=== PATIENT | male | born 1970 | race Caucasian/White ===

== ENCOUNTER 2022-01-05 14:40 | Inpatient (IN) | payer MEDICAID, SELFPAY ==
[2022-01-05 14:41] VITALS: BP 124/99; PULSE 94; RESP 16; TEMP 36.6; O2SAT 100; BMI 18.2
--- NOTE | 2022-01-05 14:58 | EKG12_ITS ---
Test Reason : Blood Pressure : / mmHG Vent. Rate : 082 BPM Atrial Rate : 082 BPM P-R Int : 158 ms QRS Dur : 100 ms QT Int : 542 ms P-R-T Axes : 074 081 061 degrees QTc Int : 633 ms Normal sinus rhythm Right atrial enlargement Nonspecific ST abnormality Prolonged QT Abnormal ECG Confirmed by IRAIDA BAGLEY, DENIZ ([id number]), television news video editor HARI JACKSON ([id number]) on 01/06/2022 1:25:16 PM Referred By: ADAM Confirmed By:DENIZ KHOURY MD
--- NOTE | 2022-01-05 15:00 | EX.ED.DYSGE1 ---
HPI History of Present Illness Chief Complaint: Weakness Detail of Chief Complaint: Generalized weakness for 2 to 3 weeks Informant: patient Narrative Narrative: Patient presents to the emergency department feeling weak for the last 2 to 3 weeks. He presents from home. Patient states he can barely get around with a cane and has to crawl up steps. Patient lives alone. Patient has history of laryngeal cancer with tracheostomy and PEG tube. Patient states that he has been given himself to tube feeds. He denies any fever. He denies significant cough. He denies abdominal pain. He denies vomiting. Patient does have diarrhea daily about once a day. Patient also states that he does drink alcohol but less of late. He does drink daily. He denies illicit drug use. Prior similar symptoms: No PFSH PFSH Medical History (Updated 01/05/22 @ 17:[address] Michael Duncan, ) HTN (hypertension) Laryngeal cancer Tracheostomy in place Home Medications atorvastatin 40 mg PO DAILY 01/05/22 [History Last Taken Unknown] duloxetine 30 mg PO DAILY 01/05/22 [History Last Taken Unknown] methadone 10 mg PO DAILY 01/05/22 [History Last Taken Unknown] omeprazole 40 mg PO DAILY 01/05/22 [History Last Taken Unknown] oxycodone 15 mg PO Q4H PRN 01/05/22 [History Last Taken Unknown] propranolol 40 mg PO BID 01/05/22 [History Last Taken Unknown] sucralfate [Carafate] 10 ml PO BID 01/05/22 [History Last Taken Unknown] Allergy/AdvReac Type Severity Reaction Status Date / Time No Known Allergies Allergy Verified 01/05/22 14:43 Surgical History (Updated 01/05/22 @ 15:50 by Monica Desai) S/P percutaneous endoscopic gastrostomy (PEG) tube placement Social History Smoking Status: Current every day smoker tobacco type: cigarettes ROS ROS ED Constitutional Constitutional ED: Reports systems reviewed and no addt'l complaints, except as documented; Denies body ache(s), change in weight or chills Eyes Eyes: Denies acute decrease in peripheral vision, change in vision, double vision or loss of vision ENT ENT ED: Reports none; Denies ear pain, lip swelling, loss taste/smell, neck pain, otalgia or sore throat Cardiovascular Cardiovascular: Reports none; Denies abdominal pain, chest pain with activity, leg edema, lightheadedness, palpitations, rapid heart rate or syncope Respiratory/Chest Respiratory/Chest: Reports none; Denies change in mental status, dry cough, dyspnea, hemoptysis, shortness of breath at rest or shortness of breath with exertion Gastrointestinal Gastrointestinal: Reports none; Denies abdominal pain, change in stool character, diarrhea, hematemesis, hematochezia, melena, rectal bleeding or vomiting Genitourinary Genitourinary ED: Reports none; Denies abdominal discomfort, anuria, dysuria, genital pain or polyuria Musculoskeletal Musculoskeletal: Reports none; Denies arthralgias, back pain, difficulty walking, extremity pain, muscle weakness or myalgias Integumentary Reports none; Denies abscess or rash Neurologic Neurologic: Reports none and weakness; Denies abnormal gait, confusion, focal weakness, frequent falls, headache(s), loss of vision, numbness, paresthesias, radicular pain or vertigo Psychiatric Psychiatric: Reports systems reviewed and no addt'l complaints, except as documented and none; Denies behavioral changes, confusion, difficulty concentrating, hallucinations, suicidal ideation, tactile hallucinations or visual hallucinations Endocrine Endocrinology: Denies none, cold intolerance, excessive sweating, fatigue or heat intolerance Hematologic/Lymphatic Hematologic/Lymphatic: Reports none; Denies anemia, easy bleeding or easy bruising Allergic/Immunologic Allergic/Immunologic ED: Denies as per HPI, none, lip swelling, mouth swelling, throat swelling, tongue swelling or hives EXAM Physical Exam Const Vital Signs: 01/05/22 14:41 01/05/22 15:48 01/05/22 17:15 Temperature 98 F Temperature Source Temporal Pulse Rate 94 76 Respiratory Rate 16 18 Respiratory Effort Normal Non-Labored Blood Pressure 124/99 H 126/87 H Blood Pressure Mean 107 100 Pulse Ox 100 97 Oxygen Delivery Method Room Air Room Air Positive well nourished and cachectic General Appearance ED: cachectic and NAD Nutritional Appearance: cachectic HEENT Reports TM's clear and moist mucous membranes HEENT Narrative: Tracheostomy in place. normocephalic and atraumatic; Negative for trauma or tenderness Tympanic Membrane ED: Yes TM's clear Eyes PERRL and EOMs intact bilaterally General Eye ED: Negative for pale conjunctiva or scleral icterus Neck no lymphadenopathy, supple and no JVD General: Negative for tenderness Chest Wall inspection of chest normal and palpation of chest normal Chest: Negative for tenderness Resp normal respiratory effort and clear to auscultation bilaterally Effort and Inspection: Negative for respiratory distress or pain with movement Auscultation: Negative for rhonchi, wheezes or diminished lung sounds Cardio regular rate, regular rhythm, S1 normal heart sound, S2 normal heart sound and no murmurs Peripheral Pulses: pulses 2+ throughout GI normal to inspection, nondistended, normoactive bowel sounds, soft to palpation, non-tender, non-distended and no masses GI Narrative: Patient has a PEG tube in place. No drainage from the PEG tube noted. No tenderness on exam. Back/Spine no CVA tenderness and no thoracic nor lumbar tenderness Extremity Extremity Narrative: Multiple superficial abrasions to both knees. General Extremety ED: Negative for edema General Extremity: Negative for edema Neuro oriented x3, CN's II-XII intact bilaterally, no sensory deficits noted and gait normal Sensorium / Orientation: awake, alert, oriented to person, oriented to place and oriented to time Motor Exam: strength 5/5 throughout and strength abnormal Psych mental status grossly normal Skin no rashes or lesions noted and no wounds MDM MDM MDM Narrative Medical decision making narrative: IV line established on arrival. Patient was given normal saline. Lab work-up significant for a low sodium of 122 and a potassium of 2.7. Chloride was 72. Patient was started on IV potassium 40 mill equivalents IV. Patient also noted to have a UTI and was started on Rocephin 1 g IV. Urine culture was sent. Case discussed with hospitalist evaluate patient for admission. Lab Data Attestation: I reviewed the patient's lab results. Labs: Laboratory Results - last 24 hr 01/05/22 01/05/22 01/05/22 16:10 16:10 16:25 WBC 4.8 RBC 4.93 Hgb 15.9 Hct 44.3 MCV 89.9 MCH 32.3 H MCHC 35.9 RDW Std Deviation 41.6 RDW Coeff of Rosemarie 12.7 Plt Count 273 MPV 8.8 Immature Gran % (Auto) 2.300 H Neut % (Auto) 80.2 H Lymph % (Auto) 4.2 L [place] % (Auto) 12.5 H Eos % (Auto) 0.0 Baso % (Auto) 0.8 Absolute Neuts (auto) 3.8 Absolute Lymphs (auto) 0.20 L Nucleated RBC % 0 Platelet Estimate ADEQUATE RBC Morphology N CHROM Anisocytosis 1+ Macrocytosis 1+ Sodium 122 L Potassium 2.7 L* Chloride 72 L* Carbon Dioxide 39.0 H Anion Gap 11 BUN 7 Creatinine 0.62 L Estim Creat Clear Calc 108.52 Est GFR (MDRD) Af Amer 174 Est GFR (MDRD) Non-Af 144 BUN/Creatinine Ratio 11.2 Glucose 131 H Lactic Acid 2.1 H* Calcium 9.6 Total Bilirubin 1.20 H AST 31 ALT 28 Alkaline Phosphatase 158 H Troponin I High Sens 9 Total Protein 7.8 Albumin 3.3 Globulin 4.5 H Albumin/Globulin Ratio 0.7 L Urine Color Urine Clarity Urine pH Ur Specific [place] Urine Protein Urine Glucose (UA) Urine Ketones Urine Occult Blood Urine Nitrite Urine Bilirubin Urine Urobilinogen Ur Leukocyte Esterase Urine RBC Urine WBC Ur Squamous Epith Cells Urine Bacteria Urine Mucus 01/05/22 16:55 WBC RBC Hgb Hct MCV MCH MCHC RDW Std Deviation RDW Coeff of Rosemarie Plt Count MPV Immature Gran % (Auto) Neut % (Auto) Lymph % (Auto) [place] % (Auto) Eos % (Auto) Baso % (Auto) Absolute Neuts (auto) Absolute Lymphs (auto) Nucleated RBC % Platelet Estimate RBC Morphology Anisocytosis Macrocytosis Sodium Potassium Chloride Carbon Dioxide Anion Gap BUN Creatinine Estim Creat Clear Calc Est GFR (MDRD) Af Amer Est GFR (MDRD) Non-Af BUN/Creatinine Ratio Glucose Lactic Acid Calcium Total Bilirubin AST ALT Alkaline Phosphatase Troponin I High Sens Total Protein Albumin Globulin Albumin/Globulin Ratio Urine Color Yellow Urine Clarity Sl. Cloudy Urine pH 8.0 Ur Specific [place] 1.010 Urine Protein 30 H Urine Glucose (UA) Normal Urine Ketones 5 H Urine Occult Blood 25 H Urine Nitrite Positive H Urine Bilirubin Negative Urine Urobilinogen 4 H Ur Leukocyte Esterase 500 H Urine RBC 0-5 SEEN Urine WBC 50-100 SEEN Ur Squamous Epith Cells 0-5 SEEN Urine Bacteria 4+ Urine Mucus 0 SEEN Radiography Chest X-Ray - ED: 1 View Diagnostic Testing: Clinical Impression(s) from Imaging Studies Chest X-Ray 01/05/22 15:14 IMPRESSION: No acute cardiopulmonary abnormality. Electronically Signed: Emmanuel Riley MD at 15:28 EDT , 1 view chest x-ray obtained interpreted by myself no acute disease process EKG Initial EKG: Attestation: I personally reviewed and interpreted this EKG as follows: Comments: Sinus rhythm with a rate of 82 bpm with right atrial enlargement and nonspecific ST changes Discharge Plan Triage Chief Complaint: Weakness ED Provider: Michael Duncan Dx/Rx/DC Orders Clinical Impression: Acute hyponatremia, Acute hypokalemia, Hypochloremia, Weakness, Acute UTI Prescriptions: No Action loperamide 2 mg capsule RF: 0 Primary Care Provider: Wes Parry Referrals: Wes Parry DO [Primary Care Provider] - Disposition Disposition: Acute Care [facility]
--- NOTE | 2022-01-05 15:14 | RAD_ITS ---
EXAM: XR CHEST, 1 VIEW CLINICAL INDICATION: weakness TECHNIQUE: Frontal view of the chest. This report was created using trippiece report generation technology. COMPARISON: None. FINDINGS: LUNGS AND PLEURAL SPACES: Unremarkable. No consolidation or edema. No pneumothorax. No effusion. HEART: Unremarkable. Cardiac silhouette not enlarged. MEDIASTINUM: Central airways and mediastinal contour are unremarkable. BONES/JOINTS: Unremarkable. SOFT TISSUES: Unremarkable. TUBES, LINES AND DEVICES: Tracheostomy tube in satisfactory position. RAD/Chest 1 View (Portable) IMPRESSION: No acute cardiopulmonary abnormality. Electronically Signed: Emmanuel Riley MD at 15:28 EDT ,
[2022-01-05] MEDS: 0.9% Normal Saline 1,000 ML 150 ML IV ×2 (16:15→18:42)
[2022-01-05 16:16] LABS: Absolute Neutrophil Count 3.8 X10^3/uL (2.0-7.7); Basophil# 0.04 X10^3/uL; Basophil% 0.8 % (0-1); Hematocrit 44.3 % (40-54); Hemoglobin 15.9 g/dL (13.0-16.5); Lymphocyte % 4.2 % (19-41); Mean Corp Hgb Conc 35.9 g/dL (32-36); Mean Corpuscular Hgb 32.3 pg (27.0-32.0); Mean Corpuscular Volume 89.9 fL (80-94); Mean Platelet Vol. 8.8 fl (6.2-12.0); Monocyte% 12.5 % (0-10); NRBC Flagged by Analyzer 0 % (0-5); Neutrophil # 3.84 X10^3/uL (2.7-7.7); Neutrophil % 80.2 % (47-70); POSITIVE DIFFERENTIAL YES; Platelet Count 273 K/mm3 (150-450); RBC Distribution Width CV 12.7 % (11.6-14.6); RBC Distribution Width SD 41.6 fl (35.1-43.9); Red Blood Count 4.93 M/mm3 (4.6-6.2); White Blood Count 4.8 K/mm3 (4.4-11.0)
[2022-01-05 16:26] LABS: Differential Indicated SCAN CRITERIA MET
[2022-01-05 16:49] LABS: Platelet Estimate ADEQUATE (ADEQ); Red Cell Morphology N CHROM NORMAL (NORM C&C)
[2022-01-05 16:50] LABS: Anisocytosis 1+; Macrocytosis 1+
[2022-01-05 16:55] LABS: ALB/GLOB Ratio 0.7 RATIO (0.9-2.4); AST(SGOT) 31 U/L (15-37); Alanine Aminotransfer ALT/SGPT 28 U/L (16-61); Albumin, Serum 3.3 g/dL (3.2-5.0); Alkaline Phosphatase 158 U/L (45-117); Anion Gap 11 (5-15); BUN 7 mg/dL (7-18); BUN/Creat Ratio 11.2 RATIO (10-20); Calcium,Total 9.6 mg/dL (8.5-10.1); Chloride 72 mmol/L (98-107); Creatinine, Serum 0.62 mg/dL (0.70-1.30); EST Glomerular Filtration Rate 144 mL/min (>60); Est Glom Filt Rate - Afr Amer 174 mL/min (>60); Estimated Creatinine Clearance 108.52 ml/min; Globulin 4.5 g/dL (2.2-4.2); Glucose 131 mg/dL (74-106); Potassium 2.7 mmol/L (3.5-5.1); Protein, Total 7.8 g/dL (6.4-8.2); Sodium Level 122 mmol/L (136-145); Troponin-I HS 9 pg/mL (3.0-78.0)
[2022-01-05 16:56] LABS: Lactic Acid 2.1 mmol/L (0.4-1.9)
[2022-01-05 17:00] LABS: Mucous, Urine 0 SEEN /hpf (<or=2+)
[2022-01-05 17:01] LABS: Color, Urine Yellow (Yellow); Glucose, Dipstick Normal (Normal); Ketone-Dipstick 5 mg/dl (Negative); Leukocyte Esterase-Dipstick 500 /ul (Negative); Nitrite-Dipstick Positive (Negative); Occult Blood-Urine 25 /ul (Negative); Protein-Dipstick 30 mg/dl (Negative); Urine Bilirubin Dipstick Negative (Negative); Urine Clarity Sl. Cloudy (Clear); Urine Urobilinogen 4 mg/dl (Normal)
[2022-01-05 17:11] LABS: White Blood Cells 50-100 SEEN /hpf (0-5)
[2022-01-05 17:12] LABS: Bacteria 4+ /hpf (None Seen); Red Blood Cells-Urine 0-5 SEEN /hpf (0-5); Squamous Epithelial Cells - UA 0-5 SEEN /hpf (0-5)
[2022-01-05 17:15] VITALS: BP 126/87; PULSE 76; RESP 18; O2SAT 97
[2022-01-05] MEDS: Potassium Chloride 10mEq/100mL 10 MEQ/100 ML IV.SOLN. 100 MEQ IV BOLUS ×5 (17:38→23:12)
[2022-01-05] MEDS: Ceftriaxone 1 GM/50 ML BAG IV (17:42)
[2022-01-05 18:00] VITALS: BP 118/80; PULSE 74; RESP 21; TEMP 36.8; O2SAT 97
[2022-01-05 18:01] LABS: Alcohol, Blood (Medical)-Serum < 3.0 mg/dL
[2022-01-05 18:05] VITALS: BMI 17.7
--- NOTE | 2022-01-05 18:06 | HP.PCM.HOS_ITS ---
Documented by User: Vicky Okeefe NP, SENIOR ENLISTED ADVISOR-C 01/05/22 18:33 HPI - General General Date of Admission: 01/05/22 HPI Narrative MATTHIEU DU, is a 51 M who presents to the emergency room due to diarrhea, weakness and falls. Patient states this has been ongoing for 2 to 3 weeks. He reports multiple episodes of watery diarrhea daily. Denies nausea, vomiting. D enies fever, chills. Sister at bedside states she received a concerning text from patient yesterday and then did not hear back from him. She states she broke in to his house through a window to check on him and he was sitting in his chair. She states he had not been able to get up to take care of himself. She returned today to take him to the emergency room and when she knocked on the door, she states he answered and then face planted onto the concrete. Patient reports chronic alcohol use and typically drinks 12 beers per day through PEG tube. He has a history of laryngeal cancer with tracheostomy and PEG tube. He states he only takes sips of water occasionally, otherwise uses PEG tube for feeding and liquids. He denies abdominal pain. Denies history of withdrawal symptoms. Denies other drug use. His past medical history includes laryngeal cancer (considered in remission), tobacco dependence, hyperlipidemia, hypertension, depression/anxiety. [facility] Medical History HTN (hypertension) Laryngeal cancer Tracheostomy in place Home Medications atorvastatin 40 mg PO DAILY 01/05/22 [History Last Taken 01/04/22] duloxetine 30 mg PO DAILY 01/05/22 [History Last Taken 01/04/22] methadone 10 mg PO DAILY 01/05/22 [History Last Taken 01/04/22] omeprazole 40 mg PO DAILY 01/05/22 [History Last Taken 01/04/22] oxycodone 15 mg PO Q4H PRN 01/05/22 [History Last Taken 01/04/22] propranolol 40 mg PO BID 01/05/22 [History Last Taken 01/04/22] sucralfate [Carafate] 10 ml PO BID 01/05/22 [History Last Taken 01/04/22] Allergy/AdvReac Type Severity Reaction Status Date / Time No Known Allergies Allergy Verified 01/05/22 14:43 Family History (Updated 01/05/22 @ 18:20 by Vicky Okeefe NP, SENIOR ENLISTED ADVISOR-C) Mother Cancer cervical Father Heart disease Surgical History (Updated 01/05/22 @ 18:20 by Vicky Okeefe NP, SENIOR ENLISTED ADVISOR-C) H/O tracheostomy S/P percutaneous endoscopic gastrostomy (PEG) tube placement Social History (Updated 01/05/22 @ 18:21 by Vicky Okeefe NP, SENIOR ENLISTED ADVISOR-C) household members: none Smoking Status: Current every day smoker tobacco type: cigarettes alcohol intake: current alcohol intake frequency: 3 or more drinks per day Alcohol type: beer substance use type: does not use ROS Constitutional Constitutional: Reports change in weight, fatigue and weakness; Denies chills or fever(s) Cardiovascular Cardiovascular: Denies chest pain, edema, lightheadedness, palpitations or syncope Respiratory/Chest Respiratory/Chest: Denies cough, dyspnea, productive cough, shortness of breath at rest, shortness of breath with exertion or wheezing Gastrointestinal Gastrointestinal: Reports diarrhea; Denies abdominal pain, constipation, nausea or vomiting Genitourinary Genitourinary: Denies burning urination, difficulty urinating, dysuria, hematuria, urinary frequency, urinary incontinence or urinary urgency Musculoskeletal Musculoskeletal: Denies back pain, joint pain or muscle weakness Integumentary Integumentary: Denies erythema, lesions, rash or wounds Neurologic Neurologic: Denies abnormal speech, confusion, dizziness, focal weakness, numbness, paresthesias, seizure-like activity or syncope Psychiatric Psychiatric: Denies anxiety or depression Hematologic/Lymphatic Hematologic/Lymphatic: Denies anemia, easy bleeding or easy bruising Allergic/Immunologic Allergic/Immunologic: Denies hives or asthma Vital Signs Vital Signs Vital Signs: 01/05/22 14:41 01/05/22 15:48 01/05/22 17:15 Temperature 98 F Temperature Source Temporal Pulse Rate 94 76 Respiratory Rate 16 18 Respiratory Effort Normal Non-Labored Blood Pressure 124/99 H 126/87 H Blood Pressure Mean 107 100 Pulse Ox 100 97 Oxygen Delivery Method Room Air Room Air Weight Weight: 116 lb 9.6 oz Body Mass Index (BMI) 17.7 Physical Exam Const alert and oriented x3 Orientation / Consciousness: awake, oriented to person, oriented to place and oriented to time HEENT normocephalic HEENT Narrative: Tracheostomy in place Mouth: dry mucous membranes Eyes PERRL, EOMs intact bilaterally and conjunctivae normal Neck no lymphadenopathy Resp normal respiratory effort and clear to auscultation bilaterally Cardio regular rate, regular rhythm and no murmurs Peripheral Pulses: pulses 2+ throughout GI normal to inspection, nondistended, normoactive bowel sounds, non-tender and non-distended GI Narrative: PEG tube in place Extremity normal to inspection Skin no rashes or lesions noted Lesions: no lesions Rashes: no rashes Trauma: no lacerations or abrasions Neuro CN's II-XII intact bilaterally, no focal motor deficits, no sensory deficits noted and deep tendon reflexes 2+ bilaterally Psych mental status grossly normal and affect normal Results Lab / Micro Data Result Diagrams: 01/05/22 16:10 01/05/22 16:10 Labs: Laboratory Results - last 24 hr 01/05/22 16:10: WBC 4.8, RBC 4.93, Hgb 15.9, Hct 44.3, MCV 89.9, MCH 32.3 H, MCHC 35.9, RDW Std Deviation 41.6, RDW Coeff of Rosemarie 12.7, Plt Count 273, MPV 8.8, Immature Gran % (Auto) 2.300 H, Neut % (Auto) 80.2 H, Lymph % (Auto) 4.2 L, [place] % (Auto) 12.5 H, Eos % (Auto) 0.0, Baso % (Auto) 0.8, Absolute Neuts (auto) 3.8, Absolute Lymphs (auto) 0.20 L, Nucleated RBC % 0, Platelet Estimate ADEQUATE, RBC Morphology N CHROM, Anisocytosis 1+, Macrocytosis 1+ 01/05/22 16:10: Sodium 122 L, Potassium 2.7 L*, Chloride 72 L*, Carbon Dioxide 39.0 H, Anion Gap 11, BUN 7, Creatinine 0.62 L, Estim Creat Clear Calc 108.52, Est GFR (MDRD) Af Amer 174, Est GFR (MDRD) Non-Af 144, BUN/Creatinine Ratio 11.2, Glucose 131 H, Calcium 9.6, Total Bilirubin 1.20 H, AST 31, ALT 28, Alkaline Phosphatase 158 H, Troponin I High Sens 9, Total Protein 7.8, Albumin 3.3, Globulin 4.5 H, Albumin/Globulin Ratio 0.7 L 01/05/22 16:25: Ethyl Alcohol < 3.0 01/05/22 16:25: Lactic Acid 2.1 H* 01/05/22 16:55: Urine Color Yellow, Urine Clarity Sl. Cloudy, Urine pH 8.0, Ur Specific [place] 1.010, Urine Protein 30 H, Urine Glucose (UA) Normal, Urine Ketones 5 H, Urine Occult Blood 25 H, Urine Nitrite Positive H, Urine Bilirubin Negative, Urine Urobilinogen 4 H, Ur Leukocyte Esterase 500 H, Urine RBC 0-5 SEEN, Urine WBC 50-100 SEEN, Ur Squamous Epith Cells 0-5 SEEN, Urine Bacteria 4+, Urine Mucus 0 SEEN Micro: Microbiology 01/05/22 15:24 Nasal Secretion SARS-CoV-2 & FLU Antigen (Rapid) - Final Radiology Impression Chest X-Ray 01/05/22 15:14 IMPRESSION: No acute cardiopulmonary abnormality. Electronically Signed: Emmanuel Riley MD at 15:28 EDT Reading Location ID and State: [facility] / [place] Tel , Service support , Assessment & Plan Assessment/Plan (1) Acute hyponatremia: (2) Acute hypokalemia: (3) Acute UTI: (4) Weakness: PLAN: 1. Hypokalemia, secondary to GI losses and alcohol use- replace per protocol. Trend BMP. 2. Acute hyponatremia-likely related to hypovolemia and/or beer protomania. IV fluids, trend BMP. 3. Acute UTI-IV Rocephin pending culture. 4. Debility with falls-PT/OT. Case management/social work consult for discharge planning. Fall precautions. 5. Alcohol abuse-admits to 12 beers per day per PEG tube. CIWA/Ativan protocol. Declines addiction medicine consult. Denies history of withdrawal symptoms. 6. Intractable diarrhea-send stool for C. difficile, enteric pathogen panel. 7. Laryngeal cancer-considered in remission. Status post tracheostomy. PEG tube in place. Dietitian/speech therapy consult. NPO. 8. Tobacco dependence-strongly encouraged cessation. Nicotine replacement patch. 9. Hyperlipidemia-continue statin. 10. Hypertension-continue propranolol. 11. Depression/anxiety on duloxetine. 12. Chronic pain-on methadone. 13. GERD- PPI/carafate. DVT prophylaxis-Heparin subcu This patient was seen by Vicky Okeefe NP-C under the supervision of Dr. Leal. Time spent examining patient, reviewing data and subsequent management of care: 25 minutes Documented by User: Dr. Breanna Leal MD 01/05/22 19:14 HPI - General General Date of Admission: 01/05/22 [facility] Medical History HTN (hypertension) Laryngeal cancer Tracheostomy in place Home Medications atorvastatin 40 mg PO DAILY 01/05/22 [History Last Taken 01/04/22] duloxetine 30 mg PO DAILY 01/05/22 [History Last Taken 01/04/22] methadone 10 mg PO DAILY 01/05/22 [History Last Taken 01/04/22] omeprazole 40 mg PO DAILY 01/05/22 [History Last Taken 01/04/22] oxycodone 15 mg PO Q4H PRN 01/05/22 [History Last Taken 01/04/22] propranolol 40 mg PO BID 01/05/22 [History Last Taken 01/04/22] sucralfate [Carafate] 10 ml PO BID 01/05/22 [History Last Taken 01/04/22] Allergy/AdvReac Type Severity Reaction Status Date / Time No Known Allergies Allergy Verified 01/05/22 14:43 Family History (Updated 01/05/22 @ 18:20 by Vicky Okeefe NP, SENIOR ENLISTED ADVISOR-C) Mother Cancer cervical Father Heart disease Surgical History (Updated 01/05/22 @ 18:20 by Vicky Okeefe NP, SENIOR ENLISTED ADVISOR-C) H/O tracheostomy S/P percutaneous endoscopic gastrostomy (PEG) tube placement Social History (Updated 01/05/22 @ 18:21 by Vicky Okeefe NP, SENIOR ENLISTED ADVISOR-C) household members: none Smoking Status: Current every day smoker tobacco type: cigarettes alcohol intake: current alcohol intake frequency: 3 or more drinks per day Alcohol type: beer substance use type: does not use Results Lab / Micro Data Result Diagrams: 01/05/22 16:10 01/05/22 16:10 Charges/Coding Addendum Addendum: This patient was seen in conjunction with Vicky Okeefe NP. I have independently interviewed and examined the patient and reviewed pertinent historical, laboratory, and other data. I have reviewed her note and concur with her documentation 51-year-old male with past medical history of laryngeal CA in remission, status post tracheostomy and PEG tube, history of chronic alcohol use who comes in with generalized weakness. Patient lives alone. His sister checked on him and found him to be very weak. He convinced him that she was not sent to the hospital the next day. Today, as patient opened the door, he fell down face flat. He denied any dizziness or palpitation but admits to feeling very weak. Denies any fever or chills. He admits to diarrhea, profuse, ongoing for months, about 2 large watery bowel movements. He continues to smoke Physical Exam: Gen: Comfortable, not pale, not jaundiced, appears frail, tracheostomy in place CVS:HS I +II, regular, no murmurs RESP: Diminished at lung bases GI: PEG tube in situ, clean, BS present and normal, soft, nontender, no palpable organs EXT:No edema Labs: Sodium 122, potassium 2.7, chloride 72, bicarbonate 39, BUN 7, creatinine 0.6, lactic acid 2.1 ASSESSMENT: 1. Acute on chronic debility 2. Severe hypokalemia 3. Lactic acidosis 4. Laryngeal CA in remission 5. Nicotine dependence 6. Alcohol abuse 7. Chronic diarrhea 8. Chronic pain syndrome 9. Asymptomatic bacteriuria Plan: Replace electrolytes Check magnesium level IV fluid PT/OT to evaluate and treat Stool studies Continue on methadone, oxycodone Continue propranolol Continue Cymbalta Monitor with CIWA protocol Time spent taking history, physical exam, coordinating all aspects of patient's care, answering questions from patient and his sister:55 minutes Visit Charges Inpatient E&M: 10648 Init Hosp L3
[2022-01-05 18:11] VITALS: PULSE 70
[2022-01-05 20:32] LABS: Reflex Lactate? Y
[2022-01-05 21:11] LABS: Magnesium 2.1 mg/dL (1.6-2.6)
[2022-01-05 21:24] LABS: Lactic Acid 1.8 mmol/L (0.4-1.9)
[2022-01-05] MEDS: Heparin Injection (Vial) 5,000 UNIT/ML VIAL 5000 UNIT SC (23:16)
[2022-01-05 23:19] VITALS: BP 108/74; PULSE 59; RESP 20; TEMP 36.9; O2SAT 97
[2022-01-05] MEDS: Atorvastatin Calcium 40 MG Tablet PO (23:19)
[2022-01-06] VITALS (11 sets, daily range): BP systolic 107–136; BP diastolic 74–88; PULSE 57–92; RESP 14–20; TEMP 36.1–36.7; O2SAT 94–99
[2022-01-06] MEDS: Potassium Chloride 10mEq/100mL 10 MEQ/100 ML IV.SOLN. 100 MEQ IV BOLUS ×5 (00:27→09:13)
[2022-01-06] MEDS: 0.9% Normal Saline 1,000 ML 150 ML IV ×2 (01:27→09:12)
[2022-01-06 04:32] LABS: Absolute Lymphocyte Count 0.26 X10^3/uL (0.83-4.51); Basophil# 0.01 X10^3/uL; Basophil% 0.4 % (0-1); Hematocrit 32.4 % (40-54); Hemoglobin 11.7 g/dL (13.0-16.5); Lymphocyte # 0.26 X10^3/ul (0.83-4.51); Lymphocyte % 9.3 % (19-41); Mean Corp Hgb Conc 36.1 g/dL (32-36); Mean Corpuscular Hgb 33.1 pg (27.0-32.0); Mean Corpuscular Volume 91.8 fL (80-94); Mean Platelet Vol. 8.8 fl (6.2-12.0); Monocyte# 0.47 X10^3/uL; Monocyte% 16.7 % (0-10); NRBC Flagged by Analyzer 0 % (0-5); Neutrophil % 71.1 % (47-70); POSITIVE DIFFERENTIAL YES; Platelet Count 221 K/mm3 (150-450); RBC Distribution Width SD 43.3 fl (35.1-43.9); Red Blood Count 3.53 M/mm3 (4.6-6.2); White Blood Count 2.8 K/mm3 (4.4-11.0)
[2022-01-06 04:54] LABS: Differential Indicated SCAN CRITERIA MET
[2022-01-06 05:18] LABS: ALB/GLOB Ratio 0.7 RATIO (0.9-2.4); AST(SGOT) 18 U/L (15-37); Alanine Aminotransfer ALT/SGPT 19 U/L (16-61); Albumin, Serum 2.2 g/dL (3.2-5.0); Alkaline Phosphatase 105 U/L (45-117); Anion Gap 8 (5-15); BUN 6 mg/dL (7-18); BUN/Creat Ratio 19.8 RATIO (10-20); Calcium,Total 7.6 mg/dL (8.5-10.1); Chloride 84 mmol/L (98-107); EST Glomerular Filtration Rate 331 mL/min (>60); Est Glom Filt Rate - Afr Amer 401 mL/min (>60); Estimated Creatinine Clearance 228.27 ml/min; Globulin 3.2 g/dL (2.2-4.2); Glucose 89 mg/dL (74-106); Potassium 2.1 mmol/L (3.5-5.1); Protein, Total 5.4 g/dL (6.4-8.2); Sodium Level 126 mmol/L (136-145)
--- NOTE | 2022-01-06 05:18 | NURSING ---
Pts primary rn aware of k of 2.1 at this time.
[2022-01-06 05:29] LABS: Differential Comment SCANNED
[2022-01-06] MEDS: Propranolol 40 MG Tablet PO ×2 (09:30→20:30)
[2022-01-06] MEDS: Potassium Chloride Oral Tablet 20 MEQ 40 MEQ PO (09:30)
[2022-01-06] MEDS: Thiamine Hydrochloride 100 MG Tablet PO (09:30)
[2022-01-06] MEDS: Folic Acid 1 MG Tablet PO (09:30)
[2022-01-06] MEDS: Pantoprazole Sodium 40 MG Tablet PO (09:30)
[2022-01-06] MEDS: Sucralfate 1 GM Tablet PO ×2 (09:30→17:02)
[2022-01-06] MEDS: DULoxetine Hcl 30 MG Capsule PO (09:30)
[2022-01-06] MEDS: Heparin Injection (Vial) 5,000 UNIT/ML VIAL 5000 UNIT SC ×2 (09:31→20:29)
--- NOTE | 2022-01-06 10:51 | PN.HOSP_ITS ---
Documented by User: Vicky Okeefe EDITORIAL WRITER, EDITORIAL WRITER-C 01/06/22 11:03 Subjective Subjective Patient seen and examined. Denies further diarrhea. States he still feels weak. Denies other symptoms or complaints. Objective Data Objective Data Vital Signs: Vital Signs Temp Pulse Resp BP Pulse Ox 97.8 F 64 20 H 120/78 94 01/06/22 09:27 01/06/22 09:27 01/06/22 09:27 01/06/22 09:27 01/06/22 09:27 Oxygen Delivery Method Room Air Weight: 122 lb 2.177 oz Body Mass Index (BMI) 17.7 Intake & Output: Intake and Output for Last 24 Hours 01/04/22 01/05/22 01/06/22 23:59 23:59 23:59 Intake Total 817.5 / 817.5 2630 / 2630 Output Total 175 / 175 Balance 817.5 / 817.5 2455 / 2455 Medical Nutrition Assessment Dietitian: Malnutrition Criteria Met Start: 01/06/22 09:34 Freq: Status: Active Protocol: Document 01/06/22 09:34 AG (Rec: 01/06/22 09:34 [id number]) Nutrition Malnutrition Evidence of Malnutrition Exists Yes Malnutrition (severe): Chronic Evidenced By Suboptimal Energy Intake ( Severe),Weight Loss (Severe), Physical Changes (Severe) Clinical Problem Chronic Disease or Condition Related Malnutrition Etiology severe, chronic malnutrition r /t inadequate energy intake w/ increased energy needs w/ history of laryngeal cancer Signs/Symptoms as evidenced by unintentional wt loss of 38.4#/25% x 1 year; estimated energy intake via PEG/PO diet meeting <75% of estimated energy needs x 1 year; severe muscle wasting/ fat loss per physical exam; BMI 18.6 Status Active Problem Recommendation Dietitian Recommendations/Changes Via PEG- Jevity 1.5- 450mL 3x/ day w/ 75mL H2O flush before and after each bolus to provide 2025 calories, 86 g protein, and 1476mL total fluid/day. Would recommend additional 75mL H2O flushes via PEG every 4 hours to provide 1926mL total fluid/day . Will also order Royce BID via PEG mixed in 240mL H2O. NPO until CUSTOMER CARE SPECIALIST evaluation. Lab / Micro Data Result Diagrams: 01/06/22 03:58 01/06/22 17:23 Labs: Laboratory Results - last 24 hr 01/05/22 16:10: WBC 4.8, RBC 4.93, Hgb 15.9, Hct 44.3, MCV 89.9, MCH 32.3 H, MCHC 35.9, RDW Std Deviation 41.6, RDW Coeff of Rosemarie 12.7, Plt Count 273, MPV 8.8, Immature Gran % (Auto) 2.300 H, Neut % (Auto) 80.2 H, Lymph % (Auto) 4.2 L, [place] % (Auto) 12.5 H, Eos % (Auto) 0.0, Baso % (Auto) 0.8, Absolute Neuts (auto) 3.8, Absolute Lymphs (auto) 0.20 L, Nucleated RBC % 0, Platelet Estimate ADEQUATE, RBC Morphology N CHROM, Anisocytosis 1+, Macrocytosis 1+ 01/05/22 16:10: Sodium 122 L, Potassium 2.7 L*, Chloride 72 L*, Carbon Dioxide 39.0 H, Anion Gap 11, BUN 7, Creatinine 0.62 L, Estim Creat Clear Calc 108.52, Est GFR (MDRD) Af Amer 174, Est GFR (MDRD) Non-Af 144, BUN/Creatinine Ratio 11.2, Glucose 131 H, Calcium 9.6, Total Bilirubin 1.20 H, AST 31, ALT 28, Alkaline Phosphatase 158 H, Troponin I High Sens 9, Total Protein 7.8, Albumin 3.3, Globulin 4.5 H, Albumin/Globulin Ratio 0.7 L 01/05/22 16:10: Magnesium 2.1 01/05/22 16:25: Ethyl Alcohol < 3.0 01/05/22 16:25: Lactic Acid 2.1 H* 01/05/22 16:55: Urine Color Yellow, Urine Clarity Sl. Cloudy, Urine pH 8.0, Ur Specific Erie 1.010, Urine Protein 30 H, Urine Glucose (UA) Normal, Urine Ketones 5 H, Urine Occult Blood 25 H, Urine Nitrite Positive H, Urine Bilirubin Negative, Urine Urobilinogen 4 H, Ur Leukocyte Esterase 500 H, Urine RBC 0-5 SEEN, Urine WBC 50-100 SEEN, Ur Squamous Epith Cells 0-5 SEEN, Urine Bacteria 4+, Urine Mucus 0 SEEN 01/05/22 20:45: Lactic Acid 1.8 01/06/22 03:58: WBC 2.8 L, RBC 3.53 L, Hgb 11.7 L, Hct 32.4 L, MCV 91.8, MCH 33.1 H, MCHC 36.1 H, RDW Std Deviation 43.3, RDW Coeff of Rosemarie 13.0, Plt Count 221, MPV 8.8, Immature Gran % (Auto) 2.500 H, Neut % (Auto) 71.1 H, Lymph % (Auto) 9.3 L, Rac[place] % (Auto) 16.7 H, Eos % (Auto) 0.0, Baso % (Auto) 0.4, Absolute Neuts (auto) 2.0, Absolute Lymphs (auto) 0.26 L, Nucleated RBC % 0, Differential Comment SCANNED, Diff Path Review December01/06/22 03:58: Sodium 126 L, Potassium 2.1 L*, Chloride 84 L, Carbon Dioxide 34.0 H, Anion Gap 8, BUN 6 L, Creatinine 0.30 L, Estim Creat Clear Calc 228.27, Est GFR (MDRD) Af Amer 401, Est GFR (MDRD) Non-Af 331, BUN/Creatinine Ratio 19.8, Glucose 89, Calcium 7.6 L, Total Bilirubin 0.70, AST 18, ALT 19, Alkaline Phosphatase 105, Total Protein 5.4 L, Albumin 2.2 L, Globulin 3.2, Albumin/Globulin Ratio 0.7 L Micro: Microbiology 01/05/22 15:24 Nasal Secretion SARS-CoV-2 & FLU Antigen (Rapid) - Final Radiography Diagnostic Testing: Radiology Impression Chest X-Ray 01/05/22 15:14 IMPRESSION: No acute cardiopulmonary abnormality. Electronically Signed: Emmanuel Riley MD at 15:28 EDT , Physical Exam Const alert, oriented x3 and no apparent distress Orientation / Consciousness: awake, oriented to person, oriented to place and oriented to time Nutritional Appearance: cachectic HEENT normocephalic HEENT Narrative: Tracheostomy in place Mouth: dry mucous membranes Eyes PERRL, EOMs intact bilaterally and conjunctivae normal Neck no lymphadenopathy Resp normal respiratory effort and clear to auscultation bilaterally Cardio regular rate, regular rhythm and no murmurs Peripheral Pulses: pulses 2+ throughout GI normal to inspection, nondistended, normoactive bowel sounds, non-tender and non-distended GI Narrative: PEG tube in place Extremity normal to inspection Skin no rashes or lesions noted Lesions: no lesions Rashes: no rashes Trauma: no lacerations or abrasions Neuro CN's II-XII intact bilaterally, no focal motor deficits, no sensory deficits noted and deep tendon reflexes 2+ bilaterally Psych mental status grossly normal and affect normal Assessment & Plan Assessment/Plan (1) Acute UTI: (2) Weakness: (3) Acute hypokalemia: (4) Acute hyponatremia: PLAN: 1. Hypokalemia, secondary to GI losses and alcohol use- replace per protocol. Trend BMP. 2. Acute hyponatremia-likely related to hypovolemia and/or beer protomania. Improving. Continue IV fluids, trend BMP. 3. Acute UTI-IV Rocephin pending culture. 4. Debility with falls-PT/OT. Case management/social work consult for discharge planning. Fall precautions. 5. Alcohol abuse-admits to 12 beers per day per PEG tube. CIWA/Ativan protocol. Declines addiction medicine consult. Denies history of withdrawal symptoms. 6. Intractable diarrhea-send stool for C. difficile, enteric pathogen panel. No further diarrhea since admission. 7. Laryngeal cancer-considered in remission. Status post tracheostomy. PEG tube in place. Dietitian/speech therapy consult. NPO. 8. Tobacco dependence-strongly encouraged cessation. Nicotine replacement patch. 9. Hyperlipidemia-continue statin. 10. Hypertension-continue propranolol. 11. Depression/anxiety on duloxetine. 12. Chronic pain-on methadone. 13. GERD- PPI/carafate. 14. Severe protein calorie malnutrition-as evidenced by muscle and fat loss, unintentional weight loss of 25% over the past year. BMI 18.6. Dietitian consulted. Continue nutritional supplementation per dietitian recommendations. DVT prophylaxis-Heparin subcu This patient was seen by Vicky Okeefe NP-C under the supervision of Dr. Leal. Time spent examining patient, reviewing data and subsequent management of care: 14 minutes Documented by User: Dr. Breanna Leal MD 01/06/22 18:07 Objective Data Lab / Micro Data Result Diagrams: 01/06/22 03:58 01/06/22 17:23 Charges/Coding Addendum Addendum: This patient was seen in conjunction with Vicky Okeefe NP. I have independently interviewed and examined the patient and reviewed pertinent historical, laboratory, and other data. I have reviewed her note and concur with her documentation Patient was seen and examined. He stated he felt improved. He denied any more diarrhea. No other acute events overnight. Physical Exam: Gen: Comfortable, not pale, not jaundiced, appears frail, tracheostomy in place CVS:HS I +II, regular, no murmurs RESP: Diminished at lung bases GI: PEG tube in situ, clean, BS present and normal, soft, nontender, no palpable organs EXT:No edema ASSESSMENT: 1. Acute on chronic debility 2. Severe hypokalemia 3. Lactic acidosis 4. Laryngeal CA in remission 5. Nicotine dependence 6. Alcohol abuse 7. Chronic diarrhea 8. Chronic pain syndrome 9. Asymptomatic bacteriuria Plan: Replace potassium PT/OT to evaluate and treat Repeat labs in am Time spent coordinating all aspects of patient's care, answering questions from patient and his sister:30 minutes Visit Charges Inpatient E&M: 58562 Subs Hosp L2
[2022-01-06] MEDS: Jevity 1.5. 1,000 ML Bottle 450 ML GT ×2 (11:02→17:02)
--- NOTE | 2022-01-06 11:25 | CASEMGMT ---
JOHN PINEDO assessment: Face to Face with patient for initial transition planning/care coordination assessment. RN KHRIS introduced self and role at [facility], pt voices understanding and consents to assessment. Pt is sitting up in bed in no distress on room air. Pt does have a chronic trach and PEG tube s/p laryngeal cancer. Pt is A/Ox4 and answers all questions appropriately. Care providers, pharmacy, and demographics verified. Presentation: Pt c/o progressive weakness over past several weeks, 'I can't crawl up my steps anymore' Hx laryngeal cancer, has trach Admitting dx: Debility, hypokalemia PCP: [facility] Specialists: [facility]; [facility]; [facility] Preferred Pharmacy: [facility] Insurance: [employer] Prescription Benefit: [employer] Living Will/HPOA: Pt does not ahve LW/HPOA but is interested in completing paperwork. Agus BLAIR aware, voices understanding. LNOK: Amy Palacios, sister Living Arrangements: Pt lives alone in 2 story home with bedroom upstairs and states concerns caring for self at home. Pt is normally independent with ADL's but states has been too weak to care for self. Transportation: Pt states normally drives self and states no transportation concerns. DME/HHC: Pt has a cane and grab bars. Pt does tube feed bolus's four times daily and gets supplies thru [employer]. Pt states also has home suction unit and trach supplies but cannot remember company name. Pt states no hx of HHC or SNF. Pt states concerns with going home and would like to go to SNF at discharge for rehab. Pt provided with a list of SNF providers including qualify and resource use data and consistent with the pt's preferred geographic region, medical needs and insurance network. CM to f/u with pt about choice. Pt is currently unemployed. Pt smokes about a pack of cigarettes daily and also puts 12 beers into PEG daily, although pt states this has decreased as he has not felt well lately. Pt declines need for any ETOH resources, stating 'It's not a problem.' Pt voices no further concerns/needs. CM to follow for any further discharge planning/needs. Advised pt to ask for CM if any further questions/concerns/needs arise, voices understanding. Plan: SNF, pending choice and therapy evals. SStaten JOHN PINEDO
--- NOTE | 2022-01-06 12:25 | CASEMGMT ---
SW met with patient. Introduced self and role at [facility]. SW asked patient if he had a chance to review the halfway list. Patient said he has, but he would like to go over it with his family. Patient said someone should be in later today. SW will check back with patient. Saloni PEOPLES
[2022-01-06 13:03] LABS: Anion Gap 8 (5-15); BUN 6 mg/dL (7-18); Calcium,Total 8.4 mg/dL (8.5-10.1); Chloride 87 mmol/L (98-107); Creatinine, Serum 0.54 mg/dL (0.70-1.30); EST Glomerular Filtration Rate 169 mL/min (>60); Est Glom Filt Rate - Afr Amer 205 mL/min (>60); Estimated Creatinine Clearance 126.82 ml/min; Glucose 187 mg/dL (74-106); Potassium 2.9 mmol/L (3.5-5.1); Sodium Level 125 mmol/L (136-145)
[2022-01-06] MEDS: Ceftriaxone 1 GM/50 ML BAG IV (13:15)
[2022-01-06] MEDS: KCL 20MEQ in 0.9% NS 20 MEQ/1,000 ML IV.SOLN. 125 MEQ IV ×2 (13:56→20:45)
[2022-01-06 14:04] LABS: Pathologist Review Reviewed
--- NOTE | 2022-01-06 14:47 | CASEMGMT ---
Pt worked with therapy and this RN CM back to room to discuss d/c plan with pt. Pt states his dad was here but he has still not made a decision, he wants one more opinion from his sister. Pt states he will call her, if needed. CM to follow. Lilian LOPEZ CM
[2022-01-06] MEDS: Juven (unflavored) Packet 1 PACKET GT (17:02)
[2022-01-06] MEDS: Loperamide (Oral Liquid) 1 MG/7.5 ML ML 2 MG GT (17:02)
[2022-01-06] MEDS: Potassium Chloride Oral Soln 20 MEQ/15 ML UDC 40 MEQ GT ×3 (17:15→20:30)
[2022-01-06 17:45] LABS: Potassium 2.9 mmol/L (3.5-5.1)
[2022-01-06] MEDS: Atorvastatin Calcium 40 MG Tablet PO (20:28)
[2022-01-06] MEDS: traZODone 100 MG Tablet PO (20:46)
[2022-01-06] MEDS: Methadone 10 MG Tablet PO (20:46)
--- NOTE | 2022-01-06 21:48 | NURSING ---
After speaking with pt, pt states his Oncologist changed his tube feeds from Jevity 1.5 to a different kind of Jevity d/t him having diarrhea. He is not sure which kind. Will pass this information on to bc RN in hopes we can figure out which Jevity he uses at home.
[2022-01-07] VITALS (11 sets, daily range): BP systolic 85–105; BP diastolic 63–68; PULSE 52–65; RESP 12–18; TEMP 36.6–37; O2SAT 92–99
[2022-01-07] MEDS: MELATONIN 3 MG TABLET PO (01:06)
[2022-01-07] MEDS: 0.9% Normal Saline 1,000 ML 999 ML IV (03:45)
[2022-01-07] MEDS: KCL 20MEQ in 0.9% NS 20 MEQ/1,000 ML IV.SOLN. 125 MEQ IV ×2 (05:59→16:40)
[2022-01-07] MEDS: Sucralfate 1 GM Tablet PO ×2 (05:59→15:53)
[2022-01-07] MEDS: Potassium Chloride Oral Soln 20 MEQ/15 ML UDC 40 MEQ GT (05:59)
[2022-01-07 06:13] LABS: Differential Indicated MANUAL DIFF; Hematocrit 30.6 % (40-54); Hemoglobin 10.4 g/dL (13.0-16.5); Mean Corpuscular Hgb 32.6 pg (27.0-32.0); Mean Corpuscular Volume 95.9 fL (80-94); Mean Platelet Vol. 8.7 fl (6.2-12.0); POSITIVE COUNT YES; POSITIVE DIFFERENTIAL YES; POSITIVE MORPHOLOGY YES; Platelet Count 202 K/mm3 (150-450); RBC Distribution Width CV 13.6 % (11.6-14.6); RBC Distribution Width SD 47.8 fl (35.1-43.9); Red Blood Count 3.19 M/mm3 (4.6-6.2); White Blood Count 3.7 K/mm3 (4.4-11.0)
[2022-01-07 06:33] LABS: Total Cells Counted 100 (MANUAL DIFF)
[2022-01-07 06:34] LABS: Lymphocyte 7 % (19-41); Monocyte 9 % (0-10); Myelocyte 2 % (0-0); Neutrophil-Band 2 % (0-5); Neutrophil-Segmented 80 % (47-70); Platelet Estimate ADEQUATE (ADEQ)
[2022-01-07 06:36] LABS: Absolute Lymphocyte Count 0.26 X10^3/uL (0.83-4.51); Lymphocyte # 0.26 X10^3/ul (0.83-4.51); Neutrophil # 2.99 X10^3/uL (2.7-7.7)
[2022-01-07 06:37] LABS: Hypochromasia 1+; Red Cell Morphology N CYTIC NORMAL (NORM C&C)
[2022-01-07 06:40] LABS: ALB/GLOB Ratio 0.8 RATIO (0.9-2.4); AST(SGOT) 15 U/L (15-37); Alanine Aminotransfer ALT/SGPT 15 U/L (16-61); Albumin, Serum 2.1 g/dL (3.2-5.0); Alkaline Phosphatase 88 U/L (45-117); Anion Gap 6 (5-15); BUN 8 mg/dL (7-18); BUN/Creat Ratio 23.5 RATIO (10-20); Calcium,Total 7.7 mg/dL (8.5-10.1); Chloride 102 mmol/L (98-107); Creatinine, Serum 0.34 mg/dL (0.70-1.30); EST Glomerular Filtration Rate 289 mL/min (>60); Est Glom Filt Rate - Afr Amer 350 mL/min (>60); Estimated Creatinine Clearance 201.41 ml/min; Globulin 2.8 g/dL (2.2-4.2); Glucose 91 mg/dL (74-106); Magnesium 1.8 mg/dL (1.6-2.6); Potassium 4.2 mmol/L (3.5-5.1); Protein, Total 4.9 g/dL (6.4-8.2); Sodium Level 132 mmol/L (136-145)
[2022-01-07] MEDS: Jevity 1.5. 1,000 ML Bottle 450 ML GT (08:20)
--- NOTE | 2022-01-07 09:44 | CASEMGMT ---
SW met with patient. Patient was sleeping, but did wake up for SW. Patient said he would like [facility]. SW asked if he has any other choices in case [facility] cannot take him. Patient did not. SW told patient to continue to look at the list as he needs some other options just in case. SW called [facility] regarding referral and also faxed referral. Saloni Harper PRINCIPAL CYBER ENGINEER RICHELLE
[2022-01-07] MEDS: Pantoprazole Sodium 40 MG Tablet PO (09:46)
[2022-01-07] MEDS: DULoxetine Hcl 30 MG Capsule PO (09:46)
[2022-01-07] MEDS: Thiamine Hydrochloride 100 MG Tablet PO (09:47)
[2022-01-07] MEDS: Juven (unflavored) Packet 1 PACKET GT ×2 (09:47→18:25)
[2022-01-07] MEDS: Heparin Injection (Vial) 5,000 UNIT/ML VIAL 5000 UNIT SC ×2 (09:47→22:21)
[2022-01-07] MEDS: Folic Acid 1 MG Tablet PO (09:47)
[2022-01-07] MEDS: Methadone 10 MG Tablet PO ×2 (09:47→22:16)
[2022-01-07] MEDS: Ceftriaxone 1 GM/50 ML BAG IV (10:02)
--- NOTE | 2022-01-07 10:30 | PN.HOSP_ITS ---
Documented by User: Aurea Mckeon NP-Willis 01/07/22 11:00 Subjective Subjective Patient seen and examined. Patient lying in bed no distress noted. Patient awaiting SNF approval with first choice being [facility] second choice being [facility] [place] and third choice being [facility]. SW informed of patients choices. Objective Data Objective Data Vital Signs: Vital Signs Temp Pulse Resp BP Pulse Ox 97.8 F 65 17 101/68 96 01/07/22 09:42 01/07/22 09:42 01/07/22 09:42 01/07/22 09:42 01/07/22 09:42 Oxygen Flow Rate (L/min) 6 Oxygen Delivery Method Room Air Weight: 122 lb 2.177 oz Body Mass Index (BMI) 17.7 Intake & Output: Intake and Output for Last 24 Hours 01/05/22 01/06/22 01/07/22 23:59 23:59 23:59 Intake Total 817.5 / 817.5 4467.08 / 4542.08 2600 / 2600 Output Total 875 / 1675 1250 / 1250 Balance 817.5 / 817.5 3592.08 / 2867.08 1350 / 1350 Medical Nutrition Assessment Dietitian: Malnutrition Criteria Met Start: 01/06/22 09:34 Freq: Status: Active Protocol: Document 01/06/22 09:34 (Rec: 01/06/22 09:34 [id number]) Nutrition Malnutrition Evidence of Malnutrition Exists Yes Malnutrition (severe): Chronic Evidenced By Suboptimal Energy Intake ( Severe),Weight Loss (Severe), Physical Changes (Severe) Clinical Problem Chronic Disease or Condition Related Malnutrition Etiology severe, chronic malnutrition r /t inadequate energy intake w/ increased energy needs w/ history of laryngeal cancer Signs/Symptoms as evidenced by unintentional wt loss of 38.4#/25% x 1 year; estimated energy intake via PEG/PO diet meeting <75% of estimated energy needs x 1 year; severe muscle wasting/ fat loss per physical exam; BMI 18.6 Status Active Problem Recommendation Dietitian Recommendations/Changes Via PEG- Jevity 1.5- 450mL 3x/ day w/ 75mL H2O flush before and after each bolus to provide 2025 calories, 86 g protein, and 1476mL total fluid/day. Would recommend additional 75mL H2O flushes via PEG every 4 hours to provide 1926mL total fluid/day . Will also order Royce BID via PEG mixed in 240mL H2O. NPO until TAPE CONTROLLED MACHINE STITCHER evaluation. Lab / Micro Data Result Diagrams: 01/07/22 05:35 01/07/22 05:35 Labs: Laboratory Results - last 24 hr 01/06/22 03:58: Diff Path Review Reviewed 01/06/22 12:10: Sodium 125 L, Potassium 2.9 L, Chloride 87 L, Carbon Dioxide 30.0, Anion Gap 8, BUN 6 L, Creatinine 0.54 L, Estim Creat Clear Calc 126.82, Est GFR (MDRD) Af Amer 205, Est GFR (MDRD) Non-Af 169, BUN/Creatinine Ratio 11.0, Glucose 187 H, Calcium 8.4 L 01/06/22 17:23: Potassium 2.9 L 01/07/22 05:35: WBC 3.7 L, RBC 3.19 L, Hgb 10.4 L, Hct 30.6 L, MCV 95.9 H, MCH 32.6 H, MCHC 34.0 D, RDW Std Deviation 47.8 H, RDW Coeff of Rosemarie 13.6, Plt Count 202, MPV 8.7, Neut % (Auto) Not Reportable, Absolute Neuts (auto) 3.0, Absolute Lymphs (auto) 0.26 L, Total Counted 100, Neutrophils % (Manual) 80 H, Band Neutrophils % 2, Lymphocytes % (Manual) 7 L, Monocytes % (Manual) 9, Myelocytes % 2 H, Diff Path Review May foll, Platelet Estimate ADEQUATE, RBC Morphology N CYTIC, Hypochromasia 1+ 01/07/22 05:35: Sodium 132 L, Potassium 4.2, Chloride 102, Carbon Dioxide 24.0, Anion Gap 6, BUN 8, Creatinine 0.34 L, Estim Creat Clear Calc 201.41, Est GFR (M DRD) Af Amer 350, Est GFR (MDRD) Non-Af 289, BUN/Creatinine Ratio 23.5 H, Glu cose 91, Calcium 7.7 L, Magnesium 1.8, Total Bilirubin 0.50, AST 15, ALT 15 L, Alkaline Phosphatase 88, Total Protein 4.9 L, Albumin 2.1 L, Globulin 2.8, Albumin/Globulin Ratio 0.8 L Micro: Microbiology 01/05/22 16:55 Urine, Clean Catch Urine Culture - Preliminary Klebsiella oxytoca 01/06/22 11:44 Stool Enteric Bacteriology - Final 01/06/22 11:44 Stool C. difficile GDH Antigen & Toxins - Final 01/06/22 11:44 Stool C. difficile DNA Amplification - Final 01/05/22 15:24 Nasal Secretion SARS-CoV-2 & FLU Antigen (Rapid) - Final Physical Exam Const alert, oriented x3 and no apparent distress HEENT head/scalp atraumatic Head and Scalp: normocephalic Eyes conjunctivae normal and no scleral icterus Neck supple Neck Narrative: Trach intact Resp normal respiratory effort, normal air movement and clear to auscultation bilaterally Effort and Inspection: able to speak in complete sentences and symmetric chest movement Cardio regular rate, regular rhythm, S1 normal heart sound and S2 normal heart sound GI normal to inspection, nondistended, normoactive bowel sounds, soft to palpation and non-tender GI Narrative: PEG tube in place Extremity normal to inspection, full ROM and no clubbing, cyanosis or edema Peripheral Pulses: Yes pulses 2+ throughout Skin no rashes or lesions noted Neuro oriented x3, no focal motor deficits and no sensory deficits noted Sensorium / Orientation: awake and alert Psych affect normal Assessment & Plan Assessment/Plan (1) Acute hyponatremia: (2) Acute hypokalemia: (3) Hypochloremia: PLAN: 1. Hypokalemia -Resolved, potassium 4.2 today -Discontinue potassium replacement at this time -Daily BMP 2. Hyponatremia -Continues to improve currently 132 -Normal saline with 20 mEq potassium chloride 125 mL/h -Daily BMP 3. Acute UTI -Continue IV Rocephin -Urine culture demonstrates klebsiella oxytoca, D/C rocephin, start gentamicin 4. Debility with falls -Continue PT OT -Currently waiting on precertification for patient go to SNF 5. Alcohol abuse -Currently 12 beers a day drinker per PEG tube -Patient declined addiction medicine consult 6. Intractable diarrhea -Likely secondary to alcohol use via PEG tube as patient has not had any further diarrhea since admission -C. difficile and enteric pathogen panel negative 7. Laryngeal cancer -In remission -Status post trach, PEG tube in place -Speech therapy and dietitian following 8. Tobacco dependence -Nicotine replacement patch ordered -Encourage cessation 9. Hyperlipidemia -Continue statin 10. Hypertension -Continue propranolol 11. Depression and anxiety -Continue duloxetine 12. Chronic pain -Continue methadone 13. GERD -Continue PPI and Carafate 14. Severe protein calorie malnutrition -as evidenced by muscle and fat loss unintentional weight loss of 25% over the past year -BMI 18.6% -Dietitian consulted and recommendations for free fluid and tube feeding provided above and initiated. DVT prophylaxis-subcu heparin This patient was seen by Aurea Mckeon NP-C under the supervision of Dr. Leal. 14 minutes spent in clinical coordination of patient's plan of care. Documented by User: Dr. Breanna Leal MD 01/07/22 16:31 Objective Data Lab / Micro Data Result Diagrams: 01/07/22 05:35 01/07/22 05:35 Charges/Coding Addendum Addendum: This patient was seen in conjunction with Vicky Okeefe NP. I marisa e independently interviewed and examined the patient and reviewed pertinent historical, laboratory, and other data. I have reviewed her note and concur with her documentation Patient was seen and examined. He stated he felt improved. No other acute events overnight. Physical Exam: Gen: Comfortable, not pale, not jaundiced, appears frail, tracheostomy in place CVS:HS I +II, regular, no murmurs RESP: Diminished at lung bases GI: PEG tube in situ, clean, BS present and normal, soft, nontender, no palpable organs EXT:No edema ASSESSMENT: 1. Acute on chronic debility 2. Severe hypokalemia/hypomagnesemia 3. Lactic acidosis 4. Laryngeal CA in remission 5. Nicotine dependence 6. Alcohol abuse 7. Chronic diarrhea 8. Chronic pain syndrome 9. Asymptomatic bacteriuria Plan: Replace magnesium Await discharge planning to [facility] facility Repeat labs in am Time spent coordinating all aspects of patient's care, reviewing patient data, discussing with nursing/CM/SW:25 minutes Visit Charges Inpatient E&M: 76921 Subs Hosp L2
--- NOTE | 2022-01-07 11:13 | CASEMGMT ---
ROSSY received a call from Amy at [facility]. She said they are going to decline the referral. Amy feels they have too many new staff members to manage his care. Nurse Practitioner spoke with patient earlier and he said his second choice would be [facility] and [address]. ROSSY called Bessie with [facility] regarding referral and also faxed referral. Await response. Saloni PEOPLES
--- NOTE | 2022-01-07 11:34 | PCM.RX.CS ---
Consult Pharmacy has been consulted to manage selected antiobiotic: Gentamicin Type of Consult: New start Suspected Infection: Other - UTI (Klebsiella) Labs: Sodium 132 mmol/L (136-145) L 01/07/22 05:35 Potassium 4.2 mmol/L (3.5-5.1) 01/07/22 05:35 Chloride 102 mmol/L (98-107) 01/07/22 05:35 Carbon Dioxide 24.0 mmol/L (21.0-32.0) 01/07/22 05:35 Anion Gap 6 (5-15) 01/07/22 05:35 BUN 8 mg/dL (7-18) 01/07/22 05:35 Creatinine 0.34 mg/dL (0.70-1.30) L 01/07/22 05:35 Est GFR (MDRD) Af Amer 350 mL/min (>60) 01/07/22 05:35 Est GFR (MDRD) Non-Af 289 mL/min (>60) 01/07/22 05:35 BUN/Creatinine Ratio 23.5 RATIO (10-20) H 01/07/22 05:35 Glucose 91 mg/dL (74-106) 01/07/22 05:35 Microbiology: Microbiology 01/05/22 16:55 Urine, Clean Catch Urine Culture - Preliminary Klebsiella oxytoca 01/06/22 11:44 Stool Enteric Bacteriology - Final 01/06/22 11:44 Stool C. difficile GDH Antigen & Toxins - Final 01/06/22 11:44 Stool C. difficile DNA Amplification - Final 01/05/22 15:24 Nasal Secretion SARS-CoV-2 & FLU Antigen (Rapid) - Final Pharmacy Plan for Drug Dosing: NEW START IV GENTAMICIN Consulting Physician: Cam CERNA Indication: KLEBSIELLA/UTI SrCr: 0.34 mg/dL CrCl: >100 mL/min Comments: Extended interval dosing Gentamicin Dose: 280mg (5 mg/kg) Q24H to start @ 1200 01/07/22 Pending Level: Random gentamicin level @ 2200 01/07/22 (10-hours after first dose given) Pharmacy Service will continue to monitor and adjust dosing as required. Labs to be done on [date and time ordered]: Random gentamicin level @ 2200 01/07/22 (10-hours after initial dose)
--- NOTE | 2022-01-07 12:38 | CASEMGMT ---
ROSSY received a phone call from Bessie at [facility] and they can accept patient. She will start the pre-cert. Bessie asked who his pain management doctor is and ROSSY told her he is active with [facility]. She also asked if [facility] could send patient with an extra trach. ROSSY told her SW will ask. ROSSY spoke with patient and let him know [facility] cannot take him, but [facility] can. ROSSY told patient he will stay in the hospital until his insurance gives approval. He thanked . Plan: [facility] pending pre-cert. Saloni PEOPLES
--- NOTE | 2022-01-07 12:51 | CASEMGMT ---
ROSSY called Bessie with [facility] and let her know patient's CDIFF Antigen is positive and the toxin is negative. SW let her know that he is in contact precautions. Saloni Harper POLITICAL RESEARCH SCIENTIST RICHELLE
[2022-01-07 13:01] LABS: Pathologist Review Reviewed
[2022-01-07] MEDS: Pivot 1.5 Cal 1,000 ML BOTTLE 450 ML GT ×2 (13:12→18:05)
--- NOTE | 2022-01-07 14:13 | CASEMGMT ---
SW faxed peg tube recommendations to [facility]. Saloni Harper CANAL LOCK TENDER CHIEF OPERATOR HEALTH OCCUPATIONS TEACHER
[2022-01-07] MEDS: Atorvastatin Calcium 40 MG Tablet PO (22:16)
[2022-01-07] MEDS: traZODone 100 MG Tablet PO (22:42)
[2022-01-07 23:24] LABS: Gentamicin, Random 1.4 ug/mL
--- NOTE | 2022-01-07 23:50 | PCM.RX.CS ---
Consult Pharmacy has been consulted to manage selected antiobiotic: Gentamicin Type of Consult: Follow-up Suspected Infection: Other Prior Doses of Antibiotics Received/Current Regimen: Medications Gentamicin Sulfate 280 mg/ (Dextrose) 57 mls @ 100 mls/hr IVPB Q24H LIDA Last Admin: 01/07/22 13:07 Dose: Infused Labs: Sodium 132 mmol/L (136-145) L 01/07/22 05:35 Potassium 4.2 mmol/L (3.5-5.1) 01/07/22 05:35 Chloride 102 mmol/L (98-107) 01/07/22 05:35 Carbon Dioxide 24.0 mmol/L (21.0-32.0) 01/07/22 05:35 Anion Gap 6 (5-15) 01/07/22 05:35 BUN 8 mg/dL (7-18) 01/07/22 05:35 Creatinine 0.34 mg/dL (0.70-1.30) L 01/07/22 05:35 Est GFR (MDRD) Af Amer 350 mL/min (>60) 01/07/22 05:35 Est GFR (MDRD) Non-Af 289 mL/min (>60) 01/07/22 05:35 BUN/Creatinine Ratio 23.5 RATIO (10-20) H 01/07/22 05:35 Glucose 91 mg/dL (74-106) 01/07/22 05:35 Random Gentamicin 1.4 ug/mL 01/07/22 22:28 Microbiology: Microbiology 01/05/22 16:55 Urine, Clean Catch Urine Culture - Preliminary Klebsiella oxytoca 01/06/22 11:44 Stool Enteric Bacteriology - Final 01/06/22 11:44 Stool C. difficile GDH Antigen & Toxins - Final 01/06/22 11:44 Stool C. difficile DNA Amplification - Final 01/05/22 15:24 Nasal Secretion SARS-CoV-2 & FLU Antigen (Rapid) - Final Weight used for dosin.4 kg Estimated Creatinine Clearance: 97 Pharmacy Plan for Drug Dosing: A gentamicin level was drawn 10 hours after the initial 280mg dose. The level was 1.4 which, by the dosing nomogram, supports continuing the dose at a q24h frequency. Will redraw a level 01/13/22. Pharmacy Service will continue to monitor and adjust dosing as required. Follow-Up Labs: Trough Gentamicin - random Labs to be done on [date and time ordered]: 01/13/22 @9988
[2022-01-08] VITALS (7 sets, daily range): BP systolic 99–126; BP diastolic 56–77; PULSE 52–69; RESP 16–18; TEMP 36.2–36.8; O2SAT 95–100
[2022-01-08] MEDS: KCL 20MEQ in 0.9% NS 20 MEQ/1,000 ML IV.SOLN. 125 MEQ IV ×2 (00:50→09:46)
[2022-01-08 05:31] LABS: Hematocrit 30.4 % (40-54); Hemoglobin 9.9 g/dL (13.0-16.5); Mean Corp Hgb Conc 32.6 g/dL (32-36); Mean Corpuscular Hgb 32.5 pg (27.0-32.0); Mean Corpuscular Volume 99.7 fL (80-94); POSITIVE COUNT YES; POSITIVE DIFFERENTIAL YES; POSITIVE MORPHOLOGY YES; Platelet Count 208 K/mm3 (150-450); RBC Distribution Width CV 13.6 % (11.6-14.6); RBC Distribution Width SD 49.6 fl (35.1-43.9); Red Blood Count 3.05 M/mm3 (4.6-6.2); White Blood Count 2.3 K/mm3 (4.4-11.0)
[2022-01-08 05:50] LABS: Differential Indicated MANUAL DIFF
[2022-01-08] MEDS: Sucralfate 1 GM Tablet PO ×2 (06:01→16:59)
[2022-01-08 06:03] LABS: ALB/GLOB Ratio 0.7 RATIO (0.9-2.4); AST(SGOT) 11 U/L (15-37); Alanine Aminotransfer ALT/SGPT 15 U/L (16-61); Alkaline Phosphatase 81 U/L (45-117); Anion Gap 5 (5-15); BUN 15 mg/dL (7-18); BUN/Creat Ratio 46.4 RATIO (10-20); Calcium,Total 7.6 mg/dL (8.5-10.1); Chloride 105 mmol/L (98-107); Creatinine, Serum 0.32 mg/dL (0.70-1.30); EST Glomerular Filtration Rate 308 mL/min (>60); Est Glom Filt Rate - Afr Amer 372 mL/min (>60); Estimated Creatinine Clearance 224.82 ml/min; Globulin 2.8 g/dL (2.2-4.2); Glucose 88 mg/dL (74-106); Protein, Total 4.8 g/dL (6.4-8.2); Sodium Level 134 mmol/L (136-145)
[2022-01-08 06:13] LABS: Basophil 1 % (0-1); Lymphocyte 12 % (19-41); Metamyelocyte 1 % (0-1); Monocyte 13 % (0-10); Myelocyte 1 % (0-0); Neutrophil-Band 2 % (0-5); Neutrophil-Segmented 70 % (47-70); Platelet Estimate ADEQUATE (ADEQ); Total Cells Counted 100 (MANUAL DIFF)
[2022-01-08 06:14] LABS: Hypochromasia RARE; Red Cell Morphology N CYTIC NORMAL (NORM C&C)
[2022-01-08 06:15] LABS: Absolute Lymphocyte Count 0.27 X10^3/uL (0.83-4.51); Lymphocyte # 0.27 X10^3/ul (0.83-4.51)
[2022-01-08 06:16] LABS: Absolute Neutrophil Count 1.7 X10^3/uL (2.0-7.7); Neutrophil # 1.65 X10^3/uL (2.7-7.7)
[2022-01-08] MEDS: Juven (unflavored) Packet 1 PACKET GT ×2 (09:46→16:59)
[2022-01-08] MEDS: Heparin Injection (Vial) 5,000 UNIT/ML VIAL 5000 UNIT SC (09:46)
[2022-01-08] MEDS: Thiamine Hydrochloride 100 MG Tablet PO (09:48)
[2022-01-08] MEDS: Folic Acid 1 MG Tablet PO (09:48)
[2022-01-08] MEDS: Pivot 1.5 Cal 1,000 ML BOTTLE 450 ML GT ×3 (09:48→16:59)
[2022-01-08] MEDS: DULoxetine Hcl 30 MG Capsule PO (09:48)
--- NOTE | 2022-01-08 10:13 | PCM.PN.HOSP ---
Documented by User: DILIP Mcmullen 01/08/22 10:20 Subjective Subjective Patient seen and examined. Patient lying in bed no distress noted. Objective Data Objective Data Vital Signs: Vital Signs Temp Pulse Resp BP Pulse Ox 98.2 F 55 L 16 99/72 95 01/08/22 03:36 01/08/22 07:00 01/08/22 03:36 01/08/22 03:36 01/08/22 09:56 Oxygen Flow Rate (L/min) 6 Oxygen Delivery Method Room Air Weight: 128 lb 4.944 oz Body Mass Index (BMI) 17.7 Intake & Output: Intake and Output for Last 24 Hours 01/06/22 01/07/22 01/08/22 23:59 23:59 23:59 Intake Total 4467.08 / 4542.08 3886.0 / 3886.0 2230 / 2230 Output Total 875 / 1675 2400 / 2400 1325 / 1325 Balance 3592.08 / 2867.08 1486.0 / 1486.0 905 / 905 Medical Nutrition Assessment Dietitian: Malnutrition Criteria Met Start: 01/06/22 09:34 Freq: Status: Active Protocol: Document 01/07/22 11:01 (Rec: 01/07/22 11:01 [id number]) Nutrition Malnutrition Evidence of Malnutrition Exists Yes Malnutrition (severe): Chronic Evidenced By Suboptimal Energy Intake ( Severe),Weight Loss (Severe), Physical Changes (Severe) Clinical Problem Chronic Disease or Condition Related Malnutrition Etiology severe, chronic malnutrition r /t inadequate energy intake w/ increased energy needs w/ history of laryngeal cancer Signs/Symptoms as evidenced by unintentional wt loss of 38.4#/25% x 1 year; estimated energy intake via PEG/PO diet meeting <75% of estimated energy needs x 1 year; severe muscle wasting/ fat loss per physical exam; BMI 18.6 Status Active Problem Recommendation Dietitian Recommendations/Changes Via PEG- will change to Pivot 1.5- 450mL 3x/day w/ 75mL H2O flush before and after each bolus to provide 2025 calories , 126.61 g protein, and 1462. 5mL total fluid/day. Will order an additional 75mL H2O flushes via PEG every 4 hours to provide 1912.5mL total fluid/day. Will also continue Royce BID via PEG mixed in 240mL H2O. Lab / Micro Data Result Diagrams: 01/08/22 05:15 01/08/22 05:15 Labs: Laboratory Results - last 24 hr 01/06/22 12:10: Ionized Calcium 5.1 01/07/22 05:35: Diff Path Review Reviewed 01/07/22 22:28: Random Gentamicin 1.4 01/08/22 05:15: WBC 2.3 L, RBC 3.05 L, Hgb 9.9 L, Hct 30.4 L, MCV 99.7 H, MCH 32.5 H, MCHC 32.6, RDW Std Deviation 49.6 H, RDW Coeff of Rosemarie 13.6, Plt Count 208, MPV 9.0, Neut % (Auto) Not Reportable, Absolute Neuts (auto) 1.7 L, Absolute Lymphs (auto) 0.27 L, Total Counted 100, Neutrophils % (Manual) 70, Band Neutrophils % 2, Lymphocytes % (Manual) 12 L, Monocytes % (Manual) 13 H, Basophils % (Manual) 1, Metamyelocytes % 1, Myelocytes % 1 H, Diff Path Review May foll, Platelet Estimate ADEQUATE, RBC Morphology N CYTIC, Hypochromasia RARE 01/08/22 05:15: Sodium 134 L, Potassium 5.0, Chloride 105, Carbon Dioxide 24.0, Anion Gap 5, BUN 15, Creatinine 0.32 L, Estim Creat Clear Calc 224.82, Est GFR (MDRD) Af Amer 372, Est GFR (MDRD) Non-Af 308, BUN/Creatinine Ratio 46.4 H, Glucose 88, Calcium 7.6 L, Total Bilirubin 0.30, AST 11 L, ALT 15 L, Alkaline Phosphatase 81, Total Protein 4.8 L, Albumin 2.0 L, Globulin 2.8, Albumin/Globulin Ratio 0.7 L Micro: Microbiology 01/05/22 16:10 Blood Culture (Wb) - Right Forearm Blood Culture - Preliminary No growth in 48 hours. 01/05/22 16:25 Blood Culture (Wb) - Left Forearm Blood Culture - Preliminary No growth in 48 hours. 01/05/22 16:55 Urine, Clean Catch Urine Culture - Final Klebsiella oxytoca 01/06/22 11:44 Stool Enteric Bacteriology - Final 01/06/22 11:44 Stool C. difficile GDH Antigen & Toxins - Final 01/06/22 11:44 Stool C. difficile DNA Amplification - Final 01/05/22 15:24 Nasal Secretion SARS-CoV-2 & FLU Antigen (Rapid) - Final Physical Exam Const alert, oriented x3 and no apparent distress Orientation / Consciousness: awake Nutritional Appearance: cachectic HEENT normocephalic and head/scalp atraumatic Eyes conjunctivae normal and no scleral icterus Neck no lymphadenopathy and supple Neck Narrative: Trach intact Resp normal respiratory effort, normal air movement and clear to auscultation bilaterally Effort and Inspection: able to speak in complete sentences and symmetric chest movement Cardio regular rate, regular rhythm, S1 normal heart sound, S2 normal heart sound and no murmurs Peripheral Pulses: pulses 2+ throughout GI normal to inspection, nondistended, normoactive bowel sounds, soft to palpation and non-tender GI Narrative: PEG tube in place Extremity normal to inspection, full ROM and no clubbing, cyanosis or edema Skin no rashes or lesions noted Lesions: no lesions Rashes: no rashes Trauma: no lacerations or abrasions Neuro oriented x3, no focal motor deficits and no sensory deficits noted Sensorium / Orientation: awake and alert Psych mental status grossly normal and affect normal Assessment & Plan Assessment/Plan (1) Acute hyponatremia: (2) Acute hypokalemia: (3) Hypochloremia: PLAN: 1. Hyponatremia -Continues to improve currently 134 -Normal saline with 20 mEq potassium chloride 125 mL/h -Daily BMP 2. Acute UTI -Urine culture demonstrates klebsiella oxytoca -Continue gentamicin 3. Debility with falls -Continue PT/OT -Currently waiting on precertification for patient go to SNF 4. Alcohol abuse -Currently 12 beers a day drinker per PEG tube -Patient declined addiction medicine consult 5. Intractable diarrhea -Likely secondary to alcohol use via PEG tube as patient has not had any further diarrhea since admission -C. difficile and enteric pathogen panel negative 6. Laryngeal cancer -In remission -Status post trach, PEG tube in place -Speech therapy and dietitian following 7. Tobacco dependence -Nicotine replacement patch ordered -Encourage cessation 8. Hyperlipidemia -Continue statin 9. Hypertension -Continue propranolol 10. Depression and anxiety -Continue duloxetine 11. Chronic pain -Continue methadone 12. GERD -Continue PPI and Carafate 13. Severe protein calorie malnutrition as evidenced by muscle and fat loss unintentional weight loss of 25% over the past year -BMI 18.6% -Dietitian consulted and recommendations for free fluid and tube feeding provided above and initiated. Discharge planning-awaiting pre-CERT for [place] DVT prophylaxis-subcu heparin This patient was seen by Aurea Mckeon NP-C under the supervision of Dr. Leal. 12 minutes spent in clinical coordination of patient's plan of care. Documented by User: Dr. Breanna Leal MD 01/08/22 15:40 Objective Data Lab / Micro Data Result Diagrams: 01/08/22 05:15 01/08/22 05:15 Charges/Coding Addendum Addendum: This patient was seen in conjunction with Vicky Okeefe NP. I have independently interviewed and examined the patient and reviewed pertinent historical, laboratory, and other data. I have reviewed her note and concur with her documentation Patient was seen and examined. No other acute events overnight. Physical Exam: Gen: Comfortable, not pale, not jaundiced, appears frail, tracheostomy in place CVS:HS I +II, regular, no murmurs RESP: Diminished at lung bases GI: PEG tube in situ, clean, BS present and normal, soft, nontender, no palpable organs EXT:No edema ASSESSMENT: 1. Acute on chronic debility 2. Severe hypokalemia/hypomagnesemia 3. Lactic acidosis 4. Laryngeal CA in remission 5. Nicotine dependence 6. Alcohol abuse 7. Chronic diarrhea 8. Chronic pain syndrome 9. Asymptomatic bacteriuria 10. Severe protein-calorie malnutrition Plan: DC IVF, potassium DC IV gentamicin Await discharge planning to retirement facility Repeat labs in am Time spent coordinating all aspects of patient's care, discussing with nursin minutes Visit Charges Inpatient E&M: 93069 Subs Hosp L2
[2022-01-08] MEDS: Pantoprazole Sodium 40 MG Tablet PO (10:18)
[2022-01-08] MEDS: Methadone 10 MG Tablet PO (10:24)
[2022-01-08 11:28] LABS: Pathologist Review Reviewed
--- NOTE | 2022-01-08 12:45 | CASEMGMT ---
SW received a call from Bessie with [facility]. The individuals that work to obtain pre-certs from insurance contacted [facility] about patient. [facility] told them they have not even assigned it to anyone and their estimated turn around time would be the 17 of January. They were going to try and escalate the case as patient is ready for discharge. ROSSY spoke with RN and when patient is discharged they will send a trach packet with patient. Plan: d/c to [facility] pending pre-cert. Saloni PEOPLES
--- NOTE | 2022-01-08 15:53 | PCM.TXEXTCAR ---
Diet 01/06/22 10:57 NPO [Diet: Nothing Per Oral] Is pt able to select menu?: Yes Diet Comments: OK for ice chips only, frequent oral hygiene recommended Routine Orders/Code Status Enema Type: Fleetz Enema Frequency: Daily PRN Suppository Type: Dulcolax 10mg Suppository Frequency: Daily PRN Routine Lab Work: [facility] (01/09 and 01/11) Code Status: Full Code Wound(s) right buttock: Wound Type: Pressure Injury right hip: Wound Type: Pressure Injury right foot: Wound Type: Pressure Injury Suggestions for Active Care Change Position every (hours): 2 Times a day to sit in chair: 3 Therapies Physical Therapy: Eval and Treat Occupational Therapy: Eval and Treat Speech Therapy: Eval and Treat Problem/Diagnosis (1) Acute hyponatremia: Status: Acute (2) Acute hypokalemia: Status: Acute (3) Hypochloremia: Status: Acute Allergies/Procedures Done in Hospital Allergies No Known Allergies Allergy (Verified 01/05/22 14:43) Type of Care/Length of Stay Estimated LOS: Convalescent Care Less Than 30 days Type of Care Needed: Skilled Rehab Potential: Good Prognosis: Good Additional Orders/Day of Discharge Day of Discharge: 01/08/22 Dietary and Speech Recommendations Dietitian Recommendations/Changes: Via PEG- will change to Pivot 1.5- 450mL 3x/day w/ 75mL H2O flush before and after each bolus to provide 2025 calories, 126.61 g protein, and 1462.5mL total fluid/day. Will order an additional 75mL H2O flushes via PEG every 4 hours to provide 1912.5mL total fluid/day. Will also continue Royce BID via PEG mixed in 240mL H2O. Discharge Plan Admission Admit Date/Time: 01/05/22 17:09 Primary Reason for Your Visit: Weakness, Debility Attending Provider: Breanna Leal Primary Care Provider: Wes Parry Discharge Orders/Prescriptions Prescriptions: New folic acid 1 mg Tablet 1 mg PO DAILY@0800 Qty: 0 RF: 0 oxycodone 5 mg Tablet 15 mg PO Q4H PRN (Reason: Pain) 3 Days Qty: 15 RF: 0 Royce (with collagen) 7-7-1.5 gram Powder In Packet 1 packet G-tube BIDCM Qty: 0 RF: 0 Pivot 1.5 Deshaun 0.09 gram- 1.5 kcal/mL Liquid 450 ml G-tube 0900,1200,1800 Qty: 0 RF: 0 thiamine HCl (vitamin B1) [Vitamin B-1] 100 mg Tablet 100 mg PO DAILYCM Qty: 0 RF: 0 trazodone 100 mg Tablet 100 mg PO QHS PRN (Reason: Insomnia) 3 Days Qty: 3 RF: 0 Continued atorvastatin 40 mg Tablet 40 mg PO DAILY RF: 0 sucralfate [Carafate] 100 mg/mL Suspension 10 ml PO BID RF: 0 omeprazole 40 mg Capsule,Delayed Release(Dr/Ec) 40 mg PO DAILY RF: 0 propranolol 40 mg Tablet 40 mg PO BID RF: 0 duloxetine 30 mg Capsule,Delayed Release(Dr/Ec) 30 mg PO DAILY RF: 0 methadone 10 mg Tablet 10 mg PO DAILY 3 Days Qty: 3 RF: 0 Discontinued oxycodone 15 mg Tablet 15 mg PO Q4H PRN (Reason: Pain) RF: 0 Referrals / Follow Up: Wes Parry DO [Primary Care Provider] - Disposition Disposition (needs filled in before D/C Order can be placed): Nursing Home Facility
--- NOTE | 2022-01-08 16:07 | CASEMGMT ---
Patient was approved to go to [facility]. ROSSY notified RN, physician, is support analyst, and patient. ROSSY spoke with Bessie at [facility] and let her know patient will be coming today. [place] will finish discharge as SW is leaving. Plan: d/c to [facility] under skilled level of care on a 7000. [facility] will transport via wheelchair. Saloni Harper MANAGER SAFE RICHELLE
--- NOTE | 2022-01-08 16:16 | DS.PCM_ITS ---
Documented by User: DILIP Mcmullen 01/08/22 16:23 Providers Date of Admission: 01/05/22 Primary Care Physician: Dr. Wes Parry DO Reason For Visit: DEBILITY/HYPOKALEMIA Diagnosis Discharge Diagnosis (1) Acute hyponatremia: Status: Acute Code(s): E87.1 - Hypo-osmolality and hyponatremia (2) Acute hypokalemia: Status: Acute Code(s): E87.6 - Hypokalemia (3) Hypochloremia: Status: Acute Code(s): E87.8 - Other disorders of electrolyte and fluid balance, not elsewhere classified Medications at Discharge Home Medications atorvastatin 40 mg PO DAILY 01/05/22 duloxetine 30 mg PO DAILY 01/05/22 omeprazole 40 mg PO DAILY 01/05/22 propranolol 40 mg PO BID 01/05/22 sucralfate [Carafate] 10 ml PO BID 01/05/22 [id number] [Royce (with collagen)] 1 packet G-TUBE BIDCM #0 ea 01/08/22 folic acid 1 mg PO DAILY@0800 #0 tab 01/08/22 methadone 10 mg PO DAILY 3 Days #3 tab 01/08/22 nut.tx.comp. immune systm,reg [Pivot 1.5 Deshaun] 450 ml G-TUBE 0900,1200,1800 #0 ml 01/08/22 oxycodone 15 mg PO Q4H PRN 3 Days #15 tab 01/08/22 thiamine HCl (vitamin B1) [Vitamin B-1] 100 mg PO DAILYCM #0 tab 01/08/22 trazodone 100 mg PO QHS PRN 3 Days #3 tab 01/08/22 Hospital Course Operations None Procedures None Summary of Care Provided Minutes Spent on Discharge: 35 Hospital Course: Patient has 51-year-old male who initially presented with acute GI, laryngeal cancer which is in remission and he is post trach and post PEG placement. Patient was also noted to be hyponatremic and hypokalemic and hypochloremic. Patient underwent IV and p.o. potassium replacement, and IV fluid hydration throughout stay. Patient was evaluated by PT and OT who recommended further therapy. Patient also reportedly was taking approximately 12 beers back PEG tube daily. Following treatment for laryngeal cancer patient has become more weak and debilitated and has had multiple falls at home. Patient also reported diarrhea when he presented to ER however he has not had diarrhea since he has been hospitalized and this is likely secondary to his alcohol intake via his PEG tube. Physical Exam Const alert, oriented x3 and no apparent distress Orientation / Consciousness: awake Nutritional Appearance: cachectic HEENT normocephalic and head/scalp atraumatic Eyes conjunctivae normal and no scleral icterus Neck no lymphadenopathy and supple Neck Narrative: Trach intact Resp normal respiratory effort, normal air movement and clear to auscultation bilaterally Effort and Inspection: able to speak in complete sentences and symmetric chest movement Cardio regular rate, regular rhythm, S1 normal heart sound, S2 normal heart sound and no murmurs Peripheral Pulses: pulses 2+ throughout GI normal to inspection, nondistended, normoactive bowel sounds, soft to palpation and non-tender GI Narrative: PEG tube in place Extremity normal to inspection, full ROM and no clubbing, cyanosis or edema Skin no rashes or lesions noted Lesions: no lesions Rashes: no rashes Trauma: no lacerations or abrasions Neuro oriented x3, no focal motor deficits and no sensory deficits noted Sensorium / Orientation: awake and alert Psych mental status grossly normal and affect normal Medical Records Data Medical Nutrition Assessment Dietitian: Malnutrition Criteria Met Start: 01/06/22 09:34 Freq: Status: Active Protocol: Document 01/07/22 11:01 (Rec: 01/07/22 11:01 [id number]) Nutrition Malnutrition Evidence of Malnutrition Exists Yes Malnutrition (severe): Chronic Evidenced By Suboptimal Energy Intake ( Severe),Weight Loss (Severe), Physical Changes (Severe) Clinical Problem Chronic Disease or Condition Related Malnutrition Etiology severe, chronic malnutrition r /t inadequate energy intake w/ increased energy needs w/ history of laryngeal cancer Signs/Symptoms as evidenced by unintentional wt loss of 38.4#/25% x 1 year; estimated energy intake via PEG/PO diet meeting <75% of estimated energy needs x 1 year; severe muscle wasting/ fat loss per physical exam; BMI 18.6 Status Active Problem Recommendation Dietitian Recommendations/Changes Via PEG- will change to Pivot 1.5- 450mL 3x/day w/ 75mL H2O flush before and after each bolus to provide 2025 calories , 126.61 g protein, and 1462. 5mL total fluid/day. Will order an additional 75mL H2O flushes via PEG every 4 hours to provide 1912.5mL total fluid/day. Will also continue Royce BID via PEG mixed in 240mL H2O. Weight / BMI Weight Weight: 128 lb 4.944 oz Body Mass Index (BMI) 17.7 ABG / Lab / Microbiology Data Result Diagrams: 01/08/22 05:15 01/08/22 05:15 Laboratory: Laboratory Results - last 24 hr 01/06/22 12:10: Ionized Calcium 5.1 01/07/22 22:28: Random Gentamicin 1.4 01/08/22 05:15: WBC 2.3 L, RBC 3.05 L, Hgb 9.9 L, Hct 30.4 L, MCV 99.7 H, MCH 32.5 H, MCHC 32.6, RDW Std Deviation 49.6 H, RDW Coeff of Rosemarie 13.6, Plt Count 208, MPV 9.0, Neut % (Auto) Not Reportable, Absolute Neuts (auto) 1.7 L, Absolute Lymphs (auto) 0.27 L, Total Counted 100, Neutrophils % (Manual) 70, Band Neutrophils % 2, Lymphocytes % (Manual) 12 L, Monocytes % (Manual) 13 H, Basophils % (Manual) 1, Metamyelocytes % 1, Myelocytes % 1 H, Diff Path Review Reviewed, Platelet Estimate ADEQUATE, RBC Morphology N CYTIC, Hypochromasia RARE 01/08/22 05:15: Sodium 134 L, Potassium 5.0, Chloride 105, Carbon Dioxide 24.0, Anion Gap 5, BUN 15, Creatinine 0.32 L, Estim Creat Clear Calc 224.82, Est GFR (MDRD) Af Amer 372, Est GFR (MDRD) Non-Af 308, BUN/Creatinine Ratio 46.4 H, Glucose 88, Calcium 7.6 L, Total Bilirubin 0.30, AST 11 L, ALT 15 L, Alkaline Phosphatase 81, Total Protein 4.8 L, Albumin 2.0 L, Globulin 2.8, Albumi n/Globulin Ratio 0.7 L Microbiology: Microbiology 01/05/22 16:10 Blood Culture (Wb) - Right Forearm Blood Culture - Prel iminary No growth in 48 hours. 01/05/22 16:25 Blood Culture (Wb) - Left Forearm Blood Culture - Preliminary No growth in 48 hours. 01/05/22 16:55 Urine, Clean Catch Urine Culture - Final Klebsiella oxytoca 01/06/22 11:44 Stool Enteric Bacteriology - Final 01/06/22 11:44 Stool C. difficile GDH Antigen & Toxins - Final 01/06/22 11:44 Stool C. difficile DNA Amplification - Final 01/05/22 15:24 Nasal Secretion SARS-CoV-2 & FLU Antigen (Rapid) - Final D/C Instructions Discharge Diet: - (Tube feeding per PEG) Discharge Activity: Return to Normal Activity Call your doctor if you observe: Fever of 101 or Higher, Inability to urinate and Inability to have a bowel movement Meaningful Use Info Meaningful Use Diagnoses (Choose all that apply): None applicable Discharge Plan Admission Admit Date/Time: 01/05/22 17:09 Primary Reason for Your Visit: Weakness, Debility Attending Provider: Breanna Leal Primary Care Provider: Wes Parry Discharge Orders/Prescriptions Prescriptions: New folic acid 1 mg Tablet 1 mg PO DAILY@0800 Qty: 0 RF: 0 oxycodone 5 mg Tablet 15 mg PO Q4H PRN (Reason: Pain) 3 Days Qty: 15 RF: 0 Royce (with collagen) 7-7-1.5 gram Powder In Packet 1 packet G-tube BIDCM Qty: 0 RF: 0 Pivot 1.5 Deshaun 0.09 gram- 1.5 kcal/mL Liquid 450 ml G-tube 0900,1200,1800 Qty: 0 RF: 0 thiamine HCl (vitamin B1) [Vitamin B-1] 100 mg Tablet 100 mg PO DAILYCM Qty: 0 RF: 0 trazodone 100 mg Tablet 100 mg PO QHS PRN (Reason: Insomnia) 3 Days Qty: 3 RF: 0 Continued atorvastatin 40 mg Tablet 40 mg PO DAILY RF: 0 sucralfate [Carafate] 100 mg/mL Suspension 10 ml PO BID RF: 0 omeprazole 40 mg Capsule,Delayed Release(Dr/Ec) 40 mg PO DAILY RF: 0 propranolol 40 mg Tablet 40 mg PO BID RF: 0 duloxetine 30 mg Capsule,Delayed Release(Dr/Ec) 30 mg PO DAILY RF: 0 methadone 10 mg Tablet 10 mg PO DAILY 3 Days Qty: 3 RF: 0 Discontinued oxycodone 15 mg Tablet 15 mg PO Q4H PRN (Reason: Pain) RF: 0 Referrals / Follow Up: Wes Parry DO [Primary Care Provider] - Disposition Disposition (needs filled in before D/C Order can be placed): [facility] Facility Documented by User: Dr. Breanna Leal MD 01/08/22 17:11 Providers Date of Admission: 01/05/22 Reason For Visit: DEBILITY/HYPOKALEMIA Medications at Discharge Home Medications atorvastatin 40 mg PO DAILY 01/05/22 duloxetine 30 mg PO DAILY 01/05/22 omeprazole 40 mg PO DAILY 01/05/22 propranolol 40 mg PO BID 01/05/22 sucralfate [Carafate] 10 ml PO BID 01/05/22 [id number] [Royce (with collagen)] 1 packet G-TUBE BIDCM #0 ea 01/08/22 folic acid 1 mg PO DAILY@0800 #0 tab 01/08/22 methadone 10 mg PO DAILY 3 Days #3 tab 01/08/22 nut.tx.comp. immune systm,reg [Pivot 1.5 Deshaun] 450 ml G-TUBE 0900,1200,1800 #0 ml 01/08/22 oxycodone 15 mg PO Q4H PRN 3 Days #15 tab 01/08/22 thiamine HCl (vitamin B1) [Vitamin B-1] 100 mg PO DAILYCM #0 tab 01/08/22 trazodone 100 mg PO QHS PRN 3 Days #3 tab 01/08/22 ABG / Lab / Microbiology Data Result Diagrams: 01/08/22 05:15 01/08/22 05:15 Discharge Plan Admission Admit Date/Time: 01/05/22 17:09 Primary Reason for Your Visit: Weakness, Debility Attending Provider: Breanna Leal Primary Care Provider: Wes Parry Discharge Orders/Prescriptions Prescriptions: New folic acid 1 mg Tablet 1 mg PO DAILY@0800 Qty: 0 RF: 0 oxycodone 5 mg Tablet 15 mg PO Q4H PRN (Reason: Pain) 3 Days Qty: 15 RF: 0 Royce (with collagen) 7-7-1.5 gram Powder In Packet 1 packet G-tube BIDCM Qty: 0 RF: 0 Pivot 1.5 Deshaun 0.09 gram- 1.5 kcal/mL Liquid 450 ml G-tube 0900,1200,1800 Qty: 0 RF: 0 thiamine HCl (vitamin B1) [Vitamin B-1] 100 mg Tablet 100 mg PO DAILYCM Qty: 0 RF: 0 trazodone 100 mg Tablet 100 mg PO QHS PRN (Reason: Insomnia) 3 Days Qty: 3 RF: 0 Continued atorvastatin 40 mg Tablet 40 mg PO DAILY RF: 0 sucralfate [Carafate] 100 mg/mL Suspension 10 ml PO BID RF: 0 omeprazole 40 mg Capsule,Delayed Release(Dr/Ec) 40 mg PO DAILY RF: 0 propranolol 40 mg Tablet 40 mg PO BID RF: 0 duloxetine 30 mg Capsule,Delayed Release(Dr/Ec) 30 mg PO DAILY RF: 0 methadone 10 mg Tablet 10 mg PO DAILY 3 Days Qty: 3 RF: 0 Discontinued oxycodone 15 mg Tablet 15 mg PO Q4H PRN (Reason: Pain) RF: 0 Referrals / Follow Up: Wes Parry DO [Primary Care Provider] - Disposition Disposition (needs filled in before D/C Order can be placed): Retirement Facility Charges/Coding Addendum Addendum: This patient was seen in conjunction with Vicky Okeefe NP. I have independently interviewed and examined the patient and reviewed pertinent historical, laboratory, and other data. I have reviewed her note and concur with her documentation 51-year-old male with past medical history of laryngeal CA in remission, status post tracheostomy and PEG tube, history of chronic alcohol use who comes in with generalized weakness. Patient lives alone. His sister checked on him and found him to be very weak. He convinced him that she was not sent to the hospital the next day. Today, as patient opened the door, he fell down face flat. He denied any dizziness or palpitation but admits to feeling very weak. Denies any fever or chills. He admits to diarrhea, profuse, ongoing for months, about 2 large watery bowel movements. He continues to smoke. Patient was found to be hypokalemic/hypomagnesemia on admission. He also had hyponatremia, that improved with IVF. Blood cultures are negative. Patient's urinalysis was abnormal but he denied any dysuria or frequency or urgency. Urine cultures grew Klebsiella. This is not acute symptomatic UTI but rather asymptomatic bacteriuria. Patient was seen by PT and OT and skilled for discharge to [facility] facility. Physical Exam: Gen: Comfortable, not pale, not jaundiced, appears frail, tracheostomy in place CVS:HS I +II, regular, no murmurs RESP: Diminished at lung bases GI: PEG tube in situ, clean, BS present and normal, soft, nontender, no palpable organs EXT:No edema Time spent coordinating all aspects of patient's care, discussing with nursing/CM/SW:35 minutes Visit Charges Inpatient E&M: 25879 Disch Hosp
--- NOTE | 2022-01-08 17:47 | NURSING ---
Nurse to nurse report called to Yomaira hall nurse at [facility]
--- NOTE | 2022-01-08 18:27 | NURSING ---
Squad report verbally given by this nurse to Squad personnel prior to pt leaving for [facility]
== END 2022-01-08 18:15 | disposition skilled nursing facility (03) | DRG 422 ==
LOC: ED 17:19 → PCU 17:39
PROVIDERS: Hospitalist; Nurse Practitioner Family; Admitting Provider Internal Medicine; Emergency Provider Emergency Medicine; PCP Preventive Medicine Occupational Medicine; Visit Provider Internal Medicine
DX: E87.6 Hypokalemia (principal); E86.1 Hypovolemia; E43 Unspecified severe protein-calorie malnutrition; E87.2 Acidosis; Z93.0 Tracheostomy status; Z93.1 Gastrostomy status; E87.1 Hypo-osmolality and hyponatremia; E78.5 Hyperlipidemia, unspecified; F10.10 Alcohol abuse, uncomplicated; I10 Essential (primary) hypertension; F17.210 Nicotine dependence, cigarettes, uncomplicated; E87.8 Other disorders of electrolyte and fluid balance, not elsewhere classified; K52.9 Noninfective gastroenteritis and colitis, unspecified; K21.9 Gastro-esophageal reflux disease without esophagitis; E83.42 Hypomagnesemia; Y90.9 Presence of alcohol in blood, level not specified; G89.4 Chronic pain syndrome; F32.A Depression, unspecified; R53.81 Other malaise; R29.6 Repeated falls; R82.71 Bacteriuria; R53.1 Weakness; Z68.1 Body mass index [BMI] 19.9 or less, adult; Z79.899 Other long term (current) drug therapy; Z85.21 Personal history of malignant neoplasm of larynx
CPT/HCPCS: 31720; 36415; 71045; 80048; 80053; 80170; 81001; 82077; 82330; 83605; 83735; 84132; 84484; 85025; 87040; 87077; 87086; 87088; 87186; 87426; 87428; 87493; 87506; 92526; 92610; 93005; 97110; 97162; 97166; 97530; 97535; 97802; 97803; 99282; 99406; J7030; J7050; A4216

== ENCOUNTER → 2022-01-12 | Outpatient (REF) | payer SELFPAY ==
[2022-01-12 09:22] LABS: Anion Gap 8 (5-15); BUN 26 mg/dL (7-18); BUN/Creat Ratio 60.2 RATIO (10-20); Calcium,Total 8.8 mg/dL (8.5-10.1); Chloride 102 mmol/L (98-107); Creatinine, Serum 0.43 mg/dL (0.70-1.30); EST Glomerular Filtration Rate 220 mL/min (>60); Est Glom Filt Rate - Afr Amer 266 mL/min (>60); Glucose 73 mg/dL (74-106); Potassium 4.2 mmol/L (3.5-5.1); Sodium Level 133 mmol/L (136-145)
== END | disposition home or self-care (01) ==
LOC: OLS.SW300 04:00
PROVIDERS: PCP Preventive Medicine Occupational Medicine; Referring Provider Family Medicine; Visit Provider Family Medicine
DX: E87.6 Hypokalemia (principal)
CPT/HCPCS: 36415; 80048

== ENCOUNTER → 2022-06-02 | Outpatient (CLI) | payer MEDICAID, SELFPAY ==
[2022-06-02 17:42] LABS: Hematocrit 44.3 % (40-54); Hemoglobin 14.6 g/dL (13.0-16.5); Mean Corpuscular Hgb 31.4 pg (27.0-32.0); Mean Corpuscular Volume 95.3 fL (80-94); Mean Platelet Vol. 11.7 fl (6.2-12.0); Platelet Count 299 K/mm3 (150-450); RBC Distribution Width CV 13.1 % (11.6-14.6); RBC Distribution Width SD 45.9 fl (35.1-43.9); Red Blood Count 4.65 M/mm3 (4.6-6.2); White Blood Count 4.5 K/mm3 (4.4-11.0)
[2022-06-02 18:02] LABS: ALB/GLOB Ratio 0.9 RATIO (0.9-2.4); AST(SGOT) 14 U/L (15-37); Alanine Aminotransfer ALT/SGPT 28 U/L (16-61); Albumin, Serum 3.5 g/dL (3.2-5.0); Alkaline Phosphatase 94 U/L (45-117); Anion Gap 5 (5-15); BUN 27 mg/dL (7-18); BUN/Creat Ratio 44.6 RATIO (10-20); Calcium,Total 9.9 mg/dL (8.5-10.1); Chloride 108 mmol/L (98-107); Creatinine, Serum 0.61 mg/dL (0.70-1.30); EST Glomerular Filtration Rate 149 mL/min (>60); Est Glom Filt Rate - Afr Amer 180 mL/min (>60); Glucose 100 mg/dL (74-106); Potassium 4.5 mmol/L (3.5-5.1); Protein, Total 7.5 g/dL (6.4-8.2); Sodium Level 140 mmol/L (136-145)
[2022-06-02 18:03] LABS: Prothrombin Time (Protime)PT. 12.6 SECONDS (11.7-14.9)
[2022-06-02 18:04] LABS: Partial Thromboplast Time 27.3 Seconds (24.1-36.2)
[2022-06-04 13:09] LABS: AFP, Tumor Marker 1.7 ng/mL (0.0-8.4)
== END | disposition home or self-care (01) ==
PROVIDERS: PCP Preventive Medicine Occupational Medicine; Referring Provider Internal Medicine Gastroenterology; Visit Provider Internal Medicine Gastroenterology
DX: K74.60 Unspecified cirrhosis of liver (principal)
CPT/HCPCS: 36415; 80053; 82105; 82140; 85027; 85610; 85730

== ENCOUNTER 2023-09-24 11:18 | Emergency (ER) | payer MEDICAID, SELFPAY ==
[2023-09-24 11:19] VITALS: BP 180/118; PULSE 71; RESP 14; TEMP 36.1; O2SAT 91; BMI 24.7
--- NOTE | 2023-09-24 11:59 | EX.ED.DYSGE1 ---
HPI <DILIP Peres - Last Filed: 09/24/23 14:29> History of Present Illness Chief Complaint: General Illness Narrative Narrative: Patient is a 53-year-old male with history of [place] cancer who has a trach. Patient gets most of his care at the [facility], patient was cleaning his trach when a piece of the back fell out. This piece apparently stops fluid from going down stopping aspiration. Patient states this is never happened before. He is not sure what to do. He denies any shortness of breath, fever chills nausea or vomiting. [facility] <DILIP Peres - Last Filed: 09/24/23 14:29> [facility] Medical History (Updated 09/24/23 @ 14:29 by DILIP Peres) HTN (hypertension) Laryngeal cancer Tracheostomy in place Home Medications atorvastatin 40 mg tablet 40 mg PO DAILY cholesterol 01/05/22 [History Last Taken 01/04/22] duloxetine 30 mg capsule,delayed release 30 mg PO DAILY mood 01/05/22 [History Last Taken 01/04/22] omeprazole 40 mg capsule,delayed release 40 mg PO DAILY gerd 01/05/22 [History Last Taken 01/04/22] propranolol 40 mg tablet 40 mg PO BID bp 01/05/22 [History Last Taken 01/04/22] sucralfate 100 mg/mL oral suspension (Carafate) 10 ml PO BID stomach 01/05/22 [History Last Taken 01/04/22] arginine 7 gram-glutam 7 gram-CaHMB 1.5 brvn-mudhw-ba-min oral pwd pkt (Royce (with collagen)) 1 packet G-tube BIDCM #0 ea 01/08/22 [Rx Last Taken Unknown] folic acid 1 mg tablet 1 mg PO DAILY@0800 #0 tabs 01/08/22 [Rx Last Taken Unknown] methadone 10 mg tablet 10 mg PO DAILY Check with primary doctor 3 days #3 tabs 01/08/22 [Rx Last Taken 01/04/22] nut.tx.comp. immune systm,reg 0.09 gram-1.5 kcal/mL liquid for tube feed (Pivot 1.5 Deshaun) 450 ml G-tube 0900,1200,1800 #0 mL 01/08/22 [Rx Last Taken Unknown] oxycodone 5 mg tablet 15 mg (3 x 5 mg) PO Q4H PRN Pain 3 days #15 tabs 01/08/22 [Rx Last Taken Unknown] thiamine HCl (vitamin B1) 100 mg tablet (Vitamin B-1) 100 mg PO DAILYCM #0 tabs 01/08/22 [Rx Last Taken Unknown] trazodone 100 mg tablet 100 mg PO QHS PRN Insomnia 3 days #3 tabs 01/08/22 [Rx Last Taken Unknown] Allergy/AdvReac Type Severity Reaction Status Date / Time No Known Allergies Allergy Verified 09/24/23 11:19 Family History Mother Cancer cervical Father Heart disease Surgical History H/O tracheostomy S/P percutaneous endoscopic gastrostomy (PEG) tube placement Social History household members: none Smoking Status: Current every day smoker tobacco type: cigarettes alcohol intake: current alcohol intake frequency: 3 or more drinks per day Alcohol type: beer substance use type: does not use ROS <DILIP Peres - Last Filed: 09/24/23 14:29> ROS ED ROS Narrative Constitutional: No fever, no chills. HEENT: No sore throat. No neck pain. No loss of vision. No rhinorrhea. Cardiovascular: No chest pain. No palpitations. No pedal edema. Respiratory: No cough, no shortness of breath. Patient does have a trach with a missing piece secondary to trying to clean it Abdominal: No abdominal pain. No nausea. No vomiting. Genitourinary: No dysuria. No hematuria. Musculoskeletal: No myalgias. No arthralgias. Neurologic: No headaches. No dizziness. No lightheadedness. Skin: No rash. No change in color. Psychiatric: No depression. No anxiety. EXAM <DILIP Peres - Last Filed: 09/24/23 14:29> Physical Exam Narrative Exam Narrative: Patient is in no obvious distress vital signs are stable. Patient is able to write on a pad of paper for communication. Apparently this piece stops aspiration. He has never had this come out before. Afebrile. Vital signs noted. HEENT: Normocephalic. Atraumatic. PERRL, EOMI. Neck soft and supple. No point tenderness or step off. Trach noted, minimal drainage. Area looks well-maintained Cardiovascular: Regular rate and rhythm. No murmurs, rubs, or gallops appreciated. Respiratory: No tachypnea. Lungs clear to auscultation bilaterally. Gastrointestinal: Abdomen soft, nontender, with normoactive bowel sounds. No rebound or guarding. Neurological: Awake. Alert. Nonfocal, nonlateralizing. Skin: No rash. Normal color. No pallor. Musculoskeletal: No pedal edema. Full range of motion extremities. Const Vital Signs: 09/24/23 11:19 09/24/23 12:38 09/24/23 12:50 Temperature 97 F L Temperature Source Temporal Pulse Rate 71 73 Respiratory Rate 14 14 Respiratory Effort Normal Respiratory Pattern Normal Blood Pressure 180/118 H 195/110 H Blood Pressure Mean 138 138 Pulse Ox 91 96 Oxygen Delivery Method Room Air Room Air 09/24/23 14:46 09/24/23 14:46 Temperature Temperature Source Pulse Rate 74 74 Respiratory Rate 18 18 Respiratory Effort Respiratory Pattern Blood Pressure 180/141 H 180/141 H Blood Pressure Mean 154 154 Pulse Ox 100 100 Oxygen Delivery Method Room Air <Dr. Aron Story MD - Last Filed: 09/24/23 20:02> Physical Exam Const Vital Signs: 09/24/23 11:19 09/24/23 12:38 09/24/23 12:50 Temperature 97 F L Temperature Source Temporal Pulse Rate 71 73 Respiratory Rate 14 14 Respiratory Effort Normal Respiratory Pattern Normal Blood Pressure 180/118 H 195/110 H Blood Pressure Mean 138 138 Pulse Ox 91 96 Oxygen Delivery Method Room Air Room Air 09/24/23 14:46 09/24/23 14:46 Temperature Temperature Source Pulse Rate 74 74 Respiratory Rate 18 18 Respiratory Effort Respiratory Pattern Blood Pressure 180/141 H 180/141 H Blood Pressure Mean 154 154 Pulse Ox 100 100 Oxygen Delivery Method Room Air MDM <DILIP Peres - Last Filed: 09/24/23 14:29> MDM Treatment and Re-Evaluation :: Patient appears to be in no obvious distress, vital signs are stable. Presenting to the emergency permit for concern of a piece missing from his trach. He does have a piece with him however he is not sure what to do with it. This happened while he was cleaning it. I have never seen the piece before, I will speak with respiratory therapy to see if they know what this piece will do. I apparently from the patient, does stop some aspiration. Patient is in no distress I spoke with respiratory therapy, this piece apparently was surgically placed. It is called a transesophageal prosthetic. It is placed by the head and neck center at the [facility]. I was able to get to positions that the patient sees. We will currently try to reach out to them for further instruction. I spoke with one of the patient's specialist from the [facility] head and neck [place]. Secondary to not having ENT on-call here, patient will need to go to the emergency department at [facility] for ENT residents to see him there. I am currently going to talk to the [facility] transfer center. Patient will go by private vehicle to the emergency department up in [place]. However currently waiting to talk to accepting physician. I spoke with the [facility] transfer center, the patient does need to get up to the emergency department [facility] in [place]. I spoke with in the emergency department, he is excepting doctor. I spoke with ENT who will see him in the emergency department. I spoke with the patient, I did mention that it would be best if the patient has a private vehicle that way when he is finished in the ER they can go home. However patient does not so he says to get him up there and then he will figure it out. At this time, patient does need to be transferred. All questions answered, patient stable for transfer to the emergency department at [facility] <Dr. Aron Story MD - Last Filed: 09/24/23 20:02> [facility] Narrative Medical decision making narrative: I have personally performed a face to face assessment of the patient and have reviewed the GELY Note. I performed a substantive portion of the visit including all aspects of the following. My ribera findings include: History: Patient was pulling his trach to clean it. He got another component that came out. He is not having breathing issues now. He had trace blood with this but no active bleeding. Exam: Patient is awake alert no acute distress. His breathing is comfortable. Saturations are normal. He can still speak if he covers his trach hole with his finger. Medical Decision Making: Patient somehow removed his TEP. This is not an item that we can replace here. We do not have ENT available. We contacted ENT and ER up at [facility] and he will be transferred there where they will see him for replacement of his transesophageal prosthetic. Discharge Plan Dx/Rx/DC Orders Clinical Impression: Tracheal anomaly Disposition Disposition: Acute Care Hospital [facility] Discharge Date/Time: 09/24/23 15:15
--- OUTSIDE RECORDS SUMMARY | 2023-09-24 12:07 | XMS RPT_ITS | CCD ---
Author Name Unknown Address [address] [facility] [address] [place] [address] Organization [facility] Care Team Providers Care Lump Machine Operator Name Role Phone NGOZI BRAUN DO Primary Care Physician Ngozi Braun Primary Care Provider Ngozi Braun Primary Care Provider Ngozi Braun Primary Care Provider NGOZI BRAUN DO Primary Care Physician Ngozi Braun DO Primary Care Provider [phone] Franklin LOPEZ, Mariluz Unavailable Ngozi Braun DO Primary Care Provider [phone] ANT BAGLEY, DR YENIFER Cole Attending UnaNGOZI Almeida DO Primary Care Unavailable NEO VASQUES MD Attending Unavail able NGOZI BRAUN DO Primary Care Unavailable ELLIOT BAGLEY, DR YAKOV Moore Attending Unavailabl e NGOZI BRAUN DO Primary Care Unavailable NGOZI BRAUN DO Attending Unavailable NGOZI BRAUN DO Primary Care Unavailable NEMESIO COLLINS MD Attending Unavaila NGOZI Solares DO Primary Care Unavailable CHUY STEPHEN MD Attending Unavailable NGOZI BRAUN DO Primary Care Unavailable Franklin LOPEZ, Mariluz Unavailable Franklin LOPEZ, Mariluz Unavailable NGOZI BARNES Referring Unavailable QUEENIE MARES Attending Unavailable NGOZI BRAUN Primary Care Unavailable NGOZI BRAUN Primary Care Unavailable NGOZI BARNES Attending Unavailable APARNA, NGOZI F Primary Care Unavailable YORKMEGHAN F Referring Unavailable YORKMEGHAN Rimma Attending Unavailable APARNA, NGOZI F Primary Care Unavailable VISHNU, QUEENIE Attending Unavailable VISHNU, QUEENIE Admitting Unavailable APARNA, NGOZI F Primary Care Unavailable LALI BURCIAGA Referring Unavailable APARNA, NGOZI F Primary Care Unavailable APARNA, NGOZI F Primary Care Unavailable CAMERON, NGOZI R Referring Unavailable APARNA, NGOZI F Primary Care Unavailable ABIOLA MENARD Attending Unavailable CAMERON, NGOZI R Referring Unavailable APARNA, NGOZI F Primary Care Unavailable LEMABIOLA PAVON Attending Unavailable KU, QUEENIE Attending Unavailable APARNA, NGOZI F Primary Care Unavailable KU, QUEENIE Referring Unavailable APARNA, NGOZI F Primary Care Unavailable CAMERON, NGOZI R Referring Unavailable APARNA, NGOZI F Primary Care Unavailable ABIOLA MENARD Attending Unavailable VISHNU, QUEENIE Referring Unavailable APARNA, NGOZI F Primary Care Unavailable APARNA, NGOZI F Primary Care Unavailable KU, QUEENIE Referring Unavailable APARNA, NGOZI F Primary Care Unavailable KU, QUEENIE Referring Unavailable APARNA, NGOZI F Primary Care Unavailable KU, QUEENIE Attending Unavailable APARNA, NGOZI F Primary Care Unavailable KU, QUEENIE Referring Unavailable APARNA, NGOZI F Primary Care Unavailable KU, QUEENIE Referring Unavailable APARNA, NGOZI F Primary Care Unavailable APARNA, NGOZI F Primary Care Unavailable PETER COREAS Referring Unavailable CAMERON, NGOZI R Referring Unavailable APARNA, NGOZI F Primary Care Unavailable KIRTI PEREZ Referring Unavailable APARNA, NGOZI F Primary Care Unavailable Medications Current Medications Medication Drug Class(es) Dates Sig (Normalized) Sig (Original) albuterol 0.833 mg/ml / ipratropium bromide 0.167 mg/ml inhalation solution (20 sources) Anticholinergic, beta2-Adrenergic Agonist Start: 07-01-2022 take 1 dose by inhalation four times daily albuterol-ipratro pium 2.5 mg-0.5 mg/3 mL inhalation solution Dose = 3 mL, Inhalation, QID, # 360 EA, 1 Refill(s), Pharmacy: [facility], 173.5, cm, 07/01/22 9:08:00 EST, Height Start Date: 07/01/22 Status: Ordered Completed/Discontinued Medications Medication Drug Class(es) Dates Sig (Normalized) Sig (Original) acetaminophen 32 mg/ml oral solution (20 sources) Start: 07-30-2022 End: 08-13-2022 acetaminophen (TYLENOL) 650 mg/20.3 mL soln 31.23 mL by ORAL/FEEDING TUBE route every 6 hours as needed for pain for up to 14 days. Do not exceed 5 doses in 24 hours. 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] Onset: 2 10-29-2020 Chronic Cancer of head and neck (9 sources) H/O: malignant neoplasm; Translations: [Personal history of malignant neoplasm of larynx] Onset: 3 Episodic Chronic obstructive pulmonary disease and bronchiectasis (5 sources) Chronic obstructive lung disease 07-01-2022 Chronic Deficiency and other anemia (5 sources) Anemia 07-01-2022 Episodic Disorders of lipid metabolism (15 sources) Hyperlipidemia 06-08-2021 Chronic Esophageal disorders (15 sources) Gastroesophageal reflux disease 06-08-2021 Chronic Essential hypertension (20 sources) Essential hypertension; Translations: [Hypertensive disorder] Onset: 3 10-05-2019 Chronic Fluid and electrolyte disorders (20 sources) Hypokalemia; Translations: [Hypo-osmolality and or hyponatremia] Onset: 2 01-13-2022 Episodic Fracture of lower limb (1 source) Closed fracture of foot; Translations: [Unspecified fracture of unspecified foot, initial encounter for closed fracture] Onset: 3 Episodic Gangrene (10 sources) 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 07-20-2021 Episodic Gastrointestinal hemorrhage (12 sources) Gastrointestinal hemorrhage 04-15-2020 Episodic Intestinal infection (2 sources) Clostridium difficile colitis; Translations: [Enterocolitis due to Clostridium difficile, not specified as recurrent] Onset: 2 Episodic Mood disorders (20 sources) Depressive disorder; Translations: [Depression, controlled] Onset: 2 Chronic Nutritional deficiencies (20 sources) Undernutrition; Translations: [Mild protein-calorie malnutrition] Onset: 2 07-30-2022 Chronic Open wounds of extremities (1 source) Open wound of foot; Translations: [Unspecified open wound, right foot, initial encounter] Episodic Open wounds of head; neck; and trunk (1 source) Injury of anus; Translations: [Unspecified open wound of anus, initial encounter] Episodic Other connective tissue disease (1 source) Musculoskeletal symptom; Translations: [Other symptoms and signs involving the musculoskeletal system] Episodic Other connective tissue disease (1 source) Swelling of left lower limb 03-17-2023 Episodic Other diseases of veins and lymphatics (10 sources) Lymphedema; Translations: [Lymphedema, not elsewhere classified] Onset: 3 Chronic Other gastrointestinal disorders (1 source) Gastrostomy present; Translations: [Gastrostomy status] Onset: 2 Chronic Other gastrointestinal disorders (20 sources) History of placement of gastrostomy tube; Translations: [Gastrostomy status] Onset: 2 Chronic Other gastrointestinal disorders (7 sources) Dysphagia; Translations: [Dysphagia, unspecified] Onset: 2 Episodic Other hereditary and degenerative nervous system conditions (20 sources) Essential tremor; Translations: [Essential tremor] Onset: 3 10-05-2019 Chronic Other liver diseases (6 sources) Cirrhosis of liver; Translations: [Unspecified cirrhosis of liver] Onset: 3 06-23-2023 Chronic Other liver diseases (1 source) Increased aspartate transaminase level; Translations: [Elevation of levels of liver transaminase levels] Episodic Other lower respiratory disease (2 sources) Partially obstructed airway; Translations: [Other specified respiratory disorders] 06-17-2023 Episodic Other male genital disorders (17 sources) Impotence 10-09-2019 Chronic Other nervous system disorders (1 source) Pain due to neoplastic disease; Translations: [Neoplasm related pain (acute) (chronic)] Onset: 2 Chronic Other nervous system disorders (1 source) Peripheral nerve disease 03-17-2023 Chronic Other nervous system disorders (6 sources) H/O: brain disorder; Translations: [Personal history of other diseases of the nervous system and sense organs] Onset: 3 06-23-2023 Episodic Other nutritional; endocrine; and metabolic disorders (1 source) Other disorders of phosphorus metabolism; Translations: [Other disorders of phosphorus metabolism] Chronic Other skin disorders (1 source) Finding of neck region; Translations: [Localized swelling, mass and lump, neck] Episodic Other skin disorders (1 source) Mass of neck; Translations: [Localized swelling, mass and lump, neck] Episodic Other upper respiratory disease (20 sources) Tracheostomy present; Translations: [Tracheostomy status] Onset: 2 Chronic Other upper respiratory infections (3 sources) Acute upper respiratory infection; Translations: [Acute upper respiratory infection, unspecified] Onset: 3 Episodic Phlebitis; thrombophlebitis and thromboembolism (6 sources) Deep venous thrombosis of left lower extremity; Translations: [Acute embolism and thrombosis of unspecified deep veins of left lower extremity] Onset: 3 06-23-2023 Episodic Residual codes; unclassified (11 sources) History of laryngectomy; Translations: [Acquired absence of larynx] Onset: 3 Episodic Residual codes; unclassified (6 sources) Alcohol intake - finding; Translations: [Other specified health status] Onset: 3 06-23-2023 Episodic Secondary malignancies (15 sources) 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 Spondylosis; intervertebral disc disorders; other back problems (13 sources) Thoracic back pain; Translations: [Pain in thoracic spine] 09-07-2021 Episodic Sprains and strains (1 source) Sprain of ankle; Translations: [Sprain of unspecified ligament of unspecified ankle, initial encounter] Onset: 3 Episodic Substance-related disorders (20 sources) Nicotine dependence; Translations: [Cigarette smoker ] Onset: 2 10-09-2019 Chronic Superficial injury; contusion (1 source) Abrasion, lower leg; Translations: [Abrasion, unspecified lower leg, initial encounter] Episodic Thyroid disorders (20 sources) Acquired hypothyroidism; Translations: [Hypothyroidism, unspecified] Onset: 2 Chronic Unclassified (17 sources) Patient encounter status 10-09-2019 Past or Other Problems Problem Classification Problem Date Documented Date Episodic/Chronic E Codes: Adverse effects of medical care (1 source) Radiological procedure and radiotherapy as the cause of abnormal reaction of the patient, or of later complication, without mention of misadventure at the time of the procedure; 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] Onset: 2 Episodic Other lower respiratory disease (12 sources) Oral airway finding; Translations: [Respiratory disorder, unspecified] Onset: 3 Episodic Other lower respiratory disease (1 source) Respiratory disorder, unspecified; Translations: [Disorder of airway] Onset: 3 Episodic Other non-traumatic joint disorders (2 sources) Pain in left ankle and joints of left foot; Translations: [Pain in left ankle and joints of left foot] Onset: 3 Episodic Other upper respiratory disease (20 sources) Chondroradionecrosis of larynx; Translations: [Other diseases of larynx] Onset: 2 Episodic Other upper respiratory disease (20 sources) Dysphonia; Translations: [Dysphonia] Onset: 2 Episodic Other upper respiratory disease (20 sources) Loss of voice; Translations: [Aphonia] Onset: 3 Episodic Other upper respiratory disease (1 source) Aphonia; Translations: [Aphonia] Onset: 3 Episodic Other upper respiratory disease (1 source) Other diseases of larynx; 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] Onset: 2 Episodic Residual codes; unclassified (1 source) Acquired absence of larynx; Translations: [S/P laryngectomy] Onset: 3 Episodic Results Test Name Value Interpretation Reference Range Facil ity Vital Signs Date Time Vital Sign Value Performing Clinician Laura medellin 06-23-2023 13:01-0500 Diastolic blood pressure 85 mm[Hg] [facility] Work Phone: [facility] 06-23-2023 13:01-0500 Systolic blood pressure 124 mm[Hg] [facility] Work Phone: [facility] 06-23-2023 12:28-0500 Body height 172.7 cm [facility] Work Phone: [facility] 06-23-2023 12:28-0500 Body temperature 97.5 [degF] [facility] Work Phone: [facility] 06-23-2023 12:28-0500 Body weight 72.8 kg [facility] Work Phone: [facility] 06-23-2023 12:28-0500 Heart rate 86 /min [facility] Work Phone: [facility] 06-23-2023 12:28-0500 Respiratory rate 20 /min [facility] Work Phone: [facility] 06-23-2023 12:28-0500 SaO2% (BldA) [Mass fraction] 97 % [facility] Work Phone: [facility] 10-18-2022 16:53-0500 Body temperature 98.96 [degF] DR YENIFER CAIN MD [facility] 10-18-2022 16:53-0500 Diastolic Blood Pressure Non-Invasive [address] YENIFER CAIN MD [facility] 10-18-2022 16:53-0500 Heart rate 86 /min DR YENIFER CAIN MD [facility] 10-18-2022 16:53-0500 Respiratory rate 20 /min DR YENIFER CAIN MD [facility] 10-18-2022 16:53-0500 Systolic Blood Pressure Non-Invasive [address] YENIFER CAIN MD [facility] 09-11-2022 14:20-0500 Diastolic Blood Pressure Non-Invasive [address] YAKOV ZARATE MD [facility] 09-11-2022 14:20-0500 Heart rate 86 /min DR YAKOV ZARATE MD [facility] 09-11-2022 14:20-0500 Respiratory rate 18 /min DR YAKOV ZARATE MD [facility] 09-11-2022 14:20-0500 Systolic Blood Pressure Non-Invasive [address] YAKOV ZARATE MD [facility] 09-11-2022 13:24-0500 Heart rate 104 /min DR YAKOV ZARATE MD [facility] 09-11-2022 13:24-0500 Respiratory rate 24 /min DR YAKOV ZARATE MD [facility] 09-11-2022 12:47-0500 Body temperature 98.24 [degF] DR YAKOV ZARATE MD [facility] 09-11-2022 12:47-0500 Diastolic Blood Pressure Non-Invasive [address] YAKOV ZARATE MD [facility] 09-11-2022 12:47-0500 Heart rate 106 /min DR YAOKV ZARATE MD [facility] 09-11-2022 12:47-0500 Respiratory rate 28 /min DR YAKOV ZARATE MD [facility] 09-11-2022 12:47-0500 Systolic Blood Pressure Non-Invasive [address] YAKOV ZARATE MD [facility] 07-20-2022 12:40-0500 Diastolic blood pressure 85 mm[Hg] [facility] Work Phone: [facility] 07-20-2022 12:40-0500 Systolic blood pressure 153 mm[Hg] [facility] Work Phone: [facility] 07-20-2022 12:38-0500 Body height 172.7 cm [facility] Work Phone: [facility] 07-20-2022 12:38-0500 Body temperature 98.2 [degF] [facility] Work Phone: [facility] 07-20-2022 12:38-0500 Body weight 74.84 kg [facility] Work Phone: [facility] 07-20-2022 12:38-0500 Heart rate 74 /min [facility] Work Phone: [facility] 07-20-2022 12:38-0500 SaO2% (BldA) [Mass fraction] 97 % [facility] Work Phone: [facility] 07-05-2022 11:01-0500 Blood Pressure Cuff Size CHUY STEPHEN MD [facility] 07-05-2022 11:01-0500 Blood Pressure Location CHUY STEPHEN MD [facility] 07-05-2022 11:01-0500 Blood Pressure Method CHUY STEPHEN MD [facility] 07-05-2022 11:01-0500 Body height 172.7 cm CHUY STEPHEN MD [facility] 07-05-2022 11:01-0500 Body temperature 98.96 [degF] CHUY STEPHEN MD [facility] 07-05-2022 11:01-0500 Body weight 70.5 kg CHUY STEPHEN MD [facility] 07-05-2022 11:01-0500 Body weight 23.64 kg/m2 CHUY STEPHEN MD [facility] 07-05-2022 11:01-0500 Diastolic Blood Pressure Non-Invasive 96 1 CHUY STEPHEN MD [facility] 07-05-2022 11:01-0500 Heart rate 72 /min CHUY STEPHEN MD [facility] 07-05-2022 11:01-0500 Respiratory rate 18 /min CHUY STEPHEN MD [facility] 07-05-2022 11:01-0500 Systolic Blood Pressure Non-Invasive 169 1 CHUY STEPHEN MD [facility] 07-01-2022 10:16-0500 Body height 172.7 cm NEO MCNULTY-FEDERICOS M D [facility] 07-01-2022 10:16-0500 Body temperature 98.42 [degF] NEO MCNULTY-FEDERICOS M D [facility] 07-01-2022 10:16-0500 Body weight 73 kg NEO Garcia [facility] 07-01-2022 10:16-0500 Diastolic Blood Pressure Non-Invasive 72 1 NEO VASQUES MD [facility] 07-01-2022 10:16-0500 Heart rate 80 /min NEO VASQUES M D [facility] 07-01-2022 10:16-0500 Respiratory rate 20 /min NEO MCCLELLANS M D [facility] 07-01-2022 10:16-0500 Systolic Blood Pressure Non-Invasive 138 1 NEO VASQUES MD [facility] 04-06-2022 18:37-0400 Body temperature 97.88 [degF] FRANK GALO MD [facility] 04-06-2022 18:37-0400 Diastolic blood pressure 71 mm[Hg] FRANK GALO MD [facility] 04-06-2022 18:37-0400 Heart rate 70 /min FRANK GALO MD [facility] 04-06-2022 18:37-0400 Respiratory rate 16 /min FRANK GALO MD [facility] 04-06-2022 18:37-0400 Systolic blood pressure 115 mm[Hg] FRANK GALO MD [facility] 04-06-2022 14:47-0400 Body temperature 98.24 [degF] FRANK GALO MD [facility] 04-06-2022 14:47-0400 Diastolic blood pressure 70 mm[Hg] FRANK GALO MD [facility] 04-06-2022 14:47-0400 Heart rate 56 /min FRANK GALO MD [facility] 04-06-2022 14:47-0400 Respiratory rate 16 /min FRANK GALO MD [facility] 04-06-2022 14:47-0400 Systolic blood pressure 120 mm[Hg] FRANK GALO MD [facility] 04-06-2022 10:50-0400 Body temperature 98.42 [degF] FRANK GALO MD [facility] 04-06-2022 10:50-0400 Diastolic blood pressure 80 mm[Hg] FRANK GALO MD [facility] 04-06-2022 10:50-0400 Heart rate 64 /min FRANK AGLO MD [facility] 04-06-2022 10:50-0400 Respiratory rate 16 /min FRANK GALO MD [facility] 04-06-2022 10:50-0400 Systolic blood pressure 116 mm[Hg] FRANK GALO MD [facility] 04-06-2022 09:45-0400 Reason For Taking VItal Signs FRANK GALO MD [facility] 04-05-2022 22:12-0400 Mean blood pressure 111 mm[Hg] FRANK GALO MD [facility] 04-05-2022 19:32-0400 Reason For Taking VItal Signs FRANK GALO MD [facility] 04-05-2022 07:37-0400 Reason For Taking VItal Signs FRANK GALO MD [facility] 04-03-2022 08:39-0400 Heart rate 67 /min FRANK GALO MD [facility] 04-02-2022 20:04-0400 Heart rate 97 /min FRANK GALO MD [facility] 04-02-2022 14:28-0400 Heart rate 72 /min FRANK GALO MD [facility] 04-02-2022 14:28-0400 Mean blood pressure 95 mm[Hg] FRANK GALO MD [facility] 04-02-2022 10:46-0400 Mean blood pressure 91 mm[Hg] FRANK GALO MD [facility] 03-31-2022 02:30-0400 Diastolic Blood Pressure NBP 75 1 FRANK GALO MD [facility] 03-31-2022 02:30-0400 Mean blood pressure 83 mm[Hg] FRANK GALO MD [facility] 03-31-2022 02:30-0400 Systolic Blood Pressure NBP 111 1 FRANK GALO MD [facility] 03-31-2022 01:00-0400 Diastolic Blood Pressure NBP 72 1 FRANK GALO MD [facility] 03-31-2022 01:00-0400 Mean blood pressure 80 mm[Hg] FRANK GALO MD [facility] 03-31-2022 01:00-0400 Systolic Blood Pressure NBP 112 1 FRANK GALO MD [facility] 03-31-2022 00:00-0400 Diastolic Blood Pressure NBP 76 1 FRANK GALO MD [facility] 03-31-2022 00:00-0400 Mean blood pressure 84 mm[Hg] FRANK GALO MD [facility] 03-31-2022 00:00-0400 Systolic Blood Pressure NBP 114 1 FRANK GALO MD [facility] 03-30-2022 00:38-0400 Body height 172 cm FRANK GALO MD [facility] 03-30-2022 00:38-0400 Body weight 55 kg FRANK GALO MD [facility] 03-30-2022 00:38-0400 Body weight 18.59 kg/m2 FRANK GALO MD [facility] 03-29-2022 22:00-0400 Diastolic blood pressure 75 mm[Hg] GUERA HOFFMAN MD [facility] 03-29-2022 22:00-0400 Heart rate 72 /min GUERA HOFFMAN MD [facility] 03-29-2022 22:00-0400 Respiratory rate 17 /min GUERA HOFFMAN MD [facility] 03-29-2022 22:00-0400 Systolic blood pressure 102 mm[Hg] GUERA HOFFMAN MD [facility] 03-29-2022 20:35-0400 Diastolic blood pressure 76 mm[Hg] GUERA HOFFMAN MD [facility] 03-29-2022 20:35-0400 Heart rate 73 /min GUERA HOFFMAN MD [facility] 03-29-2022 20:35-0400 Respiratory rate 16 /min GUERA HOFFMAN MD [facility] 03-29-2022 20:35-0400 Systolic blood pressure 104 mm[Hg] GUERA HOFFMAN MD [facility] 03-29-2022 18:49-0400 Diastolic blood pressure 78 mm[Hg] GUERA HOFFMAN MD [facility] 03-29-2022 18:49-0400 Heart rate 70 /min GUERA HOFFMAN MD [facility] 03-29-2022 18:49-0400 Respiratory rate 15 /min GUERA HOFFMAN MD [facility] 03-29-2022 18:49-0400 Systolic blood pressure 106 mm[Hg] GUERA HOFFMAN MD [facility] 03-29-2022 12:36-0400 Body temperature 96.98 [degF] GUERA HOFFMAN MD [facility] 03-29-2022 12:36-0400 Heart rate 76 /min GUERA HOFFMAN MD [facility] Encounters Encounter Date Encounter Type Care Provider Facility Start: 07-26-2023 End: 07-26-2023 ambulatory QUEENIE KU Facility:[facility] Start: 07-26-2023 End: 07-26-2023 Patient encounter procedure Kirti Perez CCC-STRATEGIC PLANNING DIRECTOR Work Phone: Otolaryngology Procedures Date Procedure Procedure Detail Performing Clinician Start: 06-24-2023 Dup-scan xtr veins unilateral/limited study Queenie Mares MD Work Phone: Start: 09-06-2022 Radiologic exam esop hagus single contrast study Queenie Mares MD Work Phone: Start: 07-14-2022 Antibody screen Ngozi Barnes MD Work Phone: Start: 07-14-2022 Antibody screen rbc each serum technique Ngozi Barnes MD Work Phone: Start: 01-27-2022 Antibody screen Ngozi Barnes MD Work Phone: Start: 08-15-1986 Arthroscopic knee operation NEMESIO COLLINS MD Plan of Treatment Date Care Activity Detail Author Start: 06-22-2026 Diabetes Screening Diabetes Screenin [facility] Start: 12-01-2025 DIABETES SCREEN DIABETES SCREEN [facility] Start: 12-01-2025 [facility]: 07-28-2025 DIABETES SCREEN DIABETES SCREEN [facility] Start: 07-14-2025 DIABETES SCREEN DIABETES SCREEN [facility] Start: 01-27-2025 DIABETES SCREEN DIABETES SCREEN [facility] Start: 06-17-2024 DIABETES SCREEN DIABETES SCREEN [facility] Start: 04-15-2023 Covid-19 Vaccine ( season) Covid-19 Vaccine () [facility] Start: 04-15-2023 Influenza vaccination C [facility] Start: 12-01-2022 End: 01-31-2023 Thyrotropin [Units/volume] in Serum or Plasma [facility] Work Phone: Immunizations Immunization Date Immunization Notes Care Provider Arnold conte 11-06-2021 COVID-19, mRNA, LNP- S, PF, 100 mcg or 50 mcg dose; Translations: [Moderna COVID-19 Vaccine] NGOZI BRAUN DO [facility] 07-27-2021 COVID-19, mRNA, LNP- S, PF, 100 mcg or 50 mcg dose; Translations: [Moderna COVID-19 Vaccine] DR VINCENT FRAGOSO MD [facility] 12-09-2020 SARS-CoV-2 (COVID-19 ) mRNA-1273 vaccine NEMESIO COLLINS MD [facility] 11-11-2020 SARS-CoV-2 (COVID-19 ) mRNA-1273 vaccine NEMESIO COLLINS MD [facility] 2020 influenza virus vaccine, unspecified formulation NEMESIO COLLINS MD [facility] Payers Date Payer Category Payer Private Health Insurance [id number] 2022 Private Health Insurance [id number] 2020 Medicaid [facility] MEDICAID [facility] [employer] MEDICAID [id number] 2020-Present [phone] [address] [place] [address] Medicaid [id number] 2020 Medicaid [id number] 1970 Unknown [id number] 1970 Unknown [id number] 1970 Unknown [id number] 1970 Unknown [id number] 1970 Unknown [id number] 1970 Unknown [id number] Social History Date Type Detail Facility Start: 10-05-2019 Heavy tobacco smoker (finding) [facility] Start: 1970 Sex Assigned At Male A [facility] Start: 06-17-2021 End: 07-14-2022 Tobacco smoking status NHIS Ex-smoker [facility] End: 08-15-2020 History of tobacco use Current smoker [facility] End: 08-15-2020 History of tobacco use Cigarette Smoker [facility] Start: 06-17-2021 End: 12-15-2022 Cigarettes smoked current (pack per day) - Reported 1 [facility] Start: 06-17-2021 End: 07-20-2022 Tobacco use and exposure Smokeless tobacco non-user [facility] Start: 01-27-2022 End: 06-23-2023 Alcohol intake Current drinker of alcohol (finding) [facility] Start: 06-17-2021 History SDOH Alcohol Comment socal [facility] Start: 01-17-2022 End: 07-14-2022 Exposure to SARS-CoV-2 (event) Not sure [facility] Start: 07-20-2022 End: 06-23-2023 Tobacco smoking status NHIS Smokes tobacco daily [facility] Start: 07-20-2022 End: 06-17-2023 Alcohol intake Ex-drinker (finding) [facility] Start: 12-01-2022 End: 12-15-2022 Tobacco use panel [facility] National Score (1-10 0), lower number is lower risk 47 [facility] Start: 06-15-2021 Gender identity Identifies as male gender (finding) [facility] Start: 06-15-2021 Sexual orientation Heterosexual (fin ding) [facility] Start: 06-17-2023 [facility] Start: 06-23-2023 Tobacco Comment Currently smokes 1/4 ppd [facility] Start: 06-23-2023 Alcohol Comment history of ETO H abuse. currently drinks 12 beers weekly [facility] Medical Equipment Procedure Code Equipment Code Equipment Origin al Text Equipment Identifier Dates Environmental Field Technician [place] 3.5m m Anastomosis Sterile Microvascular Disposable - [id number] Start: 07-23-2022 Functional Status Date Assessment Result Facility 10-18-2022 Functional Status Independent [facility] 10-18-2022 Functional Status ID band on, Call device within reach, Bed in low position, Wheels locked, Upper/Half-Length side-rails up [facility] 09-11-2022 Functional Status Independent [facility] 09-11-2022 Functional Status Standard Safet y ID band on, Call device within reach, Bed in low position, Wheels locked, Upper/Half-Length side-rails up, Phone within reach, personal items within reach [facility] 07-05-2022 Functional Status ID band on [facility] 07-01-2022 Functional Status Resting [facility] 04-06-2022 Functional Status bilateral knee high [facility] 04-06-2022 Functional Status Non-Slip footw ear, Room check performed [facility] 04-06-2022 Functional Status [facility] 04-06-2022 Functional Status [facility] 04-06-2022 Functional Status NPO Status Maintained [facility] 04-06-2022 Functional Status [facility] 04-06-2022 Functional Status [facility] 04-06-2022 Functional Status [facility] 04-05-2022 Functional Status [facility] 04-05-2022 Functional Status 12 [facility] 04-05-2022 Functional Status Ambulation in Room [facility] 04-05-2022 Functional Status Done [facility] 04-04-2022 Functional Status [facility] 04-04-2022 Functional Status [facility] 04-04-2022 Functional Status Other: bed 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 bath 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 [facility] 04-03-2022 Functional Status [facility] 04-01-2022 Functional Status [facility] 03-31-2022 Functional Status Shampoo/Body wash (no r inse) [facility] 03-31-2022 Functional Status Living Situati on Home independently [facility] 03-31-2022 Functional Status preventative foam dress ing [facility] 03-31-2022 Functional Status [facility] 03-30-2022 Functional Status [facility] 03-30-2022 Functional Status [facility] 03-30-2022 Functional Status Min A 17, 18 [facility] 03-30-2022 Functional Status Done [facility] 03-30-2022 Functional Status [facility] 03-29-2022 Functional Status Activity Statu s ADL Urinal provided [facility] 03-29-2022 Functional Status [facility] 03-29-2022 Functional Status Identified as high risk, Room located near nursing station, Door open [facility] 11-26-2021 Functional Status Objective: Observation: Mild forward head posture and excess thoracic kyphosis Sensation: Grossly intact bilat UE and LE's with some limited sensation to light touch bilateral feet grossly Cardiovascular screen: BP :110/70 HR: 70 BPM O2 sat: 94% initially 88% Reflexes: Quads R: 1+ L: 1+ Achilles R: 1+ L: 1+ bilat biceps and triceps also grossly 1+ Thoracic AROM in seated : Flex: min loss Ext: major loss Rotation: R: Mod loss, L Mod loss Palpation: Denies notable tenderness to palpation central spine grossly from thoracic to lumbar region. Hip Screen: RUDOLPH: - FADIR: - [facility] Mental Status Date Assessment Result Facility 10-18-2022 Mental Status Orientation Oriented x 4 [facility] 10-18-2022 Mental Status [facility] 09-11-2022 Mental Status Orientation Oriented x 4 [facility] 09-11-2022 Mental Status [facility] 07-05-2022 Mental Status Orientation Oriented x 4 [facility] 04-06-2022 Mental Status Orientation Orie nted x 4, Follows simple commands [facility] 04-06-2022 Mental Status [facility] 04-05-2022 Mental Status [facility] 04-05-2022 Mental Status Orientation Asse ssment Oriented x 4 [facility] 04-05-2022 Mental Status [facility] 04-01-2022 Mental Status [facility] 03-29-2022 Mental Status Orientation Oriented x 4 [facility] Clinical Notes 09-16-2021 to 07-26-2023 Queenie Mares MD - 07/26/2023 1:35 PM Shayla Cantrell Ma - 07/26/2023 8:03 AM Kirti Castillo CCC-STRATEGIC PLANNING DIRECTOR - 07/26/2023 9:33 AM EST Note Date & Type Note Facility 07-26-2023 Note HNO ID: [id number] Author: Queenie Mares MD Service: ? Author Type: Physician Type: Progress Notes Filed: 07/26/2023 1:38 PM Note Text: Head and Neck Surgery Follow-up Note Patient: Matthieu Carlin Age: [age] year old Provider: Queenie Mares MD Date of visit: 07/26/23 Chief Complaint: Patient presents with: Post Op History of Present Illness: Matthieu Carlin is a 53 year old year old male with a history of chondroradionecrosis of larynx with dysfunctional larynx s/p TL and R ALT recon with Dr. Barnes and myself on 07/23/2022. He underwent stomaplasty and dilation on 06/27/2023. Recently had TEP exchanged without an issue. Doing well otherwise. Lost his larytube. We have reviewed the patient's past medical history, past surgical history, medications, allergies, social history, and review of systems with the patient. Any significant changes are noted above in the HPI . Current Medication: Current Outpatient Medications Medication Sig Dispense Refill apixaban (ELIQUIS) 5 mg tab(s) Take 5 mg by mouth two times a day. sodium chloride 0.9 % nebulizer solution 3 mL three times a day as needed (Dispense 3ml in to tracheostomy). 300 mL 2 guaiFENesin (ROBITUSSIN) 100 mg/5 mL syrup 200 mg every 4 hours as needed for cough. loperamide HCl (IMODIUM) 2 mg tab 4 mg by PEG route as needed. budesonide (PULMICORT) 0.25 mg/2 mL nebulizer solution Use 0.25 mg via nebulizer twice daily. ipratropium-albuterol (DUONEB) 0.5 mg-3 mg(2.5 mg base)/3 mL nebu Inhale 3 mL as instructed every 2 hours as needed for wheezing/shortness of breath. melatonin 3 mg tablet 3 mg by PEG route daily at bedtime. propranolol (INDERAL) 20 mg tablet Take 20 mg by mouth twice daily. 2 times daily as needed for essential tremor levothyroxine (SYNTHROID) 150 mcg tablet Take 1 tablet by mouth daily before breakfast. 6 tablet 3 gabapentin (NEURONTIN) 600 mg tablet Take 600 mg by mouth three times daily. omeprazole (PRILOSEC) 40 mg capsule Take 40 mg by mouth. oxyCODONE IR (ROXICODONE) 5 mg immediate release tablet Take 1 tablet by mouth every 6 hours as needed for pain. (Patient not taking: Reported on 07/26/2023) 10 tablet 0 MEDICAL SUPPLY Please dispense saline bullets to use in tracheostomy as needed 30 Each 2 MEDICAL SUPPLY Laryngectomy supplies portable suction machine #12 slovenian soft suction catheters Lillianuer suction catheters 1 Each 2 senna (SENOKOT) 8.6 mg tab 8.6 mg by PEG route twice daily as needed for constipation. No current facility-administered medications for this visit. Review of Systems - A focused ROS was performed, which is noted in the HPI above. Physical Exam: Vitals - There were no vitals taken for this visit. Constitutional - General Appearance: Normocephalic and atraumatic. Well developed, well nourished. Communication: Aphonic Head AND Face - Overall: No obvious scars, lesions or masses. Parotid and submandibular glands: No masses bilaterally and without any asymmetry. Facial strength: Normal and equal bilaterally. Eyes - Pupils are round and reactive. Extraocular muscles grossly intact. Sclerae and conjunctivae noninjected and anicteric. Ear, Nose, Mouth AND Throat - Ears: No external deformities. Left and right external auditory canals are patent, bilateral tympanic membranes intact without effusion. Nasal exam: No external deformities. Mucosa is pink. Septum is midline. Visible turbinates are normal on anterior rhinoscopy. Oral Cavity: No mucosal lesions. Tongue is soft, midline, and mobile bilaterally. Floor of mouth is soft. Palate is intact and elevates symmetrically. Neck: Bilateral neck scar. Stoma mildly narrowed but with TEP in place. Skin - No edema, no discoloration, no ulceration, no masses or lesions. Respiratory - Normal work of breathing on room air. No stridor or abnormal breath sounds. Neurologic - General: Alert and oriented x 3. No obvious focal deficits. Cranial Nerves: II: Pupillary reflexes normal III, IV, : EOM normal V: 1,2,3: normal sensation VII: Normal strength in all divisions IX, X: Aphonic, normal palatal elevation and sensation XI: Shoulder strength normal XII: Tongue mobility normal Extremities - Right thigh incision well healed. Procedure: None Review of Pathology and Radiologic Records and Images: Previous operative, pathology, and radiological reports and/or images were reviewed and filed in the permanent chart. None Assessment: ACTIVE PROBLEM LIST Chondroradionecrosis of Larynx Acquired Hypothyroidism Dysphonia Tracheostomy in Place (Hcc) S/P Percutaneous Endoscopic Gastrostomy (Peg) Tube Placement (Hcc) Depression, Controlled Malnutrition of Mild Degree (Hcc) Nicotine use disorder, F17.2 Aphonia Disorder of Airway Lymphedema Cirrhosis of Liver (Hcc) History of Seizures As A Child Deep Vein Thrombosis (Dvt) of Left Lower Extremity (Hcc) Htn (Hypertension) (more content not included)... [facility] 07-26-2023 History of Present illness Narrative Head and Neck Surgery Follow-up Note Patient: Matthieu Carlin Age: [age] year old Provider: Queenie Mares MD Date of visit: 07/26/23 Chief Complaint: Patient presents with: Post Op History of Present Illness: Matthieu Carlin is a 53 year old year old male with a history of chondroradionecrosis of larynx with dysfunctional larynx s/p TL and R ALT recon with Dr. Barnes and myself on 07/23/2022. He underwent stomaplasty and dilation on 06/27/2023. Recently had TEP exchanged without an issue. Doing well otherwise. Lost his larytube. We have reviewed the patient's past medical history, past surgical history, medications, allergies, social history, and review of systems with the patient. Any significant changes are noted above in the HPI . Current Medication: Current Outpatient Medications Medication Sig Dispense Refill apixaban (ELIQUIS) 5 mg tab(s) Take 5 mg by mouth two times a day. sodium chloride 0.9 % nebulizer solution 3 mL three times a day as needed (Dispense 3ml in to tracheostomy). 300 mL 2 guaiFENesin (ROBITUSSIN) 100 mg/5 mL syrup 200 mg every 4 hours as needed for cough. loperamide HCl (IMODIUM) 2 mg tab 4 mg by PEG route as needed. budesonide (PULMICORT) 0.25 mg/2 mL nebulizer solution Use 0.25 mg via nebulizer twice daily. ipratropium-albuterol (DUONEB) 0.5 mg-3 mg(2.5 mg base)/3 mL nebu Inhale 3 mL as instructed every 2 hours as needed for wheezing/shortness of breath. melatonin 3 mg tablet 3 mg by PEG route daily at bedtime. propranolol (INDERAL) 20 mg tablet Take 20 mg by mouth twice daily. 2 times daily as needed for essential tremor levothyroxine (SYNTHROID) 150 mcg tablet Take 1 tablet by mouth daily before breakfast. 6 tablet 3 gabapentin (NEURONTIN) 600 mg tablet Take 600 mg by mouth three times daily. omeprazole (PRILOSEC) 40 mg capsule Take 40 mg by mouth. oxyCODONE IR (ROXICODONE) 5 mg immediate release tablet Take 1 tablet by mouth every 6 hours as needed for pain. (Patient not taking: Reported on 07/26/2023) 10 tablet 0 MEDICAL SUPPLY Please dispense saline bullets to use in tracheostomy as needed 30 Each 2 MEDICAL SUPPLY Laryngectomy supplies portable suction machine #12 slovenian soft suction catheters Yankauer suction catheters 1 Each 2 senna (SENOKOT) 8.6 mg tab 8.6 mg by PEG route twice daily as needed for constipation. No current facility-administered medications for this visit. Review of Systems - A focused ROS was performed, which is noted in the HPI above. Physical Exam: Vitals - There were no vitals taken for this visit. Constitutional - General Appearance: Normocephalic and atraumatic. Well developed, well nourished. Communication: Aphonic Head & Face - Overall: No obvious scars, lesions or masses. Parotid and submandibular glands: No masses bilaterally and without any asymmetry. Facial strength: Normal and equal bilaterally. Eyes - Pupils are round and reactive. Extraocular muscles grossly intact. Sclerae and conjunctivae noninjected and anicteric. Ear, Nose, Mouth & Throat - Ears: No external deformities. Left and right external auditory canals are patent, bilateral tympanic membranes intact without effusion. Nasal exam: No external deformities. Mucosa is pink. Septum is midline. Visible turbinates are normal on anterior rhinoscopy. Oral Cavity: No mucosal lesions. Tongue is soft, midline, and mobile bilaterally. Floor of mouth is soft. Palate is intact and elevates symmetrically. Neck: Bilateral neck scar. Stoma mildly narrowed but with TEP in place. Skin - No edema, no discoloration, no ulceration, no masses or lesions. Respiratory - Normal work of breathing on room air. No stridor or abnormal breath sounds. Neurologic - General: Alert and oriented x 3. No obvious focal deficits. Cranial Nerves: II: Pupillary reflexes normal III, IV, : EOM normal V: 1,2,3: normal sensation VII: Normal strength in all divisions IX, X: Aphonic, normal palatal elevation and sensation XI: Shoulder strength normal XII: Tongue mobility normal Extremities - Right thigh incision well healed. Procedure: None Review of Pathology and Radiologic Records and Images: Previous operative, pathology, and radiological reports and/or images were reviewed and filed in the permanent chart. None Assessment: ACTIVE PROBLEM LIST Chondroradionecrosis of Larynx Acquired Hypothyroidism Dysphonia Tracheostomy in Place (Hcc) S/P Percutaneous Endoscopic Gastrostomy (Peg) Tube Placement (Hcc) Depression, Controlled Malnutrition of Mild Degree (Hcc) Nicotine use disorder, F17.2 Aphonia Disorder of Airway Lymphedema Cirrhosis of Liver (Hcc) History of Seizures As A Child Deep Vein Thrombosis (Dvt) of Left Lower Extremity (Hcc) Htn (Hypertension) S/P Laryngectomy History of Laryngeal Cancer Alcohol Consumption Four to Six Days Per Week Essential Tremor Mr. Matthieu Carlin is a 53 year old year old male with a history of chondroradionecrosis of larynx with dysfunctional larynx s/p TL and R ALT recon with Dr. Barnes and myself on 07/23/2022. He underwent stomaplasty and dilation on 06/27/2023. Encouraged aquaphor around the stoma as it continues to heal. Maintain larytube for 1-2 more months to prevent re-stenosis. Cont TEP care. Plan: Fu in Sep All questions were answered, and the patient is in agreement with this plan. SIGNATURE: Queenie Mares MD DATE of SERVICE: July 26, 2023 TIME of SERVICE: 1:37 PM Tobacco Use: 1 packs/day, for 30 years. Types: Cigarettes Was smoking cessation packet given? Yes - Patient received smoking cessation packet at previous [facility] office visit. Was a referral initiated?Patient declined. documented in this encounter [facility] 07-26-2023 Note HNO ID: [id number] Author: Kirti Perez, [facility])-STRATEGIC PLANNING DIRECTOR Service: ? Author Type: Speech Language Pathologist Type: Progress Notes Filed: 07/26/2023 9:43 AM Note Text: [facility] SPEECHPATHOLOGY TEP FITTING (Re-fit) Portions of this note have been copied and edited from previous notes and updated. Date of TL/TEP: 07/23/2022 Referral: Cameron Mares RT and/or Chemo Status: 2020 Non-functional larynx; trach and PEG Pain Level (1-10): 0 Status: Went for stoma revision with Dr. Mares on 06/27 due to severe stoma stenosis. Asked by Dr. Mares to provide a new larytube as patient lost the from his stoma revision surgery. Provided a Provox LT (not Life) and reviewed the process of gradual dilation for to to (which he should wear overnight). Will need to revise script for Provox Life LT in and Impressions: Stoma appearing stable for a LT, but patient should wear the overnight. Only had a legacy LT in , so prescription revised for Provox Life in and fenestrated. Plan: F/U for re-fit as scheduled. Patient Entered Questionnaire MDADI 06/17/2023 Global Score 2 (1=extremely low functioning. 5=high functioning.) Composite Score 54.74 (20=extremely low functioning. 100= high functioning.) Emotional Score 50 (20=extremely low functioning. 100= high functioning.) Functional Score 60 (20=extremely low functioning. 100= high functioning.) Physical Score 55 (20=extremely low functioning. 100= high functioning.) Functional Oral Intake Scale (FOIS): 6 Tube Dependent: (levels 1-3) 1- no oral intake 2- tube dependent w/minimal or inconsistent PO 3- tube supplements w/consistent PO Total Oral Intake: (levels 4-7) 4- total oral of single consistency 5- total oral of multiple consistencies w/special preparation 6- total oral; no special prep; but avoid specific foods or liquid items 7- total oral intake w/no restrictions PSS-HN: Normalcy of Diet: 90 - Full diet (liquid assist) Public Eatin - No restriction of place, but restricts diet when in public (eats anywhere, but may limit intake to less messy foods (e.g., liquids) Understandability of Speech: 100 - Always understandable Kitri Perez MA/OSCAR-SP Clinical Speech Pathologist Head AND Neck Specialist Pager [phone] [facility] 07-26-2023 Note HNO ID: [id number] Author: Shayla Andres Ma Service: ? Author Type: ? Type: Progress Notes Filed: 07/26/2023 1:38 PM Note Text: Tobacco Use: 1 packs/day, for 30 years. Types: Cigarettes Was smoking cessation packet given? Yes - Patient received smoking cessation packet at previous [facility] office visit. Was a referral initiated?Patient declined. [facility] 07-26-2023 History of Present illness Narrative [facility] SPEECHPATHOLOGY TEP FITTING (Re-fit) Portions of this note have been copied and edited from previous notes and updated. Date of TL/TEP: 07/23/2022 Referral: Cameron / Vishnu RT and/or Chemo Status: 2020 Non-functional larynx; trach and PEG Pain Level (1-10): 0 Status: Went for stoma revision with Dr. Mares on 06/27 due to severe stoma stenosis. Asked by Dr. Mares to provide a new larytube as patient lost the from his stoma revision surgery. Provided a Provox LT (not Life) and reviewed the process of gradual dilation for to to (which he should wear overnight). Will need to revise script for Provox Life LT in and Impressions: Stoma appearing stable for a LT, but patient should wear the overnight. Only had a legacy LT in , so prescription revised for Provox Life in and fenestrated. Plan: F/U for re-fit as scheduled. Patient Entered Questionnaire MDADI 06/17/2023 Global Score 2 (1=extremely low functioning. 5=high functioning.) Composite Score 54.74 (20=extremely low functioning. 100= high functioning.) Emotional Score 50 (20=extremely low functioning. 100= high functioning.) Functional Score 60 (20=extremely low functioning. 100= high functioning.) Physical Score 55 (20=extremely low functioning. 100= high functioning.) Functional Oral Intake Scale (FOIS): 6 Tube Dependent: (levels 1-3) 1- no oral intake 2- tube dependent w/minimal or inconsistent PO 3- tube supplements w/consistent PO Total Oral Intake: (levels 4-7) 4- total oral of single consistency 5- total oral of multiple consistencies w/special preparation 6- total oral; no special prep; but avoid specific foods or liquid items 7- total oral intake w/no restrictions PSS-HN: Normalcy of Diet: 90 - Full diet (liquid assist) Public Eatin - No restriction of place, but restricts diet when in public (eats anywhere, but may limit intake to less messy foods (e.g., liquids) Understandability of Speech: 100 - Always understandable Kirti Perez MA/SANDRASP Clinical Speech Pathologist Head & Neck Specialist Pager [phone] documented in this encounter [facility] 07-04-2023 Note HNO ID: [id number] Author: Meghan Eduardo, CCC-STRATEGIC PLANNING DIRECTOR Service: ? Author Type: Speech Language Pathologist Type: Progress Notes Filed: 07/04/2023 11:16 AM Note Text: [facility] SPEECHPATHOLOGY TEP FITTING (Re-fit) Portions of this note have been copied and edited from previous notes and updated. Date of TL/TEP: 07/23/2022 Referral: Cameron Mares RT and/or Chemo Status: 2020 Non-functional larynx; trach and PEG Pain Level (1-10): 0 Status: Went for stoma revision with Dr. Mares on 06/27 due to severe stoma stenosis. Presented this date with a LT. Instructed by Dr. Mares to keep in until seen for post-op visit with her. Moderate amount of mucous production - per patient, this is his baseline. Has not been wearing HMEs, as the LT that is in his part of the old Provox Line (i.e., not a Provox Life). Reported that he is leaking intermittently when he drinks. Leak check this date negative for leak. Messages sent to Dr. Mares and her nurse regarding the same. Impressions: Easy TEP refit with good fluency and rough vocal quality. Of note, after refit, small overlap of tissue on right side at the 11 o'clock position, but with no pressure injury noted. Patient advised to keep an eye on it and contact service with significant changes. Gave him some Micron HME's, as those are the only ones we have in the old [employer] line. Have him a few Villagran Lite stoma protectors and educated him on their use. Suggested he contact [facility] to see if they can send him a box of the old line, as he isn't scheduled to see Dr. Mares for post-op follow up until 07/26. Voice Prosthesis (presently) fitted: Type: 20 Fr. Provox Bowman Length: 10 mm Modifications: Lidocaine gel used, as patient very sensitive during changes HME Use and Mounting: No HME in or baseplate in place this date. Plan: F/u in 3 months Patient Entered Questionnaire MDADI 06/17/2023 Global Score 2 (1=extremely low functioning. 5=high functioning.) Composite Score 54.74 (20=extremely low functioning. 100= high functioning.) Emotional Score 50 (20=extremely low functioning. 100= high functioning.) Functional Score 60 (20=extremely low functioning. 100= high functioning.) Physical Score 55 (20=extremely low functioning. 100= high functioning.) Functional Oral Intake Scale (FOIS): 6 Tube Dependent: (levels 1-3) 1- no oral intake 2- tube dependent w/minimal or inconsistent PO 3- tube supplements w/consistent PO Total Oral Intake: (levels 4-7) 4- total oral of single consistency 5- total oral of multiple consistencies w/special preparation 6- total oral; no special prep; but avoid specific foods or liquid items 7- total oral intake w/no restrictions PSS-HN: Normalcy of Diet: 90 - Full diet (liquid assist) Public Eatin - No restriction of place, but restricts diet when in public (eats anywhere, but may limit intake to less messy foods (e.g., liquids) Understandability of Speech: 100 - Always understandable Meghan Eduardo M.A., [facility]STRATEGIC PLANNING DIRECTOR Speech-Language Pathologist Pager: [phone] [facility] 06-27-2023 Note HNO ID: [id number] Author: Armond Franco RN Service: Gynecology Author Type: Registered Nurse Type: Nursing Progress Note Filed: 06/27/2023 3:18 PM Note Text: Lewis tube used in procedure . product . Ok to use per Dr. Mares. No other one available. [facility] 06-27-2023 Note HNO ID: [id number] Author: Dorene Rivera APRN.PARTS DELIVERY DRIVER Service: ? Author Type: Nurse Speech Language Specialist Type: Anesthesia Procedure Notes Filed: 06/27/2023 2:44 PM Note Text: ANESTHESIOLOGY PROCEDURE NOTE Airway General Information Procedure Start Time/Medication Administration: 06/27/2023 2:32 PM Staffing Anesthesiologist: Dale Rolle MD Performed by: anesthesiologist Indications and Patient Condition Indications for airway management: anesthesia Preoxygenated: yes anesthesia circuit Patient position: sniffing Method: asleep Cricoid Pressure: No Manual In-Line Stabilization: No Difficult Mask: No Final Airway Details Final airway type: endotracheal airway Final Endotracheal Airway: reinforced tube Cuffed: yes Endotracheal tube insertion site: tracheostomy ETT size (mm): 6.0 Placement verified by: capnometry Number of attempts at approach: 1 Failed airway: no Unrecognized esophageal intubation: no Airway not difficult SIGNATURE: Dorene Rivera APRN.CRNA PATIENT NAME: Matthieu Carlin DATE: June 27, 2023 TIME: 2:41 PM CSN: [id number] [facility] documented as of this encounter (statuses as of 06/24/2023) [facility]11-09-2023 History of Past illness Narrative* Problem Noted Date Diagnosed Date Resolved Date History of ETOH abuse 06/23/20232022 documented as of this encounter (statuses as of 06/25/2023) [facility]11-09-2023 History of Past illness Narrative* Problem Noted Date Diagnosed Date Resolved Date History of ETOH abuse 06/23/20232022 documented as of this encounter (statuses as of 07/26/2023) [facility]-09-20[facility] History of Past illness Narrative* Problem Noted Date Diagnosed Date Resolved Date History of ETOH abuse 06/23/20232022 documented as of this encounter (statuses as of 07/27/2023) [facility]-09-2023 History of Past illness Narrative* Problem Noted Date Diagnosed Date Resolved Date History of ETOH abuse 06/23/20232022 documented as of this encounter (statuses as of 08/08/2023) [facility]-09-2023 Instructions* Patient Instructions* Lali Burciaga PA-C - 06/23/2023 1:09 PM EST PATIENT PREOPERATIVE INSTRUCTIONS Dr. Mares has scheduled you for your procedure at this surgery center: [facility] [place] [facility] Scheduling Office: [phone] [address] [place] [address]. Please read below carefully for your personalized instructions. Arrival Time for Surgery: - To obtain your arrival time for surgery, call your physician's office the day before your surgery. - If your surgery is scheduled for Tuesday, call the Tuesday before. Your surgeon s php engineer will tell you what time to call the office. - If you have not reached the departmental php engineer by 5 P.M., call [phone] after 5 P.M. the day before your surgery. Please be aware that emergency situations arise, which may delay or change your surgical time. If this happens, we will notify you as soon as possible and regret any inconvenience. Dietary Restrictions: - No solid food after midnight. - You may have 12 ounces of clear liquids (water, clear juices such as apple juice or gatorade, carbonated beverages, clear tea, black coffee, jello) until 2 hours before scheduled arrival at facility. Medications: Pre-Surgery Med Instructions Medication Instructions apixaban (ELIQUIS) 5 mg tab(s) Check with your PCP for preop instructions guaiFENesin (ROBITUSSIN) 100 mg/5 mL syrup continue loperamide HCl (IMODIUM) 2 mg tab continue budesonide (PULMICORT) 0.25 mg/2 mL nebulizer solution Continue. Use the morning of surgery ipratropium-albuterol (DUONEB) 0.5 mg-3 mg(2.5 mg base)/3 mL nebu Continue. Use the morning of surgery melatonin 3 mg tablet Stop 7 days before surgery propranolol (INDERAL) 20 mg tablet Take the day of surgery with a small sip of water senna (SENOKOT) 8.6 mg tab continue levothyroxine (SYNTHROID) 150 mcg tablet Take the day of surgery with a small sip of water gabapentin (NEURONTIN) 600 mg tablet Take the day of surgery with a small sip of water omeprazole (PRILOSEC) 40 mg capsule Take the day of surgery with a small sip of water If you start any new medications after today's visit, please contact the surgeon's office. Blood Thinning Medications: - Stop NSAIDS (Ibuprofen, Advil, Aleve, Motrin, Celebrex, Mobic, etc.) 7 days before surgery, as directed by your surgeon. - Do NOT stop aspirin or other anticoagulants without consulting with your grinder set up operator gear tool or prescribing physician. - Stop Vitamin E, ALL multi-vitamins, herbals and dietary supplements 7 days before surgery. - You may take Tylenol (Acetaminophen) or any of your pain medications that do not contain aspirin or NSAIDS as needed. Important Reminders: - If you are prescribed inhalers for breathing, continue using them. - Candy, mints, and tobacco products are NOT permitted the morning of surgery. - Hearing aids, dentures and glasses may be worn the morning of surgery. - NO jewelry, body piercings, makeup, hairpins or contacts are to be worn the day of surgery. If you develop symptoms such as a fever, cold, or flu, or have other changes to your health within TWO DAYS of scheduled surgery or the morning of surgery, please contact the surgery center above. Personal Belongings: -Please have photo ID and insurance cards. -If you do not have a copy of advance directives on file with us, please bring a copy with you on the day of surgery. - Leave ALL valuables and money at home or with family members. For Outpatient Procedures: - YOU MUST HAVE A RESPONSIBLE MULTIFOCAL BUTTON GRINDER TAKE YOU HOME. A MICRO COMPUTER DATA PROCESSOR OR STORE STANDARDS ASSOCIATE CANNOT BE MADE A RESPONSIBLE MULTIFOCAL BUTTON GRINDER. - We recommend that a responsible person stays with you overnight to take care of you. - You cannot stay in a hotel alone after outpatient surgery. You will not be permitted to have yoursurgery, if you do not have someone to take care of you. Please be aware that emergency situations arise, which may delay or change your surgical time. If this happens, we will notify you as soon as possible and regret any inconvenience. If you already have an Advance Directive, please fax a copy to [phone] or email to for it to be added to your chart. If you do not have an Advance Directive, you can find the appropriate form and more information at [email or web address]. We recommend that youcomplete the Advance Directive form found on the website and bring it with you the day of your surgery. It can be witnessed and scanned into your chart that day. Lali Burciaga PA-C [facility] History and physical note * Lali Burciaga PA-C - 06/23/2023 1:00 PM EST HISTORY AND PHYSICAL EXAMINATION SERVICE DATE: 06/23/2023 SERVICE TIME: 12:15 PM PRIMARY CARE PHYSICIAN: Ngozi Braun DO REASON FOR VISIT: Matthieu Carlin is a 53 year old male who is scheduled for PACC at the request of Dr. Mares for consultation. My final recommendation will be communicated back to the requesting physician by way of sharedmedical record or letter. The patient has the following: ACTIVE PROBLEM LIST Chondroradionecrosis of Larynx Acquired Hypothyroidism Dysphonia Tracheostomy in Place (Hcc) S/P Percutaneous Endoscopic Gastrostomy (Peg) Tube Placement (Hcc) Depression, Controlled Malnutrition of Mild Degree (Hcc) Nicotine use disorder, F17.2 Aphonia Disorder of Airway Lymphedema Cirrhosis of Liver (Hcc) History of Seizures As A Child Deep Vein Thrombosis (Dvt) of Left Lower Extremity (Hcc) Htn (Hypertension) S/P Laryngectomy History of Laryngeal Cancer Alcohol Consumption Four to Six Days Per Week Subjective CHIEF COMPLAINT: bronchoscopy, tracheostomy revision HPI: Matthieu is a 53 y/o male with a history of laryngeal cancer. He completed chemo and radiation therapy in 2020. Developed chondroradionecrosis of the larynx, for which he underwent total laryngectomy and right fasciocutaneous anterolateral thigh free flap for partial pharyngectomy reconstruction, pharyngoplasty, stomatoplasty on 07/23/22. PAST MEDICAL HISTORY Diagnosis Date ETOH abuse HTN (hypertension) Laryngeal cancer (HCC) PEG (percutaneous endoscopic gastrostomy) status (HCC) Seizure (HCC) childhood. nonce since 1986 Thyroid disease Tracheostomy care ([facility]) 05/2021 PAST SURGICAL HISTORY Procedure Laterality Date COLONOSCOPY SCREENING PAST SURGICAL HISTORY OF 05/2021 trachostomy PAST SURGICAL HISTORY OF 2020 Peg tube PAST SURGICAL HISTORY OF 07/23/2022 total laryngectomy with right fasciocutaneous thigh free flap for partial pharyngectom reconstruction, pharygoplasty, stomatoplasty FAMILY HISTORY Problem Relation Age of Onset Cervical Cancer Mother Heart Attack Father x 1 Ischemic Heart Disease Father s/p angioplasty, stents x 3 other (pulmonary embolism) Father 2 Anesthesia Problems No Family History SOCIAL HISTORY: Social History Tobacco Use Smoking status: Every Day Packs/day: 1.00 Years: 30.00 Additional pack years: 0.00 Total pack years: 30.00 Types: Cigarettes Smokeless tobacco: Never Tobacco comments: Currently smokes 1/4 ppd Vaping Use Vaping Use: Never used Substance Use Topics Alcohol use: Yes Comment: history of ETOH abuse. currently drinks 12 beers weekly Drug use: Never MEDICATIONS: Prior to Admission medications as of 06/23/23 1250 Medication Sig Last Dose Taking apixaban (ELIQUIS) 5 mg tab(s) Take 5 mg by mouth two times a day. Taking Yes sodium chloride 0.9 % nebulizer solution 3 mL three times a day as needed (Dispense 3ml in to tracheostomy). Taking Yes MEDICAL SUPPLY Please dispense saline bullets to use in tracheostomy as needed Taking Yes MEDICAL SUPPLY Laryngectomy supplies portable suction machine #12 slovenian soft suction catheters Yankauer suction catheters Taking Yes guaiFENesin (ROBITUSSIN) 100 mg/5 mL syrup 200 mg every 4 hours as needed for cough. Taking Yes loperamide HCl (IMODIUM) 2 mg tab 4 mg by PEG route as needed. Taking Yes budesonide (PULMICORT) 0.25 mg/2 mL nebulizer solution Use 0.25 mg via nebulizer twice daily. Taking Yes ipratropium-albuterol (DUONEB) 0.5 mg-3 mg(2.5 mg base)/3 mL nebu Inhale 3 mL as instructed every 2hours as needed for wheezing/shortness of breath. Taking Yes melatonin 3 mg tablet 3 mg by PEG route daily at bedtime. Taking Yes propranolol (INDERAL) 20 mg tablet Take 20 mg by mouth twice daily. 2 times daily as needed for essential tremor Taking Yes senna (SENOKOT) 8.6 mg tab 8.6 mg by PEG route twice daily as needed for constipation. Taking Yes levothyroxine (SYNTHROID) 150 mcg tablet Take 1 tablet by mouth daily before breakfast. Taking Yes gabapentin (NEURONTIN) 600 mg tablet Take 600 mg by mouth three times daily. Taking Yes omeprazole (PRILOSEC) 40 mg capsule Take 40 mg by mouth. Taking Yes sodium chloride 0.9 % nebulizer solution Use 3 mL via nebulizer as needed. Patient not taking: Reported on 06/23/2023 Not Taking aspirin 81 mg chewable tablet Chew & swallow 1 tablet by mouth once daily for 15 doses. Patient not taking: Reported on 06/23/2023 Not Taking buPROPion (WELLBUTRIN) 75 mg tablet Take 2 tablets by CORPAK route twice daily for 23 doses. Patient not taking: Reported on 06/23/2023 Not Taking white petrolatum (AQUAPHOR) 41 % topical ointment Apply to affected area twice daily. Patient not taking: Reported on 09/07/2022 Not Taking MEDICAL SUPPLY tube feeds: Isosource 1.5 ( or equivalent)250 cc 6 times per day with 90 cc water flush pre and post feed Patient not taking: Reported on 06/23/2023 Not Taking BACILLUS COAGULANS-INULIN ORAL 1 capsule by PEG route once daily. Patient not taking: Reported on 06/23/2023 Not Taking folic acid 1 mg tablet Take 1 mg by mouth once daily. Patient not taking: Reported on 06/23/2023 Not Taking thiamine (VITAMIN B1) 100 mg tablet 1 tablet by PEG route once daily. Patient not taking: Reported on 06/23/2023 Not Taking venlafaxine (EFFEXOR) 100 mg tablet 100 mg by PEG route twice daily. Patient not taking: Reported on 06/23/2023 Not Taking LORazepam (ATIVAN) 0.5 mg Take 0.5 mg by mouth daily at bedtime. Patient not taking: Reported on 06/23/2023 Not Taking CARAFATE 100 mg/mL suspension TAKE 10ml BY MOUTH BEFORE MEALS AND AT BEDTIME Patient not taking: Reported on 06/23/2023 Not Taking No medication comments found. CURRENT ALLERGIES: ALLERGIES No Known Allergies COVID-19 Immunization Status Overdue - Covid-19 Vaccine () Overdue since 04/15/2023 11/06/2021 Imm Admin: COVID-19 original vaccine, full dose, monovalent (MODERNA) 07/27/2021 Imm Admin: COVID-19 original vaccine, full dose, monovalent (MODERNA) 12/09/2020 Imm Admin: COVID-19 original vaccine, full dose, monovalent (MODERNA) Only the first 3 history entries have been loaded, but more history exists. REVIEW OF SYSTEMS: PAIN ASSESSMENT: General: fatigue. No fevers or unintentional weight loss Neuro: Negative for headaches or stroke +h/o childhood seizures-last seizure was in 1986 +neuropathy-feet +essential tremor Respiratory: Negative for shortness of breath. +cough. +smoker Cardiovascular: Negative for chest pain, orthopnea, PND, dizziness, lightheadedness or syncope. Negative for heart murmur. Negative for palpitations or arrhythmia. +mild LE edema +LLE DVT diagnosed 03/2023, +HTN GI: Negative for abdominal pain, blood in the stool, black stools or change in bowel habits +h/o ETOH abuse +cirrhosis of the liver : No history of UTI in past 6 weeks. No history of renal failure. Not currently on or requiring dialysis. Negative for dysuria, hematuria, urgency, frequency or incontinence Endocrine: Negative for polyuria, polydipsia, heat or cold intolerance. +hypothyroid Hematology: on eliquis Oncology: laryngeal cancer s/p chemo and XRT 2020 Psych: Depression Musculoskeletal: Negative for joint pain or swelling, back pain or muscle pain. Skin: eczema Objective PHYSICAL EXAM: VITALS: BP 124/85 Pulse 86 Temp (Src) 97.5 (Temporal) Resp 20 Ht 5' 8 (1.73m) Wt 160 lb 8 oz (72.8kg) SpO2 97% BMI 24.41 kg/(m^2). General: Alert and oriented Skin: clean, dry, intact HEENT: EOM, pupils equal, round and reactive. +tracheostomy tube present Cardiovascular: Normal S1 & S2, no rubs, murmurs or gallops. No JVD. Pulse regular. Lungs: CTA, no wheezing, rales or rhochi Abdomen: Soft, non-tender, no rigidity. Extremities: No deformity, no calf tenderness, +left LE edema Neurological: Normal cognition and motor skills. Pulses: Carotid and radial pulses normal +2. Diagnostic tests reviewed for today's visit: Lab Value Units Date High Low HB 14.4 g/dL 06/22/2023 17.0 13.0 HCT 40.4 % 06/22/2023 51.0 39.0 WBC 3.35 k/uL 06/22/2023 11.00 3.70 PLT 124 k/uL 06/22/2023 400 150 NA 121 mmol/L 06/22/2023 144 136 K 3.8 mmol/L 06/22/2023 5.1 3.7 GLUC 88 mg/dL 06/22/2023 99 74 BUN 6 mg/dL 06/22/2023 24 9 CREAT 0.58 mg/dL 06/22/2023 1.22 0.73 PTSEC No results within date range. INR No results within date range. APTT No results within date range. ALT 287 U/L 06/22/2023 54 10 AST 381 U/L 06/22/2023 40 14 TBILI 1.0 mg/dL 06/22/2023 1.3 0.2 TSH No results within date range. Lab Value Units Date High Low HCGQT No results within date range. UHCG No results within date range. HCG, BODY* No results within date range. Lab Value Units Date High Low ABORHD No results within date range. ABSCREEN No results within date range. No results found for: HBA1C Most recent labs Most recent EKG Assessment/Plan Acquired hypothyroidism Assessment: on levothyroxine. Managed by PCP Aphonia Assessment: s/p radiation therapy and surgery for laryngeal cancer. Follows with speech therapy Depression, controlled Assessment: on wellbutrin and effexor. Denies SI/HI. Treated and managed by PCP Nicotine use disorder, F17.2 Assessment: currently smokes 1/4 ppd History of seizures as a child Assessment: no seizures since 1986 Deep vein thrombosis (DVT) of left lower extremity (HCC) Assessment: diagnosed 03/2023. PCP started him on Eliquis and he is to take it for 6 months HTN (hypertension) Assessment: on propanolol. Treated and managed by PCP Cirrhosis of liver (HCC) Assessment: secondary to ETOH abuse S/P laryngectomy Assessment: developed chondroradionecrosis of the larynx following radiation therapy. Underwent total laryngectomy and right fasciocutaneous anterolateral thigh free flap for partial pharyngectomy reconstruction, pharyngoplasty stomatoplasty on 07/23/22 History of laryngeal cancer Assessment: s/p chemo and XRT 2020. S/p total laryngectomy 07/23/22 Alcohol consumption four to six days per week Assessment: history of ETOH abuse-drank over 12 beers daily. Has cut back and currently drinks 12 beers weekly METS: Climb a flight of stairs or walk up a hill (5.50 METs) Patient denies any chest pain or undue shortness of breath with the above physical activity. ANESTHESIA FINDINGS: Intubation History: No history of difficult intubation Significant Anesthesia Considerations: Tracheostomy tube present Airway Exam: General: Normal appearance MP: III Neck: limited extension. +tracheostomy tube present Mouth: Mouth opening greater than 2 finger breaths Dentition: Intact Airway History: history of radiation therapy for laryngeal cancer. S/p total laryngoscopy. Tracheostomy tube present STOP BANG Score: Criteria: Hypertension Age over 50 (53 year old) Male gender Score = 3 PLAN This patient is optimally prepared for surgery pending LABS, EKG, and US. CONSULTS: Eliquis instructions requested from Dr. Braun The Following Tests/Procedures Have Been Initiated: Na+, EKG LLE US for DVT, scheduled for tomorrow Planned Anesthetic: General Instructions Given to Patient: Instructions located in the after visit summary. Patient given verbal and written preop instructions and voices comprehension and compliance. SIGNATURE: Lali Burciaga PA-C PATIENT NAME: Matthieu Carlin DATE: June 23, 2023 TIME: 1:19 PM [facility] Nurse Note* Almita James LPN - 06/23/2023 12:50 PM EST Patient has rash/eczema on bilateral legs, arms and on his abdomen. Swelling with dark redness lower left extremity above ankle. Almita James LPN documented in this encounterReg[facility]23 NoteHNO ID: [id number] Author: Queenie Mares MD Service: ? Author Type: Physician Type: Progress Notes Filed: 08/08/2023 7:18 PM Note Text: Head and Neck Surgery Follow-up Note Patient: Matthieu Carlin Age: [age] year old Provider: Queenie Mares MD Date of visit: 06/17/2023 Date of last visit: 10/04/22 Chief Complaint: Patient presents with: Follow Up: Stoma is closing per Kirti STRATEGIC PLANNING DIRECTOR History of Present Illness: Matthieu Carlin is a 53 year old year old male with a history of chondroradionecrosis of larynx with dysfunctional larynx s/p TL and R ALT recon with Dr. Barnes and myself on 07/23/2022. He is due for TEP exchange due to leak but STRATEGIC PLANNING DIRECTOR unable to do routine change due to stoma narrowing/stenosis. Tolerating a regular diet. No breathing difficulties. Recently diagnosed with LE DVT - currently on Eliquis. We have reviewed the patient's past medical history, past surgical history, medications, allergies, social history, and review of systems with the patient. Any significant changes are noted above in the HPI . Current Medication: Current Outpatient Medications Medication Sig Dispense Refill sodium chloride 0.9 % nebulizer solution Use 3 mL via nebulizer as needed. 300 mL 2 MEDICAL SUPPLY tube feeds: Isosource 1.5 ( or equivalent)250 cc 6 times per day with 90 cc water flush pre and post feed 180 Each 2 MEDICAL SUPPLY Laryngectomy supplies portable suction machine #12 slovenian soft suction catheters Yankauer suction catheters 1 Each 2 guaiFENesin (ROBITUSSIN) 100 mg/5 mL syrup 200 mg every 4 hours as needed for cough. loperamide HCl (IMODIUM) 2 mg tab 4 mg by PEG route as needed. BACILLUS COAGULANS-INULIN ORAL 1 capsule by PEG route once daily. budesonide (PULMICORT) 0.25 mg/2 mL nebulizer solution Use 0.25 mg via nebulizer twice daily. folic acid 1 mg tablet Take 1 mg by mouth once daily. ipratropium-albuterol (DUONEB) 0.5 mg-3 mg(2.5 mg base)/3 mL nebu Inhale 3 mL as instructed every 2 hours as needed for wheezing/shortness of breath. melatonin 3 mg tablet 3 mg by PEG route daily at bedtime. propranolol (INDERAL) 20 mg tablet Take 20 mg by mouth twice daily. 2 times daily as needed for essential tremor senna (SENOKOT) 8.6 mg tab 8.6 mg by PEG route twice daily as needed for constipation. thiamine (VITAMIN B1) 100 mg tablet 1 tablet by PEG route once daily. venlafaxine (EFFEXOR) 100 mg tablet 100 mg by PEG route twice daily. levothyroxine (SYNTHROID) 150 mcg tablet Take 1 tablet by mouth daily before breakfast. 6 tablet 3 gabapentin (NEURONTIN) 600 mg tablet Take 600 mg by mouth three times daily. omeprazole (PRILOSEC) 40 mg capsule Take 40 mg by mouth. LORazepam (ATIVAN) 0.5 mg Take 0.5 mg by mouth daily at bedtime. CARAFATE 100 mg/mL suspension TAKE 10ml BY MOUTH BEFORE MEALS AND AT BEDTIME aspirin 81 mg chewable tablet Chew AND swallow 1 tablet by mouth once daily for 15 doses. 15 tablet 0 buPROPion (WELLBUTRIN) 75 mg tablet Take 2 tablets by CORPAK route twice daily for 23 doses. 46 tablet 0 white petrolatum (AQUAPHOR) 41 % topical ointment Apply to affected area twice daily. (Patient not taking: Reported on 09/07/2022) No current facility-administered medications for this visit. Review of Systems - A focused ROS was performed, which is noted in the HPI above. Physical Exam: Vitals - There were no vitals taken for this visit. Constitutional - General Appearance: Normocephalic and atraumatic. Well developed, well nourished. Communication: Aphonic Head AND Face - Overall: No obvious scars, lesions or masses. Parotid and submandibular glands: No masses bilaterally and without any asymmetry. Facial strength: Normal and equal bilaterally. Eyes - Pupils are round and reactive. Extraocular muscles grossly intact. Sclerae and conjunctivae noninjected and anicteric. Ear, Nose, Mouth AND Throat - Ears: No external deformities. Left and right external auditory canals are patent, bilateral tympanic membranes intact without effusion. Nasal exam: No external deformities. Mucosa is pink. Septum is midline. Visible turbinates are normal on anterior rhinoscopy. Oral Cavity: No mucosal lesions. Tongue is soft, midline, and mobile bilaterally. Floor of mouth is soft. Palate is intact and elevates symmetrically. Neck: Bilateral neck scar. Stoma with moderate to severe stenosis, adequate airway but unable to access TEP for easy exchange and maintenance. Skin - No edema, no discoloration, no ulceration, no masses or lesions. Respiratory - Normal work of breathing on room air. No stridor or abnormal breath sounds. Neurologic - General: Alert and oriented x 3. No obvious focal deficits. Cranial Nerves: II: Pupillary reflexes normal III, IV, : EOM normal V: 1,2,3: normal sensation VII: Normal strength in all divisions IX, X: Aphonic, normal palatal elevation and sensation XI: Shoulder strength normal XII: Tongue mobilit (more content not included)...[facility] 06-17-2023 NoteEducation (OTMNCA) FLORIANMATTHIEU ([id number]) 1970 M Date Time Provider Department 06/17/23 DAYDAY MONTANO OTROBI Reason for Visit: Patient Education [91] Cmt: Pre-op Visit Notes: >> Dayday Montano RN TueJun 17, 2023 1:09 PM Status: Signed AMBULATORY PATIENT EDUCATION NOTE PRE-OP TEACHING TOPIC: SURVIVAL SKILLS: pre-op PROCEDURE: Stomaplasty with stoma dilation, flexible bronchoscopy READINESS TO LEARN COGNITIVE ABILITY: Alert and oriented MOTIVATION TO LEARN: Interested FAMILY SUPPORT: High - Very involved in pt care INSTRUCTION PROVIDED TO: Patient and family member PATIENT LEARNS BEST BY: Individual Instruction Written Instruction - Hand-outs Verbal Instruction FACTORS AFFECTING LEARNING: None PHYSICAL LIMITATIONS AFFECTING LEARNING: Sensory Deficit Speech: Tracheotomy- laryngectomy LEARNING RESPONSE DIAGNOSIS: Stomaplasty with stoma dilation, flexible bronchoscopy METHOD OF INSTRUCTION: Teach Back NPO, pre-op testing PATIENT / FAMILY RESPONSE: Verbalizes understanding of: PRE-OPERATIVE INSTRUCTIONS-Correct action to take to follow pre-operative instructions FOLLOW-UP PLAN: Will contact PCP to discuss robert recommendations perioperatively SUPPLEMENTAL MATERIAL: Your Surgical Guide REFERRAL (RECOMMENDATION): None Electronically Signed By: Dayday Montano RN In Department: OTOLARYNOGOLOGY During your visit today, we recorded the following information about you: Allergies As of Date: 06/17/2023 (No Known Allergies) Date Reviewed: 06/17/2023 Reviewed by: Sydnee Garcia MA - Fully Assessed Prescriptions as of 06/17/2023 - sodium chloride 0.9 % nebulizer solution Use 3 mL via nebulizer as needed. - aspirin 81 mg chewable tablet Chew AND swallow 1 tablet by mouth once daily for 15 doses. - buPROPion (WELLBUTRIN) 75 mg tablet Take 2 tablets by CORPAK route twice daily for 23 doses. - white petrolatum (AQUAPHOR) 41 % topical ointment Apply to affected area twice daily. - MEDICAL SUPPLY tube feeds: Isosource 1.5 ( or equivalent)250 cc 6 times per day with 90 cc water flush pre and post feed - MEDICAL SUPPLY Laryngectomy supplies portable suction machine #12 slovenian soft suction catheters Yankauer suction catheters - guaiFENesin (ROBITUSSIN) 100 mg/5 mL syrup 200 mg every 4 hours as needed for cough. - loperamide HCl (IMODIUM) 2 mg tab 4 mg by PEG route as needed. - BACILLUS COAGULANS-INULIN ORAL 1 capsule by PEG route once daily. - budesonide (PULMICORT) 0.25 mg/2 mL nebulizer solution Use 0.25 mg via nebulizer twice daily. - folic acid 1 mg tablet Take 1 mg by mouth once daily. - ipratropium-albuterol (DUONEB) 0.5 mg-3 mg(2.5 mg base)/3 mL nebu Inhale 3 mL as instructed every 2 hours as needed for wheezing/shortness of breath. - melatonin 3 mg tablet 3 mg by PEG route daily at bedtime. - propranolol (INDERAL) 20 mg tablet Take 20 mg by mouth twice daily. 2 times daily as needed for essential tremor - senna (SENOKOT) 8.6 mg tab 8.6 mg by PEG route twice daily as needed for constipation. - thiamine (VITAMIN B1) 100 mg tablet 1 tablet by PEG route once daily. - venlafaxine (EFFEXOR) 100 mg tablet 100 mg by PEG route twice daily. - levothyroxine (SYNTHROID) 150 mcg tablet Take 1 tablet by mouth daily before breakfast. - gabapentin (NEURONTIN) 600 mg tablet Take 600 mg by mouth three times daily. - omeprazole (PRILOSEC) 40 mg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 function/quality of life. 50th percentile is the average of the general population and indicates half of respondents had a worse score. OBJECTIVE MEASURES WITH LEVEL OF FUNCTION: Head and Neck Measurements Superior Neck (cm): 40.5 cm Middle Neck (cm): 37.5 cm Vertical Circumference (cm): (tragus to tragus under chin (proximal) 29.5cm, middle 29.5cm, distal 31.5cm) L Tragus to mental protuberance (cm): 15.7 cm L Tragus to mouth angle (cm): 12.4 cm L Mandibular angle to nasal wing (cm): 12.4 cm L Mandibular angle to internal eye (cm): 7.6 cm (intermal eye to mouth angle) Left Total facial composite (cm): 48.1 cm Total Right and Left facial composite combined (cm): 48.1 cm TREATMENT: Therapeutic Exercise: 1: Reviewed HEP and pt performing correctly. Pt to continue current exercises. Skilled Intervention: Patient was educated in proper exercise technique and purpose for exercises. Reviewed and educated patient on additions/changes for home exercise program. Skilled judgment was provided in selection of appropriate interventions. Correct performance of therapeutic exercises was facilitated with verbal and visual cuing. Patient education as noted. Manual Therapy: 1: Abdominal breathing x 10 2: MLD L cervical sequence utilizing axillary anastamosis. Pt sitting upright in chair. Skilled Intervention: Manual skills to improve joint mobility, ROM, and decrease pain. Utilized anatomy knowledge of the therapist, and assessment of patient's response to intervention. Manual techniques to facilitate lymphatic dynamics and improve condition of tissue. Billing Therapeutic Exercise Treatment Minutes: 5 Manual TherapyTreatment Minutes: 37 Total Treatment Time Mi (more content not included)...[facility] 12-15-2022 NoteHNO ID: [id number] Author: Abiola Menard, PT Service: ? Author Type: Physical Therapist Type: Progress Notes Filed: 12/15/2022 1:25 PM Note Text: Episode Visit Count: 1 Therapist That Will Accept/Oversee The Plan Of Care: Abiola Menard Start of Care Date: 12/15/22 Onset Date: (Pt reports onset after the trach surgery.) Plan of Care Certification Date: 12/15/22 Next Certification Due Date: 02/14/23 Patient Identified by Name and Date of : Yes REHABILITATION AND SPORTS THERAPY PHYSICAL THERAPY EVALUATION PLAN OF CARE: Assessment: Matthieu Carlin presents with chief complaint of head/neck swelling, tightness and restrictions s/p treatment for laryngeal carcinoma that interferes with (The tightness inhibits his ability to speak using the TEP device. I keep gagging. ) . He presents with impairments in edema management, overall function, range of motion, and soft tissue restrictions. Patient did not complete the PROMIS? (Patient Reported Outcome Measures Information System). Prognosis for therapy is Good due to: current objective clinical presentation, good support system/ coping skills, Prognosis may be limited due to chronic nature of impairments . He will benefit from skilled therapy services to meet the goals established for this plan of care as noted below. Goals for Episode of Care: created on 12/15/22 through 02/14/23 Patient will verbalize all pertinent aspects of CDT. Patient to report symptom free with speech and swallowing, and cervical AROM. Patient will increase pain free cervical AROM by/to 5-10deg or symmetrical to allow for neutral postural alignment, improved performance with ADL/IADL, and improved ability for/to speech/swallowing. Patient will decrease Facial Composite Score by 2% or greater for decreased risk of infection, improved rom, and allow for appropriate fit in compressive garment. Patient will decrease circumferential measurements by 0.2-0.5 cm in the following areas head and neck for decreased risk of infection, improved rom and allow for appropriate fit in compressive garment. Patient will demonstrate independence with home exercise program including self MLD, compression wrap/garment, desensitization, skin care guidelines, scar massage, ROM and strengthening exercises. Patient will decrease restrictions of head and neck soft tissue to decrease pain and improve general cervical rom. Patient Goals: Reduce tightness and be able to talk better. Planned Interventions, Frequency, and Duration: Current Frequency: 2x/week Duration: 8 weeks Total Number of Visits Planned: 16 Planned Treatment Interventions: Therapeutic exercise (04206), Manual therapy (69745), Self-prison management (52142), Patient/Family/Caregiver Education PLAN FOR NEXT VISIT: Review HEP. Assess initial response to MLD. Continue MLD if favorable. Continue discussion of Kinesiotape, compression options. Patient demonstrates good understanding of plan of care and treatment. The above goals and plan of care were discussed and agreed upon by patient/family. SUBJECTIVE: Matthieu Carlin is a 52 year old male seen today for Pt reports swelling started May 2021. Onset after trach surgery. Now is worse than initial onset. Feels very tight, but denies pain. Patient Goals: Reduce tightness and be able to talk better. Functional Limitations: (The tightness inhibits his ability to speak using the TEP device. I keep gagging. 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 5 points is clinically meaningfully difference Percentiles provide an indication of how the patient's score ranks in relation to the general population. Higher percentile rankings indicate better function/quality of life. 50th percentile is the average of the general population and indicates half of respondents had a worse score. OBJECTIVE MEASURES WITH LEVEL OF FUNCTION: Cervical Spine ROM Cervical ROM : Measurement AROM Cervical Flexion AROM (degrees) : 25 Degrees Cervical Extension AROM (degrees) : 45 Degrees ( very tight ) Cervical Side-Bend Right AROM (degrees): 35 Degrees (tight) Cervical Side-Bend Left AROM (degrees) : 30 Degrees (tight) Cervical Rotation Right AROM (degrees) : 47 Degrees Cervical Rotation Left AROM (degrees) : 45 Degrees Lymphedema Presents with: Swelling, Functional Limitations, Decreased knowledge of lymphedema management Comment: PT thad (more content not included)...[facility] 12-15-2022 History of Present illness Narrative* Abiola Menard, PT - 12/15/2022 12:41 PM EDT Episode Visit Count: 1 Therapist That Will Accept/Oversee The Plan Of Care: Abiola Menard Start of Care Date: 12/15/22 Onset Date: (Pt reports onset after the trach surgery.) Plan of Care Certification Date: 12/15/22 Next Certification Due Date: 02/14/23 Patient Identified by Name and Date of : Yes REHABILITATION AND SPORTS THERAPY PHYSICAL THERAPY EVALUATION PLAN OF CARE: Assessment: Matthieu Carlin presents with chief complaint of head/neck swelling, tightness and restrictions s/p treatment for laryngeal carcinoma that interferes with (The tightness inhibits his ability to speak using the TEP device. I keep gagging. ) . He presents with impairments in edema management, overall function, range of motion, and soft tissue restrictions. Patient did not complete the PROMIS (Patient Reported Outcome Measures Information System). Prognosis for therapy is Good due to: current objective clinical presentation, good support system/ coping skills, Prognosis may be limiteddue to chronic nature of impairments . He will benefit from skilled therapy services to meet the goals established for this plan of care as noted below. Goals for Episode of Care: created on 12/15/22 through 02/14/23 Patient will verbalize all pertinent aspects of CDT. Patient to report symptom free with speech and swallowing, and cervical AROM. Patient will increase pain free cervical AROM by/to 5-10deg or symmetrical to allow for neutral postural alignment, improved performance with ADL/IADL, and improved ability for/to speech/swallowing. Patient will decrease Facial Composite Score by 2% or greater for decreased risk of infection, improved rom, and allow for appropriate fit in compressive garment. Patient will decrease circumferential measurements by 0.2-0.5 cm in the following areas head and neck for decreased risk of infection, improved rom and allow for appropriate fit in compressive garment. Patient will demonstrate independence with home exercise program including self MLD, compression wrap/garment, desensitization, skin care guidelines, scar massage, ROM and strengthening exercises. Patient will decrease restrictions of head and neck soft tissue to decrease pain and improve general cervical rom. Patient Goals: Reduce tightness and be able to talk better. Planned Interventions, Frequency, and Duration: Current Frequency: 2x/week Duration: 8 weeks Total Number of Visits Planned: 16 Planned Treatment Interventions: Therapeutic exercise (76071), Manual therapy (47119), Self-prison management (54699), Patient/Family/Caregiver Education PLAN FOR NEXT VISIT: Review HEP. Assess initial response to MLD. Continue MLD if favorable. Continue discussion of Kinesiotape, compression options. Patient demonstrates good understanding of plan of care and treatment. The above goals and plan of care were discussed and agreed upon by patient/family. SUBJECTIVE: Matthieu Carlin is a 52 year old male seen today for Pt reports swelling started May 2021. Onset after trach surgery. Now is worse than initial onset. Feels very tight, but denies pain. Patient Goals: Reduce tightness and be able to talk better. Functional Limitations: (The tightness inhibits his ability to speak using the TEP device. I keep gagging. 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 5 points is clinically meaningfully difference Percentiles provide an indication of how the patient's score ranks in relation to the general population. Higher percentile rankings indicate better function/quality of life. 50th percentile is the average of the general population and indicates half of respondents had a worse score. OBJECTIVE MEASURES WITH LEVEL OF FUNCTION: Cervical Spine ROM Cervical ROM : Measurement AROM Cervical Flexion AROM (degrees) : 25 Degrees Cervical Extension AROM (degrees) : 45 Degrees ( very tight ) Cervical Side-Bend Right AROM (degrees): 35 Degrees (tight) Cervical Side-Bend Left AROM (degrees) : 30 Degrees (tight) Cervical Rotation Right AROM (degrees) : 47 Degrees Cervical Rotation Left AROM (degrees) : 45 Degrees Lymphedema Presents with: Swelling, Functional Limitations, Decreased knowledge of lymphedema management Comment: PT verbalizes through TEP. Lymphedema Contributing Factors: Chemotherapy, Radiation, Lymph Node Removal Lymphedema Contributing Factors Comments: multiple surgical procedures Skin: Fibrosis, Color Fibrosis Comments:: Fibrotic at anterior and anterolateral cervical skin and soft tissue. submentaltissue is mildly firm and cheeks, upper trap area, posterior neck remain soft. No pitting appreciated. Head and Neck Measurements Superior Neck (cm): 41 cm Middle Neck (cm): 38.5 cm (top of TEP device) Vertical Circumference (cm): (tragus to tragus under chin: (proximal) 30cm, middle 30.9cm, distal (tip) 32.1cm) R Tragus to mental protuberance (cm): 15.5 cm R Tragus to mouth angle (cm): 12.8 cm R Mandibular angle to nasal wing (cm): 12.8 cm R Mandibular angle to internal eye (cm): 7.6 cm (internal eye to mouth angle) Right Total facial composite (cm): 48.7 cm L Tragus to mental protuberance (cm): 16.3 cm L Tragus to mouth angle (cm): 12.6 cm L Mandibular angle to nasal wing (cm): 12.5 cm L Mandibular angle to internal eye (cm): 7.6 cm (internal eye to mouth angle) Left Total facial composite (cm): 49 cm Total Right and Left facial composite combined (cm): 97.7 cm Education: Education Learning Preferences: Demonstration, Explanation Barriers: None Learning/educational needs: Home exercise program, Plan of Care, Lymphedema Program Education Provided: Yes, see treatment interventions for education provided Education Provided To: Patient Education Mode/Type: Demonstration, Explanation/Discussion, Literature/Printed Materials, Performance Response to Education/Teach Back: States/Identifies, Return Demonstration TREATMENT: PT Treatment Interventions: Manual Therapy, Therapeutic Exercise, Self-Senior Living Management Evaluation Therapeutic Exercise: 1: *deep swallow (tip of tongue to roof of mouth) x 5 2: *deep breaths (abdominal) x 5 3: *posterior shld circles x 10 4: *cervical rotations x 10ea. direction 5: *lateral cervical flexion x 10ea direction Skilled Intervention: Patient was educated in proper exercise technique and purpose for exercises. Skilled judgment was provided in selection of appropriate interventions. Provided written instruction for home exercise program to facilitate proper performance and compliance. Correct performance of therapeutic exercises was facilitated with verbal and visual cuing. Patient education as noted. Manual Therapy: 1: 5 deep breaths 2: short session MLD with pt sitting upright in chair. Skilled Intervention: Manual skills to improve joint mobility, ROM, and decrease pain. Utilized anatomy knowledge of the therapist, and assessment of patient's response to intervention. Manual techniques to facilitate lymphatic dynamics and improve condition of tissue. Self-Senior Living Management: 1: Educated pt in lymphedema, CDT treatment including exercise, MLD, Kinesiotaping and compression options. Skilled Intervention: Skilled judgment in the selection of proper modification for activity of daily living/home management based on clinical presentation, deficits, and needs. Educated the patient regarding recommendations and provided written instruction to facilitate compliance. Reviewed patient specific diagnosis in relation to activities of daily living/home management. Billing * Evaluation Low Complexity: 1 Unit Therapeutic Exercise Treatment Minutes: 15 Manual TherapyTreatment Minutes: 15 Self-Care/Home Management Treatment Minutes: 10 Total Treatment Time Minutes (timed/untimed): 57 Abiola Menard [facility] NoteHNO ID: [id number] Author: RT Christal(R) Service: ? Author Type: Physician Practice Market Manager Type: Progress Notes Filed: 12/03/2022 3:16 PM Note Text: Radiology Service Progress Note DATE OF SERVICE: December 03, 2022 TIME: 3:16 PM PATIENT IDENTITY VERIFICATION COMPLETED USING TWO (2) STANDARD IDENTIFIERS: Name and Date of confirmed by patient verbally. FALL SCREENING: Has the patient had 2 falls in the last year or 1 fall with injury or currently using an Ambulatory Assistive Device (Walker, Cane, Wheelchair, Crutches, etc.)? No PATIENT GENDER DATA: Male PATIENT RELEVANT IMPLANT DATA REVIEWED: Yes ALLERGIES: Reviewed and unchanged CONTRAST ALLERGY: NO. EXAM: CT -CONTRAST INDUCED NEPHROPATHY RISK FACTORS: Not applicable CREATININE: Creatinine Date Value Ref Range Status 12/01/2022 0.76 0.73 - 1.22 mg/dL Final 07/28/2022 0.52 (L) 0.73 - 1.22 mg/dL Final 07/27/2022 0.52 (L) 0.73 - 1.22 mg/dL Final Estimated Glomerular Filtration Rate Date Value Ref Range Status 12/01/2022 108 >=60 mL/min/1.73m? Final Comment: Estimated Glomerular Filtration Rate (eGFR) is calculated using the 2020 CKD-EPI creatinine equation. This equation utilizes serum creatinine, sex, and age as parameters. The creatinine assay has traceable calibration to isotope dilution-mass spectrometry. Refer to KDIGO guidelines for clinical interpretation. In patients with unstable renal function, e.g. those with acute kidney injury, the eGFR may not accurately reflect actual GFR. eGFR- Date Value Ref Range Status 06/17/2021 >60 Final P.O.C.T. RESULTS: POC done: Yes, See Lab Tab December 03, 2022 TREATMENT: N/A PERIPHERAL IV DATA: Ambulatory: A peripheral IV was started in the Left antecubital site with a Angio cath: 22 gauge. RADIOLOGY DEPARTMENT: CT; Exam(s) Completed: Neck SIGNATURE: RT Greg(R) PATIENT NAME: Matthieu Carlin DATE: December 03, 2022 TIME: 3:16 [facility]04-19-2023 NoteHNO ID: [id number] Author: Kirti Perez, [facility]STRATEGIC PLANNING DIRECTOR Service: ? Author Type: Speech Language Pathologist Type: Progress Notes Filed: 12/01/2022 3:40 PM Note Text: [facility] SPEECHPATHOLOGY TEP FITTING (Re-fit) Portions of this note have been copied and edited from previous notes and updated. Date of TL/TEP: 07/23/2022 Referral: Cameron / Vishnu RT and/or Chemo Status: 2020 Non-functional larynx; trach and PEG Pain Level (1-10): 0 Status: Stoma stenosis appreciated. Patient c/o pain and bleeding when he tries to insert his larytube. Impressions: Getting good baseplate seals. Guided to use lubricated LT and, if needed, start with LT to reduce trauma. Dr. Barnes approved use of viscose lidocaine with KY-jelly during lubrication to reduce pain/irritation and bleeding. Easy TEP refit with good fluency and rough voice quality. Voice Prosthesis Fitted: Type: 20 Fr. Provox Bowman Length: 10 mm Modifications: none HME Use and Mounting: Plus standard baseplate / Go HME during the day. - fenestrated LT/HME at night. Reviewed strategies to mitigate ENVIRONMENTAL SAMPLER clogging (more voice use, brush clean, etc) May benefit from flush once stoma size stabilizes. Plan: TEP f/u in 3 months or prn. Kirti Perez MA/[facility]ANNING DIRECTOR Clinical Speech Pathologist Head AND Neck Specialist Pager [phone] Children's Medical Center04-19-2023 NoteHNO ID: [id number] Author: Ngozi Barnes MD Service: ? Author Type: Physician Type: Progress Notes Filed: 12/01/2022 1:44 PM Note Text: Overview Notes of Problems Addressed This Visit ENT Problems Chondroradionecrosis of larynx - Primary Relevant Medications sodium chloride 0.9 % nebulizer solution iv contrast (will be provided with radiology test) Other Relevant Orders TSH BLD CT NECK SOFT TISSUE W IVCON CREATININE BLD CONSULT TO PHYSICAL THERAPY Other Visit Diagnoses Disorder of airway Relevant Medications sodium chloride 0.9 % nebulizer solution iv contrast (will be provided with radiology test) Other Relevant Orders TSH BLD CT NECK SOFT TISSUE W IVCON CREATININE BLD CONSULT TO PHYSICAL THERAPY HPI: Matthieu Carlin is seen in f/u for his chondroradionecrosis. Unfortunately, earlier today he lost his voice. He is due to see speech pathology today that we will install a new TEP. Up until today, his voice was good. He does state that the Lewis tube has been more tight to fit, and that he is swollen in the face as of recently. He does say that he is compliant with his Synthroid medication, but has not had a TSH drawn recently. On exam, he is indeed swollen in the face and neck, with slight erythema. It does not look like elizabeth cellulitis, but there is a thickness to his skin. Good tongue mobility and oropharynx normal. The stoma is patent, 10 mm laterally by 12 vertically. The TEP is visible and without obvious defects. Lower trachea is widely patent. Palpation of the neck demonstrates no masses. IMPRESSION: Edema of unknown origin. PLAN: We will check his TSH level, and ordered a CT scan to be done in [facility]. This could be an early cellulitis, so depending on the CT scan we will likely initiate antibiotic therapy. Lastly, he requires physical therapy for lymphedema treatment Ngozi Barnes [facility]04-19-2023 History of Present illness Narrative* Kirti Perez, [facility]ATEGIC PLANNING DIRECTOR - 12/01/2022 3:33 PM EDT [facility] SPEECHPATHOLOGY TEP FITTING (Re-fit) Portions of this note have been copied and edited from previous notes and updated. Date of TL/TEP: 07/23/2022 Referral: Cameron / Vishnu RT and/or Chemo Status: 2020 Non-functional larynx; trach and PEG Pain Level (1-10): 0 Status: Stoma stenosis appreciated. Patient c/o pain and bleeding when he tries to insert his larytube. Impressions: Getting good baseplate seals. Guided to use lubricated LT and, if needed, start with LT to reduce trauma. Dr. Barnes approved use of viscose lidocaine with KY-jelly during lubrication to reduce pain/irritation and bleeding. Easy TEP refit with good fluency and rough voice quality. Voice Prosthesis Fitted: Type: 20 Fr. Provox Bowman Length: 10 mm Modifications: none HME Use and Mounting: Plus standard baseplate / Go HME during the day. - fenestrated LT/HME at night. Reviewed strategies to mitigate ENVIRONMENTAL SAMPLER clogging (more voice use, brush clean, etc) May benefit from flush once stoma size stabilizes. Plan: TEP f/u in 3 months or prn. Kirti Perez MA/[employer]ATE[employer]IC PLANNING DIRECTOR Clinical Speech Pathologist Head & Neck Specialist Pager [phone] [facility] History of Present illness Narrative* Ngozi Barnes MD - 12/01/2022 1:40 PM EDT Overview Notes of Problems Addressed This Visit ENT Problems Chondroradionecrosis of larynx - Primary Relevant Medications sodium chloride 0.9 % nebulizer solution iv contrast (will be provided with radiology test) Other Relevant Orders TSH BLD CT NECK SOFT TISSUE W IVCON CREATININE BLD CONSULT TO PHYSICAL THERAPY Other Visit Diagnoses Disorder of airway Relevant Medications sodium chloride 0.9 % nebulizer solution iv contrast (will be provided with radiology test) Other Relevant Orders TSH BLD CT NECK SOFT TISSUE W IVCON CREATININE BLD CONSULT TO PHYSICAL THERAPY HPI: Matthieu Carlin is seen in f/u for his chondroradionecrosis. Unfortunately, earlier today he lost his voice. He is due to see speech pathology today that we will install a new TEP. Up until today,his voice was good. He does state that the Lewis tube has been more tight to fit, and that he is swollen in the face as of recently. He does say that he is compliant with his Synthroid medication, but has not had a TSH drawn recently. On exam, he is indeed swollen in the face and neck, with slight erythema. It does not look like elizabeth cellulitis, but there is a thickness to his skin. Good tongue mobility and oropharynx normal. Thestoma is patent, 10 mm laterally by 12 vertically. The TEP is visible and without obvious defects. Lower trachea is widely patent. Palpation of the neck demonstrates no masses. IMPRESSION: Edema of unknown origin. PLAN: We will check his TSH level, and ordered a CT scan to be done in [facility]. This could be an early cellulitis, so depending on the CT scan we will likely initiate antibiotic therapy. Lastly, he requires physical therapy for lymphedema treatment Ngozi Barnes MD documented [facility] Nurse Note* BELTRAN Humphries - 12/01/2022 1:18 PM EDT Tobacco Use: .3 packs/day, for 30 years. Types: Cigarettes Was smoking cessation packet given? N/A - Patient is a non-smoker or quit >1 year ago. Was a referral initiated?N/A Patient is a non-smoker documented [facility] Hospital Discharge instructions Patient Education 10/18/2022 17:40:26 Fracture, Foot Foot Fracture You have a broken bone (fracture) in your foot. This will cause pain, swelling, and often bruising.It will usually take about 4 to 8 weeks to heal. A foot fracture may be treated with a special shoe, splint, cast, or boot. Home care Follow these guidelines when caring for yourself at home: You may be given a splint, cast, shoe, or boot to keep the injured area from moving. Unless you were told otherwise, use crutches or a walker. Don t put weight on the injured foot until your health care provider says you can do so. (You can rent crutches and a walker at many pharmacies and surgicalor orthopedic supply stores.) Don t put weight on a splint, or it will break. Keep your leg elevated to reduce pain and swelling. When sleeping, put a pillow under the injured leg. When sitting, support the injured leg so it is above your waist. This is very important during the first 2 days (48 hours). Put an ice pack on the injured area. Do this for 20 minutes every 1 to 2 hours the first day for pain relief. You can make an ice pack by wrapping a plastic bag of ice cubes in a thin towel. As the ice melts, be careful that the splint, cast, boot, or shoe doesn t get wet. You can place the ice pack directly over the splint or cast. Unless told otherwise, you can open the boot or shoe to apply the ice pack. Continue using the ice pack 3 to 4 times a day for the next 2 days. Then use the ice pack as needed to ease pain and swelling. Keep the splint, cast, boot, or shoe dry. When bathing, protect it with a large plastic bag, rubber-banded at the top end. If a fiberglass splint or cast or boot gets wet, you can dry it with a humanities division chair. Unless told otherwise, you can take off the boot or shoe to bathe. You may use acetaminophen or ibuprofen to control pain, unless another pain medicine was prescribed. If you have chronic liver or kidney disease, talk with your healthcare provider before using thesemedicines. Also talk with your provider if you ve had a stomach ulcer or gastrointestinal bleeding. Don t put creams or objects under the cast if you have itching. Follow-up care Follow up with your healthcare provider, or as advised. This is to make sure the bone is healing the way it should. If you were given a splint, it may be changed to a cast or boot at your follow-up visit. X-rays may be taken. You will be told of any new findings that may affect your care. When to seek medical advice Call your healthcare provider right away if any of these occur: The cast or splint cracks The plaster cast or splint becomes wet or soft The fiberglass cast or splint stays wet for more than 24 hours Bad odor from the cast or wound fluid stains the cast Tightness or pain under the cast or splint gets worse Toes become swollen, cold, blue, numb, or tingly You can t move your toes Skin around cast or splint becomes red Fever of 100.4 F (38 C) or higher, or as directed by your healthcare provider [id number] [employer]. [address] [place] [address]. All rights reserved. This information is not intended as a substitute for professional medical care. Always follow [facility] professional's instructions. 10/18/2022 17:40:22 Ankle Sprain (Adult) Ankle Sprain (Adult) An ankle sprain is a stretching or tearing of the ligaments that hold the ankle joint together. There are no broken bones. An ankle sprain is a common injury for both children and adults. It happens when the ankle turns, twists, or rolls in an awkward way. This can be caused by a sports injury. Or it can happen from doing something as simple as stepping on an uneven surface. Ligaments are made of tough connective tissue. Normally, ligaments stretch a certain amount and then go back to their normal place. A sprain happens when a ligament is forced to stretch more than thenormal amount. A severe sprain can actually tear the ligaments. If you have a severe sprain, you may have felt or heard something like a pop when you were injured. Ankle sprains are given a grade depending on whether they are mild, moderate, or severe: Grade 1 sprain. A mild sprain with minor stretching and damage to the ligament. Grade 2 sprain. A moderate sprain where the ligament is partly torn. Grade 3 sprain. The most severe kind of sprain. The ligament is completely torn. Most sprains take about 4 to 6 weeks to heal. A severe sprain can take several months to recover. Your healthcare provider may order X-rays to be sure you don t have a fracture, or broken bone. The injured area will feel sore. Swelling and pain may make it hard to walk. You may need crutches if walking is painful. Or your provider may have you use a cast boot or air splint. This will dependon the grade of ankle sprain that you have. Home care For a Grade 1 sprain, use RICE (rest, ice, compression, and elevation): Rest your ankle. Don t walk on it. Ice should be used right away to help control swelling. Place an ice pack over the injured area for20 minutes. Do this every 3 to 6 hours for the first 24 to 48 hours. Keep using ice packs to ease pain and swelling as needed. To make an ice pack, put ice cubes in a plastic bag that seals at the top. Wrap the bag in a clean, thin towel or cloth. Never put ice or an ice pack directly on the skin. The ice pack can be put right on the cast, bandage, or splint. As the ice melts, be careful that thecast, bandage, or splint doesn t get wet. If you have a boot, open it to apply an ice pack, unless told otherwise by your provider. Compression devices help to control swelling. They also keep the ankle from moving and support yourinjured ankle. These devices include dressings, bandages, and wraps. Elevate or raise your ankle above the level of your heart when sitting or lying down. This is very important for the first 48 hours. Follow the RICE guidelines for a Grade 2 sprain. This type of sprain will take longer to heal. Yourprovider may have you wear a splint, cast, or brace to keep your ankle from moving. If you have a Grade 3 sprain, you are at risk for long-term ankle instability. In rare cases, surgery may be needed. Your provider may have you wear a short leg cast or a walking boot for 2 to 3 weeks. After 48 hours, it may be helpful to apply heat for 20 minutes several times a day. You can do thiswith a heating pad or warm compress. Or you may want to go back and forth between using ice and heat. Never apply heat directly to the skin. Always wrap the heating pad or warm compress in a clean, thin towel or cloth. You may use dhih-bko-ursgjxi pain medicine (NSAIDS or nonsteroidal anti- inflammatory drugs) to control pain, unless another pain medicine was prescribed. Talk with your provider before using these medicines if you have chronic liver or kidney disease, or have ever had a stomach ulcer or gastrointestinal bleeding. Follow any rehabilitation exercises your provider gives you. These can help you be more flexible and improve your balance and coordination. This is helpful in preventing long-term ankle problems. Prevention To help prevent ankle sprains, it s important to have good strength, balance, and flexibility. Be sure to: Always warm up before you exercise or do something very active Be careful when walking or running on uneven or cracked surfaces Wear shoes that are in good condition and fit well Listen to your body s signals to slow down when you are in pain or tired Follow-up care Any X-rays you had today don t show any broken bones, breaks, or fractures. Sometimes fractures dont show up on the first X-ray. Bruises and sprains can sometimes hurt as much as a fracture. These injuries can take time to heal completely. If your symptoms don t get better or they get worse, talk with your healthcare provider. You may need a repeat X-ray. Follow up with your healthcare provider, or as advised. Check for any warning signs listed below. When to seek medical advice Call your healthcare provider right away if any of these occur: Fever of 100.4 F (38 C) or higher, or as directed by your healthcare provider Chills The injury doesn t seem to be healing The swelling comes back The cast or splint has a bad smell The plaster cast or splint gets wet or soft The fiberglass cast or splint gets wet and does not dry for 24 hours The pain or swelling increases, or redness appears Your toes become cold, blue, numb, or tingly The skin is discolored (looks blue, purple, or regan), has blisters, or is irritated You re-injure your ankle [id number] [employer]. [address] [place] [address]. All rights reserved. This information is not intended as a substitute for professional medical care. Always follow yourhealthcare professional's instructions. Follow Up Care 10/18/2022 16:44:38 With:NGOZI BRAUN Address: [address] [place] [address] [phone] Business (1) When:2-4 days Comments:Return to ED if symptoms worsen With:ABENA SERNA Address: [address] [place] [address] [employer] [address] [place] [phone] Business (1) When:2-4 days [facility] 03-06-2023 Emergency department Discharge summary Discharge Instructions Thank you for allowing [facility] to assist you with your healthcare needs. The following is importantdischarge information regarding your hospital visit. Diagnosis from Today's Visit Fracture of foot Ankle sprain Ankle pain-swelling What to Do Next Instructions from Your Care Team Discharge Home Equipment - Ordered -- Walking Boot, month(s), 10/18/22 17:40:00 EST Post Acute Orders No qualifying data available. You Need to Schedule the Following Appointments Follow Up with NGOZI BRAUN When Within 2-4 days Why: Return to ED if symptoms worsen Where: [address] [place] [address] [phone] Business (1) Follow Up with ABENA SERNA When Within 2-4 days Where: [facility] [employer] [address] [place] [phone] Business (1) Allergies NKA Medications Please ask your primary doctor or pharmacist before taking any other medication not listed, including over the counter drugs, herbal medications, vitamins and or supplements as they may interact withyour home medications. What How Much When Why Instructions Last Dose Unchanged albuterol-ipratropium (albuterol-ipratropium 2.5 mg-0.5 mg/ 3 mL inhalation solution) 3 Milliliter by inhalation Four (4) times a day Unchanged bacillus coagulans-inulin (Probiotic Formula (Bacillus Coagulans) oral capsule) 1 cap PEG tube Once a day Unchanged budesonide (budesonide 0.25 mg/ 2 mL inhalation suspension) 2 Milliliter by inhalation Two (2) times a day Unchanged DULoxetine (DULoxetine 60 mg oral delayed release capsule) 1 cap PEG tube Once a day Unchanged folic acid (folic acid 1 mg oral tablet) 1 tab(s) PEG tube Once a day Unchanged gabapentin (gabapentin 600 mg oral tablet) 1 tab(s) PEG tube Three (3) times a day Cancer related pain Duration: 30 Days Unchanged guaiFENesin (guaiFENesin 100 mg/ 5 mL oral liquid) 10 Milliliter PEG tube Every 4 hours as needed for as needed for cough Unchanged levothyroxine (levothyroxine 150 mcg (0.15 mg) oral tablet) 1 tab(s) PEG tube Once a day Unchanged loperamide (Imodium A-D 2 mg oral tablet) 1 tab(s) PEG tube Every 4 hours as needed for for loose stool Unchanged nicotine (nicotine 21mg / 24hrs transdermal patch) 1 patch(es) Transdermal Once a day Unchanged omeprazole (omeprazole 40 mg oral delayed release capsule) 1 cap PEG tube Once a day GERD Active Unchanged potassium chloride (Potassium Chloride (Eqv-K-Tab) 10 mEq oral tablet, extended release) 1 tab(s) by mouth Once a day Acute hypokalemia URI - Upper respiratory infection Unchanged propranolol (propranolol 20 mg oral tablet) 1 tab(s) PEG tube Two (2) times a day Essential tremor Unchanged sucralfate (sucralfate 1 g oral tablet) 1 tab(s) by mouth Four (4) times daily-before meals and at bedtime DISSOLVE 1 TABLET IN AT LEAST 10 ML OF WATER FOR 15 TO 20 MINUTES, TAKE FOUR TIMES A DAY Please take this list to your next doctor s visit. Bring all medications you take, including over the counter medications, herbals and other supplements with you to your doctor s visit. Patients and families are reminded to discard old lists and to update any records with all medication providers or retail pharmacies. Education Materials Foot Fracture You have a broken bone (fracture) in your foot. This will cause pain, swelling, and often bruising.It will usually take about 4 to 8 weeks to heal. A foot fracture may be treated with a special shoe, splint, cast, or boot. Home care Follow these guidelines when caring for yourself at home: You may be given a splint, cast, shoe, or boot to keep the injured area from moving. Unless you were told otherwise, use crutches or a walker. Don t put weight on the injured foot until your health care provider says you can do so. (You can rent crutches and a walker at many pharmacies and surgicalor orthopedic supply stores.) Don t put weight on a splint, or it will break. Keep your leg elevated to reduce pain and swelling. When sleeping, put a pillow under the injured leg. When sitting, support the injured leg so it is above your waist. This is very important during the first 2 days (48 hours). Put an ice pack on the injured area. Do this for 20 minutes every 1 to 2 hours the first day for pain relief. You can make an ice pack by wrapping a plastic bag of ice cubes in a thin towel. As the ice melts, be careful that the splint, cast, boot, or shoe doesn t get wet. You can place the ice pack directly over the splint or cast. Unless told otherwise, you can open the boot or shoe to apply the ice pack. Continue using the ice pack 3 to 4 times a day for the next 2 days. Then use the ice pack as needed to ease pain and swelling. Keep the splint, cast, boot, or shoe dry. When bathing, protect it with a large plastic bag, rubber-banded at the top end. If a fiberglass splint or cast or boot gets wet, you can dry it with a humanities division chair. Unless told otherwise, you can take off the boot or shoe to bathe. You may use acetaminophen or ibuprofen to control pain, unless another pain medicine was prescribed. If you have chronic liver or kidney disease, talk with your healthcare provider before using thesemedicines. Also talk with your provider if you ve had a stomach ulcer or gastrointestinal bleeding. Don t put creams or objects under the cast if you have itching. Follow-up care Follow up with your healthcare provider, or as advised. This is to make sure the bone is healing the way it should. If you were given a splint, it may be changed to a cast or boot at your follow-up visit. X-rays may be taken. You will be told of any new findings that may affect your care. When to seek medical advice Call your healthcare provider right away if any of these occur: The cast or splint cracks The plaster cast or splint becomes wet or soft The fiberglass cast or splint stays wet for more than 24 hours Bad odor from the cast or wound fluid stains the cast Tightness or pain under the cast or splint gets worse Toes become swollen, cold, blue, numb, or tingly You can t move your toes Skin around cast or splint becomes red Fever of 100.4 F (38 C) or higher, or as directed by your healthcare provider [phone] [employer]. [address] [place] [address]. All rights reserved. This information is not intended as a substitute for professional medical care. Always follow yourhealthcare professional's instructions. Ankle Sprain (Adult) An ankle sprain is a stretching or tearing of the ligaments that hold the ankle joint together. There are no broken bones. An ankle sprain is a common injury for both children and adults. It happens when the ankle turns, twists, or rolls in an awkward way. This can be caused by a sports injury. Or it can happen from doing something as simple as stepping on an uneven surface. Ligaments are made of tough connective tissue. Normally, ligaments stretch a certain amount and then go back to their normal place. A sprain happens when a ligament is forced to stretch more than thenormal amount. A severe sprain can actually tear the ligaments. If you have a severe sprain, you may have felt or heard something like a pop when you were injured. Ankle sprains are given a grade depending on whether they are mild, moderate, or severe: Grade 1 sprain. A mild sprain with minor stretching and damage to the ligament. Grade 2 sprain. A moderate sprain where the ligament is partly torn. Grade 3 sprain. The most severe kind of sprain. The ligament is completely torn. Most sprains take about 4 to 6 weeks to heal. A severe sprain can take several months to recover. Your healthcare provider may order X-rays to be sure you don t have a fracture, or broken bone. The injured area will feel sore. Swelling and pain may make it hard to walk. You may need crutches if walking is painful. Or your provider may have you use a cast boot or air splint. This will dependon the grade of ankle sprain that you have. Home care For a Grade 1 sprain, use RICE (rest, ice, compression, and elevation): Rest your ankle. Don t walk on it. Ice should be used right away to help control swelling. Place an ice pack over the injured area for20 minutes. Do this every 3 to 6 hours for the first 24 to 48 hours. Keep using ice packs to ease pain and swelling as needed. To make an ice pack, put ice cubes in a plastic bag that seals at the top. Wrap the bag in a clean, thin towel or cloth. Never put ice or an ice pack directly on the skin. The ice pack can be put right on the cast, bandage, or splint. As the ice melts, be careful that thecast, bandage, or splint doesn t get wet. If you have a boot, open it to apply an ice pack, unless told otherwise by your provider. Compression devices help to control swelling. They also keep the ankle from moving and support yourinjured ankle. These devices include dressings, bandages, and wraps. Elevate or raise your ankle above the level of your heart when sitting or lying down. This is very important for the first 48 hours. Follow the RICE guidelines for a Grade 2 sprain. This type of sprain will take longer to heal. Yourprovider may have you wear a splint, cast, or brace to keep your ankle from moving. If you have a Grade 3 sprain, you are at risk for long-term ankle instability. In rare cases, surgery may be needed. Your provider may have you wear a short leg cast or a walking boot for 2 to 3 weeks. After 48 hours, it may be helpful to apply heat for 20 minutes several times a day. You can do thiswith a heating pad or warm compress. Or you may want to go back and forth between using ice and heat. Never apply heat directly to the skin. Always wrap the heating pad or warm compress in a clean, thin towel or cloth. You may use ywid-doq-czlzumv pain medicine (NSAIDS or nonsteroidal anti- inflammatory drugs) to control pain, unless another pain medicine was prescribed. Talk with your provider before using these medicines if you have chronic liver or kidney disease, or have ever had a stomach ulcer or gastrointestinal bleeding. Follow any rehabilitation exercises your provider gives you. These can help you be more flexible and improve your balance and coordination. This is helpful in preventing long-term ankle problems. Prevention To help prevent ankle sprains, it s important to have good strength, balance, and flexibility. Be sure to: Always warm up before you exercise or do something very active Be careful when walking or running on uneven or cracked surfaces Wear shoes that are in good condition and fit well Listen to your body s signals to slow down when you are in pain or tired Follow-up care Any X-rays you had today don t show any broken bones, breaks, or fractures. Sometimes fractures dont show up on the first X-ray. Bruises and sprains can sometimes hurt as much as a fracture. These injuries can take time to heal completely. If your symptoms don t get better or they get worse, talk with your healthcare provider. You may need a repeat X-ray. Follow up with your healthcare provider, or as advised. Check for any warning signs listed below. When to seek medical advice Call your healthcare provider right away if any of these occur: Fever of 100.4 F (38 C) or higher, or as directed by your healthcare provider Chills The injury doesn t seem to be healing The swelling comes back The cast or splint has a bad smell The plaster cast or splint gets wet or soft The fiberglass cast or splint gets wet and does not dry for 24 hours The pain or swelling increases, or redness appears Your toes become cold, blue, numb, or tingly The skin is discolored (looks blue, purple, or regan), has blisters, or is irritated You re-injure your ankle [id number] [employer]. [address] [place] [address], [place] [address]. All rights reserved. This information is not intended as a substitute for professional medical care. Always follow yourhealthcare professional's instructions. Additional Information [employer]! IT [employer]AVES LIVES! Members of the community who have not yet received the COVID-19 vaccine and would like to receive it can visit one of [facility] vaccine clinics. There are many vaccine clinic locations within the [facility]. For locations and available times, please visit [email or web address] It is important to note that some COVID mobile vaccine clinics are held outdoors and may be canceled in rainy or stormy conditions. To learn more about pediatric vaccinations (ages 5-11), we invite you to visit the [facility] [facility] webpage. [email or web address] learn more about the COVID-19 vaccine, we invite you to visit the CDC website for a list of frequently asked questions. https://www.cdc.gov/coronavirus/2019-ncov/vaccines/faq.html [facility] Patient Portal Access Instructions: Stay connected with your healthcare team and access your personal medical information anytime with the [facility] Patient Portal. If you would like a full copy of your medical records please contact the [facility] Medical Records Department Tuesday through Tuesday between 8a.m. and 4:30p.m. Please follow the directions below to access the portal: 1.Access the email account you provided upon registration to the hospital.2.Look for an invitation email from [facility].3.Open the email and access the invitation link: Accept Invitation to [facility]4.Fill in the required burr to create your account. Sign into [email or web address] with your username and password that you created in the above steps to stay up to date. You can then view a summary of results, a summary of your visits, and the ability to download your summaries to your computer or send the information securely to a physician. Remember that your healthcare information is confidential, so carefully consider who you will allow to register on the [facility] Patient Portal for access to your information. You can also access the [facility] Patient Portal on the [employer]. Simply click on Health Records under [employer] and then click on the [employer] logo. HOW TO SAFELY DISPOSE OF PRESCRIPTION MEDICATIONS Please use one of the following methods to safely dispose of your unused medications. 1.Use a drug disposal kit: the drug disposal pouch allows you to safely discard your old and unuseddrugs. Ask your nurse to give you one when you are discharged.2.Visit a local take-back location: Many local pharmacies and police departments have programs that collect old and unwanted prescriptiondrugs. Call your local pharmacy or go to [email or web address].Coinapult/[email or web address] to find one close to you.3.Make use of household items: Use cat litter or old coffee grounds to dispose medications if other options arenot available. Mix your drugs with these household products, seal them in an airtight container andthrow it into the garbage. Call [facility]: [phone] to be sure your drugs can be disposed of in this way. Some medicines may require a different approach.4.Never flush your medications down the toilet. IF YOU HAVE BEEN PRESCRIBED AN OPIOIDS FOR PAIN If you have been prescribed an opioid (such as hydrocodone, oxycodone or morphine), it is critical to understand the possible side effects and risks of opioid pain medications. Even when taken as directed, opioids can have several side effects including: Tolerance, meaning you might need to take more of a medication for the same pain relief. Nausea, vomiting and/or constipation. Sleepiness, dizziness, dry mouth, confusion, depression or itching. Physical dependence, meaning you have withdrawal symptoms when a medication is stopped ? this can develop within a few days. KNOW YOUR RESPONSIBILITIES It is important to know exactly how much and how often to take the opioid pain medications you are prescribed. Never take opioids in higher amounts or more often than prescribed. Do not combine opioids with alcohol or other drugs that cause drowsiness, such as benzodiazepines, also known as benzos,including diazepam and alprazolam, muscle relaxants or sleep aids. Never sell or share prescriptionopioids. This is illegal. Store opioids in a secure place and out of reach of others (including children, family, friends and visitors). The last page(s) of this document has been signed and retained as a CHART COPY Signatures Patient Education Materials Fracture, Foot Ankle Sprain (Adult) Medication Leaflets My discharge plan and instructions have been reviewed and explained to me and I,MATTHIEU CARLIN understand my current condition and have read and understand these discharge instructions. I have received a written copy of the plan/instructions. If I have questions, I am aware that I should contact my doctor. Patient/Cordwood Cutter Signature: Date/Time: Relationship to Patient: Witness Name/Signature: Date/Time: [facility]03-06-2023 Note ORIGINAL EXAMINATION: 3 XRAY VIEWS OF THE left ankle and foot each 10/18/2022 5:26 pm COMPARISON: None. HISTORY: ORDERING SYSTEM PROVIDED HISTORY: Reason for Exam: pain FINDINGS: No acute fracture or dislocation of the ankle. Linear lucency through the base of the 5th metatarsal. No radiopaque foreign body. Calcaneal enthesopathy. Mild degenerative changes of the tibiotalar joint. IMPRESSION: Nondisplaced avulsion fracture of the base of the 5th metatarsal. Interpreted by: Kevin Vigil Preliminary Report By: Kevin Vigil Electronically signed By Kevin Vigil Dictated Date: 10/18/2022 5:29:53 PM Prelim Date: 10/18/2022 5:32:04 PM Sign Date: 10/18/2022 5:32:04 PM Ordering Provider: YENIFER CAIN [facility]03-06-2023 Note ORIGINAL EXAMINATION: 3 XRAY VIEWS OF THE left ankle and foot each 10/18/2022 5:26 pm COMPARISON: None. HISTORY: ORDERING SYSTEM PROVIDED HISTORY: Reason for Exam: pain FINDINGS: No acute fracture or dislocation of the ankle. Linear lucency through the base of the 5th metatarsal. No radiopaque foreign body. Calcaneal enthesopathy. Mild degenerative changes of the tibiotalar joint. IMPRESSION: Nondisplaced avulsion fracture of the base of the 5th metatarsal. Interpreted by: Kevin Vigil Preliminary Report By: Kevin Vigil Electronically signed By Kevin Vigil Dictated Date: 10/18/2022 5:29:53 PM Prelim Date: 10/18/2022 5:32:04 PM Sign Date: 10/18/2022 5:32:04 PM Ordering Provider: [facility]02-22-2023 NoteHNO ID: [id number] Author: Kirti Perez CCC-STRATEGIC PLANNING DIRECTOR Service: ? Author Type: Speech Language Pathologist Type: Progress Notes Filed: 10/06/2022 12:39 PM Note Text: [facility] Speech Therapy Progress Note Subjective: Patient arrives reporting significant TEP leak last evening. He described internal leak. Was vague about his pacing strategies while eating / drinking. Did not try cleaning the device free of any debris that could have contributed to malfunction of valve tip. Objective: Assess Assessment: Leak test negative even for repeated sips. ENVIRONMENTAL SAMPLER was well fitted and well positioned. Slight glistening noted an considered WNL for unmonitored fast drinking. Reviewed brush / flush cleaning. Reviewed strategies to mitigate leak and trained use of a Provox plug. Plan: Continue skilled ST for TEP as scheduled. Kirti Perez MA/OSCAR-STRATEGIC PLANNING DIRECTOR Clinical Speech Pathologist Head AND Neck Specialist Pager [phone] [facility]02-[facility]23 History of Present illness Narrative* MAGALY Curran - 10/06/2022 12:34 PM EST [facility] Speech Therapy Progress Note Subjective: Patient arrives reporting significant TEP leak last evening. He described internal leak. Was vague about his pacing strategies while eating / drinking. Did not try cleaning the device free of any debris that could have contributed to malfunction of valve tip. Objective: Assess Assessment: Leak test negative even for repeated sips. ENVIRONMENTAL SAMPLER was well fitted and well positioned. Slight glistening noted an considered WNL for unmonitored fast drinking. Reviewed brush / flush cleaning. Reviewed strategies to mitigate leak and trained use of a Provox plug. Plan: Continue skilled ST for TEP as scheduled. Kirti Perez MA/OSCAR-STRATEGIC PLANNING DIRECTOR Clinical Speech Pathologist Head & Neck Specialist Pager [phone] [facility]23 NoteHNO ID: [id number] Author: Kirti Perez CCC-STRATEGIC PLANNING DIRECTOR Service: ? Author Type: Speech Language Pathologist Type: Progress Notes Filed: 10/04/2022 3:00 PM Note Text: [facility] TEP FITTING (Re-fit) Portions of this note have been copied and edited from previous notes and updated. 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 Still has PEG, but taking full PO. Has not seen Dr. Barnes post-op yet. Impressions: Working with baseplates; gets gaggy with efforts to speak due to excessive pressure on stoma. Mild stoma stenosis; use LT/HME overnight. By the end of the session, fluent voice achieved without cough/gag as patient was guided to pace his speech and back off excessive pressure. Also reinforced pacing with PO of foods and liquids; do not lean over table with eating / drinking. 2 swallows per bite /sip to clear through luis f-pharynx. Voice Prosthesis Fitted: Type: 20 Fr. Provox Bowman Length: 10 mm Modifications: none HME Use and Mounting: Plus standard baseplate / Go HME - fenestrated LT/HME at night. Plan: TEP f/u in 2 months and post-op with Dr. Barnes. Kirti Perez MA/OSCAR-STRATEGIC PLANNING DIRECTOR Clinical Speech Pathologist Head AND Neck Specialist Pager [phone] Children's Medical Center02-20-2023 NoteHNO ID: [id number] Author: Queenie Mares MD Service: ? Author Type: Physician Type: Progress Notes Filed: 10/04/2022 1:53 PM Note Text: Head and Neck Surgery Follow-up Note Patient: Matthieu Carlin Age: [age] year old Provider: Queenie Mares MD Date of visit: 10/04/22 Date of last visit: 09/07/2022 Chief Complaint: No chief complaint on file. History of Present Illness: Matthieu Carlin is a 52 year old year old male with a history of chondroradionecrosis of larynx with dysfunctional larynx s/p TL and R ALT recon with Dr. Barnes and myself on 07/23/2022. He is doing well with po. Liquids and food go down ok except liquids sometimes causes him nasal regurgitation. Having hard time w TEP voice, also having occasional blood clots still from the stoma. We have reviewed the patient's past medical history, past surgical history, medications, allergies, social history, and review of systems with the patient. Any significant changes are noted above in the HPI . Current Medication: Current Outpatient Medications Medication Sig Dispense Refill aspirin 81 mg chewable tablet Chew AND swallow 1 tablet by mouth once daily for 15 doses. 15 tablet 0 buPROPion (WELLBUTRIN) 75 mg tablet Take 2 tablets by CORPAK route twice daily for 23 doses. 46 tablet 0 white petrolatum (AQUAPHOR) 41 % topical ointment Apply to affected area twice daily. (Patient not taking: Reported on 09/07/2022) MEDICAL SUPPLY tube feeds: Isosource 1.5 ( or equivalent)250 cc 6 times per day with 90 cc water flush pre and post feed 180 Each 2 MEDICAL SUPPLY Laryngectomy supplies portable suction machine #12 slovenian soft suction catheters Lillianuer suction catheters 1 Each 2 guaiFENesin (ROBITUSSIN) 100 mg/5 mL syrup 200 mg every 4 hours as needed for cough. loperamide HCl (IMODIUM) 2 mg tab 4 mg by PEG route as needed. BACILLUS COAGULANS-INULIN ORAL 1 capsule by PEG route once daily. budesonide (PULMICORT) 0.25 mg/2 mL nebulizer solution Use 0.25 mg via nebulizer twice daily. folic acid 1 mg tablet Take 1 mg by mouth once daily. ipratropium-albuterol (DUONEB) 0.5 mg-3 mg(2.5 mg base)/3 mL nebu Inhale 3 mL as instructed every 2 hours as needed for wheezing/shortness of breath. melatonin 3 mg tablet 3 mg by PEG route daily at bedtime. propranolol (INDERAL) 20 mg tablet Take 20 mg by mouth twice daily. 2 times daily as needed for essential tremor senna (SENOKOT) 8.6 mg tab 8.6 mg by PEG route twice daily as needed for constipation. thiamine (VITAMIN B1) 100 mg tablet 1 tablet by PEG route once daily. (Patient not taking: Reported on 09/07/2022) venlafaxine (EFFEXOR) 100 mg tablet 100 mg by PEG route twice daily. levothyroxine (SYNTHROID) 150 mcg tablet Take 1 tablet by mouth daily before breakfast. 6 tablet 3 gabapentin (NEURONTIN) 600 mg tablet Take 600 mg by mouth three times daily. omeprazole (PRILOSEC) 40 mg capsule Take 40 mg by mouth. LORazepam (ATIVAN) 0.5 mg Take 0.5 mg by mouth daily at bedtime. CARAFATE 100 mg/mL suspension TAKE 10ml BY MOUTH BEFORE MEALS AND AT BEDTIME No current facility-administered medications for this visit. Review of Systems - A focused ROS was performed, which is noted in the HPI above. Physical Exam: Vitals - There were no vitals taken for this visit. Constitutional - General Appearance: Normocephalic and atraumatic. Well developed, well nourished. Communication: Aphonic Head AND Face - Overall: No obvious scars, lesions or masses. Parotid and submandibular glands: No masses bilaterally and without any asymmetry. Facial strength: Normal and equal bilaterally. Eyes - Pupils are round and reactive. Extraocular muscles grossly intact. Sclerae and conjunctivae noninjected and anicteric. Ear, Nose, Mouth AND Throat - Ears: No external deformities. Left and right external auditory canals are patent, bilateral tympanic membranes intact without effusion. Nasal exam: No external deformities. Mucosa is pink. Septum is midline. Visible turbinates are normal on anterior rhinoscopy. Oral Cavity: No mucosal lesions. Tongue is soft, midline, and mobile bilaterally. Floor of mouth is soft. Palate is intact and elevates symmetrically. Neck: Bilateral neck incision well healed. Stoma mildly narrowed but with TEP in place with crusting around TEP prosthesis. The denuded L tracheal wall filled in. Skin - No edema, no discoloration, no ulceration, no masses or lesions. Respiratory - Normal work of breathing on room air. No stridor or abnormal breath sounds. Neurologic - General: Alert and oriented x 3. No obvious focal deficits. Cranial Nerves: II: Pupillary reflexes normal III, IV, : EOM normal V: 1,2,3: normal sensation VII: Normal strength in all divisions IX, X: Aphonic, normal palatal elevation and sensation XI: Shoulder strength normal XII: Tongue mobility normal Extremities - Right thigh incision well healed. Procedure: None R (more content not included)...[facility]02-20-2023 History of Present illness Narrative* Kirti Perez CCC-STRATEGIC PLANNING DIRECTOR - 10/04/2022 2:47 PM EST [facility] TEP FITTING (Re-fit) Portions of this note have been copied and edited from previous notes and updated. 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 Still has PEG, but taking full PO. Has not seen Dr. Barnes post-op yet. Impressions: Working with baseplates; gets gaggy with efforts to speak due to excessive pressure onstoma. Mild stoma stenosis; use LT/HME overnight. By the end of the session, fluent voice achieved without cough/gag as patient was guided to pace his speech and back off excessive pressure. Also reinforced pacing with PO of foods and liquids; do not lean over table with eating / drinking. 2 swallows per bite /sip to clear through luis f-pharynx. Voice Prosthesis Fitted: Type: 20 Fr. Provox Bowman Length: 10 mm Modifications: none HME Use and Mounting: Plus standard baseplate / Go HME - fenestrated LT/HME at night. Plan: TEP f/u in 2 months and post-op with Dr. Barnes. Kirti Perez MA/OSCAR-STRATEGIC PLANNING DIRECTOR Clinical Speech Pathologist Head & Neck Specialist Pager [phone] [facility] Miscellaneous Notes* Addendum Note - Isamar Roca MD - 10/04/2022 2:11 PM ESTAddended by: ISAMAR ROCA on: 10/04/2022 02:11 PM Modules accepted: Orders * Addendum Note - Sai Hallman RN - 10/04/2022 1:59 PM ESTAddended by: SAI HALLMAN on: 10/04/2022 01:59 PM Modules accepted: Orders documented in [facility] encounterReg[facility] Nurse Note* Sonya Aguilar MA - 10/04/2022 1:29 PM EST Tobacco Use: .3 packs/day, for 30 years. Types: Cigarettes Was smoking cessation packet given? N/A - Patient is a non-smoker or quit >1 year ago. Was a referral initiated?N/A Patient is a non-smoker documented [facility]Reg[facility] History of Present illness Narrative* Queenie Mares MD - 10/04/2022 1:23 PM EST Head and Neck Surgery Follow-up Note Patient: Matthieu Carlin Age: [age] year old Provider: Queenie Mares MD Date of visit: 10/04/22 Date of last visit: 09/07/2022 Chief Complaint: No chief complaint on file. History of Present Illness: Matthieu Carlin is a 52 year old year old male with a history of chondroradionecrosis of larynx with dysfunctional larynx s/p TL and R ALT recon with Dr. Barnes and myself on 07/23/2022. He is doing well with po. Liquids and food go down ok except liquids sometimes causes him nasal regurgitation. Having hard time w TEP voice, also having occasional blood clots still from the stoma. We have reviewed the patient's past medical history, past surgical history, medications, allergies,social history, and review of systems with the patient. Any significant changes are noted above in the HPI . Current Medication: Current Outpatient Medications Medication Sig Dispense Refill aspirin 81 mg chewable tablet Chew & swallow 1 tablet by mouth once daily for 15 doses. 15 tablet 0 buPROPion (WELLBUTRIN) 75 mg tablet Take 2 tablets by CORPAK route twice daily for 23 doses. 46 tablet 0 white petrolatum (AQUAPHOR) 41 % topical ointment Apply to affected area twice daily. (Patient not taking: Reported on 09/07/2022) MEDICAL SUPPLY tube feeds: Isosource 1.5 ( or equivalent)250 cc 6 times per day with 90 cc water flush pre and post feed 180 Each 2 MEDICAL SUPPLY Laryngectomy supplies portable suction machine #12 slovenian soft [facility] 1 Each 2 guaiFENesin (ROBITUSSIN) 100 mg/5 mL syrup 200 mg every 4 hours as needed for cough. loperamide HCl (IMODIUM) 2 mg tab 4 mg by PEG route as needed. BACILLUS COAGULANS-INULIN ORAL 1 capsule by PEG route once daily. budesonide (PULMICORT) 0.25 mg/2 mL nebulizer solution Use 0.25 mg via nebulizer twice daily. folic acid 1 mg tablet Take 1 mg by mouth once daily. ipratropium-albuterol (DUONEB) 0.5 mg-3 mg(2.5 mg base)/3 mL nebu Inhale 3 mL as instructed every 2hours as needed for wheezing/shortness of breath. melatonin 3 mg tablet 3 mg by PEG route daily at bedtime. propranolol (INDERAL) 20 mg tablet Take 20 mg by mouth twice daily. 2 times daily as needed for essential tremor senna (SENOKOT) 8.6 mg tab 8.6 mg by PEG route twice daily as needed for constipation. thiamine (VITAMIN B1) 100 mg tablet 1 tablet by PEG route once daily. (Patient not taking: Reportedon 09/07/2022) venlafaxine (EFFEXOR) 100 mg tablet 100 mg by PEG route twice daily. levothyroxine (SYNTHROID) 150 mcg tablet Take 1 tablet by mouth daily before breakfast. 6 tablet 3 gabapentin (NEURONTIN) 600 mg tablet Take 600 mg by mouth three times daily. omeprazole (PRILOSEC) 40 mg capsule Take 40 mg by mouth. LORazepam (ATIVAN) 0.5 mg Take 0.5 mg by mouth daily at bedtime. CARAFATE 100 mg/mL suspension TAKE 10ml BY MOUTH BEFORE MEALS AND AT BEDTIME No current facility-administered medications for this visit. Review of Systems - A focused ROS was performed, which is noted in the HPI above. Physical Exam: Vitals - There were no vitals taken for this visit. Constitutional - General Appearance: Normocephalic and atraumatic. Well developed, well nourished. Communication: Aphonic Head & Face - Overall: No obvious scars, lesions or masses. Parotid and submandibular glands: No masses bilaterally and without any asymmetry. Facial strength: Normal and equal bilaterally. Eyes - Pupils are round and reactive. Extraocular muscles grossly intact. Sclerae and conjunctivae noninjected and anicteric. Ear, Nose, Mouth & Throat - Ears: No external deformities. Left and right external auditory canals are patent, bilateral tympanic membranes intact without effusion. Nasal exam: No external deformities. Mucosa is pink. Septum is midline. Visible turbinates are normal on anterior rhinoscopy. Oral Cavity: No mucosal lesions. Tongue is soft, midline, and mobile bilaterally. Floor of mouth issoft. Palate is intact and elevates symmetrically. Neck: Bilateral neck incision well healed. Stoma mildly narrowed but with TEP in place with crusting around TEP prosthesis. The denuded L tracheal wall filled in. Skin - No edema, no discoloration, no ulceration, no masses or lesions. Respiratory - Normal work of breathing on room air. No stridor or abnormal breath sounds. Neurologic - General: Alert and oriented x 3. No obvious focal deficits. Cranial Nerves: II: Pupillary reflexes normal III, IV, : EOM normal V: 1,2,3: normal sensation VII: Normal strength in all divisions IX, X: Aphonic, normal palatal elevation and sensation XI: Shoulder strength normal XII: Tongue mobility normal Extremities - Right thigh incision well healed. Procedure: None Review of Pathology and Radiologic Records and Images: Previous operative, pathology, and radiological reports and/or images were reviewed and filed in the permanent chart. Esophagram 09/07/2022 IMPRESSION: Grossly similar appearance to the findings from 08/20/2022; direct visualization may help differentiate between a well-contained leak and an outpouching of the cervical esophagus into a surgical defect. Esophagram 08/20/2022 IMPRESSION: SMALL POSTOPERATIVE CONTAINED LEAK DESCRIBED. COMMUNICATION: Communicated with QUEENIE MARES on 08/20/2022 9:01 AM via verbal communication. Surg path 07/23/2022 FINAL DIAGNOSIS Total laryngectomy with partial pharyngectomy: - Chondronecrosis with fibrosis, chronic inflammation, and atrophic changes. - Focal submucosal abscess. Assessment: ACTIVE PROBLEM LIST Chondroradionecrosis of Larynx Acquired Hypothyroidism Dysphonia Tracheostomy in Place (Hcc) S/P Percutaneous Endoscopic Gastrostomy (Peg) Tube Placement ([facility]) Depression, Controlled Malnutrition of Mild Degree ([facility]) Nicotine use disorder, F17.2 Aphonia Mr. Matthieu Carlin is a 52 year old year old male with a history of chondroradionecrosis of larynx with dysfunctional larynx s/p TL and R ALT recon with Dr. Barnes and myself on 07/23/2022. Doing well, no evidence of fistula. No dysphagia but has nasal regurgitation. Would recommend working with Kirti. Plan: Stoma care Fu w me as needed All questions were answered, and the patient is in agreement with this plan. SIGNATURE: Queenie Mares MD DATE of SERVICE: October 04, 2022 TIME of SERVICE: 1:49 PM documented in this encounterRegency [facility] Hospital Discharge instructions Patient Education 09/11/2022 15:14:37 URI, Viral, No Abx (Adult) Viral Upper Respiratory Illness (Adult) You have a viral upper respiratory illness (URI), which is another term for the common cold. This illness is contagious during the first few days. It is spread through the air by coughing and sneezing. It may also be spread by direct contact (touching the sick person and then touching your own eyes, nose, or mouth). Frequent handwashing will decrease risk of spread. Most viral illnesses go away within 7 to 10 days with rest and simple home remedies. Sometimes the illness may last for several weeks. Antibiotics will not kill a virus, and they are generally not prescribed for this condition. Home care If symptoms are severe, rest at home for the first 2 to 3 days. When you resume activity, don't letyourself get too tired. Don't smoke. If you need help stopping, talk with your healthcare provider. Avoid being exposed to cigarette smoke (yours or others ). You may use acetaminophen or ibuprofen to control pain and fever, unless another medicine was prescribed. If you have chronic liver or kidney disease, have ever had a stomach ulcer or gastrointestinal bleeding, or are taking blood-thinning medicines, talk with your healthcare provider before using these medicines. Aspirin should never be given to anyone under 18 years of age who is ill with a viral infection or fever. It may cause severe liver or brain damage. Your appetite may be poor, so a light diet is fine. Stay well hydrated by drinking 6 to 8 glasses of fluids per day (water, soft drinks, juices, tea, or soup). Extra fluids will help loosen secretions in the nose and lungs. Qgka-lsa-gccfmru cold medicines will not shorten the length of time you re sick, but they may be helpful for the following symptoms: cough, sore throat, and nasal and sinus congestion. If you take prescription medicines, ask your healthcare provider or pharmacist which rdoo-rwg-levmxkj medicines are safe to use. (Note: Don't use decongestants if you have high blood pressure.) Follow-up care Follow up with your healthcare provider, or as advised. When to seek medical advice Call your healthcare provider right away if any of these occur: Cough with lots of colored sputum (mucus) Severe headache; face, neck, or ear pain Difficulty swallowing due to throat pain Fever of 100.4 F (38 C) or higher, or as directed by your healthcare provider Call 911 Call 911 if any of these occur: Chest pain, shortness of breath, wheezing, or difficulty breathing Coughing up blood Very severe pain with swallowing, especially if it goes along with a muffled voice [phone] [employer]. [address] [place] [address], [place] [address]. All rights reserved. This information is not intended as a substitute for professional medical care. Always follow yourhealthcare professional's instructions. 09/11/2022 15:14:31 Hypokalemia Hypokalemia Hypokalemia means a low level of potassium in the blood. This most often occurs in people who take water pills (diuretics). It can also occur because of severe vomiting or diarrhea. You may also haveit if you take laxatives for long periods of time. It sometimes happens if you have low magnesium (hypomagnesemia). If you have this, your healthcare provider will treat the low magnesium first. A mild case of hypokalemia usually causes no symptoms. It is only found with blood testing. More severe potassium loss causes overall weakness, muscle or abdominal cramps, rapid or irregular heartbeats (heart palpitations), low blood pressure, and muscle weakness. Home care Take any potassium supplements as prescribed. Eat foods rich in potassium. The highest amount is found in avocado, baked potatoes, spinach, cantaloupe, cod, halibut, salmon, and scallops. White, red, or velarde beans are also very good sources. A modest amount of potassium is found in orange juice, bananas, carrots, and tomato juice. If you take certain types of diuretics, you will also need to take potassium supplements. If you take a diuretic, discuss potassium supplements with your doctor. Follow-up care Follow up with your healthcare provider for a repeat blood test within the next week, or as advisedby our staff. When to seek medical advice Call your healthcare provider right away if any of the following occur: Increased weakness, fatigue, or muscle cramps Dizziness Call 911 Call 911 if any of the following occur: Irregular heartbeat, extra beats, or very fast heart rate Loss of consciousness [phone] [employer]. [address] [place] [address]. All rights reserved. This information is not intended as a substitute for professional medical care. Always follow yourhealthcare professional's instructions. Follow Up Care 09/11/2022 12:39:05 With:NGOZI BRAUN DO Address: [address] [place] [phone] When:2-4 days [facility] 01-28-2023 Emergency department Discharge summary Discharge Instructions Thank you for allowing [facility] to assist you with your healthcare needs. The following is importantdischarge information regarding your hospital visit. Diagnosis from Today's Visit Acute hypokalemia URI - Upper respiratory infection Tracheostomy evaluation What to Do Next Instructions from Your Care Team No qualifying data available. Post Acute Orders No qualifying data available. You Need to Schedule the Following Appointments Follow Up with NGOZI BRAUN DO When Within 2-4 days Where: [address] [place] [phone] Allergies NKA Medications Please ask your primary doctor or pharmacist before taking any other medication not listed, including over the counter drugs, herbal medications, vitamins and or supplements as they may interact withyour home medications. What How Much When Why Instructions Last Dose New potassium chloride (Potassium Chloride (Eqv-K-Tab) 10 mEq oral tablet, extended release) 1 tab(s) by mouth Once a day Acute hypokalemia URI - Upper respiratory infection Printed Prescription Unchanged albuterol-ipratropium (albuterol-ipratropium 2.5 mg-0.5 mg/ 3 mL inhalation solution) 3 Milliliter by inhalation Four (4) times a day Unchanged bacillus coagulans-inulin (Probiotic Formula (Bacillus Coagulans) oral capsule) 1 cap PEG tube Once a day Unchanged budesonide (budesonide 0.25 mg/ 2 mL inhalation suspension) 2 Milliliter by inhalation Two (2) times a day Unchanged DULoxetine (DULoxetine 60 mg oral delayed release capsule) 1 cap PEG tube Once a day Unchanged folic acid (folic acid 1 mg oral tablet) 1 tab(s) PEG tube Once a day Unchanged gabapentin (gabapentin 600 mg oral tablet) 1 tab(s) PEG tube Three (3) times a day Cancer related pain Duration: 30 Days Unchanged guaiFENesin (guaiFENesin 100 mg/ 5 mL oral liquid) 10 Milliliter PEG tube Every 4 hours as needed for as needed for cough Unchanged levothyroxine (levothyroxine 150 mcg (0.15 mg) oral tablet) 1 tab(s) PEG tube Once a day Unchanged loperamide (Imodium A-D 2 mg oral tablet) 1 tab(s) PEG tube Every 4 hours as needed for for loose stool Unchanged nicotine (nicotine 21mg / 24hrs transdermal patch) 1 patch(es) Transdermal Once a day Unchanged omeprazole (omeprazole 40 mg oral delayed release capsule) 1 cap PEG tube Once a day GERD Active Unchanged propranolol (propranolol 20 mg oral tablet) 1 tab(s) PEG tube Two (2) times a day Essential tremor Unchanged sucralfate (sucralfate 1 g oral tablet) 1 tab(s) by mouth Four (4) times daily-before meals and at bedtime DISSOLVE 1 TABLET IN AT LEAST 10 ML OF WATER FOR 15 TO 20 MINUTES, TAKE FOUR TIMES A DAY Please take this list to your next doctor s visit. Bring all medications you take, including over the counter medications, herbals and other supplements with you to your doctor s visit. Patients and families are reminded to discard old lists and to update any records with all medication providers or retail pharmacies. Medication Leaflets potassium chloride (oral/injection) (josé TASS ee um) Feliciano Potassium 99, Klor-Con, K-Tab, Potassium Chloride Proamp What is the most important information I should know about potassium chloride? You should not use this medicine if you have high levels of potassium in your blood (hyperkalemia),or if you also take a 'potassium-sparing' diuretic. What is potassium chloride? Potassium is a mineral that is needed for several functions of your body, especially the beating ofyour heart. Potassium chloride is used to prevent or to treat low blood levels of potassium (hypokalemia). Potassium levels can be low as a result of a disease or from taking certain medicines, or after a prolonged illness with diarrhea or vomiting. Potassium chloride may also be used for purposes not listed in this medication guide. What should I discuss with my healthcare provider before taking potassium chloride? You should not use potassium chloride if you are allergic to it, or if: you have high levels of potassium in your blood (hyperkalemia); or you take a 'potassium-sparing' diuretic (water pill) such as amiloride, spironolactone, or triamterene. Tell your doctor if you have ever had: heart problems; high blood pressure; liver or kidney disease; a large tissue injury such as a severe burn; an electrolyte imbalance (such as low levels of calcium or magnesium in your blood); trouble swallowing; slow digestion; stomach bleeding, an ulcer, or a blockage in your stomach or intestines; an adrenal gland disorder; diabetes; or severe dehydration. Tell your doctor if you are or . How should I take potassium chloride? Follow all directions on your prescription label and read all medication guides or instruction sheets. Your doctor may occasionally change your dose. Use the medicine exactly as directed. Potassium chloride oral is taken by mouth. Potassium chloride injection is given as a slow infusioninto a vein. A healthcare provider will give you this medicine by injection if you have severely low potassium levels. Tell your caregivers if you feel any burning, pain, or swelling around the IV needle when potassium chloride is injected. Take oral potassium chloride with food if the medicine upsets your stomach. Always follow directions on the medicine label about giving this medicine to a child. Take the tablet or capsule with a full glass of water. Do not crush, chew, or suck on a potassium tablet or capsule. Sucking on the pill could irritate your mouth or throat. Measure liquid medicine carefully. Use the dosing syringe provided, or use a medicine dose-measuring device (not a kitchen spoon). Mix the oral solution with least 4 ounces of water before taking it. You may need to follow a special diet while using potassium chloride. Follow all instructions of your doctor or dietitian. Learn about the foods to eat or avoid to help control your condition. Call your doctor if you have trouble swallowing a potassium chloride capsule or tablet. You may be able to dissolve the tablet in water, or mix the medicine from a capsule with soft food. Carefully follow your doctor's instructions. You may need frequent medical tests. Your heart function may need to be checked using an electrocardiograph or ECG (sometimes called an EKG). Even if you have no symptoms, tests can help your doctor determine if this medicine is effective. Some tablets are made with a shell that is not absorbed or melted in the body. Part of this shell may appear in your stool. This is normal and will not make the medicine less effective. Store at room temperature away from moisture, heat, and light. Keep the medication in a closed container. What happens if I miss a dose? Take the medicine as soon as you can, but skip the missed dose if it is almost time for your next dose. Do not take two doses at one time. What happens if I overdose? Seek emergency medical attention or call the Poison Help line at . Overdose symptoms may include stomach pain, vomiting, irregular heartbeats, chest pain, muscle weakness, loss of movement, numbness or tingling, or feeling light-headed. What should I avoid while taking potassium chloride? Do not use potassium supplements or other products that contain potassium, unless your doctor has told you to. Salt substitutes or low-salt foods often contain potassium. Read the label of any food or medicine to see if it contains potassium. What are the possible side effects of potassium chloride? Get emergency medical help if you have signs of an allergic reaction: hives; difficult breathing; swelling of your face, lips, tongue, or throat. Stop using potassium chloride and call your doctor at once if you have: severe throat irritation; chest pain, trouble breathing; pain, burning, bruising, swelling, irritation, or skin changes where the medicine was injected; stomach bloating, severe vomiting, severe stomach pain; high potassium level--nausea, weakness, tingly feeling, chest pain, irregular heartbeats, loss of movement; or signs of stomach bleeding--bloody or tarry stools, coughing up blood or vomit that looks like coffee grounds. Common side effects may include: nausea, vomiting, diarrhea; gas, stomach pain; or the appearance of a potassium chloride tablet in your stool. This is not a complete list of side effects and others may occur. Call your doctor for medical advice about side effects. You may report side effects to FDA at 1-400-AOV-5177. What other drugs will affect potassium chloride? Tell your doctor about all your other medicines, especially: medicine to prevent organ transplant rejection; a diuretic or 'water pill'; or heart or blood pressure medication. This list is not complete. Other drugs may affect potassium chloride, including prescription and vgae-mgb-nivkpay medicines, vitamins, and herbal products. Not all possible drug interactions are listed here. Where can I get more information? Your pharmacist can provide more information about potassium chloride. Remember, keep this and all other medicines out of the reach of children, never share your medicines with others, and use this medication only for the indication prescribed. Every effort has been made to ensure that the information provided by [employer] ('[employer] is accurate, up-to-date, and complete, but no guarantee is made to that effect. Drug information contained herein may be time sensitive. [employer] information has been compiled for use by healthcare practitioners and consumers in the [place] and therefore [employer] does not warrant that uses outside of the [place] are appropriate, unless specifically indicated otherwise. [employer] drug information does not endorse drugs, diagnose patients or recommend therapy. [employer] drug information isan informational resource designed to assist licensed healthcare practitioners in caring for their p atients and/or to serve consumers viewing this service as a supplement to, and not a substitute for, the expertise, skill, knowledge and judgment of healthcare practitioners. The absence of a warningfor a given drug or drug combination in no way should be construed to indicate that the drug or drug combination is safe, effective or appropriate for any given patient. [facility] does not assume any responsibility for any aspect of healthcare administered with the aid of information Masoncounts include 234 beds at the [facility] provides. The information contained herein is not intended to cover all possible uses, directions, precautions, warnings, drug interactions, allergic reactions, or adverse effects. If you have questions about the drugs you are taking, check with your doctor, nurse or pharmacist. Copyright 2670-0524 [facility] [employer]. Version: 14.. Revision Date: 01/10/2020. Education Materials Viral Upper Respiratory Illness (Adult) You have a viral upper respiratory illness (URI), which is another term for the common cold. This illness is contagious during the first few days. It is spread through the air by coughing and sneezing. It may also be spread by direct contact (touching the sick person and then touching your own eyes, nose, or mouth). Frequent handwashing will decrease risk of spread. Most viral illnesses go away within 7 to 10 days with rest and simple home remedies. Sometimes the illness may last for several weeks. Antibiotics will not kill a virus, and they are generally not prescribed for this condition. Home care If symptoms are severe, rest at home for the first 2 to 3 days. When you resume activity, don't letyourself get too tired. Don't smoke. If you need help stopping, talk with your healthcare provider. Avoid being exposed to cigarette smoke (yours or others ). You may use acetaminophen or ibuprofen to control pain and fever, unless another medicine was prescribed. If you have chronic liver or kidney disease, have ever had a stomach ulcer or gastrointestinal bleeding, or are taking blood-thinning medicines, talk with your healthcare provider before using these medicines. Aspirin should never be given to anyone under 18 years of age who is ill with a viral infection or fever. It may cause severe liver or brain damage. Your appetite may be poor, so a light diet is fine. Stay well hydrated by drinking 6 to 8 glasses of fluids per day (water, soft drinks, juices, tea, or soup). Extra fluids will help loosen secretions in the nose and lungs. Eccw-gbh-ukfegth cold medicines will not shorten the length of time you re sick, but they may be helpful for the following symptoms: cough, sore throat, and nasal and sinus congestion. If you take prescription medicines, ask your healthcare provider or pharmacist which hazy-qqr-logflbq medicines are safe to use. (Note: Don't use decongestants if you have high blood pressure.) Follow-up care Follow up with your healthcare provider, or as advised. When to seek medical advice Call your healthcare provider right away if any of these occur: Cough with lots of colored sputum (mucus) Severe headache; face, neck, or ear pain Difficulty swallowing due to throat pain Fever of 100.4 F (38 C) or higher, or as directed by your healthcare provider Call 911 Call 911 if any of these occur: Chest pain, shortness of breath, wheezing, or difficulty breathing Coughing up blood Very severe pain with swallowing, especially if it goes along with a muffled voice [phone] [employer]. [address] [place] [address]. All rights reserved. This information is not intended as a substitute for professional medical care. Always follow yourhealthcare professional's instructions. Hypokalemia Hypokalemia means a low level of potassium in the blood. This most often occurs in people who take water pills (diuretics). It can also occur because of severe vomiting or diarrhea. You may also haveit if you take laxatives for long periods of time. It sometimes happens if you have low magnesium (hypomagnesemia). If you have this, your healthcare provider will treat the low magnesium first. A mild case of hypokalemia usually causes no symptoms. It is only found with blood testing. More severe potassium loss causes overall weakness, muscle or abdominal cramps, rapid or irregular heartbeats (heart palpitations), low blood pressure, and muscle weakness. Home care Take any potassium supplements as prescribed. Eat foods rich in potassium. The highest amount is found in avocado, baked potatoes, spinach, cantaloupe, cod, halibut, salmon, and scallops. White, red, or velarde beans are also very good sources. A modest amount of potassium is found in orange juice, bananas, carrots, and tomato juice. If you take certain types of diuretics, you will also need to take potassium supplements. If you take a diuretic, discuss potassium supplements with your doctor. Follow-up care Follow up with your healthcare provider for a repeat blood test within the next week, or as advisedby our staff. When to seek medical advice Call your healthcare provider right away if any of the following occur: Increased weakness, fatigue, or muscle cramps Dizziness Call 911 Call 911 if any of the following occur: Irregular heartbeat, extra beats, or very fast heart rate Loss of consciousness [phone] [employer]. [address] [place] [address]. All rights reserved. This information is not intended as a substitute for professional medical care. Always follow yourhealthcare professional's instructions. Additional Information VACCINATE! IT SAVES LIVES! Members of the community who have not yet received the COVID-19 vaccine and would like to receive it can visit one of [facility] vaccine clinics. There are many vaccine clinic locations within the [facility]. For locations and available times, please visit [email or web address]. It is important to note that some COVID mobile vaccine clinics are held outdoors and may be canceled in rainy orstormy conditions. To learn more about pediatric vaccinations (ages 5-11), we invite you to visit the [facility] webpage. [email or web address] learn more about the COVID-19 vaccine, we invite you to visit the [facility] website for a list of frequently asked questions. [email or web address] [facility] Access Instructions: Stay connected with your healthcare team and access your personal medical information anytime with the [facility] Patient Portal. If you would like a full copy of your medical records please contact the [facility] Medical Records Department Tuesday through Tuesday between 8a.m. and 4:30p.m. Please follow the directions below to access the portal: 1.Access the email account you provided upon registration to the [facility].2.Look for an invitation email from [facility].3.Open the email and access the invitation link: Accept Invitation to [employer]4.Fill in the required burr to create your account. Sign into [email or web address] with your username and password that you created in the above steps to stay up to date. You can then view a summary of results, a summary of your visits, and the ability to download your summaries to your computer or send the information securely to a physician. Remember that your healthcare information is confidential, so carefully consider who you will allow to register on the [employer] Patient Portal for access to your information. You can also access the [facility] Patient Portal on the [employer]. Simply click on Health Records under [employer] and then click on the [employer] logo. HOW TO SAFELY DISPOSE OF PRESCRIPTION MEDICATIONS Please use one of the following methods to safely dispose of your unused medications. 1.Use a drug disposal kit: the drug disposal pouch allows you to safely discard your old and unuseddrugs. Ask your nurse to give you one when you are discharged.2.Visit a local take-back location: Many local pharmacies and police departments have programs that collect old and unwanted prescriptiondrugs. Call your local pharmacy or go to http://[email or web address].[email or web address]/[email or web address] to find one close to you.3.Make use of household items: Use cat litter or old coffee grounds to dispose medications if other options arenot available. Mix your drugs with these household products, seal them in an airtight container andthrow it into the garbage. Call [facility]: [phone] to be sure your drugs can be disposed of in this way. Some medicines may require a different approach.4.Never flush your medications down the toilet. IF YOU HAVE BEEN PRESCRIBED AN OPIOIDS FOR PAIN If you have been prescribed an opioid (such as hydrocodone, oxycodone or morphine), it is critical to understand the possible side effects and risks of opioid pain medications. Even when taken as directed, opioids can have several side effects including: Tolerance, meaning you might need to take more of a medication for the same pain relief. Nausea, vomiting and/or constipation. Sleepiness, dizziness, dry mouth, confusion, depression or itching. Physical dependence, meaning you have withdrawal symptoms when a medication is stopped ? this can develop within a few days. KNOW YOUR RESPONSIBILITIES It is important to know exactly how much and how often to take the opioid pain medications you are prescribed. Never take opioids in higher amounts or more often than prescribed. Do not combine opioids with alcohol or other drugs that cause drowsiness, such as benzodiazepines, also known as benzos,including diazepam and alprazolam, muscle relaxants or sleep aids. Never sell or share prescriptionopioids. This is illegal. Store opioids in a secure place and out of reach of others (including children, family, friends and visitors). The last page(s) of this document has been signed and retained as a CHART COPY Signatures Patient Education Materials URI, Viral, No Abx (Adult) Hypokalemia Medication Leaflets potassium chloride (oral/injection) My discharge plan and instructions have been reviewed and explained to me and I,MATTHIEU CARLIN understand my current condition and have read and understand these discharge instructions. I have received a written copy of the plan/instructions. If I have questions, I am aware that I should contact my doctor. Patient/[place] Cutter Signature: Date/Time: Relationship to Patient: Witness Name/Signature: Date/Time: [facility]01-28-2023 Note ORIGINAL EXAMINATION: ONE XRAY VIEW OF THE CHEST 09/11/2022 2:05 pm COMPARISON: 03/30/2022. HISTORY: ORDERING SYSTEM PROVIDED HISTORY: Reason for Exam: SOB/cough/fever FINDINGS: Normal heart size for projection. Mild atherosclerosis of the aortic knob. Lungs are clear without evidence of pneumothorax, pleural effusion, vascular congestion, or focal airspace consolidation. Mild coarsening of the interstitium. Minimal right basilar subsegmental atelectasis suspected. Minimal left and right basilar platelike atelectasis and/or scarring. Very mild degenerative changes of the spine and right acromioclavicular joint. IMPRESSION: 1. No evidence of acute cardiopulmonary process. Interpreted by: Huy Rodriguez DO Preliminary Report By: Huy Rodriguez DO Electronically signed By Huy Rodriguez DO Dictated Date: 09/11/2022 2:14:34 PM Prelim Date: 09/11/2022 2:15:43 PM Sign Date: 09/11/2022 2:15:43 PM Ordering Provider: [facility]01-28-2023 Note ORIGINAL EXAMINATION: ONE XRAY VIEW OF THE CHEST 09/11/2022 2:05 pm COMPARISON: 03/30/2022. HISTORY: ORDERING SYSTEM PROVIDED HISTORY: Reason for Exam: SOB/cough/fever FINDINGS: Normal heart size for projection. Mild atherosclerosis of the aortic knob. Lungs are clear without evidence of pneumothorax, pleural effusion, vascular congestion, or focal airspace consolidation. Mild coarsening of the interstitium. Minimal right basilar subsegmental atelectasis suspected. Minimal left and right basilar platelike atelectasis and/or scarring. Very mild degenerative changes of the spine and right acromioclavicular joint. IMPRESSION: 1. No evidence of acute cardiopulmonary process. 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 Sterile suctioned x2. Clear/ white sputum with slight foul smell. Placed on aerosol humidity, on room air. 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 Digitally Signed by Kavya Vergara RT on 09/11/2022 01:12 PM [facility]01-28-2023 SARS-CoV-2 (COVID-19) RNA JOE+probe Ql (Nph)Negative *NA* (09/11/22 1:07 PM)AO Auto Urine [id number] History of Present illness Narrative * SANDRA CurranSTRATEGIC PLANNING DIRECTOR - 09/07/2022 9:36 AM EST Tracheo-esophageal Puncture (TEP) Post Primary Fitting [facility] Speech Pathology Name: Matthieu Carlin CC #: [id number] Age: [age] year old Date: 08/20/2022 Date of TEP: 07/23/2022 Referring Physician: Cameron RT and / or Chemo Status: 2020 - hx: trach and PEG Impressions: Voice start-up went well, although patient has been advised to limit speech to short phrases for now. He has been cleared for PO liquids and can slowly advance to puree and then soft foods over the next several days. Swallow strategies reviewed. Per Dr. Mares, there is still an exposed area of the tracheal ring beneath the stomal edge on the patient's left that will likely take time to heal. Baseplates / HMEs afford access to TEP speech without added contact / pressure to the exposed area. Worked on improving baseplate seal and voicing, as well as, night / day HMEs for optimal humidification. Plan: F/U: 4 week(s) In conjunction with ENT Kirti Perez MA/OSCAR-STRATEGIC PLANNING DIRECTOR Speech Language Pathologist Voice Prosthesis Primarily Fitted: Type: 20 Fr., Provox Bowman Indwelling Length: 10 mm Modifications: none Intelligibility: Maximum Sustained Voicin-10 seconds Fluent Countin-10 seconds Sentence Production (# of syllables): 5-10 Voice Quality: Rough Patient may raise secretions to mouth during initial voicing trials which can then cause gagging. Stoma Occlusion: Digital: Hand preference: right Finger(s): Pointer Heat Moisture Exchanger (HME): Standard Oval Baseplate / Go HME; tends to press to hard on the HME - supplemented seal with Skin-tac - spent more time addressing day/night HMEs and increased humidity HMEs given persistent crusting at stoma Questions were addressed and reference hand-outs and samples were provided to the patient. Kirti Perez MA/OSCAR-STRATEGIC PLANNING DIRECTOR Clinical Speech Pathologist Head & Neck Specialist Pager [phone] documented [facility] History of Present illness Narrative* Queenie Mares MD - 09/07/2022 8:48 AM EST Head and Neck Surgery Follow-up Note Patient: Matthieu Carlin Age: [age] year old Provider: Queenie Mares MD Date of visit: 09/07/2022 Date of last visit: 08/20/2022 Chief Complaint: No chief complaint on file. History of Present Illness: Matthieu Carlin is a 52 year old year old male with a history of chondroradionecrosis of larynx with dysfunctional larynx s/p TL and R ALT recon with Dr. Barnes and myself on 07/23/2022. Has been doing well with TFs. No neck drainage or issues. He does have occasional blood clots. We have reviewed the patient's past medical history, past surgical history, medications, allergies,social history, and review of systems with the patient. Any significant changes are noted above in the HPI . Current Medication: Current Outpatient Medications Medication Sig Dispense Refill aspirin 81 mg chewable tablet Chew & swallow 1 tablet by mouth once daily for 15 doses. 15 tablet 0 buPROPion (WELLBUTRIN) 75 mg tablet Take 2 tablets by CORPAK route twice daily for 23 doses. 46 tablet 0 MEDICAL SUPPLY tube feeds: Isosource 1.5 ( or equivalent)250 cc 6 times per day with 90 cc water flush pre and post feed 180 Each 2 MEDICAL SUPPLY Laryngectomy supplies portable suction machine #12 slovenian soft suction catheters Yankauer suction catheters 1 Each 2 guaiFENesin (ROBITUSSIN) 100 mg/5 mL syrup 200 mg every 4 hours as needed for cough. loperamide HCl (IMODIUM) 2 mg tab 4 mg by PEG route as needed. BACILLUS COAGULANS-INULIN ORAL 1 capsule by PEG route once daily. budesonide (PULMICORT) 0.25 mg/2 mL nebulizer solution Use 0.25 mg via nebulizer twice daily. folic acid 1 mg tablet Take 1 mg by mouth once daily. ipratropium-albuterol (DUONEB) 0.5 mg-3 mg(2.5 mg base)/3 mL nebu Inhale 3 mL as instructed every 2hours as needed for wheezing/shortness of breath. melatonin 3 mg tablet 3 mg by PEG route daily at bedtime. propranolol (INDERAL) 20 mg tablet Take 20 mg by mouth twice daily. 2 times daily as needed for essential tremor senna (SENOKOT) 8.6 mg tab 8.6 mg by PEG route twice daily as needed for constipation. venlafaxine (EFFEXOR) 100 mg tablet 100 mg by PEG route twice daily. levothyroxine (SYNTHROID) 150 mcg tablet Take 1 tablet by mouth daily before breakfast. 6 tablet 3 gabapentin (NEURONTIN) 600 mg tablet Take 600 mg by mouth three times daily. omeprazole (PRILOSEC) 40 mg capsule Take 40 mg by mouth. LORazepam (ATIVAN) 0.5 mg Take 0.5 mg by mouth daily at bedtime. CARAFATE 100 mg/mL suspension TAKE 10ml BY MOUTH BEFORE MEALS AND AT BEDTIME white petrolatum (AQUAPHOR) 41 % topical ointment Apply to affected area twice daily. (Patient not taking: Reported on 09/07/2022) thiamine (VITAMIN B1) 100 mg tablet 1 tablet by PEG route once daily. (Patient not taking: Reportedon 09/07/2022) No current facility-administered medications for this visit. Review of Systems - A focused ROS was performed, which is noted in the HPI above. Physical Exam: Vitals - There were no vitals taken for this visit. Constitutional - General Appearance: Normocephalic and atraumatic. Well developed, well nourished. Communication: Aphonic Head & Face - Overall: No obvious scars, lesions or masses. Parotid and submandibular glands: No masses bilaterally and without any asymmetry. Facial strength: Normal and equal bilaterally. Eyes - Pupils are round and reactive. Extraocular muscles grossly intact. Sclerae and conjunctivae noninjected and anicteric. Ear, Nose, Mouth & Throat - Ears: No external deformities. Left and right external auditory canals are patent, bilateral tympanic membranes intact without effusion. Nasal exam: No external deformities. Mucosa is pink. Septum is midline. Visible turbinates are normal on anterior rhinoscopy. Oral Cavity: No mucosal lesions. Tongue is soft, midline, and mobile bilaterally. Floor of mouth issoft. Palate is intact and elevates symmetrically. Neck: Bilateral neck incision well healed. Stoma widely patent with TEP in place. Some mucosal denuding of left tracheal wall/mucosa with some exposed cartilage. No full thickness defect. Crusting removed. Skin - No edema, no discoloration, no ulceration, no masses or lesions. Respiratory - Normal work of breathing on room air. No stridor or abnormal breath sounds. Neurologic - General: Alert and oriented x 3. No obvious focal deficits. Cranial Nerves: II: Pupillary reflexes normal III, IV, : EOM normal V: 1,2,3: normal sensation VII: Normal strength in all divisions IX, X: Aphonic, normal palatal elevation and sensation XI: Shoulder strength normal XII: Tongue mobility normal Extremities - Right thigh incision well healed. Procedure: Peristomal crusting removed Review of Pathology and Radiologic Records and Images: Previous operative, pathology, and radiological reports and/or images were reviewed and filed in the permanent chart. Esophagram 09/07/2022 IMPRESSION: Grossly similar appearance to the findings from 08/20/2022; direct visualization may help differentiate between a well-contained leak and an outpouching of the cervical esophagus into a surgical defect. Esophagram 08/20/2022 IMPRESSION: SMALL POSTOPERATIVE CONTAINED LEAK DESCRIBED. COMMUNICATION: Communicated with QUEENIE MARES on 08/20/2022 9:01 AM via verbal communication. Surg path 07/23/2022 FINAL DIAGNOSIS Total laryngectomy with partial pharyngectomy: - Chondronecrosis with fibrosis, chronic inflammation, and atrophic changes. - Focal submucosal abscess. Assessment: ACTIVE PROBLEM LIST Chondroradionecrosis of Larynx Acquired Hypothyroidism Dysphonia Tracheostomy in Place (Hcc) S/P Percutaneous Endoscopic Gastrostomy (Peg) Tube Placement (Hcc) Depression, Controlled Malnutrition of Mild Degree (Hcc) Nicotine use disorder, F17.2 Aphonia Mr. Matthieu Carlin is a 52 year old year old male with a history of chondroradionecrosis of larynx with dysfunctional larynx s/p TL and R ALT recon with Dr. Barnes and myself on 07/23/2022. Continues to have no evidence of pharyngocutaneous fistula. The repeat esophagram shows same outpouching without opening to the external neck. He also has denuded tracheal mucosa on left with some exposed cartilage. Plan: Stoma care - emphasized the importance of HME filter and de-crusting as the area heals Cipro for 2 weeks ADAT Fu 1 mo All questions were answered, and the patient is in agreement with this plan. SIGNATURE: Queenie Mares MD DATE of SERVICE: September 07, 2022 TIME of SERVICE: 8:58 AM documented in this encounterReg[facility]-24-[facility]23 Nurse Note* Baylee Gonzalez RN - 09/07/2022 8:15 AM EST Tobacco Use: .3 packs/day, for 30 years. Types: Cigarettes Was smoking cessation packet given? Yes - Patient received smoking cessation packet at previous HNIoffice visit. Was a referral initiated?Yes, notified. documented in this encounterRegency [facility]01-23-2023 History of Present illness Narrative* RT Dami(R) - 09/06/2022 2:20 PM EST Radiology Service Progress Note PATIENT NAME: Matthieu Carlin DATE OF SERVICE: September 06, 2022 TIME: 2:34 PM PATIENT IDENTITY VERIFICATION COMPLETED USING TWO (2) IDENTIFIERS: Name and Date of confirmedby patient verbally. FALL SCREENING: Has the patient had 2 falls in the last year or 1 fall with injury or currently using an Ambulatory Assistive Device (Walker, Cane, Wheelchair, Crutches, etc.)? No PATIENT GENDER DATA: Male PATIENT RELEVANT IMPLANT DATA REVIEWED: Yes RADIOLOGY DEPARTMENT: General X-ray: Exam(s) Completed: GI/ Procedure(s): Esophogram with water soluable and barium contrasts PERIPHERAL IV DATA: Not applicable SIGNED BY: RT Dami(R) September 06, 2022 2:34 PM documented in this encounterRegency Hospital [facility]01-11-2023 Miscellaneous Notes* Telephone Encounter - Lizz Ventura RN - 08/25/2022 3:49 PM EST Please see OV 08/20/2022 * Telephone Encounter - Wanda Bryant RN - 08/12/2022 3:41 PM EST Father called back and will bring Matthieu in tomorrow for evaluation * Telephone Encounter - Wanda Bryant RN - 08/12/2022 1:20 PM EST Father called back and will go to patient's house at 2:15pm today to convince patient to come to EDhere at or Dr Bell agrees to see him and evaluate. Father will call me back after visiting Patient. Yuriy (father) states that patient does not want to go anywhere today. Offered appointment latanya seen here in clinic and will then go to the ED for further work up. Waiting to here back from father. * Telephone Encounter - Wanda Bryant RN - 08/12/2022 10:49 AM EST Attempted to called patient and unable to leave message due to mailbox being full. Left VM on his home number to call me back. Spoke to father and he states he told Matthieu to go to the ED but to his knowledge he did not go. Father is willing to drive him up here for an appointment today. * Telephone Encounter - Lizz Ventura RN - 08/11/2022 3:42 PM EST Spoke with patient's father Stated pt c/o for about 1 week of leaking. Described stoma as red and air movement around stoma Father did not have an answer if patient has been drinking or eating before clearance Advised pt should go to nearest ED for evaluation and to ensure airway is secured. Father will have patient go to nearest ED and understands to have hospital transfer if necessary. Father verbalized understanding documented in this encounterRegency [facility]01-06-2023 History of Present illness Narrative* Kirti Perez CCC-STRATEGIC PLANNING DIRECTOR - 08/20/2022 2:32 PM EST Tracheo-esophageal Puncture (TEP) Post Primary Fitting [facility] Speech Pathology Name: Matthieu Carlin CC #: [id number] Age: [age] year old Date: 08/20/2022 Date of TEP: 07/23/2022 Referring Physician: Cameron RT and / or Chemo Status: 2020 - hx: trach and PEG Impressions: Patient is looking well and feeling well; no c/o pain. Leak study today: SMALL POSTOPERATIVE CONTAINED LEAK. Per Dr. Mares, will wait 2 more weeks to repeat leak study. Defer PO and TE voicing until then. Addressed HME / baseplate system and provided Coming Home Kit of samples. Reviewed supply chain procedures. Plan: F/U: 2 week(s) In conjunction with ENT Kirti Perze MA/OSCAR-STRATEGIC PLANNING DIRECTOR Speech Language Pathologist Past Medical History: PAST MEDICAL HISTORY Diagnosis Date PEG (percutaneous endoscopic gastrostomy) status ([facility]) Thyroid disease Tracheostomy care ([facility]) 05/2021 Past Surgical History: PAST SURGICAL HISTORY Procedure Laterality Date COLONOSCOPY SCREENING PAST SURGICAL HISTORY OF 05/2021 trachostomy PAST SURGICAL HISTORY OF 2020 Peg tube Diagnosis: Chondroradionecrosis of larynx; nonfunctional larynx Surgery: 1. Total laryngectomy (functional) 2. Cricopharyngeal myotomy. 3. Tracheoesophageal puncture. 4. Direct Laryngoscopy Reconstruction: RIGHT FASCIOCUTANEOUS ANTEROLATERAL THIGH FREE FLAP FOR PARTIAL PHARYNGECTOMY RECONSTRUCTION PHARYNGOPLASTY STOMAPLASTY Pain Level (1-10): 3; tender at stoma; feels better with LT out Status of puncture: WNL Status of Stoma: WNL Stomal lip: Incomplete Voice Prosthesis Fitted: Type: 20 Fr., Provox Bowman Indwelling Length: 10 mm Modifications: none Heat Moisture Exchanger (HME): Baseplate: sensitive oval and Home HME replaced. Patient will transition to baseplates during the day and LT/HME at night. Guided selection of start-up HME products. The patient was instructed on care and maintenance of his HME system including: stoma management; baseplate prep/placement/removal, and day/night HME use. Questions were addressed and reference hand-outs were provided to the patient. Kirti Perez MA/OSCAR-STRATEGIC PLANNING DIRECTOR Clinical Speech Pathologist Head & Neck Specialist Pager [phone] documented in this encounterRegency Hospital [facility]01-06-2023 Nurse Note* Sonya Aguilar MA - 08/20/2022 8:50 AM EST Tobacco Use: .3 packs/day, for 30 years. Types: Cigarettes Was smoking cessation packet given? N/A - Patient is a non-smoker or quit >1 year ago. Was a referral initiated?N/A Patient is a non-smoker documented in this encounterRegency Hospital [facility]01-06-2023 History of Present illness Narrative* Queenie Mares MD - 08/20/2022 8:44 AM EST Head and Neck Surgery Follow-up Note Patient: Matthieu Carlin Age: [age] year old Provider: Queenie Mares MD Date of visit: 08/20/2022 Chief Complaint: No chief complaint on file. History of Present Illness: Matthieu Carlin is a 52 year old year old male with a history of chondroradionecrosis of larynx with dysfunctional larynx s/p TL and R ALT recon with Dr. Barnes and myself on 07/23/2022. He is here for postop visit. Has been doing well with TFs. We have reviewed the patient's past medical history, past surgical history, medications, allergies,social history, and review of systems with the patient. Any significant changes are noted above in the HPI . Current Medication: Current Outpatient Medications Medication Sig Dispense Refill aspirin 81 mg chewable tablet Chew & swallow 1 tablet by mouth once daily for 15 doses. 15 tablet 0 buPROPion (WELLBUTRIN) 75 mg tablet Take 2 tablets by CORPAK route twice daily for 23 doses. 46 tablet 0 white petrolatum (AQUAPHOR) 41 % topical ointment Apply to affected area twice daily. MEDICAL SUPPLY tube feeds: Isosource 1.5 ( or equivalent)250 cc 6 times per day with 90 cc water flush pre and post feed 180 Each 2 MEDICAL SUPPLY Laryngectomy supplies portable suction machine #12 slovenian soft suction catheters Lillianuer suction catheters 1 Each 2 guaiFENesin (ROBITUSSIN) 100 mg/5 mL syrup 200 mg every 4 hours as needed for cough. loperamide HCl (IMODIUM) 2 mg tab 4 mg by PEG route as needed. BACILLUS COAGULANS-INULIN ORAL 1 capsule by PEG route once daily. budesonide (PULMICORT) 0.25 mg/2 mL nebulizer solution Use 0.25 mg via nebulizer twice daily. folic acid 1 mg tablet Take 1 mg by mouth once daily. ipratropium-albuterol (DUONEB) 0.5 mg-3 mg(2.5 mg base)/3 mL nebu Inhale 3 mL as instructed every 2hours as needed for wheezing/shortness of breath. melatonin 3 mg tablet 3 mg by PEG route daily at bedtime. propranolol (INDERAL) 20 mg tablet Take 20 mg by mouth twice daily. 2 times daily as needed for essential tremor senna (SENOKOT) 8.6 mg tab 8.6 mg by PEG route twice daily as needed for constipation. thiamine (VITAMIN B1) 100 mg tablet 1 tablet by PEG route once daily. venlafaxine (EFFEXOR) 100 mg tablet 100 mg by PEG route twice daily. levothyroxine (SYNTHROID) 150 mcg tablet Take 1 tablet by mouth daily before breakfast. 6 tablet 3 gabapentin (NEURONTIN) 600 mg tablet Take 600 mg by mouth three times daily. omeprazole (PRILOSEC) 40 mg capsule Take 40 mg by mouth. LORazepam (ATIVAN) 0.5 mg Take 0.5 mg by mouth daily at bedtime. CARAFATE 100 mg/mL suspension TAKE 10ml BY MOUTH BEFORE MEALS AND AT BEDTIME No current facility-administered medications for this visit. Review of Systems - A focused ROS was performed, which is noted in the HPI above. Physical Exam: Vitals - There were no vitals taken for this visit. Constitutional - General Appearance: Normocephalic and atraumatic. Well developed, well nourished. Communication: Aphonic Head & Face - Overall: No obvious scars, lesions or masses. Parotid and submandibular glands: No masses bilaterally and without any asymmetry. Facial strength: Normal and equal bilaterally. Eyes - Pupils are round and reactive. Extraocular muscles grossly intact. Sclerae and conjunctivae noninjected and anicteric. Ear, Nose, Mouth & Throat - Ears: No external deformities. Left and right external auditory canals are patent, bilateral tympanic membranes intact without effusion. Nasal exam: No external deformities. Mucosa is pink. Septum is midline. Visible turbinates are normal on anterior rhinoscopy. Oral Cavity: No mucosal lesions. Tongue is soft, midline, and mobile bilaterally. Floor of mouth issoft. Palate is intact and elevates symmetrically. Neck: Bilateral neck incision well healed. Stoma widely patent with TEP in place. Skin - No edema, no discoloration, no ulceration, no masses or lesions. Respiratory - Normal work of breathing on room air. No stridor or abnormal breath sounds. Neurologic - General: Alert and oriented x 3. No obvious focal deficits. Cranial Nerves: II: Pupillary reflexes normal III, IV, : EOM normal V: 1,2,3: normal sensation VII: Normal strength in all divisions IX, X: Aphonic, normal palatal elevation and sensation XI: Shoulder strength normal XII: Tongue mobility normal Extremities - Right thigh incision well healed. Procedure: Review of Pathology and Radiologic Records and Images: Previous operative, pathology, and radiological reports and/or images were reviewed and filed in the permanent chart. Esophagram 08/20/2022 IMPRESSION: SMALL POSTOPERATIVE CONTAINED LEAK DESCRIBED. COMMUNICATION: Communicated with QUEENIE MARES on 08/20/2022 9:01 AM via verbal communication. Surg path 07/23/2022 FINAL DIAGNOSIS Total laryngectomy with partial pharyngectomy: - Chondronecrosis with fibrosis, chronic inflammation, and atrophic changes. - Focal submucosal abscess. Assessment: ACTIVE PROBLEM LIST Chondroradionecrosis of Larynx Acquired Hypothyroidism Dysphonia Tracheostomy in Place (Hcc) S/P Percutaneous Endoscopic Gastrostomy (Peg) Tube Placement ([facility]) Depression, Controlled Malnutrition of Mild Degree ([facility]) Nicotine use disorder, F17.2 Mr. Matthieu Carlin is a 52 year old year old male with a history of chondroradionecrosis of larynx with dysfunctional larynx s/p TL and R ALT recon with Dr. Barnes and myself on 07/23/2022. Superficial left peristomal dehiscence. Otherwise, external neck healing well. No evidence of pharyngocutaneous fistula. He does have possible contained anterior leak at the esophageal junction. Although no external fistula, discussed continuing NPO for 2 more weeks w repeat esophagram. Plan: Stoma care NPO w TFs and repeat esophagram in 2 weeks Fu 2 weeks All questions were answered, and the patient is in agreement with this plan. SIGNATURE: Queenie Mares MD DATE of SERVICE: August 20, 2022 TIME of SERVICE: 8:47 AM documented in this encounterRegency Hospital [facility]12-30-2022 History of Present illness Narrative* MAGALY Lozano - 08/13/2022 3:14 PM EST [facility] SPEECH PATHOLOGY NOTE Date: August 13, 2022 Patient: Matthieu Carlin Referring Physician: Olaf Lemus MD Diagnosis/history: Matthieu Carlin is a 52 year old year old male with history significant for laryngeal cancer treated with CXRT at [facility] in October of 2020. S/p 07-23-2022: 1. Total laryngectomy. 2. Cricopharyngeal myotomy. 3. Tracheoesophageal puncture. 4. Direct Laryngoscopy Impressions: Patient added on today in conjunction with ENT visit due to patient concern for TEP leakage. No leakage on leak test with small sips of water. TEP is tight, fit will likely improve as swelling continues to go down. HME noted to be soaked in mucous which may contribute to SOB, new HME provided along with tube brushes to make sure mucous is fully cleaned out. He reports he has been using blue brush to clean the voice prosthesis, cleaning provided today. Recommendations: Maintain NPO status until esophagram on 08/20 Continue to clean LaryTube and Voice Prosthesis as discussed, changing HME out every 24 hours OR ifit is coated with mucous Plan: Follow up with STRATEGIC PLANNING DIRECTOR as scheduled for 08/20. Onset of Illness: 07/23/2022 Initial Date of Treatment: 02/02/2022 Treatment Plan Date: August 13, 2022 Jarad Cotton M.S., CCC-STRATEGIC PLANNING DIRECTOR Speech-Language Pathologist Pager: [phone] documented in this encounterReg[facility] Nurse Note* Wanda Bryant RN - 08/13/2022 2:41 PM EST Tobacco Use: .3 packs/day, for 30 years. Types: Cigarettes Was smoking cessation packet given? decline Was a referral initiated? Declined documented in this encounterRegency [facility]12-30-2022 History of Present illness Narrative* Olaf Lemus MD - 08/13/2022 2:37 PM EST Post-op Visit Patient is here today for post op visit. S/p TL (Dr. Barnes) with R ALT (Dr. Mares) 07/23/2022. Reportsshortness of breath and copious secretions as well as soreness. Denies fevers or chills. States he is not eating or drinking by mouth, but is smoking cigarettes through his mouth. Drain in leg apparently fell out on its own in the middle of the night. Has follow-up with Dr. Mares 08/20 with esophagram. General: no acute distress, resting comfortably Neuro: following commands, appropriate Neck: apron neck incision cdi, soft and flat, laryngectomy stoma patent, small area of breakdown atleft superior stoma, does not track and no saliva leakage with swallow, tracheoesophageal puncture in place, well seated, minimal amount of saliva noted around TEP, lewis tube in place Flap: suprastomal monitoring paddle well-perfused without ecchymosis, soft and warm. Small area of break down along right superior aspect. Does not track, no saliva extravasation with swallowing Thigh: right thigh incision clean, dry and intact, thigh is soft Tracheoscopy: Stoma is patent to peterson. No crusting Flexible nasopharyngoscopy: Flap visualized and incision line intact. Appears healthy with good coloration. No concern for infection or breakdown. A/P: 52M s/p TL, R ALT 07/23/2022. Doing well - Encouraged smoking cessation. Informed patient is not longer experiencing the same effect of cigarettes now that he is s/p TL. - Follow-up with Dr. Mares and STRATEGIC PLANNING DIRECTOR as scheduled 08/20 documented in this encounterRegency [facility]12-28-2022 Miscellaneous Notes* Telephone Encounter - Baylee Gonzalez RN - 08/11/2022 3:49 PM EST Messaged with patient 08/10 about appointment with Jarad at 3pm 08/11, due to leaking stoma. Patient did not show for appointment. Spoke with the team (Peter Hopkins, Chantale, Wanda) Who spokewith patient father advised to come to ED. (See note from Chantale) documented in this encounterRegency Hospital [facility]12-07-2022 Miscellaneous Notes* Telephone Encounter - [facility] [place] - 07/21/2022 2:29 PM EST Office reached out to the patient and relayed that per Dr. Barnes the procedure was still a go and to continue to take the synthroid medication as prescribed....pt understood and had no additional questions. Pt was also informed that the office would be calling tomorrow with arrival time after 2pm. * Telephone Encounter - [facility]via [facility] [place] - 07/21/2022 2:25 PM EST Office reached out to Dr. Barnes in regards to patient question and was advised to inform patient that Dr. Barnes is confident that with the continuation of taking the prescribed synthroid medicationthat all will be well for the procedure and that it is still a go. * Telephone Encounter - [facility]via [facility] [place] - 07/21/2022 2:23 PM EST Person Calling: Pt (Matthieu) Reason for Call: Pt is currently scheduled for a surgical procedure and contacted the office in regards to his thyroid levels and if the procedure would need to be postponed? Pt Phone #: [phone] Pt last seen: 07/20/2022 [facility] [place] documented in this encounterRegency [facility]12-06-2022 History of Present illness Narrative* Queenie Mares MD - 07/20/2022 3:45 PM EST HEAD AND NECK RECONSTRUCTION CONSULT Patient: Matthieu Carlin Age: [age] year old Provider: Queenie Mares MD Date of visit: 07/20/2022 Referring Physician: Dr. Barnes Reason for Consult: Chondronecrosis of larynx Consultation requested by for an opinion regarding chondronecrosis of larynx. My final recommendations will be communicated back to the requesting physician by way of shared medical record or letter via US mail. Chief Complaint: Patient presents with: Established Patient: Pre op History of Present Illness: Matthieu Carlin is a 52 year old male with a history of chondroradionecrosis of larynx with dysfunctional larynx scheduled for total laryngectomy with Dr. Barnes on 07/23/2022. He presents to discuss reconstructive options. He is G-tube dependent. Doing well with trach. No significant pain. He has lost weight initially but regained. He denies any history of coronary artery disease, peripheral vascular disease, stroke, bleeding disorder, or clotting disorders. He denies history of surgery or trauma to the arms or legs. Risk Factors: He recently went through detox. He quit smoking. As stated on new patient questionnaire and update in the past medical history, past surgical history, medications, allergies, family history, social history, and review of systems below. For further details please see patient questionnaire scanned into [employer]. History: PAST MEDICAL HISTORY Diagnosis Date PEG (percutaneous endoscopic gastrostomy) status ([facility]) Thyroid disease Tracheostomy care ([facility]) 05/2021 PAST SURGICAL HISTORY Procedure Laterality Date COLONOSCOPY SCREENING PAST SURGICAL HISTORY OF 05/2021 trachostomy PAST SURGICAL HISTORY OF 2020 Peg tube FAMILY HISTORY Problem Relation Age of Onset Anesthesia Problems No Family History Social History Tobacco Use Smoking status: Every Day Packs/day: 0.30 Years: 30.00 Pack years: 9.00 Types: Cigarettes Smokeless tobacco: Never Substance Use Topics Alcohol use: Not Currently Comment: socal Drug use: Never Current Medication: Current Outpatient Medications Medication Sig Dispense Refill guaiFENesin (ROBITUSSIN) 100 mg/5 mL syrup 200 mg every 4 hours as needed for cough. loperamide HCl (IMODIUM) 2 mg tab 4 mg by PEG route as needed. BACILLUS COAGULANS-INULIN ORAL 1 capsule by PEG route once daily. budesonide (PULMICORT) 0.25 mg/2 mL nebulizer solution Use 0.25 mg via nebulizer twice daily. folic acid 1 mg tablet Take 1 mg by mouth once daily. ipratropium-albuterol (DUONEB) 0.5 mg-3 mg(2.5 mg base)/3 mL nebu Inhale 3 mL as instructed every 2hours as needed for wheezing/shortness of breath. melatonin 3 mg tablet 3 mg by PEG route daily at bedtime. propranolol (INDERAL) 20 mg tablet Take 20 mg by mouth twice daily. 2 times daily as needed for essential tremor senna (SENOKOT) 8.6 mg tab 8.6 mg by PEG route twice daily as needed for constipation. sodium chloride 1 g tab 1 g by PEG route once daily. Daily as needed for low sodium thiamine (VITAMIN B1) 100 mg tablet 1 tablet by PEG route once daily. venlafaxine (EFFEXOR) 100 mg tablet 100 mg by PEG route twice daily. levothyroxine (SYNTHROID) 150 mcg tablet Take 1 tablet by mouth daily before breakfast. 6 tablet 3 gabapentin (NEURONTIN) 600 mg tablet Take 600 mg by mouth three times daily. omeprazole (PRILOSEC) 40 mg capsule Take 40 mg by mouth. LORazepam (ATIVAN) 0.5 mg Take 0.5 mg by mouth daily at bedtime. methadone (DOLOPHINE) 5 mg tablet Take 5 mg by mouth twice daily. oxyCODONE IR (ROXICODONE) 5 mg immediate release tablet 5 mg. CARAFATE 100 mg/mL suspension TAKE 10ml BY MOUTH BEFORE MEALS AND AT BEDTIME No current facility-administered medications for this visit. Allergies: ALLERGIES No Known Allergies Review of Systems - A 12-point review of systems was performed and negative except for previously noted. Please refer to the patient questionnaire scanned into [employer]. Physical Exam: VITALS - There were no vitals taken for this visit. GENERAL: Patient is thin, appearing stated age, resting comfortably, breathing regularly. No acute distress. HEENT: Normocephalic, atraumatic. Pupils are round and reactive. Extraocular muscles grossly intact. Sclerae and conjunctivae noninjected and anicteric. The patient has no significant trismus. NECK: Supple. Full range of motion. Trachea is midline. The facial artery pulse could be palpated bilaterally. CARDIAC: Regular rate and rhythm. LUNGS: The patient has symmetric chest rise bilaterally. EXTREMITIES: No clubbing, cyanosis or edema. The patient has 2+ radial pulses bilaterally. Regarding the lower extremities, the patient has adequate soft tissue overlying the anterolateral thigh region to serve as a donor site. There are no signs of peripheral vascular disease. NEUROLOGIC: Alert and oriented x 3. The patient has no obvious focal deficits. Procedure: None Review of Pathology and Radiologic Records and Images: Previous operative, pathology, and radiological reports and/or images were reviewed and filed in the permanent chart. CT neck w cont 07/02/2021 IMPRESSION: 1. Unchanged low-density mass lesion of the supraglottic larynx, centered along the aryepiglottic folds, greater on the left. The low-density is suggestive of either edema or central necrosis. 2. Interval swelling and reticulation of the subcutaneous fat and mild bilateral platysma thickening of the anterior neck, which may represent developing cellulitis. No abscess is identified. 3. Interval placement of tracheostomy with satisfactory positioning of the tube within the upper trachea. Labs: Surg path 07/03/2021 FINAL DIAGNOSIS Left arytenoid, biopsy: - Benign ulcerated squamous mucosa with marked acute and chronic inflammation. - Fragments of cartilage with necrosis (chondronecrosis). - Fibrinous debris. Assessment: Matthieu Carlin is a 52 year old male with a history of chondroradionecrosis of larynx with dysfunctional larynx scheduled for total laryngectomy with Dr. Barnes on 07/23/2022. The patient is anticipated to undergo an extensive resection and has been referred for discussion regarding reconstruction. The patient has had previous radiation, and is noting difficulty with eating and swallowing. The patient has lost significant weight since the onset of symptoms. We entered into an extensive discussionregarding the available options for this patient. We explained to the patient that the reconstruction will be largely dependent on the extent of the resection. The patient is anticipated to undergo a laryngectomy, neck dissection and a partial pharyngectomy. It is possible that the defect can be closed primarily without compromise or placing the patient at risk of developing a fistula or stricture. However, because the patient has had prior radiation, if the defect cannot be closed without high risks, then the patient may benefit from a patch in order to reconstruct the pharyngeal defect. The operation to repair the pharyngoesophageal defectwould require a free tissue transfer. The optimal donor sites would be the thigh. The operation will require a microvascular anastomosis. There is certainly a possible risk for thrombosis of the anastomosis that may require an emergent return to the operating room in order to restore perfusion to the flap. Under certain circumstances, the flap cannot be salvaged, which would result in total loss of the free flap. In general, the greatest risks of thrombosis occur during the first 2-3 days following the operation. Beyond that time frame it is unlikely although not impossible to have a problem with the blood vessels. Again if a problem develops, the patient would need to have another emergent operation in order to salvage the flap. In the setting that a flap is lost, we may need to perform another free flapin order to reconstruct the defect. The patient understands that the overall risks are quite low and our overall success rates are high. The total length of the operation is anticipated to be approximately 8-10 hours long and will require a hospital stay approximately 1 week in duration. At the time of discharge, the likelihood of having a microvascular complication is exceedingly low, although not impossible. Harvesting the flap from either the thigh or the arm should not cause any significant permanent debilitation for the patient. The patient notice some temporary pain, numbness, and stiffness; however, these are often self limiting and do not cause any permanent difficulties for the overwhelming majority of patients. The donor site from the thigh can be closed primarily, which will result in a linear scar on the thigh. The patient will not be able to eat initially following the operation and will require a feeding tube for 4 weeks. The patient will need to pass a swallow study prior to resumption of an oral diet. Premature resumption of an oral diet can place the patient at risk for developing a leak or a fistula that is very dangerous and can have catastrophic consequences. The patient also understands that there will be drains placed in the donor site as well as the neck. The timing for removal of the drains is based on the volume of output. Typically the output is high initially following surgery but decreases with time. Once the volume of output has decreased sufficiently, we will remove the drains. Sometimes the drains can be removed prior to discharge, but there is also a chance the patient will need to be discharged with drains that we will then remove in clinic once the volume has decreased sufficiently. Premature removal of the drains can place the patient at risk for a seroma or fluid collection that can lead to an infection which can then lead to further complications. The patient understands and is willing to proceed. Risks and benefits of operation including bleeding, infection, flap loss, need for revisional surgery, difficulty with swallowing and speech, stricture, leak or fistula, pain, numbness or weakness of the donor site, and risks associated with general anesthesia were explained to the patient. The patient agrees to proceed. Informed consent was obtained. All questions were answered. Plan: Consented for OR All questions were answered, and the patient is in agreement with this plan. Medical Decision Making: Problems: High: Chronic illness with severe change Data: Unique source(s) for external note(s) reviewed: 1 Unique test result(s) reviewed: 2 Risk: High: Decision on elective major surgery w/ risk factors Medical Decision Making Level: 5 - High SIGNATURE: Queenie Mares MD DATE of SERVICE: July 20, 2022 TIME of SERVICE: 3:45 PM documented in this encounterRegency Hospital [facility]12-06-2022 Nurse Note* Grace Pitt MA - 07/20/2022 3:09 PM EST Tobacco Use: .3 packs/day, for 30 years. Types: Cigarettes Was smoking cessation packet given? Yes - Health risks of smoking associated with disease process were discussed and the potential benefits of smoking cessation were emphasized. Patient strongly encouraged to quit smoking. Was a referral initiated?Yes, notified. documented in this encounterRegency Hospital [facility]12-06-2022 Instructions* Patient Instructions* Seble Pena APRN.CNP - 07/20/2022 1:03 PM EST PATIENT PREOPERATIVE INSTRUCTIONS No ref. provider found has scheduled you for your procedure at this surgery center: [facility] [place] [facility] Scheduling Office: [phone] --[address] [place] [address]. Please read below carefully for your personalized instructions. Dietary Restrictions: - No solid food after midnight. - You may have 12 ounces of clear liquids (water, clear juices such as apple juice or gatorade, carbonated beverages, clear tea, black coffee, jello) until 2 hours before scheduled arrival at facility. Medications: Unless instructed differently below, stay on all of your medications until your surgery. Approved medications to take the morning of surgery with a sip of water: gabapentin, omeprazole, synthroid, propanolol, venlafaxine If you start any new medications after today's visit, please contact the surgeon's office. Blood Thinning Medications: - Stop NSAIDS (Ibuprofen, Advil, Aleve, Motrin, Celebrex, Mobic, etc.) 7 days before surgery, as directed by your surgeon. - Stop Aspirin 7 days before surgery, as directed by your surgeon. - Stop Vitamin E, ALL multi-vitamins, herbals and dietary supplements 7 days before surgery. - You may take Tylenol (Acetaminophen) or any of your pain medications that do not contain aspirin or NSAIDS as needed. Important Reminders: - Candy, mints, and tobacco products are NOT permitted the morning of surgery. - Hearing aids, dentures and glasses may be worn the morning of surgery. - NO jewelry, body piercings, makeup, hairpins or contacts are to be worn the day of surgery. If you develop symptoms such as a fever, cold, or flu, or have other changes to your health within TWO DAYS of scheduled surgery or the morning of surgery, please contact the surgery center above. Personal Belongings: -Please have photo ID and insurance cards. -If you do not have a copy of advance directives on file with us, please bring a copy with you on the day of surgery. - Leave ALL valuables and money at home or with family members. For Outpatient Procedures: - YOU MUST HAVE A RESPONSIBLE MULTIFOCAL BUTTON GRINDER TAKE YOU HOME. A MICRO COMPUTER DATA PROCESSOR OR STORE STANDARDS ASSOCIATE CANNOT BE MADE A RESPONSIBLE MULTIFOCAL BUTTON GRINDER. - We recommend that a responsible person stays with you overnight to take care of you. - You cannot stay in a hotel alone after outpatient surgery. You will not be permitted to have yoursurgery, if you do not have someone to take care of you. Arrival Time for Surgery: - To obtain your arrival time for surgery, call your physician's office the day before your surgery. - If your surgery is scheduled for Tuesday, call the Tuesday before. Your surgeon s php engineer will tell you what time to call the office. - If you have not reached the departmental php engineer by 5 P.M., call [phone] after 5 P.M. the day before your surgery. Please be aware that emergency situations arise, which may delay or change your surgical time. If this happens, we will notify you as soon as possible and regret any inconvenience. If you already have an Advance Directive, please fax a copy to [phone] or email to for it to be added to your chart. If you do not have an Advance Directive, you can find the appropriate form and more information at [email or web address]. We recommend that youcomplete the Advance Directive form found on the website and bring it with you the day of your surgery. It can be witnessed and scanned into your chart that day. Seble Pena APRN.CNP documented in this encounterRegency Hospital [facility]12-06-2022 History and physical note * Seble Pena APRN.CNP - 07/20/2022 12:40 PM EST HISTORY AND PHYSICAL EXAMINATION SERVICE DATE: 07/20/2022 SERVICE TIME: 12:41 PM PRIMARY CARE PHYSICIAN: Ngozi Braun DO REASON FOR VISIT: Matthieu Carlin is a 52 year old male who is scheduled for LARYNGECTOMY TOTAL W/O RADICAL NECK DISSECTION, CREATION TRACHEOESOPHAGEAL FISTULA W/ INSERTION SPEECH PROSTHESIS on 07/23/2022 at [facility]. Patient is being seen at the request of Dr. Queenie Mares for consultation. My final recommendation willbe communicated back to the requesting physician by way of shared medical record or letter. The patient has the following: ACTIVE PROBLEM LIST Chondroradionecrosis of Larynx Acquired Hypothyroidism Dysphonia Tracheostomy in Place (Hcc) S/P Percutaneous Endoscopic Gastrostomy (Peg) Tube Placement (Hcc) Depression, Controlled Subjective CHIEF COMPLAINT: pre op exam, Chondroradionecrosis of larynx HPI: Matthieu is a very pleasant 52 year old male who present to [facility] for pre op evaluation accompanied by his father. 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 Patient takes most nutrients in through the PEG tube as taking anything by mouth causes him to cough it up. He is still smoking, but has stopped drinking alcohol. On 07/23/2022 Matthieu with undergo a total laryngectomy with TEP placement. PAST MEDICAL HISTORY Diagnosis Date PEG (percutaneous endoscopic gastrostomy) status ([facility]) Thyroid disease Tracheostomy care ([facility]) 05/2021 PAST SURGICAL HISTORY Procedure Laterality Date COLONOSCOPY SCREENING PAST SURGICAL HISTORY OF 05/2021 trachostomy PAST SURGICAL HISTORY OF 2020 Peg tube FAMILY HISTORY Problem Relation Age of Onset Anesthesia Problems No Family History SOCIAL HISTORY: Social History Tobacco Use Smoking status: Every Day Packs/day: 0.30 Years: 30.00 Pack years: 9.00 Types: Cigarettes Smokeless tobacco: Never Substance Use Topics Alcohol use: Not Currently Comment: socal Drug use: Never MEDICATIONS: Prior to Admission medications as of 07/20/22 1330 Medication Sig Last Dose Taking guaiFENesin (ROBITUSSIN) 100 mg/5 mL syrup 200 mg every 4 hours as needed for cough. Taking Yes loperamide HCl (IMODIUM) 2 mg tab 4 mg by PEG route as needed. Taking Yes BACILLUS COAGULANS-INULIN ORAL 1 capsule by PEG route once daily. Taking Yes budesonide (PULMICORT) 0.25 mg/2 mL nebulizer solution Use 0.25 mg via nebulizer twice daily. Taking Yes folic acid 1 mg tablet Take 1 mg by mouth once daily. Taking Yes ipratropium-albuterol (DUONEB) 0.5 mg-3 mg(2.5 mg base)/3 mL nebu Inhale 3 mL as instructed every 2hours as needed for wheezing/shortness of breath. Taking Yes melatonin 3 mg tablet 3 mg by PEG route daily at bedtime. Taking Yes propranolol (INDERAL) 20 mg tablet Take 20 mg by mouth twice daily. 2 times daily as needed for essential tremor Taking Yes Senna 8.6 mg tab 8.6 mg by PEG route twice daily as needed for constipation. Taking Yes sodium chloride 1 g tab 1 g by PEG route once daily. Daily as needed for low sodium Taking Yes thiamine (VITAMIN B1) 100 mg tablet 1 tablet by PEG route once daily. Taking Yes venlafaxine (EFFEXOR) 100 mg tablet 100 mg by PEG route twice daily. Taking Yes levothyroxine (SYNTHROID) 150 mcg tablet Take 1 tablet by mouth daily before breakfast. Taking Yes gabapentin (NEURONTIN) 600 mg tablet Take 600 mg by mouth three times daily. Taking Yes omeprazole (PRILOSEC) 40 mg capsule Take 40 mg by mouth. Taking Yes CARAFATE 100 mg/mL suspension TAKE 10ml BY MOUTH BEFORE MEALS AND AT BEDTIME Taking Yes LORazepam (ATIVAN) 0.5 mg Take 0.5 mg by mouth daily at bedtime. Patient not taking: Reported on 07/20/2022 Not Taking methadone (DOLOPHINE) 5 mg tablet Take 5 mg by mouth twice daily. oxyCODONE IR (ROXICODONE) 5 mg immediate release tablet 5 mg. Patient not taking: Reported on 07/20/2022 Not Taking No medication comments found. CURRENT ALLERGIES: ALLERGIES No Known Allergies COVID VACCINATION STATUS: Fully vaccinated REVIEW OF SYSTEMS: General: No weight loss, malaise or fevers. Neuro: Negative for TIA's Headaches Stroke-residual deficit Stroke-No residual deficit History of benign tremor, seizure activity in childhood. Last seizure in 1986. Respiratory: Tracheostomy. Current smoker Negative for Asthma, Bronchitis, COPD, Home O2, Pneumoniawithin 6 weeks (date), URI < 2 weeks Cardiovascular: HTN No history of HTN requiring medication, no history of angina, CHF, OR, cardiac surgery or stents. Denies rest pain, gangrene or revascularization/amputation for PVD. No history ofcardiovascular symptoms or problems. GI: PEG tube in place Negative for Heartburn, Nausea, Vomiting, Liver disease, Pancreatitis : No history of dysuria, frequency or incontinence,, stones or chronic kidney disease Endocrine: Hypothyroidism Hematology: No history of bleeding or clotting disorder. Pt is not taking anti- coagulation or platelet medications. No history of hematological symptoms or problems. Oncology: skin cancer See HPI Psych: Depression Musculoskeletal: Negative for joint pain or swelling, back pain or muscle pain. Skin: Negative for lesions, rash and itching. Objective PHYSICAL EXAM: VITALS: BP 153/85 Pulse 74 Temp (Src) 98.2 (Temporal) Ht 5' 8 (1.73m) Wt 165 lb (74.8kg) SpO2 97% BMI 25.09 kg/(m^2). General: Alert and oriented, No acute distress, Healthy appearance Skin: Normal color, no rash, no lesions. HEENT: Neck trach Cardiovascular: Normal S1 & S2, no rubs, murmurs or gallops. No JVD. Pulse regular. Lungs: Normal breath sounds, no wheezes or crackles. Abdomen: Positive bowel sounds Extremities: No deformity, no edema or tenderness, no joint swelling or clubbing. Neurological: Normal cognition and motor skills. Pulses: Carotid and radial pulses normal +2. Diagnostic tests reviewed for today's visit: Lab Value Units Date High Low HB 16.6 g/dL 07/14/2022 17.0 13.0 HCT 48.1 % 07/14/2022 51.0 39.0 WBC 4.20 k/uL 07/14/2022 11.00 3.70 PLT 266 k/uL 07/14/2022 400 150 NA 135 mmol/L 07/14/2022 144 136 K 4.2 mmol/L 07/14/2022 5.1 3.7 GLUC 97 mg/dL 07/14/2022 99 74 BUN 20 mg/dL 07/14/2022 24 9 CREAT 0.66 mg/dL 07/14/2022 1.22 0.73 PTSEC No results within date range. INR No results within date range. APTT No results within date range. ALT 12 U/L 07/14/2022 54 10 AST 22 U/L 07/14/2022 40 14 TBILI 0.5 mg/dL 07/14/2022 1.3 0.2 TSH 70.200 mIU/L 07/14/2022 4.200 0.270 Lab Value Units Date High Low HCGQT No results within date range. UHCG No results within date range. HCG, BODY* No results within date range. Lab Value Units Date High Low ABORHD No results within date range. ABSCREEN No results within date range. No results found for: HBA1C Most recent labs are up to date. EKG 07/20/2022 Diagnosis: NORMAL SINUS RHYTHM NORMAL ECG Assessment/Plan Acquired hypothyroidism Stable on rx Tracheostomy in place ([facility]) No issues S/P percutaneous endoscopic gastrostomy (PEG) tube placement (HCC) No current issues. Takes most medications, intake through PEG. Depression, controlled Stable on effexor METS: Walk indoors, such as around the house (1.75 METs) Do light work around the house, such as dusting or washing dishes (2.70 METs) Take care of self; that is eating, dressing, bathing, using the toilet (2.75 METs) Climb a flight of stairs or walk up a hill (5.50 METs) Patient denies any chest pain or undue shortness of breath with the above physical activity. ASA Class: 3 ANESTHESIA FINDINGS: Intubation History: No history of difficult intubation Significant Anesthesia Considerations: Difficult IV/Vein Access: use of US in the past Airway Exam: General: Normal appearance Mallampati Score is CLASS III ULBT: Class I - Lower incisors can bite the upper lip above the aleja line Neck: Normal appearance and function, Distance from hyoid to mentum during neck extension is at least 3 finger breaths Mouth: Normal tongue size and Mouth opening greater than 2 finger breaths Dentition: Intact Airway History: No history of difficult intubation STOP BANG Score: Criteria: Age over 50 (52 year old) Male gender Score = 2 PLAN This patient is optimally prepared for surgery. CONSULTS: Patient does not require consults for optimization at this time. The Following Tests/Procedures Have Been Initiated: Labs and EKG per surgery. Planned Anesthetic: Per anesthesia choice Instructions Given to Patient: Instructions located in the after visit summary. Patient given verbal and written preop instructions and voices comprehension and compliance. SIGNATURE: Seble Pena APRN.CNP PATIENT NAME: Matthieu Carlin DATE: July 20, 2022 TIME: 1:39 PM [facility] History of Present illness Narrative* Kirti Perez [facility]STRATEGIC PLANNING DIRECTOR - 07/14/2022 3:[address] [facility] Speech Therapy Progress Note Subjective: Patient now scheduled for TL/TEP on 07/23/2022. Given the delay, patient requested review of STRATEGIC PLANNING DIRECTOR pre-op information and replacement of pre-op materials (left behind in clinic at last visit) Objective/Assessment: Review surgery and changes in speech and anticipated start-up of PO s/p functional TL/TEP. Reviewed HME use and registration with [facility]. Patient and father confirmed that they will complete and submit the Patient Services Form. A new pre-op packet was provided. Discussed post-op course including likely esophagram to r/o leak, advancing PO gradually starting with liquids, TEP / HME training, etc. Patient asked questions re: free-hands speech which were addressed. Explained critical need for speech practice and establishing a good seal for voicing as the pre- requisites for free-hands speech (which is also NOT 07/03). Patient and father asked insightful questions and appeared to understand the information presented. Patient mentioned that his insurance will likely be changing from medicaid to private insurance with his employer relative to resuming work after recovery from surgery, etc. Plan: Continue skilled ST for in-patient post-TL; out-patient TEP/swallow tx. 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 Luckily, he is completely stopped drinking alcohol since being in the nursing facility. He is also gained 30 pounds. He denies any painin the laryngeal area, and he usually does not take much nutrition by mouth, because it does end upbeing coughed out of his tracheotomy. Instead, he uses his PEG tube primarily. He is smoking three quarters of a pack per day. He does feel as if he is getting the rank odor or taste back, suggestive of recurrent infection. On exam, he has some voice but it is rough and barely audible when he caps his tracheotomy tube. Oral exam is negative. Neck exam shows a well-healed tracheotomy but no purulence or granulation tissue. No adenopathy bilaterally. Flexible endoscopy was not possible secondary to his gag reflex. IMPRESSION: Chondroradionecrosis, recurrence. PLAN: Flexible fiberoptic laryngoscopy today. I suggested that he cut down on his smoking, and we will get blood test today. Next week Dr. Mares and anesthesia will see him. Lastly, we had consent of the total laryngectomy and TEP placement. Procedure: Flexible laryngoscopy, fiberoptic, diagnostic Indications: - Gag reflex preventing mirror examination Procedure: After topical decongestion and anesthetic spray was used, the flexible fiberoptic nasopharyngoscopewas inserted. The nasal cavity was evaluated including the septum, the mucosa, the turbinates and the nasopharynx. The oropharynx, hypopharynx and larynx were also examined, including the vocal folds and the mobility. The patient tolerated the procedure well and I performed the procedure myself. Findings: The oropharynx and hypopharynx are normal. At the laryngeal level, the patient has profound edema of the arytenoids, minimal motion of the right side of the vocal fold, with no motion on the left. I see no evidence of recurrent disease, and there is no lesions of the epiglottis. Ngozi Barnes MD documented in this encounterReg[facility]11-30-2022 Nurse Note* BELTRAN Humphries - 07/14/2022 2:31 PM EST Pt didn't bring a list of medications with him but was informed to bring it next time. * BELTRAN Humphries - 07/14/2022 2:30 PM EST Tobacco Use: 1 packs/day, for 30 years. Quit 08/15/2020. Types: Cigarettes Was smoking cessation packet given? Patient Declined Was a referral initiated?Patient declined. documented in this [facility]11-22-2022 Miscellaneous Notes* Telephone Encounter - Kala Mondragon APRN.COIL WINDER - 07/06/2022 11:33 AM EST (Z01.818) Preoperative examination (primary encounter diagnosis) Comment: Plan: PRE-PROCEDURE & PRE-OPERATIVE COVID Kala Mondragon APRN.CNP documented in this encounterReg[facility]11-21-2022 NoteORIGINAL PROCEDURE: Fluoroscopic gastrostomy tube exchange performed on 07/05/2022. INDICATION: Ruptured balloon from existing gastrostomy tube. COMPARISON: 04/06/2022. TECHNIQUE/FINDINGS: The procedure was performed in the VIR Suite. The existing gastrostomy tube and the upper abdomen were prepped and draped in the usual sterile fashion. The existing tube was removed. A new gastrostomy tube was advanced through the existing tract. The retention balloon was inflated and secured under fluoroscopic visualization. Injection of contrast through the tube confirmed that the position of the distal tip of the tube was in the stomach. The tube was irrigated with saline, secured, and dressed in the usual fashion. There were no immediate complications. Total Fluoroscopy Time: 0.3 minutes. Reference Air Kerma (BRITTNEY): 7 mGy. IMPRESSION: Successful gastrostomy tube exchange with insertion of a new 20-F gastrostomy tube. Interpreted by: Chuy Stephen MD Preliminary Report By: Chuy Stephen MD Electronically signed By Chuy Stephen MD Dictated Date: 07/05/2022 8:42:09 PM Prelim Date: 07/05/2022 8:44:54 PM Sign Date: 07/05/2022 8:44:54 PM Ordering Provider: [facility] Note ORIGINAL PROCEDURE: Fluoroscopic gastrostomy tube exchange performed on 07/05/2022. INDICATION: Ruptured balloon from existing gastrostomy tube. COMPARISON: 04/06/2022. TECHNIQUE/FINDINGS: The procedure was performed in the VIR Suite. The existing gastrostomy tube and the upper abdomen were prepped and draped in the usual sterile fashion. The existing tube was removed. A new gastrostomy tube was advanced through the existing tract. The retention balloon was inflated and secured under fluoroscopic visualization. Injection of contrast through the tube confirmed that the position of the distal tip of the tube was in the stomach. The tube was irrigated with saline, secured, and dressed in the usual fashion. There were no immediate complications. Total Fluoroscopy Time: 0.3 minutes. Reference Air Kerma (BRITTNEY): 7 mGy. IMPRESSION: Successful gastrostomy tube exchange with insertion of a new 20-F gastrostomy tube. Interpreted by: Chuy Stephen MD Preliminary Report By: Chuy Stephen MD Electronically signed By Chuy Stephen MD Dictated Date: 07/05/2022 8:42:09 PM Prelim Date: 07/05/2022 8:44:54 PM Sign Date: 07/05/2022 8:44:54 PM Ordering Provider: CHUY STEPHEN [id number] Hospital Discharge instructions Patient Education 07/05/2022 12:36:08 Radiology- Procedure/Biopsy 11/28/2019 (CUSTOM) [place] Radiology Procedure/Biopsy Discharge Instructions Interventional Radiology [facility] [address] [place] [address] Today, you had a . This procedure/biopsy was done to help your doctor diagnose and treat the signs and symptoms you have been experiencing. These instructions should be followed after your procedure to reduce the chance of experiencing complications. Please follow the instructions below to reduce the chance of experiencing complications. Diet: Resume your normal diet as tolerated. Drink extra fluids. Activity: Rest for the remainder of the day. You may resume your normal activity tomorrow. You may bathe/shower after 24 hours. Do not soak or submerge site (including swimming or hot tubs) until a scab forms. No heavy lifting, pushing, or straining. Dressing: Check the site for bleeding. Apply pressure to the site if bleeding excessively and call your physician. Change the band aid as needed; it can be removed after 24 hours. Keep the site dry at all times until a scab forms over the site. Pain Control: The puncture site may be sore for 1 to 2 days following the procedure. [id number] pain medication should be used for pain or discomfort. Please check with the physician who ordered this procedure for you for their specific recommendations. If your pain is not relieved or becomes more severe, notify the physician who sent you for this procedure. If you were sedated for this procedure: Avoid alcoholic beverages for 24 hours after your procedure. Do not drive or operate heavy machinery for 24 hours after your procedure. Do not make any legal decisions for 24 hours after your procedure. Medication: Please resume on . When to seek medical help: Lightheadedness, dizziness, or fainting. Severe pain or swelling. Severe nausea or vomiting. Infection: fever greater than 101 degrees, chills, redness, warmth, swelling, bleeding, or pus frompuncture site. If you experience any of these issues during the first 24 hours, please follow the instruction below: 8:00 am- 5:00 pm call [phone] After 5:00 pm call [phone] After 24 hours, contact the physician who ordered this procedure for you. Obtaining test results: Please make an appointment with your doctor to obtain your test results. They are usually availablewithin 4 to 7 business days. Do not assume everything is normal if you have not heard from your doctor or medical facility. It is important for you to follow up on all of your test results. Special Instructions: Follow Up Care 07/05/2022 10:12:23 With:Follow up with primary care provider Address:Unknown When: Unknown With:CHUY STEPHEN MD, [facility] Address: [facility] [place] [address] [facility] [place] [address] [phone] When: Unknown Comments:Follow-up as scheduled. If unable to access pt portal call medical records at [phone] [facility] 11-21-2022 Note IR Procedure Record Summary Primary Physician: CHUY STEPHEN MD Finalized Date/Time: 07/05/22 14:30:25 Pt. Name: MATTHIEU CARLIN/Sex: 1970 Male Med Rec #: [id number] Physician: Financial #: [id number] Pt. Type: O Room/Bed: / Admit/Disch: 07/05/22 10:56:00 - Institution: Allergies identified in patient's electronic medical record at time of printing on 07/05/22 Entry 1 Substance NKA Reaction Type Allergy Last Modified By: Christen Christianson ED, RN 03/08/20 12:28:35 Case Attendance- IR Entry 1 Entry 2 Entry 3 Case Attendee CHUY STEPHEN MD, Rad Tech Kathy A Fierstos, Megan R Rad Tech Role Performed Primary Surgeon Scrub Technologist Circulating Technologist Details Time In 07/05/22 12:30:00 07/05/22 12:15:00 07/05/22 12:15:00 Time Out 07/05/22 12:35:00 07/05/22 12:45:00 07/05/22 12:45:00 Procedure/Preference IR Gastro Tube Change IR Gastro Tube Change IR Gastro Tube Change Card W/Guide SN W/Guide SN W/Guide SN Last Modified By: Deepthi Del Cid Megan R Rad Fierstos, Megan R Rad Tech 07/05/22 12:48:37 Tech 07/05/22 12:48:37 Tech 07/05/22 12:48:37 Radiology Procedures- IR Entry 1 Procedure/Preference IR Gastro Tube Change Actual Procedure IR GASTRO TUBE CHANGE Card W/Guide SN W/GUIDE SN Primary Procedure Yes Primary Surgeon CHUY STEPHEN MD Anesthesia/Sedation Local Type Additional Procedure Times Start 07/05/22 12:30:00 Stop 07/05/22 12:35:00 Specialty Service SN Radiology Procedure EBL 0 mL Last Modified By: Deepthi Del Cid Panaya 07/05/22 12:54:17 Radiology Procedure Details - IR Entry 1 Radiology Sedation Case Times Sedation Total Time 0 Radiology - Fluid/Drainage Radiology Contrast Contrast Used? Yes Dose 10 mL Medication OMNIPAQUE 300 50ML 10/CT Y-530 Radiology Flouroscopy Fluoroscopy Used? Yes Fluoro Dose (mGy) 7 Fluoro Time 0.3 Radiology Local Local Used? No Radiology Procedure Site Site/Location Left abdomen Site Condition No complications Technologist Notes no dressing, 20Fr BENEDICTO G-tube exchanged. LOT # [id number] Last Modified By: Deepthi Del Cid Panaya 07/05/22 12:56:18 General Case Data - IR Entry 1 Case Information Room AH IR 17 Case Level IR Level 1 Wound Class None Specialty SN Radiology Procedure ASA Class None Diagnosis Preop Diagnosis Gastrostomy disfunction Postop Same As Preop Yes Postop Diagnosis Gastrostomy disfunction Last Modified By: Deepthi Del Cid R Credit Resolution Representative 07/05/22 12:51:52 Procedure Case Times- IR Entry 1 Patient In Procedure Patient In OR 07/05/22 12:15:00 Patient Out of OR 07/05/22 12:45:00 Procedure Start/Stop Procedure Start Time 07/05/22 12:30:00 Procedure Stop Time 07/05/22 12:35:00 Last Modified By: Deepthi Del Cid R [employer] 07/05/22 12:48:24 Immediate Post Procedure Note - IR Entry 1 Immediate Post Yes Findings Successful G-tube Procedure Note exchange displayed for Physician to review Closure Technique Closure Technique Other than Primary Last Modified By: Deepthi Del Cid R Credit Resolution Representative 07/05/22 12:50:43 Immediate Post Procedure Note - IR Signed By: CHUY STEPHEN MD 07/05/22 14:30 Allergy Information- IR Entry 1 Allergies Reviewed? Yes Allergies Reviewed Patient With Last Modified By: Deepthi Del Cid Credit Resolution Representative 07/05/22 12:33:25 Radiology Protocols/Time Out- IR Entry 1 Preprocedure Clinician Verifies Correct patient ID When Clinically Confirmation of correct using name & date Indicated side(s) and site(s), or MRN, Accurate Correct diagnostic and procedure, complete radiology tests Informed Consent, H & P available, Required update immediately blood products, prior to procedure, if implants, devices applicable and/or special equipment available OR/Procedure Room/Bedside Time 07/05/22 12:30:00 Clinician Verifies Correct patient identity including EMR & records using name and date or medical record number, Accurate procedure consent form, Correct patient position, Necessary equipment is available, Anticipated non-routine events with surgical team (case duration, estimated blood loss, patient specific concerns)., Trevino patient factors for recovery and management identified with surgical team. When Applicable Confirmation correct Team Members CHUY STEPHEN MD, side and site marked, Present for Time Out Samy Credit Resolution RepresentativeVipin Rabago Relevant images and A, Deepthi Del Cid results are properly Credit Resolution Representative labeled and appropriately displayed, Alcohol based prep dry Instrument Sterility Team Members Samy Credit Resolution RepresentativeVipin Rabago A Verifying Sterility Procedure IR Gastro Tube Change W/Guide SN Last Modified By: Deepthi Del Cid Credit Resolution Representative 07/05/22 12:35:23 Skin Prep- IR Entry 1 Procedure IR Gastro Tube Change W/Guide SN Skin Prep Prep Area Abdomen Side Left By Ankur Pablo A Prep Agents Chloraprep Hair Removal Method N/A Last Modified By: Deepthi Del Cid Credit Resolution Representative 07/05/22 12:49:04 Patient Positioning- IR Entry 1 Procedure IR Gastro Tube Change Body Position OP Supine W/Guide SN Feet Uncrossed? Yes Pressure Points n/a Checked Last Modified By: Deepthi Del Cid Credit Resolution Representative 07/05/22 12:49:18 Radiology Procedure Plan - IR Entry 1 Radiology - Nursing Care Plan Radiology - Action Plan Action Plan - Patient demonstrates Outcome Statement knowledge of the expected reseponses to the invasive procedure, Patient's value system, lifestyle, ethnicity, and culture are considered, respected, and incorporated in the perioperative plan of care., Patient is free from signs and symptoms of infection., Patient is free from signs and symptoms of injury related to positioning., Patient is free from signs and symptoms of chemical injury., Patient receives appropriate medication(s), safely administered during the perioperative period. 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[email or web address] Procedure Plan Last Modified By: Deepthi Del Cid 07/05/22 12:51:06 Case Comments Finalized By: Deepthi Del Cid Document Signatures Signed By: Deepthi Del Cid 07/05/22 14:30 [id number] Evaluation + Plan noteExtracted from: Title:IR pre-procedure H&P - gastric tube exchange Author:ROBB CHERY PA-C Date:07/05/22 IR PREPROCEDURE H&P UPDATE IF A HISTORY AND PHYSICAL EXAMINATION HAS BEEN COMPLETED PRIOR TO ADMISSION TO THE HOSPITAL, AN UPDATED EXAMINATION MUST BE COMPLETED AND DOCUMENTED WITHIN 24 HOURS AFTER ADMISSION OR REGISTRATION BUT BEFORE A SURGICAL PROCEDURE. I have examined the patient, reviewed the H&P, and there are no changes unless noted below: Patient states the balloon to his g-tube will not stay inflated. G-tube became dislodged several days ago. Additionally, feedings appear sluggish according to patient The most recent H&P/Office Note was performed on 07/05/2022 and can be found in the [facility] ([place]). Robb Chery PA-C Interventional Radiology Pager: [phone] IR dept: x [phone] [facility] Future [facility]uled Tests Laboratory* Clostridium difficile (PCR) 09/16/21 * Basic Metabolic Panel 07/01/22 * Lactate Dehydrogenase 01/21/22 * Lactate Dehydrogenase 09/16/21 * Lactate Dehydrogenase 10/14/21 * Complete Blood Count 01/21/22 * Complete Blood Count 09/16/21 * Complete Blood Count 07/01/22 * Complete Blood Count 10/14/21 * Complete Metabolic Panel 01/21/22 * Complete Metabolic Panel 09/16/21 * Complete Metabolic Panel 10/14/21 Radiology* CT Soft Tissue Neck w/ Contrast 01/04/22 * CT Thorax w/ Contrast 12/18/21 * CT Abdomen and Pelvis w/ contrast 12/18/21 [facility] 11-21-2022 Note ORIGINAL PROCEDURE: Fluoroscopic gastrostomy tube exchange performed on 07/05/2022. INDICATION: Ruptured balloon from existing gastrostomy tube. COMPARISON: 04/06/2022. TECHNIQUE/FINDINGS: The procedure was performed in the VIR Suite. The existing gastrostomy tube and the upper abdomen were prepped and draped in the usual sterile fashion. The existing tube was removed. A new gastrostomy tube was advanced through the existing tract. The retention balloon was inflated and secured under fluoroscopic visualization. Injection of contrast through the tube confirmed that the position of the distal tip of the tube was in the stomach. The tube was irrigated with saline, secured, and dressed in the usual fashion. There were no immediate complications. Total Fluoroscopy Time: 0.3 minutes. Reference Air Kerma (BRITTNEY): 7 mGy. IMPRESSION: Successful gastrostomy tube exchange with insertion of a new 20-F gastrostomy tube. Interpreted by: Chuy Stephen MD Preliminary Report By: Chuy Stephen MD Electronically signed By Chuy Stephen MD Dictated Date: 07/05/2022 8:42:09 PM Prelim Date: 07/05/2022 8:44:54 PM Sign Date: 07/05/2022 8:44:54 PM Ordering Provider: CHUY ZAFARTwin [facility] [id number] Summary of episode note Discharge Instructions Thank you for allowing [facility] to assist you with your healthcare needs. The following is importantdischarge information regarding your hospital visit. Your Care Team NGOZI BRAUN DO What to do next Follow Up Appointments Follow Up with Follow up with primary care provider When Follow Up with CHUY STEPHEN MD, [facility] When Why: Follow-up as scheduled. If unable to access pt portal call medical records at [phone] Where: [address] [facility] [place] [address]- [phone] The Following Activity and Diet Have Been Ordered for You No qualifying data available. No qualifying data available. The Following Equipment Has Been Ordered for You No qualifying data available. The Following Treatments Have Been Ordered for You Discharge Labs No qualifying data available. Discharge Radiology No qualifying data available. Other Therapies No qualifying data available. Post Acute Orders No qualifying data available. Someone Will Contact You Regarding These Home Health Referrals No home referrals have been ordered for you. No one will call you. Allergies NKA Medications Please ask your primary doctor or pharmacist before taking any other medication not listed, including over the counter drugs, herbal medications, vitamins and or supplements as they may interact withyour home medications. What How Much When Why Instructions Last Dose Unchanged albuterol-ipratropium (albuterol-ipratropium 2.5 mg-0.5 mg/ 3 mL inhalation solution) 3 Milliliter by inhalation Four (4) times a day Unchanged bacillus coagulans-inulin (Probiotic Formula (Bacillus Coagulans) oral capsule) 1 cap by mouth Once a day Unchanged budesonide (budesonide 0.25 mg/ 2 mL inhalation suspension) 2 Milliliter by inhalation Two (2) times a day Unchanged DULoxetine (DULoxetine 60 mg oral delayed release capsule) 1 cap by mouth Once a day Unchanged folic acid (folic acid 1 mg oral tablet) 1 tab(s) PEG tube Once a day Unchanged gabapentin (gabapentin 600 mg oral tablet) 1 tab(s) by mouth Three (3) times a day Cancer related pain Duration: 30 Days Unchanged guaiFENesin (guaiFENesin 100 mg/ 5 mL oral liquid) 10 Milliliter by mouth Every 4 hours as needed for as needed for cough Unchanged levothyroxine (levothyroxine 150 mcg (0.15 mg) oral tablet) 1 tab(s) by mouth Once a day Unchanged loperamide (Imodium A-D 2 mg oral tablet) 1 tab(s) by mouth Every 4 hours as needed for for loose stool Unchanged nicotine (nicotine 21mg / 24hrs transdermal patch) 1 patch(es) Transdermal Once a day Unchanged omeprazole (omeprazole 40 mg oral delayed release capsule) 1 cap by mouth Once a day GERD Active Unchanged propranolol (propranolol 20 mg oral tablet) 1 tab(s) PEG tube Two (2) times a day Essential tremor Unchanged sucralfate (sucralfate 1 g oral tablet) 1 tab(s) by mouth Four (4) times daily-before meals and at bedtime DISSOLVE 1 TABLET IN AT LEAST 10 ML OF WATER FOR 15 TO 20 MINUTES, TAKE FOUR TIMES A DAY Please take this list to your next doctor s visit. Bring all medications you take, including over the counter medications, herbals and other supplements with you to your doctor s visit. Patients and families are reminded to discard old lists and to update any records with all medication providers or retail pharmacies. Education Materials [place] Radiology Procedure/Biopsy Discharge Instructions Interventional Radiology [facility] [address] [facility] [address] Today, you had a . This procedure/biopsy was done to help your doctor diagnose and treat the signs and symptoms you have been experiencing. These instructions should be followed after your procedure to reduce the chance of experiencing complications. Please follow the instructions below to reduce the chance of experiencing complications. Diet: Resume your normal diet as tolerated. Drink extra fluids. Activity: Rest for the remainder of the day. You may resume your normal activity tomorrow. You may bathe/shower after 24 hours. Do not soak or submerge site (including swimming or hot tubs) until a scab forms. No heavy lifting, pushing, or straining. Dressing: Check the site for bleeding. Apply pressure to the site if bleeding excessively and call your physician. Change the band aid as needed; it can be removed after 24 hours. Keep the site dry at all times until a scab forms over the site. Pain Control: The puncture site may be sore for 1 to 2 days following the procedure. Kxfa-rfg-zlqfyoi pain medication should be used for pain or discomfort. Please check with the physician who ordered this procedure for you for their specific recommendations. If your pain is not relieved or becomes more severe, notify the physician who sent you for this procedure. If you were sedated for this procedure: Avoid alcoholic beverages for 24 hours after your procedure. Do not drive or operate heavy machinery for 24 hours after your procedure. Do not make any legal decisions for 24 hours after your procedure. Medication: Please resume on . When to seek medical help: Lightheadedness, dizziness, or fainting. Severe pain or swelling. Severe nausea or vomiting. Infection: fever greater than 101 degrees, chills, redness, warmth, swelling, bleeding, or pus frompuncture site. If you experience any of these issues during the first 24 hours, please follow the instruction below: 8:00 am- 5:00 pm call [phone] After 5:00 pm call [phone] After 24 hours, contact the physician who ordered this procedure for you. Obtaining test results: Please make an appointment with your doctor to obtain your test results. They are usually availablewithin 4 to 7 business days. Do not assume everything is normal if you have not heard from your doctor or medical facility. It is important for you to follow up on all of your test results. Special Instructions: Additional Information VACCINATE! IT SAVES LIVES! Members of the community who have not yet received the COVID-19 vaccine and would like to receive it can visit one of [facility] vaccine clinics. There are many vaccine clinic locations within the [facility]. For locations and available times, please visit [email or web address] It is important to note that some COVID mobile vaccine clinics are held outdoors and may be canceled in rainy or stormy conditions. To learn more about pediatric vaccinations (ages 5-11), we invite you to visit the [facility] webpage. [email or web address]/[email or web address]-[email or web address]-Xua stions.htmlTo learn more about the COVID-19 vaccine, we invite you to visit the [facility] website for a list of frequently asked questions. [email or web address] [facility] Patient [facility] Access Instructions: Stay connected with your healthcare team and access your personal medical information anytime with the [facility] Patient Portal.If you would like a full copy of your medical records, please contact the [facility] Medical Records Department, Tuesday through Tuesday between 8a.m. and 4:30p.m. Please follow the directions below to access the portal: 1.Access the email account you provided upon registration to the [facility].2.Look for an invitation email from [facility].3.Open the email and access the invitation link: Accept Invitation to [facility]4.Fill in the required burr to create your account. Sign into [email or web address] with your username and password that you created in the above steps to stay up to date. You can then view a summary of results, a summary of your visits, and the ability to download your summaries to your computer or send the information securely to a physician. Remember that your healthcare information is confidential, so carefully consider who you will allow to register on the [facility] Patient Portal for access to your information. You can also access the [facility] Patient Portal on the Drinks4-you ngoc. Simply click on Health Records under Neoc[employer] and then click on the [facility] logo. HOW TO SAFELY DISPOSE OF PRESCRIPTION MEDICATIONS Please use one of the following methods to safely dispose of your unused medications. 1.Use a drug disposal kit: the drug disposal pouch allows you to safely discard your old and unuseddrugs. Ask your nurse to give you one when you are discharged.2.Visit a local take-back location: Many local pharmacies and police departments have programs that collect old and unwanted prescriptiondrugs. Call your local pharmacy or go to http://bit.Coinapult/6Y2Zs0j to find one close to you.3.Make use of household items: Use cat litter or old coffee grounds to dispose medications if other options arenot available. Mix your drugs with these household products, seal them in an airtight container andthrow it into the garbage. Call [facility]: [phone] to be sure your drugs can be disposed of in this way. Some medicines may require a different approach.4.Never flush your medications down the toilet. IF YOU HAVE BEEN PRESCRIBED AN OPIOID FOR PAIN If you have been prescribed an opioid (such as hydrocodone, oxycodone or morphine), it is critical to understand the possible side effects and risks of opioid pain medications. Even when taken as directed, opioids can have several side effects including: Tolerance, meaning you might need to take more of a medication for the same pain relief. Nausea, vomiting and/or constipation. Sleepiness, dizziness, dry mouth, confusion, depression or itching. Physical dependence, meaning you have withdrawal symptoms when a medication is stopped, can develop within a few days. KNOW YOUR RESPONSIBILITIES It is important to know exactly how much and how often to take the opioid pain medications you are prescribed. Never take opioids in higher amounts or more often than prescribed. Do not combine opioids with alcohol or other drugs that cause drowsiness, such as benzodiazepines, also known as benzos, including diazepam and alprazolam, muscle relaxants or sleep aids. Never sell or share prescription opioids. This is illegal. Store opioids in a secure place and out of reach of others (including children, family, friends and visitors). The last page of this document has been signed and retained as a CHART COPY. Signatures Patient Education Materials Radiology- Procedure/Biopsy 11/28/2019 (CUSTOM) Medication Leaflets My discharge plan and instructions have been reviewed and explained to me and IFLORIAN KEITH A understand my current condition and have read and understand these discharge instructions. I have received a written copy of the plan/instructions. If I have questions, I am aware that I should contact my doctor. Patient/[place] Cutter Signature: Date/Time: Relationship to Patient: Witness Name/Signature: Date/Time: [id number] History and physical note IR PREPROCEDURE H&P UPDATE IF A HISTORY AND PHYSICAL EXAMINATION HAS BEEN COMPLETED PRIOR TO ADMISSION TO THE HOSPITAL, AN UPDATED EXAMINATION MUST BE COMPLETED AND DOCUMENTED WITHIN 24 HOURS AFTER ADMISSION OR REGISTRATION BUT BEFORE A SURGICAL PROCEDURE. I have examined the patient, reviewed the H&P, and there are no changes unless noted below: Patient states the balloon to his g-tube will not stay inflated. G-tube became dislodged several days ago. Additionally, feedings appear sluggish according to patient The most recent H&P/Office Note was performed on 07/05/2022 and can be found in the [facility] Records ([place]). Robb Chery PA-C Interventional Radiology Pager: [phone] IR dept: [phone] Available on [employer] Digitally Signed by ROBB CHERY PA-C on 07/05/2022 11:31 AM Digitally Signed by CHUY STEPHEN MD on 07/05/2022 12:54 PM [id number] Evaluation + Plan note Future Scheduled Tests Laboratory* Basic Metabolic Panel 07/01/22 * Lactate Dehydrogenase 01/21/22 * Complete Blood Count 01/21/22 * Complete Blood Count 07/01/22 * Complete Metabolic Panel 01/21/22 Radiology* CT Soft Tissue Neck w/ Contrast 01/04/22 * CT Thorax w/ Contrast 12/18/21 * CT Abdomen and Pelvis w/ contrast 12/18/21 [facility] 11-17-2022 Hospital Discharge instructions Patient Education 07/01/2022 10:16:55 PHILIPPE VALENZUELA(CUSTOM) If you have any issues with your feeding tube please go to the hospital. Ideally you will need to be at a hospital with a surgeon or interventional radiologist available to replace the tube. Document Released: 08/01/2006 Document Revised: 07/18/2013 Document Reviewed: 08/02/2014 ExitCare Patient Information 2015 [employer]. This information is not intended to replace advicegiven to you by your health care provider. Make sure you discuss any questions you have with your health care provider. Follow Up Care 07/01/2022 10:03:13 With:NGOZI BRAUN DO Address: [address] [place] [id number] [phone] When:2-4 days [facility] 11-17-2022 Note Discharge Instructions Thank you for allowing [facility] to assist you with your healthcare needs. The following is importantdischarge information regarding your hospital visit. Diagnosis from Today's Visit Gastrostomy tube in situ What to Do Next Instructions from Your Care Team No qualifying data available. Post Acute Orders No qualifying data available. You Need to Schedule the Following Appointments Follow Up with NGOZI BRAUN DO When Within 2-4 days Where: [address] [place] [id number] [phone] Allergies NKA Medications Please ask your primary doctor or pharmacist before taking any other medication not listed, including over the counter drugs, herbal medications, vitamins and or supplements as they may interact withyour home medications. What How Much When Why Instructions Last Dose Changed albuterol-ipratropium (albuterol-ipratropium 2.5 mg-0.5 mg/ 3 mL inhalation solution) 3 Milliliter by inhalation Four (4) times a day Unchanged bacillus coagulans-inulin (Probiotic Formula (Bacillus Coagulans) oral capsule) 1 cap by mouth Once a day Unchanged budesonide (budesonide 0.25 mg/ 2 mL inhalation suspension) 2 Milliliter by inhalation Two (2) times a day Unchanged DULoxetine (DULoxetine 60 mg oral delayed release capsule) 1 cap by mouth Once a day Unchanged folic acid (folic acid 1 mg oral tablet) 1 tab(s) PEG tube Once a day Unchanged gabapentin (gabapentin 600 mg oral tablet) 1 tab(s) by mouth Three (3) times a day Cancer related pain Duration: 30 Days Unchanged guaiFENesin (guaiFENesin 100 mg/ 5 mL oral liquid) 10 Milliliter by mouth Every 4 hours as needed for as needed for cough Unchanged levothyroxine (levothyroxine 150 mcg (0.15 mg) oral tablet) 1 tab(s) by mouth Once a day Unchanged loperamide (Imodium A-D 2 mg oral tablet) 1 tab(s) by mouth Every 4 hours as needed for for loose stool Unchanged nicotine (nicotine 21mg / 24hrs transdermal patch) 1 patch(es) Transdermal Once a day Unchanged omeprazole (omeprazole 40 mg oral delayed release capsule) 1 cap by mouth Once a day GERD Active Unchanged propranolol (propranolol 20 mg oral tablet) 1 tab(s) PEG tube Two (2) times a day Essential tremor Unchanged sucralfate (sucralfate 1 g oral tablet) 1 tab(s) by mouth Four (4) times daily-before meals and at bedtime DISSOLVE 1 TABLET IN AT LEAST 10 ML OF WATER FOR 15 TO 20 MINUTES, TAKE FOUR TIMES A DAY Please take this list to your next doctor s visit. Bring all medications you take, including over the counter medications, herbals and other supplements with you to your doctor s visit. Patients and families are reminded to discard old lists and to update any records with all medication providers or retail pharmacies. Education Materials If you have any issues with your feeding tube please go to the hospital. Ideally you will need to be at a hospital with a surgeon or interventional radiologist available to replace the tube. Document Released: 08/01/2006 Document Revised: 07/18/2013 Document Reviewed: 08/02/2014 ExitCare Patient Information 2015 [facility]. This information is not intended to replace advicegiven to you by your health care provider. Make sure you discuss any questions you have with your health care provider. Additional Information VACCINATE! IT SAVES LIVES! Members of the community who have not yet received the COVID-19 vaccine and would like to receive it can visit one of [facility] vaccine clinics. There are many vaccine clinic locations within the [facility]. For locations and available times, please visit [email or web address]. It is important to note that some COVID mobile vaccine clinics are held outdoors and may be canceled in rainy orstormy conditions. To learn more about pediatric vaccinations (ages 5-11), we invite you to visit the [facility] webpage. [email or web address]/pages/[email or web address]-Plmjd-Rotpgjzuhdk-Izlxlagnsp-Jvikl-Krn stions.htmlTo learn more about the COVID-19 vaccine, we invite you to visit the [facility] website for a list of frequently asked questions. [email or web address] _[email or web address].pdf [facility] Patient Portal Access Instructions: Stay connected with your healthcare team and access your personal medical information anytime with the [facility] Patient [facility]. If you would like a full copy of your medical records please contact the [facility] Medical Records Department Tuesday through Tuesday between 8a.m. and 4:30p.m. Please follow the directions below to access the portal: 1.Access the email account you provided upon registration to the [facility].2.Look for an invitation email from [facility].3.Open the email and access the invitation link: Accept Invitation to [facility]4.Fill in the required burr to create your account. Sign into [email or web address] with your username and password that you created in the above steps to stay up to date. You can then view a summary of results, a summary of your visits, and the ability to download your summaries to your computer or send the information securely to a physician. Remember that your healthcare information is confidential, so carefully consider who you will allow to register on the [facility] Patient Portal for access to your information. You can also access the [facility] Patient Portal on the Drinks4-you ngoc. Simply click on Health Records under [employer]ocis[employer] and then click on the [facility] logo. HOW TO SAFELY DISPOSE OF PRESCRIPTION MEDICATIONS Please use one of the following methods to safely dispose of your unused medications. 1.Use a drug disposal kit: the drug disposal pouch allows you to safely discard your old and unuseddrugs. Ask your nurse to give you one when you are discharged.2.Visit a local take-back location: Many local pharmacies and police departments have programs that collect old and unwanted prescriptiondrugs. Call your local pharmacy or go to http://bit.ly/9P6Ce3k to find one close to you.3.Make use of household items: Use cat litter or old coffee grounds to dispose medications if other options arenot available. Mix your drugs with these household products, seal them in an airtight container andthrow it into the garbage. Call [facility]: [phone] to be sure your drugs can be disposed of in this way. Some medicines may require a different approach.4.Never flush your medications down the toilet. IF YOU HAVE BEEN PRESCRIBED AN OPIOIDS FOR PAIN If you have been prescribed an opioid (such as hydrocodone, oxycodone or morphine), it is critical to understand the possible side effects and risks of opioid pain medications. Even when taken as directed, opioids can have several side effects including: Tolerance, meaning you might need to take more of a medication for the same pain relief. Nausea, vomiting and/or constipation. Sleepiness, dizziness, dry mouth, confusion, depression or itching. Physical dependence, meaning you have withdrawal symptoms when a medication is stopped ? this can develop within a few days. KNOW YOUR RESPONSIBILITIES It is important to know exactly how much and how often to take the opioid pain medications you are prescribed. Never take opioids in higher amounts or more often than prescribed. Do not combine opioids with alcohol or other drugs that cause drowsiness, such as benzodiazepines, also known as benzos,including diazepam and alprazolam, muscle relaxants or sleep aids. Never sell or share prescriptionopioids. This is illegal. Store opioids in a secure place and out of reach of others (including children, family, friends and visitors). The last page(s) of this document has been signed and retained as a CHART COPY Signatures Patient Education Materials PHILIPPE VALENZUELA(CUSTOM) Medication Leaflets My discharge plan and instructions have been reviewed and explained to me and IFLORIAN KEITH A understand my current condition and have read and understand these discharge instructions. I have received a written copy of the plan/instructions. If I have questions, I am aware that I should contact my doctor. Patient/[facility] Cutter Signature: Date/Time: Relationship to Patient: Witness Name/Signature: Date/Time: [facility]11-11-2022 Miscellaneous Notes* Telephone Encounter - Mariluz Reid RN - 06/25/2022 8:39 AM EST Left message for patient to see if he would like to meet with speech again prior to his total laryngectomy. It has been several months since he met with them before his surgery was canceled and now his surgery has been rescheduled in July with Dr. Barnes. [facility] Miscellaneous Notes* Telephone Encounter - Mariluz Reid RN - 05/05/2022 3:49 PM EDT Order faxed. Surgery to be scheduled. Mariluz Reid RN * Telephone Encounter - Mariluz Reid RN - 05/05/2022 2:39 PM EDT Blood alcohol level ordered. Will fax to [facility]: [phone] T: [phone] Mariluz Reid RN documented [facility]Reg[facility]22 Miscellaneous Notes* Telephone Encounter - Mariluz Reid RN - 05/04/2022 4:53 PM EDT Returned call and spoke to patient. He is interested in surgery with Dr. Barnes. Will discuss with Dr. Barnes. Mariluz Reid RN * Telephone Encounter - Elvia Acuña [facility] - 05/04/2022 3:10 PM EDT Person Calling: Pt (Matthieu) Reason for Call: Pt contacted the office requesting a call back Pt Phone #: [phone] Elvia Acuña [employer] documented in [facility]Reg[facility]22 Note Discharge Instructions Thank you for allowing [facility] to assist you with your healthcare needs. The following is importantdischarge information regarding your hospital visit. Your Care Team NGOZI BRAUN DO Your Diagnosis Hyponatremia Alcohol abuse C. difficile diarrhea Laryngeal cancer Dysphagia Tracheostomy present Cancer related pain What to do next Instructions From Your Doctor Please follow-up with your primary care provider and legislative assistant doctor as an outpatient. Follow Up Appointments Follow Up with JOSE ADAMS MD When Within 1-2 days Where: [address] [facility], [place] [phone] Follow Up with NGOZI BRAUN DO When Within 1-2 days Where: [address] [place] [phone] The Following Activity and Diet Have Been Ordered for You Transfer of Care Activity - Ordered -- As instructed by therapy, 04/06/22 17:32:00 EDT Transfer of Care Diet - Ordered -- Vital AF 1.2 Deshaun, Bolus feed, TID, 04/06/22 17:32:00 EDT The Following Treatments Have Been Ordered for You Discharge Labs Transfer of Care Labwork - Ordered -- BMP, hyponatremia, follow-up within: 2-4 days, Results Notify to: NGOZI BRAUN DO Results Notify to: Tang mendez, 04/06/22 17:32:00 EDT Discharge Radiology No qualifying data available. Other Therapies Transfer of Care OT - Ordered -- Reason for therapy: weakness, 04/06/22 17:32:00 EDT Transfer of Care PT - Ordered -- Reason for therapy: weakness, 04/06/22 17:32:00 EDT Transfer of Care Respiratory Therapy - Ordered -- Your therapy ordered is: Trach care, Relevant Diagnosis: Trach, Reason for therapy: Trach, 04/06/22 17:32:00 EDT Post Acute Orders Transfer of Care Code Status - Ordered -- Full Code, Constant Order Transfer of Care Communication Order - Ordered -- Please perfom trach and PEG care daily, 04/06/22 17:32:43 EDT Transfer of Care Labwork - Ordered -- BMP, hyponatremia, follow-up within: 2-4 days, Results Notify to: NGOZI BRAUN DO Results Notify to: Tang mendez, 04/06/22 17:32:00 EDT Transfer of Care Orders Electronically Signed By - Ordered -- 04/06/22 17:32:00 EDT, OLAF AWAD APRN-LENA Transfer of Care Prognosis - Ordered -- Fair, Patient Aware: Yes Transfer of Care Rehab Potential - Ordered -- Rehab potential fair, 04/06/22 17:32:43 EDT Medications Please ask your primary doctor or pharmacist before taking any other medication not listed, including over the counter drugs, herbal medications, vitamins and or supplements as they may interact withyour home medications. What How Much When Why Instructions Last Dose New albuterol-ipratropium (DuoNeb) 3 Milliliter by inhalation Every 2 Hours as needed for Shortness of breath (SOB) New budesonide (budesonide 0.25 mg/ 2 mL inhalation suspension) 2 Milliliter by inhalation Two (2) times a day New folic acid (folic acid 1 mg oral tablet) 1 tab(s) PEG tube Once a day New thiamine (thiamine 100 mg oral tablet) 1 tab(s) PEG tube Once a day New vancomycin (vancomycin 50 mg/ mL ORAL solution) 5 Milliliter by mouth Four (4) times a day Duration: 4 Days Unchanged bacillus coagulans-inulin (Probiotic Formula (Bacillus Coagulans) oral capsule) 1 cap by mouth Once a day Unchanged DULoxetine (DULoxetine 60 mg oral delayed release capsule) 1 cap by mouth Once a day Unchanged gabapentin (gabapentin 600 mg oral tablet) 1 tab(s) by mouth Three (3) times a day Cancer related pain Duration: 30 Days Unchanged guaiFENesin (guaiFENesin 100 mg/ 5 mL oral liquid) 10 Milliliter by mouth Every 4 hours as needed for as needed for cough Unchanged lactulose (lactulose 10 g/ 15 mL oral syrup) 15 Milliliter by mouth Every day Unchanged levothyroxine (levothyroxine 150 mcg (0.15 mg) oral tablet) 1 tab(s) by mouth Once a day Unchanged loperamide (Imodium A-D 2 mg oral tablet) 1 tab(s) by mouth Every 4 hours as needed for for loose stool Unchanged nicotine (nicotine 21mg / 24hrs transdermal patch) 1 patch(es) Transdermal Once a day Unchanged omeprazole (omeprazole 40 mg oral delayed release capsule) 1 cap by mouth Once a day GERD Active Unchanged oxyCODONE (oxyCODONE 15 mg oral tablet ( IMMEDIATE release )) 1 tab(s) by mouth Every 8 hours as needed for as needed for pain Laryngeal cancer Cancer related pain Unchanged propranolol (propranolol 20 mg oral tablet) 1 tab(s) PEG tube Two (2) times a day Essential tremor Unchanged senna (Senna 8.6 mg oral tablet) 2 tab(s) by mouth Two (2) times a day as needed for as needed for constipation Unchanged sucralfate (sucralfate 1 g oral tablet) 1 tab(s) by mouth Four (4) times daily-before meals and at bedtime DISSOLVE 1 TABLET IN AT LEAST 10 ML OF WATER FOR 15 TO 20 MINUTES, TAKE FOUR TIMES A DAY What How Much When Why Comments Stop Taking LORazepam (LORazepam 0.5 mg oral tablet) 1 tab(s) by mouth Daily at bedtime Insomnia Laryngeal cancer Stop Taking methadone (methadone 5 mg oral tablet) 1 tab(s) by mouth Two (2) times a day Laryngeal cancer Cancer related pain Stop Taking naloxone (naloxone 4 mg/ 0.1 mL nasal spray) 1 spray(s) Intranasal As Directed as needed for see pharmacy notes may repeat every 2 to 3 minutes until patient responds Please take this list to your next doctor s visit. Bring all medications you take, including over the counter medications, herbals and other supplements with you to your doctor s visit. Patients and families are reminded to discard old lists and to update any records with all medication providers or retail pharmacies. Education Materials FAQs about Clostridium Difficile (frequently asked questions) What is Clostridium difficile infection? Clostridium difficile [pronounced Vdh-JWSQF-ip-um dif-uh-SEEL], also known as C. diff [See-dif], luca germ that can cause diarrhea. Most cases of C. diff infection occur in patients taking antibiotics. The most common symptoms of a C. diff infection include: Watery diarrhea Fever Loss of appetite Nausea Belly pain and tenderness Who is most likely to get C. diff infection? The elderly and people with certain medical problems have the greatest chance of getting C. diff. C. diff spores can live outside the human body for a very long time and may be found on things in theenvironment such as bed linens, bed rails, bathroom fixtures, and medical equipment. C. diff infection can spread from person-to person on contaminated equipment and on the hands of doctors, nurses, other healthcare providers and visitors. Can C. diff infection be treated? Yes, there are antibiotics that can be used to treat C. diff. In some severe cases, a person might have to have surgery to remove the infected part of the intestines. This surgery is needed in only 1 or 2 out of every 100 persons with C. diff. What are some of the things that hospitals are doing to prevent C. diff infections? To prevent C. diff. infections, doctors, nurses, and other healthcare providers: Clean their hands with soap and water or an alcohol-based hand rub before and after caring for every patient. This can prevent C. diff and other germs from being passed from one patient to another on their hands. Carefully clean hospital rooms and medical equipment that have been used for patients with C. diff. Use Contact Precautions to prevent C. diff from spreading to other patients. Contact Precautions mean: ao Whenever possible, patients with C. diff will have a single room or share a room only with someone else who also has C. diff. regina Healthcare providers will put on gloves and wear a gown over their clothing while taking care ofpatients with C. diff. co Visitors may also be asked to wear a gown and gloves. do When leaving the room, hospital providers and visitors remove their gown and gloves and clean their hands. o Patients on Contact Precautions are asked to stay in their hospital rooms as much as possible. They should not go to common areas, such as the gift shop or cafeteria. They can go to other areas of the hospital for treatments and tests. Only give patients antibiotics when it is necessary. What can I do to help prevent C. diff infections? Make sure that all doctors, nurses, and other healthcare provid ers clean their hands with soap andwater or an alcohol-based hand rub before and after caring for you. Only take antibiotics as prescribed by your doctor. Be sure to clean your own hands often, especially after using the bathroom and before eating. If you do not see your providers clean their hands, please ask them to do so. Can my friends and family get C. diff when they visit me? C. diff infection usually does not occur in persons who are not maicol ing antibiotics. Visitors are not likely to get C. diff. Still, to make it safer for visitors, they should: Clean their hands before they enter your room and as they leave your room Ask the nurse if they need to wear protective gowns and gloves when they visit you. What do I need to do when I go home from the hospital? Once you are back at home, you can return to your normal rou keisha. Often, the diarrhea will be better or completely gone before you go home. This makes giving C. diff to other people much less likely. There are a few things youshould do, however, to lower the chances of developing C. diff infection again or of spreading it to others. If you are given a prescription to treat C. diff, take the medicine exactly as prescribed by your doctor and pharmacist. Do not take half-doses or stop before you run out. Wash your hands often, especially after going to the bathroom and before preparing food. People who live with you should wash their hands often as well. If you develop more diarrhea after you get home, tell your doctor immediately. Your doctor may give you additional instructions. If you have questions, please ask your doctor or nurse. Co-sponsered by: FRANZ, IDSA, AHA, APIC, CDC, The Joint Commission Additional Information VACCINATE! IT SAVES LIVES! Members of the community who have not yet received the COVID-19 vaccine and would like to receive it can visit one of [facility] vaccine clinics. There are many vaccine clinic locations within the [facility]. For locations and available times, please visit [email or web address] It is important to note that some COVID mobile vaccine clinics are held outdoors and may be canceled in rainy or stormy conditions. To learn more about pediatric vaccinations (ages 5-11), we invite you to visit the [facility] webpage. [email or web address]/[email or web address]-[email or web address]-Fqt stions.htmlTo learn more about the COVID-19 vaccine, we invite you to visit the [facility] website for a list of frequently asked questions. [email or web address] _[email or web address].pdf [facility] Patient [facility] Access Instructions: Stay connected with your healthcare team and access your personal medical information anytime with the [facility] Patient Portal.If you would like a full copy of your medical records, please contact the [facility] Medical Records Department, Tuesday through Tuesday between 8a.m. and 4:30p.m. Please follow the directions below to access the portal: 1.Access the email account you provided upon registration to the [facility].2.Look for an invitation email from [facility].3.Open the email and access the invitation link: Accept Invitation to [facility].Fill in the required burr to create your account. Sign into [email or web address].FND with your username and password that you created in the above steps to stay up to date. You can then view a summary of results, a summary of your visits, and the ability to download your summaries to your computer or send the information securely to a physician. Remember that your healthcare information is confidential, so carefully consider who you will allow to register on the [facility] Patient Portal for access to your information. You can also access the [facility] Patient Portal on the Drinks4-you ngoc. Simply click on Health Records under [employer] and then click on the [facility] logo. HOW TO SAFELY DISPOSE OF PRESCRIPTION MEDICATIONS Please use one of the following methods to safely dispose of your unused medications. 1.Use a drug disposal kit: the drug disposal pouch allows you to safely discard your old and unuseddrugs. Ask your nurse to give you one when you are discharged.2.Visit a local take-back location: Many local pharmacies and police departments have programs that collect old and unwanted prescriptiondrugs. Call your local pharmacy or go to http://bit.Coinapult/6I0Fh0i to find one close to you.3.Make use of household items: Use cat litter or old coffee grounds to dispose medications if other options arenot available. Mix your drugs with these household products, seal them in an airtight container andthrow it into the garbage. Call [facility]: [phone] to be sure your drugs can be disposed of in this way. Some medicines may require a different approach.4.Never flush your medications down the toilet. IF YOU HAVE BEEN PRESCRIBED AN OPIOID FOR PAIN If you have been prescribed an opioid (such as hydrocodone, oxycodone or morphine), it is critical to understand the possible side effects and risks of opioid pain medications. Even when taken as directed, opioids can have several side effects including: Tolerance, meaning you might need to take more of a medication for the same pain relief. Nausea, vomiting and/or constipation. Sleepiness, dizziness, dry mouth, confusion, depression or itching. Physical dependence, meaning you have withdrawal symptoms when a medication is stopped, can develop within a few days. KNOW YOUR RESPONSIBILITIES It is important to know exactly how much and how often to take the opioid pain medications you are prescribed. Never take opioids in higher amounts or more often than prescribed. Do not combine opioids with alcohol or other drugs that cause drowsiness, such as benzodiazepines, also known as benzos, including diazepam and alprazolam, muscle relaxants or sleep aids. Never sell or share prescription opioids. This is illegal. Store opioids in a secure place and out of reach of others (including children, family, friends and visitors). The last page of this document has been signed and retained as a CHART COPY. Signatures Patient Education Materials 6- FAQ about C-Dif (10/24 IC)(CUSTOM) Medication Leaflets My discharge plan and instructions have been reviewed and explained to me and IFLORIAN KEITH A understand my current condition and have read and understand these discharge instructions. I have received a written copy of the plan/instructions. If I have questions, I am aware that I should contact my doctor. Patient/Cordwood Cutter Signature: Date/Time: Relationship to Patient: Witness Name/Signature: Date/Time: [id number] IR Procedure Record Summary Primary Physician: SAMEER RAMOS MD Finalized Date/Time: 04/06/22 18:20:21 Pt. Name: MATTHIEU CARLIN Chris /Sex: 1970 Male Med Rec #: [id number] Physician: FRANK GALO MD Financial #: [id number] Pt. Type: I Room/Bed: [facility]/A Admit/Disch: 03/30/22 00:10:00 - Institution: Allergies identified in patient's electronic medical record at time of printing on 04/06/22 Entry 1 Substance NKA Reaction Type Allergy Last Modified By: Christen Christianson ED, RN 03/08/20 12:28:35 Case Attendance- IR Entry 1 Entry 2 Entry 3 Case Attendee SAMEER RAMOS MD Faisal, Credit Resolution Representative OJHN Gao Role Performed Primary Surgeon Scrub Technologist Treating Engineer Helper 1 Details Time In 04/06/22 17:35:00 04/06/22 17:35:00 04/06/22 17:35:00 Time Out 04/06/22 18:04:00 04/06/22 18:12:00 04/06/22 18:12:00 Procedure/Preference IR Gastro Tube Place IR Gastro Tube Place IR Gastro Tube Place Card Percut w/Fluoro SN Percut w/Fluoro SN Percut w/Fluoro SN Last Modified By: JOHN Mayorga RN Melanie L Lee, RN Melanie L 04/06/22 18:04:15 04/06/22 18:04:15 04/06/22 18:04:15 Radiology Procedures- IR Entry 1 Procedure/Preference IR Gastro Tube Place Actual Procedure Gastro Tube Place Percut Card Percut w/Fluoro SN Primary Procedure Yes Primary Surgeon SAMEER RAMSO MD Anesthesia/Sedation None Type Additional Procedure Times Start 04/06/22 17:39:00 Stop 04/06/22 18:04:00 Specialty Service SN Radiology Procedure EBL 0 mL Last Modified By: JOHN Mayorga 04/06/22 18:04:26 Radiology Procedure Details - IR Entry 1 Radiology Sedation Case Times Sedation Total Time 0 Radiology - Fluid/Drainage Radiology Contrast Contrast Used? Yes Dose 25 mL Medication OMNIPAQUE 350 50ML 10/PK Y-540 Radiology Flouroscopy Fluoroscopy Used? Yes Fluoro Dose (mGy) 27.23 Fluoro Time 1.2mins Radiology Local Local Used? No Radiology Procedure Site Site/Location abdomen Site Condition No complications Dressing Type Gauze sponge 4 X 4 Technologist Notes entuit gastrostomy BR 20F LOT [id number] Last Modified By: JOHN Mayorga 04/06/22 18:05:40 General Case Data - IR Entry 1 Case Information Room AH IR 16 Case Level IR Level 2 Wound Class None Specialty SN Radiology Procedure ASA Class None Diagnosis Preop Diagnosis peg tube exchange Postop Same As Preop Yes Postop Diagnosis peg tube exchange Last Modified By: JOHN Mayorga 04/06/22 17:54:15 Procedure Case Times- IR Entry 1 Patient In Procedure Patient In OR 04/06/22 17:35:00 Patient Out of OR 04/06/22 18:12:00 Procedure Start/Stop Procedure Start Time 04/06/22 17:39:00 Procedure Stop Time 04/06/22 18:04:00 Last Modified By: JOHN Mayorga 04/06/22 18:04:09 Immediate Post Procedure Note - IR Entry 1 Immediate Post Yes Procedure Note displayed for Physician to review Closure Technique Closure Technique Other than Primary Last Modified By: JOHN Mayorga 04/06/22 17:53:29 Immediate Post Procedure Note - IR Signed By: SAMEER RAMOS MD 04/06/22 18:04 Allergy Information- IR Entry 1 Allergies Reviewed? Yes Allergies Reviewed Medical Record With Last Modified By: JOHN Mayorga 04/06/22 17:49:31 Radiology Protocols/Time Out- IR Entry 1 Preprocedure Clinician Verifies Correct patient ID When Clinically Confirmation of correct using name & date Indicated side(s) and site(s), or MRN, Accurate Correct diagnostic and procedure, complete radiology tests Informed Consent, H & P available, Required update immediately blood products, prior to procedure, if implants, devices applicable and/or special equipment available OR/Procedure Room/Bedside Time 04/06/22 17:39:00 Clinician Verifies Correct patient identity including EMR & records using name and date or medical record number, Accurate procedure consent form, Correct patient position, Necessary equipment is available, Anticipated non-routine events with surgical team (case duration, estimated blood loss, patient specific concerns)., Trevino patient factors for recovery and management identified with surgical team. When Applicable Confirmation correct Team Members SAMEER RAMOS MD, Allen, side and site marked, Present for Time Out Mukesh Venegas RN Relevant images and Monica Alfaro results are properly labeled and appropriately displayed, Alcohol based prep dry, Double verification of sterility indicators complete Instrument Sterility Team Members SAMEER RAMOS MD, Allen, Verifying Sterility Ankur Salvador Procedure IR Gastro Tube Place Percut w/Fluoro SN Last Modified By: JOHN Mayorga 04/06/22 17:52:48 Skin Prep- IR Entry [address] Percut w/Fluoro SN Skin Prep Prep Area Abdomen Side Medial By Ankur Malone Prep Agents Chloraprep Hair Removal Method N/A Last Modified By: JOHN Mayorga 04/06/22 17:53:12 Patient Positioning- IR Entry [address] Body Position OP Supine Percut w/Fluoro SN Feet Uncrossed? Yes Pressure Points Yes Checked Last Modified By: JOHN Mayorga 04/06/22 17:53:20 Radiology Procedure Plan - IR Entry 1 Radiology - Nursing Care Plan Outcome Statement The patient Outcome Statement The patient receives demonstrates knowledge Cont. appropriate of the expected medication(s), safely responses to the administered during the operative/invasive perioperative/invasive procedure., The period., The patient is patient's value system, free from signs and lifestyle, ethnicity, symptoms of injury and culture are caused by extraneous considered, respected, objects (equipment, and incorporated in the instrumentation, perioperative plan of sponges, or sharps). care., The patient is free from signs and symptoms of infection. Radiology - Action Plan Outcomes Met? Yes Lump Machine Operator JOHN Mayorga Completing Procedure Plan Last Modified By: JOHN Mayorga 04/06/22 17:53:39 Case Comments Finalized By: Ankur Malone Document Signatures Signed By: JOHN Mayorga 04/06/22 18:06 Ankur Malone 04/06/22 18:20 [id number] Brief IR Post Procedure Note - Inpatient/Obs Pre Procedure Dx: G-tube malfunction Post Procedure Dx: Same Procedure: 1. Gastrostomy tube exchange under fluoro Sales Support Manager: Rd Rn Progressive Care Unit: None Anesthesia: None EBL: None Complications:None Status: Stable Findings: 1. Existing tube is a mushroom type g-tube (placed endoscopically). Per pt placed at [place], Dr. Howell. 2. Over wire, removed old tube and placed a 20 Fr balloon retention gastrostomy tube. Plan: 1. May use G-tube now 2. Pain med given mushroom tube removal was painful. Full report to follow. Orders in Cerner. Sameer Ramos MD Vascular & Interventional Rad[facility] ([facility]) Hong [email or web address] Pager: [phone] [facility] Dept (07/03): [id number] [facility] [phone] [facility] (Updated 05/2021) Digitally Signed by SAMEER RAMOS MD on 04/06/2022 06:16 PM [id number] Note Date of Service 04/06/2022 Chief Complaint Thick trach secretions Subjective 51-year-old male with a past medical history of laryngeal cancer status post chemoradiation status post tracheostomy with PEG tube placement, hypertension, GERD, alcohol abuse, tobacco abuse originally came to the hospital with altered mental status. Patient was originally admitted to the ICU for alcohol withdrawal protocol and hyponatremia. Patient was started on CIWA protocol and was given fluid resuscitation. Patient sodium started to improve and is now within normal limits. Patient no longer withdrawing from alcohol. Unfortunately patient's PEG tube started to leak and GI was consulted. PT OT saw patient recommending long-term facility. Plan for IR PEG replacement today. Patient seen and examined sitting up at the side of the bed. He has no complaints this morning. He is waiting for his PEG tube exchange. Patient is anxious to be discharged. Objective Vitals and Measurements T: 36.8 C (Oral) TMIN: 36.8 C (Oral) TMAX: 36.9 C (Oral) HR: 59 RR: 16 BP: 118/83 SpO2: 97% Intake and Output 7AM Yesterday to 7AM Today Intake and Output (Last 24 hours) Intake Tube Feeding Intake 948.00 Enteral Tube Intake: 1660.00 Output Total Summary Total Intake 2608.00 Total Output 0.00 Fluid Balance 2608.00 Physical Exam General: No acute distress. Alert and Appropriate Skin: No rash. Warm, Dry, Intact HEENT: Head is normocephalic and atraumatic. No lesions. Pupils equal in size. Nose: No septal deviation. Mouth: Oropharynx mucosa is without lesion. Neck: Supple. Tracheostomy in place Lungs: Bilaterally diminished breath sounds with no crepitation or wheeze. Unlabored Cardiovascular: Heart is regular rhythm, S1S2, No extra-audible heart tones Abdomen: Abdomen is soft, nontender. Bowel sounds active all four quadrants. PEG tube present Extremities: No clubbing, cyanosis or edema. Peripheral pulses palpable. No calf tenderness. Adequate peripheral circulation. Neurological: The patient is awake, oriented to time, people and place. Following simple commands, moving all extremities. Weight Dosing Weight: 55 kg (03/30/22) Medications Medications (11) Active Scheduled: (8) folic acid 1 mg tablet 1 mg 1 tab(s), PEG, qDay gabapentin 300 mg Capsule 300 mg 1 cap(s), Oral, TID heparin 5,000 units/mL (1 mL) vial 5,000 unit(s) 1 mL, Subcutaneous, q8h levothyroxine 150 mcg tablet 150 mcg 1 tab(s), Oral, qDay Nicoderm patch REMOVAL 1 EA, Miscellaneous, q24h nicotine 14 mg/24 hr ER patch 14 mg 1 patch(es), Transdermal, q24h thiamine (w/calcium) 100 mg tablet 100 mg 1 tab(s), PEG, qDay vancomycin 250 mg / 5 mL ORAL Syringe 250 mg 5 mL, PEG, q6h Continuous: (0) PRN: (3) albuterol - ipratropium 2.5 mg-0.5 mg/3 mL Inhal Lucía UD 3 mL, Inhalation, q2hRT melatonin 3 mg tablet 3 mg 1 tab(s), Oral, qHS oxycodone 5 mg tablet (immediate release) 15 mg 3 tab(s), Oral, q8h Lab Results 04/06 06:41 WBC: 2.4 L Hgb: 11.2 L Hct: 32.6 L Platelet: 321 Glucose Level: 88 Sodium Level: 129 L Potassium Level: 4.0 BUN: 13.0 Creatinine Lvl (s): 0.40 L 04/05 06:48 WBC: 4.8 Hgb: 12.6 L Hct: 36.9 L Platelet: 268 Neutrophil %: 70.9 Glucose Level: 85 Sodium Level: 133 L Potassium Level: 4.1 BUN: 15.0 Creatinine Lvl (s): 0.41 L Imaging Results and Diagnostics XR Chest 1 View Result Date: March 30, 2022 Verified By: BECK GERBER MD CLINICAL STATEMENT: IMPRESSION: The no acute radiographic findings. I have personally reviewed the images of this examination and agree with theresident's findings and interpretation. EKG No qualifying data available. Assessment/Plan 1. Hyponatremia 2. Alcohol abuse 3. C. difficile diarrhea 4. Laryngeal cancer 5. Dysphagia 6. Tracheostomy present Leaking PEG tube GI following. PEG tube exchange by IR likely today. Metabolic encephalopathy- likely r/t alcohol withdrawal and hyponatremia. resolved. C. difficile On p.o. vancomycin, day 7, continue for 10 doses. Diarrhea improving. Hyponatremia sodium 129 this morning. We will monitor lab work. Patient was n.p.o. most of the day yesterday as his PEG tube exchange was supposed to take place yesterday however that did not happen. Alcohol abuse CIWA protocol has been discontinued. On thiamine/folate. Transaminitis secondary to alcohol abuse- will need outpatient follow-up with GI Hypertension stable GERD stable. Lactic acidosis resolved CODE STATUS full code DVT prophylaxis Heparin subq PT OT recommending long-term facility. Patient [facility] to [facility] after PEG tubehas been exchanged. Plan d/w patient at the bedside D/w Dr. Kurtz Time Spent 23 minutes Digitally Signed by OLAF AWAD on 04/06/2022 11:18 AM [id number] Discharge summary Date of Service 04/06/2022 Discharge Diagnosis 1. Hyponatremia (E87.1 - ICD-10-CM) 2. Alcohol abuse (F10.10 - ICD-10-CM) 3. C. difficile diarrhea (A04.72 - ICD-10-CM) 4. Laryngeal cancer (C32.9 - ICD-10-CM) 5. Dysphagia (R13.10 - ICD-10-CM) 6. Tracheostomy present (Z93.0 - ICD-10-CM) Hospital Course 51-year-old male with a past medical history of laryngeal cancer status post chemoradiation status post tracheostomy with PEG tube placement, hypertension, GERD, alcohol abuse, tobacco abuse originally came to the hospital with altered mental status. Patient was originally admitted to the ICU for alcohol withdrawal protocol and hyponatremia. Patient was started on CIWA protocol and was given fluid resuscitation. Patient sodium improved. Patient no longer withdrawing from alcohol. Continues on folic acid and thiamine. Did have elevated LFTs which he will need to follow-up with GI for. Also noted to be C. difficile positive, started on oral vanc which he will continue for 10 doses. Diarrhea has resolved. Unfortunately patient's PEG tube started to leak and GI was consulted. PT/OT saw patient recommending long-term facility. PEG tube was exchanged per interventional radiology today. Continue tube feeding as an outpatient. Patient seen and examined sitting up at the side of the bed this morning. He denies all complaints today. He is agreeable to discharge to SNF today with outpatient GI follow-up. Discussed with patient's about his medications as there are several medications labeled that he is not taking, patient states that he has not been taking Ativan or methadone and naloxone and these have been discontinued. Medically stable for discharge. Discussed with Dr. Kurtz. Allergies NKA Consults No qualifying data available. Imaging Results and Diagnostics XR Chest 1 View Result Date: March 30, 2022 Verified By: BECK GERBER MD CLINICAL STATEMENT: IMPRESSION: The no acute radiographic findings. I have personally reviewed the images of this examination and agree with theresident's findings and interpretation. Physical Exam Vitals and Measurements T: 36.9 C (Oral) TMIN: 36.8 C (Oral) TMAX: 36.9 C (Oral) HR: 64 RR: 16 BP: 116/80 SpO2: 100% Weight Dosing Weight: 55 kg (03/30/22) General: No acute distress. Alert and Appropriate Skin: No rash. Warm, Dry, Intact HEENT: Head is normocephalic and atraumatic. No lesions. Pupils equal in size. Nose: No septal deviation. Mouth: Oropharynx mucosa is without lesion. Neck: Supple. Tracheostomy in place Lungs: Bilaterally diminished breath sounds with no crepitation or wheeze. Unlabored Cardiovascular: Heart is regular rhythm, S1S2, No extra-audible heart tones Abdomen: Abdomen is soft, nontender. Bowel sounds active all four quadrants. PEG tube present Extremities: No clubbing, cyanosis or edema. Peripheral pulses palpable. No calf tenderness. Adequate peripheral circulation. Neurological: The patient is awake, oriented to time, people and place. Following simple commands, moving all extremities. Code Status Code Status - Ordered -- 03/30/22 6:24:00 EDT, Full Code, Constant Order Admission Date 03/30/2022 Discharge Date 04/06/2022 Patient Instructions Please follow-up with your primary care provider and legislative assistant doctor as an outpatient. Medications New Prescription albuterol-ipratropium (DuoNeb)3 Milliliter by inhalation Every 2 Hours as needed Shortness of breath (SOB). budesonide (budesonide 0.25 mg/2 mL inhalation suspension)2 Milliliter by inhalation two (2) times a day. folic acid (folic acid 1 mg oral tablet)1 tab(s) PEG tube once a day. Refills: 0. thiamine (thiamine 100 mg oral tablet)1 tab(s) PEG tube once a day. Refills: 0. vancomycin (vancomycin 50 mg/mL ORAL solution)5 Milliliter by mouth four (4) times a day for 4 Days. Refills: 0. Unchanged bacillus coagulans-inulin (Probiotic Formula (Bacillus Coagulans) oral capsule)1 cap by mouth once a day. Refills: 0. DULoxetine (DULoxetine 60 mg oral delayed release capsule)1 cap by mouth once a day. Refills: 2. gabapentin (gabapentin 600 mg oral tablet)1 tab(s) by mouth three (3) times a day for 30 Days. Refills: 3. guaiFENesin (guaiFENesin 100 mg/5 mL oral liquid)10 Milliliter by mouth every 4 hours as needed as needed for cough. Refills: 3. lactulose (lactulose 10 g/15 mL oral syrup)15 Milliliter by mouth every day. Refills: 2. levothyroxine (levothyroxine 150 mcg (0.15 mg) oral tablet)1 tab(s) by mouth once a day. loperamide (Imodium A-D 2 mg oral tablet)1 tab(s) by mouth every 4 hours as needed for loose stool.Refills: 1. nicotine (nicotine 21mg / 24hrs transdermal patch)1 patch(es) Transdermal once a day. Refills: 1. omeprazole (omeprazole 40 mg oral delayed release capsule)1 cap by mouth once a day. Refills: 1. oxyCODONE (oxyCODONE 15 mg oral tablet ( IMMEDIATE release ))1 tab(s) by mouth every 8 hours as needed as needed for pain. Refills: 0. propranolol (propranolol 20 mg oral tablet)1 tab(s) PEG tube two (2) times a day. Refills: 1. senna (Senna 8.6 mg oral tablet)2 tab(s) by mouth two (2) times a day as needed as needed for constipation. Refills: 2. sucralfate (sucralfate 1 g oral tablet)1 tab(s) by mouth four (4) times daily- before meals and at bedtime. DISSOLVE 1 TABLET IN AT LEAST 10 ML OF WATER FOR 15 TO 20 MINUTES, TAKE FOUR TIMES A DAY. Discontinued LORazepam (LORazepam 0.5 mg oral tablet)1 tab(s) by mouth daily at bedtime. Refills: 2. methadone (methadone 5 mg oral tablet)1 tab(s) by mouth two (2) times a day. Refills: 0. naloxone (naloxone 4 mg/0.1 mL nasal spray)1 spray(s) Intranasal As Directed as needed see pharmacynotes. may repeat every 2 to 3 minutes until patient responds. Refills: 0. Follow Up Follow Up with JOSE ADAMS MD When Within 1-2 days Where: [address] [facility], [place] [address]- [phone] Follow Up with NGOZI BRAUN DO When Within 1-2 days Where: [address] [place] [address]- [phone] Follow Up Appointments Transfer of Care OT - Ordered -- Reason for therapy: weakness, 04/06/22 17:32:00 EDT Transfer of Care PT - Ordered -- Reason for therapy: weakness, 04/06/22 17:32:00 EDT Transfer of Care Respiratory Therapy - Ordered -- Your therapy ordered is: Trach care, Relevant Diagnosis: Trach, Reason for therapy: Trach, 04/06/22 17:32:00 EDT Follow Up Labs/Studies Discharge Labs Transfer of Care Labwork - Ordered -- BMP, hyponatremia, follow-up within: 2-4 days, Results Notify to: NGOZI BRAUN DO Results Notify to: Tang mendez, 04/06/22 17:32:00 EDT Discharge Studies No Follow-up Studies Discharge Diet Transfer of Care Diet - Ordered -- Vital AF 1.2 Deshaun, Bolus feed, TID, 04/06/22 17:32:00 EDT Discharge Activity Transfer of Care Activity - Ordered -- As instructed by therapy, 04/06/22 17:32:00 EDT Condition on Discharge Stable Discharge Disposition [facility] Tang Mendez Information Provided To Patient Time Spent 36 minutes Digitally Signed by OLAF AWAD on 04/06/2022 09:11 PM [id number] Note Date of Service 04/06/2022 Chief Complaint Thick trach secretions Subjective 51-year-old male with a past medical history of laryngeal cancer status post chemoradiation status post tracheostomy with PEG tube placement, hypertension, GERD, alcohol abuse, tobacco abuse originally came to the hospital with altered mental status. Patient was originally admitted to the ICU for alcohol withdrawal protocol and hyponatremia. Patient was started on CIWA protocol and was given fluid resuscitation. Patient sodium started to improve and is now within normal limits. Patient no longer withdrawing from alcohol. Unfortunately patient's PEG tube started to leak and GI was consulted. PT OT saw patient recommending long-term facility. Plan for IR PEG replacement today. Patient seen and examined sitting up at the side of the bed. He has no complaints this morning. He is waiting for his PEG tube exchange. Patient is anxious to be discharged. Objective Vitals and Measurements T: 36.8 C (Oral) TMIN: 36.8 C (Oral) TMAX: 36.9 C (Oral) HR: 59 RR: 16 BP: 118/83 SpO2: 97% Intake and Output 7AM Yesterday to 7AM Today Intake and Output (Last 24 hours) Intake Tube Feeding Intake 948.00 Enteral Tube Intake: 1660.00 Output Total Summary Total Intake 2608.00 Total Output 0.00 Fluid Balance 2608.00 Physical Exam General: No acute distress. Alert and Appropriate Skin: No rash. Warm, Dry, Intact HEENT: Head is normocephalic and atraumatic. No lesions. Pupils equal in size. Nose: No septal deviation. Mouth: Oropharynx mucosa is without lesion. Neck: Supple. Tracheostomy in place Lungs: Bilaterally diminished breath sounds with no crepitation or wheeze. Unlabored Cardiovascular: Heart is regular rhythm, S1S2, No extra-audible heart tones Abdomen: Abdomen is soft, nontender. Bowel sounds active all four quadrants. PEG tube present Extremities: No clubbing, cyanosis or edema. Peripheral pulses palpable. No calf tenderness. Adequate peripheral circulation. Neurological: The patient is awake, oriented to time, people and place. Following simple commands, moving all extremities. Weight Dosing Weight: 55 kg (03/30/22) Medications Medications (11) Active Scheduled: (8) folic acid 1 mg tablet 1 mg 1 tab(s), PEG, qDay gabapentin 300 mg Capsule 300 mg 1 cap(s), Oral, TID heparin 5,000 units/mL (1 mL) vial 5,000 unit(s) 1 mL, Subcutaneous, q8h levothyroxine 150 mcg tablet 150 mcg 1 tab(s), Oral, qDay Nicoderm patch REMOVAL 1 EA, Miscellaneous, q24h nicotine 14 mg/24 hr ER patch 14 mg 1 patch(es), Transdermal, q24h thiamine (w/calcium) 100 mg tablet 100 mg 1 tab(s), PEG, qDay vancomycin 250 mg / 5 mL ORAL Syringe 250 mg 5 mL, PEG, q6h Continuous: (0) PRN: (3) albuterol - ipratropium 2.5 mg-0.5 mg/3 mL Inhal Lucía UD 3 mL, Inhalation, q2hRT melatonin 3 mg tablet 3 mg 1 tab(s), Oral, qHS oxycodone 5 mg tablet (immediate release) 15 mg 3 tab(s), Oral, q8h Lab Results 04/06 06:41 WBC: 2.4 L Hgb: 11.2 L Hct: 32.6 L Platelet: 321 Glucose Level: 88 Sodium Level: 129 L Potassium Level: 4.0 BUN: 13.0 Creatinine Lvl (s): 0.40 L 04/05 06:48 WBC: 4.8 Hgb: 12.6 L Hct: 36.9 L Platelet: 268 Neutrophil %: 70.9 Glucose Level: 85 Sodium Level: 133 L Potassium Level: 4.1 BUN: 15.0 Creatinine Lvl (s): 0.41 L Imaging Results and Diagnostics XR Chest 1 View Result Date: March 30, 2022 Verified By: BECK GERBER MD CLINICAL STATEMENT: IMPRESSION: The no acute radiographic findings. I have personally reviewed the images of this examination and agree with theresident's findings and interpretation. EKG No qualifying data available. Assessment/Plan 1. Hyponatremia 2. Alcohol abuse 3. C. difficile diarrhea 4. Laryngeal cancer 5. Dysphagia 6. Tracheostomy present Leaking PEG tube GI following. PEG tube exchange by IR likely today. Metabolic encephalopathy- likely r/t alcohol withdrawal and hyponatremia. resolved. C. difficile On p.o. vancomycin, day 7, continue for 10 doses. Diarrhea improving. Hyponatremia sodium 129 this morning. We will monitor lab work. Patient was n.p.o. most of the day yesterday as his PEG tube exchange was supposed to take place yesterday however that did not happen. Alcohol abuse CIWA protocol has been discontinued. On thiamine/folate. Transaminitis secondary to alcohol abuse- will need outpatient follow-up with GI Hypertension stable GERD stable. Lactic acidosis resolved CODE STATUS full code DVT prophylaxis Heparin subq PT OT recommending long-term facility. [facility] to [facility] after PEG tubehas been exchanged. Plan d/w patient at the bedside D/w Dr. Kurtz Time Spent 23 minutes Digitally Signed by OLAF AWAD on 04/06/2022 11:18 AM [id number] Note Date of Service 04/05/2022 Chief Complaint Thick trach secretions Subjective 51-year-old male with a past medical history of laryngeal cancer status post chemoradiation status post tracheostomy with PEG tube placement, hypertension, GERD, alcohol abuse, tobacco abuse originally came to the hospital with altered mental status. Patient was originally admitted to the ICU for alcohol withdrawal protocol and hyponatremia. Patient was started on CIWA protocol and was given fluid resuscitation. Patient sodium started to improve and is now within normal limits. Patient no longer withdrawing from alcohol. Unfortunately patient's PEG tube started to leak this morning and GI wasconsulted. PT OT saw patient recommending long-term facility. Plan for IR PEG replacement today. Patient seen and examined sitting up in the chair. Still complaining of thick trach secretions and states that budesonide treatments and Mucinex are not helping. Denies any further episodes of diarrhea today. Currently waiting on PEG tube exchange. Objective Vitals and Measurements T: 36.8 C (Oral) TMIN: 36.6 C (Oral) TMAX: 37.0 C (Oral) HR: 66 RR: 18 BP: 118/79 SpO2: 100% Intake and Output 7AM Yesterday to 7AM Today Intake and Output (Last 24 hours) Intake Free Water: 150.00 Enteral Tube Intake: 1240.00 Oral Intake 100.00 Output Urine Voided 450.00 Stool Count 1.00 Urine Count 5.00 Total Summary Total Intake 1490.00 Total Output 450.00 Fluid Balance 1040.00 Physical Exam General: No acute distress. Alert and Appropriate Skin: No rash. Warm, Dry, Intact HEENT: Head is normocephalic and atraumatic. No lesions. Pupils equal in size. Nose: No septal deviation. Mouth: Oropharynx mucosa is without lesion. Neck: Supple. Tracheostomy in place with thick white secretions noted. Lungs: Bilaterally diminished breath sounds with no crepitation or wheeze. Unlabored Cardiovascular: Heart is regular rhythm, S1S2, No extra-audible heart tones Abdomen: Abdomen is soft, nontender. Bowel sounds hypoactive all four quadrants. PEG tube present Extremities: No clubbing, cyanosis or edema. Peripheral pulses palpable. No calf tenderness. Adequate peripheral circulation. Neurological: The patient is awake, oriented to time, people and place. Following simple commands, moving all extremities. Weight Dosing Weight: 55 kg (03/30/22) Medications Medications (12) Active Scheduled: (9) budesonide 0.25 mg/2 mL Susp UD 0.25 mg 2 mL, Inhalation, BIDRT folic acid 1 mg tablet 1 mg 1 tab(s), PEG, qDay gabapentin 300 mg Capsule 300 mg 1 cap(s), Oral, TID heparin 5,000 units/mL (1 mL) vial 5,000 unit(s) 1 mL, Subcutaneous, q8h levothyroxine 150 mcg tablet 150 mcg 1 tab(s), Oral, qDay Nicoderm patch REMOVAL 1 EA, Miscellaneous, q24h nicotine 14 mg/24 hr ER patch 14 mg 1 patch(es), Transdermal, q24h thiamine (w/calcium) 100 mg tablet 100 mg 1 tab(s), PEG, qDay vancomycin 250 mg / 5 mL ORAL Syringe 250 mg 5 mL, PEG, q6h Continuous: (0) PRN: (3) albuterol - ipratropium 2.5 mg-0.5 mg/3 mL Inhal Lucía UD 3 mL, Inhalation, q2hRT melatonin 3 mg tablet 3 mg 1 tab(s), Oral, qHS oxycodone 5 mg tablet (immediate release) 15 mg 3 tab(s), Oral, q8h Lab Results 04/05 06:48 WBC: 4.8 Hgb: 12.6 L Hct: 36.9 L Platelet: 268 Neutrophil %: 70.9 Glucose Level: 85 Sodium Level: 133 L Potassium Level: 4.1 BUN: 15.0 Creatinine Lvl (s): 0.41 L 04/04 07:44 WBC: 3.2 L Hgb: 12.6 L Hct: 37.0 L Platelet: 266 Neutrophil %: 65.8 Glucose Level: 99 Sodium Level: 132 L Potassium Level: 4.0 BUN: 19.0 Creatinine Lvl (s): 0.43 L Imaging Results and Diagnostics XR Chest 1 View Result Date: March 30, 2022 Verified By: BECK GERBER MD CLINICAL STATEMENT: IMPRESSION: The no acute radiographic findings. I have personally reviewed the images of this examination and agree with theresident's findings and interpretation. EKG No qualifying data available. Assessment/Plan 1. Hyponatremia 2. Alcohol abuse 3. C. difficile diarrhea 4. Laryngeal cancer 5. Dysphagia 6. Tracheostomy present Leaking PEG tube GI following. PEG tube exchange by IR today. Metabolic encephalopathy- likely r/t alcohol withdrawal and hyponatremia. resolved. C. difficile On p.o. vancomycin, day 5, continue for 10 doses. Diarrhea improving. Hyponatremia improved. Sodium 133 this morning. Alcohol abuse CIWA protocol has been discontinued. On thiamine/folate. Transaminitis secondary to alcohol abuse- will need outpatient follow-up with GI Hypertension stable GERD stable. Lactic acidosis resolved Patient still complaining of thick trach secretions, states that breathing treatments and Mucinex are not helping. CODE STATUS full code DVT prophylaxis Heparin subq PT OT recommending long-term facility. Pre-CERT pending. After discussing with nursing staff,patient will likely have PEG tube exchanged tomorrow. Ready for discharge once pre-CERT has been obtained and PEG tube has been exchanged. Plan d/w patient at the bedside D/w Dr. Lee Time Spent 22 minutes Digitally Signed by OLAF AWAD on 04/05/2022 11:46 AM Digitally Signed by OLAF AWAD on 04/05/2022 01:37 PM [id number] Respiratory therapy Hospital Progress note Respiratory Therapy Evaluation Entered On: 04/04/2022 12:50 EDT Performed On: 04/04/2022 12:49 EDT by Anya Amaro LPN Respiratory Therapy Evaluation Pulmonary Status : Smoking history >20 pack years Surgical Status : No surgeries Chest X-Ray : Clear/not ordered Breath Sounds (RT) : Decreased bilaterally Respiratory Pattern (RT) : Regular RR=12-20 Cough (RT) : No spontaneous cough Respiratory Therapy Evaluation Score : 8 Level of Activity : Ambulatory Mental Status : Alert, oriented Respiratory Evaluation Triage Score : 4 - (6-10) Freq: TIDRT & Albuterol Q2hRT prn RT Assessment [Frequency/Schedule] : per protocol TID & Albuterol Q2h Anya Amaro LPN - 04/04/2022 12:49 EDT Digitally Signed by Anya Amaro LPN on 04/04/2022 12:49 PM [id number] Note Date of Service 04/04/2022 Chief Complaint Thick trach secretions Subjective 51-year-old male with a past medical history of laryngeal cancer status post chemoradiation status post tracheostomy with PEG tube placement, hypertension, GERD, alcohol abuse, tobacco abuse originally came to the hospital with altered mental status. Patient was originally admitted to the ICU for alcohol withdrawal protocol and hyponatremia. Patient was started on CIWA protocol and was given fluid resuscitation. Patient sodium started to improve and is now within normal limits. Patient no longer withdrawing from alcohol. Unfortunately patient's PEG tube started to leak this morning and GI wasconsulted. PT OT saw patient recommending long-term facility. Plan for IR PEG replacement on Tuesday. Patient seen and examined while ambulating in his room. Patient is still complaining of thick trachsecretions, states that the Mucinex has not helped. Patient did not receive any breathing treatments. We will add budesonide. Patient states that he has not had any more episodes of diarrhea. Objective Vitals and Measurements T: 36.7 C (Oral) TMIN: 36.6 C (Oral) TMAX: 37.0 C (Oral) HR: 78 RR: 18 BP: 132/89 SpO2: 99% Intake and Output 7AM Yesterday to 7AM Today Intake and Output (Last 24 hours) Intake Free Water: 160.00 Output Urine Voided 450.00 Total Summary Total Intake 160.00 Total Output 450.00 Fluid Balance -290.00 Physical Exam General: No acute distress. Alert and Appropriate Skin: No rash. Warm, Dry, Intact HEENT: Head is normocephalic and atraumatic. No lesions. Pupils equal in size. Nose: No septal deviation. Mouth: Oropharynx mucosa is without lesion. Neck: Supple. No lymphadenopathy, thyromegaly noted. Tracheostomy in place with thick white secretions noted. Lungs: Bilaterally diminished breath sounds with no crepitation or wheeze. Unlabored Cardiovascular: Heart is regular rhythm, S1S2, No extra-audible heart tones Abdomen: Abdomen is soft, nontender. Bowel sounds positive all four quadrants. PEG tube present Extremities: No clubbing, cyanosis or edema. Peripheral pulses palpable. No calf tenderness. Adequate peripheral circulation. Neurological: The patient is awake, oriented to time, people and place. Following simple commands, moving all extremities. Weight Dosing Weight: 55 kg (03/30/22) Medications Medications (12) Active Scheduled: (8) folic acid 1 mg tablet 1 mg 1 tab(s), PEG, qDay gabapentin 300 mg Capsule 300 mg 1 cap(s), Oral, TID heparin 5,000 units/mL (1 mL) vial 5,000 unit(s) 1 mL, Subcutaneous, q8h levothyroxine 150 mcg tablet 150 mcg 1 tab(s), Oral, qDay Nicoderm patch REMOVAL 1 EA, Miscellaneous, q24h nicotine 14 mg/24 hr ER patch 14 mg 1 patch(es), Transdermal, q24h thiamine (w/calcium) 100 mg tablet 100 mg 1 tab(s), PEG, qDay vancomycin 250 mg / 5 mL ORAL Syringe 250 mg 5 mL, PEG, q6h Continuous: (0) PRN: (4) albuterol - ipratropium 2.5 mg-0.5 mg/3 mL Inhal Lucía UD 3 mL, Inhalation, q2hRT guaifenesin 100 mg/5 mL 120 mL liquid 600 mg 30 mL, PEG, q12h melatonin 3 mg tablet 3 mg 1 tab(s), Oral, qHS oxycodone 5 mg tablet (immediate release) 15 mg 3 tab(s), Oral, q8h Lab Results 04/03 12:14 Glucose Level: 114 H Sodium Level: 132 L Potassium Level: 4.1 BUN: 21.0 Creatinine Lvl (s): 0.37 L Imaging Results and Diagnostics XR Chest 1 View Result Date: March 30, 2022 Verified By: BECK GERBER MD CLINICAL STATEMENT: IMPRESSION: The no acute radiographic findings. I have personally reviewed the images of this examination and agree with theresident's findings and interpretation. EKG No qualifying data available. Assessment/Plan 1. Hyponatremia 2. Alcohol abuse 3. C. difficile diarrhea 4. Laryngeal cancer 5. Dysphagia 6. Tracheostomy present Leaking PEG tube GI following. PEG tube exchange by IR on Tuesday. NPO at midnight for procedure. C. difficile On p.o. vancomycin, day 4, continue for now. Diarrhea improving. Hyponatremia improved. Sodium 132 this morning. Alcohol abuse CIWA protocol has been discontinued. On thiamine/folate. Transaminitis secondary to alcohol abuse- will need outpatient follow-up with GI Hypertension stable GERD stable. Lactic acidosis resolved Will add budesonide treatments for trach secretions, discontinue Mucinex as patient states that he feels that its making the secretions worse CODE STATUS full code DVT prophylaxis Heparin subq PT OT recommending long-term facility. Pre-CERT pending. PEG tube exchange tomorrow. Plan d/w patient at the bedside D/w Dr. Lee Time Spent 22 minutes Digitally Signed by OLAF AWAD on 04/04/2022 12:20 PM [id number] Note Date of Service 04/03/2022 Chief Complaint PEG leaking Subjective 51-year-old male with a past medical history of laryngeal cancer status post chemoradiation status post tracheostomy with PEG tube placement, hypertension, GERD, alcohol abuse, tobacco abuse originally came to the hospital with altered mental status. Patient was originally admitted to the ICU for alcohol withdrawal protocol and hyponatremia. Patient was started on CIWA protocol and was given fluid resuscitation. Patient sodium started to improve and is now within normal limits. Patient no longer withdrawing from alcohol. Unfortunately patient's PEG tube started to leak this morning and GI wasconsulted. PT OT saw patient recommending long-term facility. Plan for IR PEG replacement on Tuesday. Patient seen and examined resting in bed. He is complaining of thick secretions from his trach, white in color. Patient denies headache, dizziness, nausea, vomiting, chest pain, shortness of breath, diarrhea and problems with urination. States that he has not had any diarrhea for the past several days. Objective Vitals and Measurements T: 37.8 C (Oral) TMIN: 36.8 C (Oral) TMAX: 37.8 C (Oral) HR: 80 RR: 18 BP: 115/76 SpO2: 98% Intake and Output 7AM Yesterday to 7AM Today Intake and Output (Last 24 hours) Intake Free Water: 25.00 Enteral Tube Flush: 60.00 Oral Intake 120.00 Output Urine Voided 200.00 Stool Count 0.00 Emesis Count 0.00 Total Summary Total Intake 205.00 Total Output 200.00 Fluid Balance 5.00 Physical Exam Physical Exam General: No acute distress. Alert and Appropriate Skin: No rash. Warm, Dry, Intact HEENT: Head is normocephalic and atraumatic. No lesions. Pupils equal in size. Nose: No septal deviation. Mouth: Oropharynx mucosa is without lesion. Tracheostomy in place with thick white secretionsnoted. Neck: Supple. No lymphadenopathy, thyromegaly noted. Lungs: Bilaterally diminished breath sounds with no crepitation or wheeze. Unlabored Cardiovascular: Heart is regular rhythm, S1S2, No extra-audible heart tones Abdomen: Abdomen is soft, nontender. Bowel sounds positive all four quadrants. PEG tube present Extremities: No clubbing, cyanosis or edema. Peripheral pulses palpable. No calf tenderness. Adequate peripheral circulation. Neurological: The patient is awake, oriented to time, people and place. Following simple commands, moving all extremities. Weight Dosing Weight: 55 kg (03/30/22) Medications Medications (11) Active Scheduled: (8) folic acid 1 mg tablet 1 mg 1 tab(s), PEG, qDay gabapentin 300 mg Capsule 300 mg 1 cap(s), Oral, TID heparin 5,000 units/mL (1 mL) vial 5,000 unit(s) 1 mL, Subcutaneous, q8h levothyroxine 150 mcg tablet 150 mcg 1 tab(s), Oral, qDay Nicoderm patch REMOVAL 1 EA, Miscellaneous, q24h nicotine 14 mg/24 hr ER patch 14 mg 1 patch(es), Transdermal, q24h thiamine (w/calcium) 100 mg tablet 100 mg 1 tab(s), PEG, qDay vancomycin 250 mg / 5 mL ORAL Syringe 250 mg 5 mL, PEG, q6h Continuous: (0) PRN: (3) guaifenesin 100 mg/5 mL 120 mL liquid 600 mg 30 mL, PEG, q12h melatonin 3 mg tablet 3 mg 1 tab(s), Oral, qHS oxycodone 5 mg tablet (immediate release) 15 mg 3 tab(s), Oral, q8h Lab Results 04/02 05:09 WBC: 2.7 L Hgb: 12.8 L Hct: 37.8 L Platelet: 155 Neutrophil %: 62.4 Glucose Level: 151 H Sodium Level: 131 L Potassium Level: 3.0 L BUN: 13.0 Creatinine Lvl (s): 0.39 L Imaging Results and Diagnostics XR Chest 1 View Result Date: March 30, 2022 Verified By: BECK GERBER MD CLINICAL STATEMENT: IMPRESSION: The no acute radiographic findings. I have personally reviewed the images of this examination and agree with theresident's findings and interpretation. EKG No qualifying data available. Assessment/Plan 1. Hyponatremia 2. Alcohol abuse 3. C. difficile diarrhea 4. Laryngeal cancer 5. Dysphagia 6. Tracheostomy present Leaking PEG tube GI following. PEG tube exchange by IR on Tuesday. C. difficile On p.o. vancomycin, day 3, continue for now. Diarrhea improving. Hyponatremia resolved. Labs pending for this morning. Alcohol abuse CIWY protocol has been discontinued. On thiamine/folate. Transaminitis secondary to alcohol abuse- will need outpatient follow-up with GI Hypertension stable GERD stable. Lactic acidosis resolved Will add Mucinex and breathing treatments for second trach secretions CODE STATUS full code DVT prophylaxis Heparin subq PT OT recommending long-term facility. Pre-CERT pending. Plan d/w patient at the bedside D/w Dr. Lee Time Spent 22 minutes Digitally Signed by OLAF AWAD on 04/03/2022 11:26 AM [id number] Note Date of Service 04/02/2022 Chief Complaint Confusion Subjective 51-year-old male with a past medical history of laryngeal cancer status post chemoradiation status post tracheostomy with PEG tube placement, hypertension, GERD, alcohol abuse, tobacco abuse originally came to the hospital with altered mental status. Patient was originally admitted to the ICU for alcohol withdrawal protocol and hyponatremia. Patient was started on CIWA protocol and was given fluid resuscitation. Patient sodium started to improve and is now within normal limits. Patient no longer withdrawing from alcohol. Unfortunately patient's PEG tube started to leak this morning and GI wasconsulted. PT OT saw patient recommending long-term facility. 10 point view of systems negative except as stated above Objective Vitals and Measurements T: 36.9 C (Oral) TMIN: 36.7 C (Oral) TMAX: 37.7 C (Oral) HR: 70(Monitored) RR: 18 BP: 120/76 SpO2: 95% Intake and Output 7AM Yesterday to 7AM Today Intake and Output (Last 24 hours) Intake Free Water: 180.00 Enteral Tube Flush: 60.00 Output Total Summary Total Intake 240.00 Total Output 0.00 Fluid Balance 240.00 Physical Exam General Appearance: Appears to be stable and in no acute distress Head: Atraumatic and normocephalic EENT: EOMI, PERRLA, no oropharyngeal erythema, no tonsillar exudates, no conjunctival injection. sclera anicteric. Neck: Tracheostomy noted Cardiac: S1 and S2 normal. RRR. No murmurs, rubs, or gallops. No JVD. No hepatojugular reflex. Lungs: Good air entry bilaterally. No increased work for breathing. No wheezes, rhonchi, or rales. Abdomen: Leaking PEG tube noted Musculoskeletal: Full range of motion upper and lower extremities. No CVA tenderness. Extremities: No lower extremity pitting edema. 2+ radial and pedal pulses bilaterally. Neurological: CN II through XII grossly intact. 5/5 strength in upper and lower extremities. Skin: No abrasions, scars, or hematomas on visible skin. No cyanosis. No purulent discharge. Psychiatric: alert and oriented, well groomed, euthymic. cooperative Weight Dosing Weight: 55 kg (03/30/22) Medications Medications (25) Active Scheduled: (8) folic acid 1 mg tablet 1 mg 1 tab(s), PEG, qDay gabapentin 300 mg Capsule 300 mg 1 cap(s), Oral, TID heparin 5,000 units/mL (1 mL) vial 5,000 unit(s) 1 mL, Subcutaneous, q8h levothyroxine 150 mcg tablet 150 mcg 1 tab(s), Oral, qDay Nicoderm patch REMOVAL 1 EA, Miscellaneous, q24h nicotine 14 mg/24 hr ER patch 14 mg 1 patch(es), Transdermal, q24h thiamine (w/calcium) 100 mg tablet 100 mg 1 tab(s), PEG, qDay vancomycin 250 mg / 5 mL ORAL Syringe 250 mg 5 mL, PEG, q6h Continuous: (0) PRN: (17) guaifenesin 100 mg/5 mL 120 mL liquid 600 mg 30 mL, PEG, q12h LORAZEPam 1 mg Tablet 1 mg 1 tab(s), Oral, q15min LORAZEPam 1 mg Tablet 3 mg 3 tab(s), Oral, q15min LORAZEPam 2 mg Tablet 2 mg 1 tab(s), Oral, q15min LORAZEPam 2 mg Tablet 4 mg 2 tab(s), Oral, q15min LORAZEPam 2 mg/mL 1 mL vial 1 mg 0.5 mL, IV Push, q15min LORAZEPam 2 mg/mL 1 mL vial 2 mg 1 mL, IV Push, q15min LORAZEPam 2 mg/mL 1 mL vial 2 mg 1 mL, IV Push, q15min LORAZEPam 2 mg/mL 1 mL vial 3 mg 1.5 mL, IV Push, q15min LORAZEPam 2 mg/mL 1 mL vial 3 mg 1.5 mL, IV Push, q15min LORAZEPam 2 mg/mL 1 mL vial 3 mg 1.5 mL, IV Push, q15min LORAZEPam 2 mg/mL 1 mL vial 4 mg 2 mL, IV Push, q15min LORAZEPam 2 mg/mL 1 mL vial 4 mg 2 mL, IV Push, q15min LORAZEPam 2 mg/mL 1 mL vial 5 mg 2.5 mL, IV Push, q15min LORAZEPam 2 mg/mL 1 mL vial 6 mg 3 mL, IV Push, q15min melatonin 3 mg tablet 3 mg 1 tab(s), Oral, qHS oxycodone 5 mg tablet (immediate release) 15 mg 3 tab(s), Oral, q8h Lab Results 04/02 05:09 WBC: 2.7 L Hgb: 12.8 L Hct: 37.8 L Platelet: 155 Neutrophil %: 62.4 Glucose Level: 151 H Sodium Level: 131 L Potassium Level: 3.0 L BUN: 13.0 Creatinine Lvl (s): 0.39 L Imaging Results and Diagnostics XR Chest 1 View Result Date: March 30, 2022 Verified By: BECK GERBER MD CLINICAL STATEMENT: IMPRESSION: The no acute radiographic findings. I have personally reviewed the images of this examination and agree with theresident's findings and interpretation. EKG No qualifying data available. Assessment/Plan 1. Hyponatremia 2. Alcohol abuse 3. C. difficile diarrhea 4. Laryngeal cancer 5. Dysphagia 6. Tracheostomy present Orders: Consult to Physician Leaking PEG tube GI consulted, appreciate recommendations on PEG tube exchange C. difficile On p.o. vancomycin, continue for now. Diarrhea improving. Hyponatremia resolved, discontinue fluids. Alcohol abuse on CIWA not requiring Ativan. On thiamine/folate. Carla abnormalities replete as able Transaminitis secondary to alcohol abuse, will need outpatient follow-up Hypertension stable GERD stable. Lactic acidosis resolved Disposition: PT OT saw patient recommending long-term facility. Pre-CERT pending. Digitally Signed by LAURA LEE MD on 04/02/2022 11:23 AM [id number] Nurse Progress note I reviewed and agree with RN student Raz Mchugh documentation Digitally Signed by Fany Roman Food Services Director on 04/01/2022 01:51 PM [id number] Note Date of Service 04/01/2022 Chief Complaint diarrhea Subjective This is a split/shared visit with Dr. Corral. Pt resting comfortably in bed. No new complaints, still having diarrhea, no improvement. States he has had diarrhea chronically since starting tube feedslast May. Denies any withdrawal symptoms. Vitals and labs reviewed. Objective Vitals and Measurements T: 37.2 C (Oral) TMIN: 37.0 C (Oral) TMAX: 37.5 C (Oral) HR: 67(Monitored) RR: 16 BP: 118/70 SpO2: 98% Intake and Output 7AM Yesterday to 7AM Today Intake and Output (Last 24 hours) Intake Free Water: 240.00 Enteral Tube Flush: 15.00 Output Stool Count 2.00 Total Summary Total Intake 255.00 Total Output 0.00 Fluid Balance 255.00 Physical Exam General: Alert and oriented x 3, NAD Head: Normocephalic, mmm, sclera nonicteric, tracheostomy Cardiovascular: Normal rate and rhythm, no murmur, - edema Respiratory: Lungs clear to auscultation bilaterally, easy Abdomen: soft and non-distended, bowel sounds active all 4 quadrants, PEG tube Neurological: Moving all 4 extremities, speech clear Psychological: normal affect, cooperative, good eye contact Weight Dosing Weight: 55 kg (03/30/22) Medications Medications (23) Active Scheduled: (8) folic acid 1 mg tablet 1 mg 1 tab(s), PEG, qDay gabapentin 300 mg Capsule 300 mg 1 cap(s), Oral, TID heparin 5,000 units/mL (1 mL) vial 5,000 unit(s) 1 mL, Subcutaneous, q8h levothyroxine 150 mcg tablet 150 mcg 1 tab(s), Oral, qDay Nicoderm patch REMOVAL 1 EA, Miscellaneous, q24h nicotine 14 mg/24 hr ER patch 14 mg 1 patch(es), Transdermal, q24h thiamine (w/calcium) 100 mg tablet 100 mg 1 tab(s), PEG, qDay vancomycin 250 mg / 5 mL ORAL Syringe 250 mg 5 mL, PEG, q6h Continuous: (0) PRN: (15) LORAZEPam 1 mg Tablet 1 mg 1 tab(s), Oral, q15min LORAZEPam 1 mg Tablet 3 mg 3 tab(s), Oral, q15min LORAZEPam 2 mg Tablet 2 mg 1 tab(s), Oral, q15min LORAZEPam 2 mg Tablet 4 mg 2 tab(s), Oral, q15min LORAZEPam 2 mg/mL 1 mL vial 1 mg 0.5 mL, IV Push, q15min LORAZEPam 2 mg/mL 1 mL vial 2 mg 1 mL, IV Push, q15min LORAZEPam 2 mg/mL 1 mL vial 2 mg 1 mL, IV Push, q15min LORAZEPam 2 mg/mL 1 mL vial 3 mg 1.5 mL, IV Push, q15min LORAZEPam 2 mg/mL 1 mL vial 3 mg 1.5 mL, IV Push, q15min LORAZEPam 2 mg/mL 1 mL vial 3 mg 1.5 mL, IV Push, q15min LORAZEPam 2 mg/mL 1 mL vial 4 mg 2 mL, IV Push, q15min LORAZEPam 2 mg/mL 1 mL vial 4 mg 2 mL, IV Push, q15min LORAZEPam 2 mg/mL 1 mL vial 5 mg 2.5 mL, IV Push, q15min LORAZEPam 2 mg/mL 1 mL vial 6 mg 3 mL, IV Push, q15min oxycodone 5 mg tablet (immediate release) 15 mg 3 tab(s), Oral, q8h Lab Results 03/31 05:36 WBC: 3.4 L Hgb: 12.9 L Hct: 36.9 L Platelet: 110 L Neutrophil %: 82.3 H Glucose Level: 118 H Sodium Level: 129 L Potassium Level: 4.2 BUN: <5.0 L Creatinine Lvl (s): 0.37 L Imaging Results and Diagnostics XR Chest 1 View Result Date: March 30, 2022 Verified By: BECK GERBER MD CLINICAL STATEMENT: IMPRESSION: The no acute radiographic findings. I have personally reviewed the images of this examination and agree with theresident's findings and interpretation. EKG No qualifying data available. Assessment/Plan 1. Hyponatremia 2. Alcohol abuse 3. C. difficile diarrhea 4. Laryngeal cancer 5. Dysphagia 6. Tracheostomy present NA 129, most likely secondary to alcohol use. IVF have been stopped. Continue to monitor Alcohol use-last use 2 days ago, pt high risk for withdrawal, will order withdrawal protocol C difficile- positive-continue isolation-continue oral vancomycin Hx of laryngeal cancer-Tracheostomy in place, continue care, on room air Dysphagia-chronic, PEG tube-continue tube feeds Disposition: Plan for discharge to SNF once hyponatremia improved. Family looking into help for alcohol use. Anticipate discharge in the next 24-48 hours Total visit time = 27 minutes; > 50% spent counseling/coordinating care ATTESTATION: parker corral Phd, MD., This is a shared /split visit with whitney howard APRN for date Patient independently interviewed, examined and dw staff. Additional comments include subjective findings and also physical exam as indicated below I agree with above progress note, exam, assessment and plan and have reviewed chart, laboratory and radiology results, medications and all pertinent data. Physical Exam: General Appearance: no acute distress, Head: atraumatic, perrrla, EENT:moist mucosa,, normal pharynx, normal tonsils and adenoids and tongue Neck:trachea midline, no carotid bruit, no mass or lymphadenopathy. Cardiac: RRR, no murmurs, normal S1 and S2 Lungs: Normal chest wall expansion, clear to auscultation Abdomen: Soft nontender nondistended, normal bowel sounds all quadrants, no hepatomegaly, guarding Genitourinary: No inguinal hernia, Musculoskeletal:Range of Motion intact in all extremities, strength intact, Extremities: No edema, Neurological:Awake alert oriented x3, cranial nerves II through XII intact, DTR intact, sensory function intact, Skin: Warm dry, pink, no rash, purpura, petechia Psychiatric: Normal affect, intact cognition, Comments : Patient is high risk due to comorbidities, including laryngeal cancer, alcohol abuse . a/p 1: severe hyponatremia 2: laryngeal cancer with peg 3: alcohol abuse 4: clostridium difficile positive 5: gen weakness Patient to be evaluated for ECF short-term [place] at this time close monitoring for alcohol withdrawal CIWA protocol in place, continue to follow sodium levels 129. C. difficile continues to improve. Greater than 38 minutes was spent on patient care with greater than 50 % of time spent in counselling patient, coordination of care and specifically medical decision making. Digitally Signed by WHITNEY HOWARD on 04/01/2022 01:26 PM Digitally Signed by PARKER CORRAL MD on 04/01/2022 06:25 PM [id number] Hospital Discharge instructions Patient Education 04/01/2022 08:59:04 6- FAQ about C-Dif (10/24 IC)(CUSTOM) FAQs about Clostridium Difficile (frequently asked questions) What is Clostridium difficile infection? Clostridium difficile [pronounced [id number]-[id number]-jn-um dif-uh-SEEL], also known as C. diff [See-dif], luca germ that can cause diarrhea. Most cases of C. diff infection occur in patients taking antibiotics. The most common symptoms of a C. diff infection include: Watery diarrhea Fever Loss of appetite Nausea Belly pain and tenderness Who is most likely to get C. diff infection? The elderly and people with certain medical problems have the greatest chance of getting C. diff. C. diff spores can live outside the human body for a very long time and may be found on things in theenvironment such as bed linens, bed rails, bathroom fixtures, and medical equipment. C. diff infection can spread from person-to person on contaminated equipment and on the hands of doctors, nurses, other healthcare providers and visitors. Can C. diff infection be treated? Yes, there are antibiotics that can be used to treat C. diff. In some severe cases, a person might have to have surgery to remove the infected part of the intestines. This surgery is needed in only 1 or 2 out of every 100 persons with C. diff. What are some of the things that hospitals are doing to prevent C. diff infections? To prevent C. diff. infections, doctors, nurses, and other healthcare providers: Clean their hands with soap and water or an alcohol-based hand rub before and after caring for every patient. This can prevent C. diff and other germs from being passed from one patient to another on their hands. Carefully clean hospital rooms and medical equipment that have been used for patients with C. diff. Use Contact Precautions to prevent C. diff from spreading to other patients. Contact Precautions mean: ao Whenever possible, patients with C. diff will have a single room or share a room only with someone else who also has C. diff. [facility] Healthcare providers will put on gloves and wear a gown over their clothing while taking care ofpatients with C. diff. co Visitors may also be asked to wear a gown and gloves. do When leaving the room, hospital providers and visitors remove their gown and gloves and clean their hands. o Patients on Contact Precautions are asked to stay in their hospital rooms as much as possible. They should not go to common areas, such as the gift shop or cafeteria. They can go to other areas of the hospital for treatments and tests. Only give patients antibiotics when it is necessary. What can I do to help prevent C. diff infections? Make sure that all doctors, nurses, and other healthcare provid ers clean their hands with soap andwater or an alcohol-based hand rub before and after caring for you. Only take antibiotics as prescribed by your doctor. Be sure to clean your own hands often, especially after using the bathroom and before eating. If you do not see your providers clean their hands, please ask them to do so. Can my friends and family get C. diff when they visit me? C. diff infection usually does not occur in persons who are not maicol ing antibiotics. Visitors are not likely to get C. diff. Still, to make it safer for visitors, they should: Clean their hands before they enter your room and as they leave your room Ask the nurse if they need to wear protective gowns and gloves when they visit you. What do I need to do when I go home from the hospital? Once you are back at home, you can return to your normal rou keisha. Often, the diarrhea will be better or completely gone before you go home. This makes giving C. diff to other people much less likely. There are a few things youshould do, however, to lower the chances of developing C. diff infection again or of spreading it to others. If you are given a prescription to treat C. diff, take the medicine exactly as prescribed by your doctor and pharmacist. Do not take half-doses or stop before you run out. Wash your hands often, especially after going to the bathroom and before preparing food. People who live with you should wash their hands often as well. If you develop more diarrhea after you get home, tell your doctor immediately. Your doctor may give you additional instructions. If you have questions, please ask your doctor or nurse. Co-sponsered by: FRANZ, IDSA, AHA, APIC, CDC, The Joint Commission Follow Up Care 03/29/2022 18:34:48 With:JOSE ADAMS MD Address: [address] [place] [address] Dr MONTANEZ [facility], [place] [phone]- [phone] When:1-2 days With:NGOZI BRAUN DO Address: [address] [place] [address] [place] [address]- [phone] When:1-2 days [facility] 08-17-2022 Note [facility] Hospitalist Progress Note Location: [place] [address] Status: General Medicine Subjective: MATTHIEU CARLIN is a 51 Years old Male patient seen and examined for hyponatremia, C. difficile colitis. Please review H&P dictated yesterday for further details. Patient was transferred out of ICU and initially was admitted with severe hyponatremia. He has been having diarrhea and stool for C. difficile is positive. Patient today is alert, on trach shield, discussed with nursing st aff. Continues to have some diarrhea. Denies any nausea or vomiting. No abdominal pain noted. He isn.p.o. and has PEG tube in place. Patient uses tube feeds. He also administers alcohol through the PEG tube. He continues to smoke cigarettes. Patient otherwise is alert, appears fairly comfortable, chart reviewed, overnight events reviewed. No hallucinations or delusions noted. Vitals: Temperature Oral: 37.4 DegC High Heart Rate Monitored: 73 bpm Respiratory Rate: 20 br/min Systolic Blood Pressure: 103 mmHg Diastolic Blood Pressure: 70 mmHg Mean Arterial Pressure: 81 mmHg Systolic Blood Pressure NBP: 111 mmHg Diastolic Blood Pressure NBP: 75 mmHg Mean Arterial Pressure (NBP): 83 mmHg Reason For Taking VItal Signs: Routine HEENT: + Pallor, no Icterus, trach noted Cardiac: RRR, no murmur Lungs: CTA, good air entry Abdomen: Soft, non tender, PEG tube noted Extremities: No edema, good pulses Neurological: Alert, no deficits Assessment/Plan: 1. This is a 51-year-old male patient who presents with altered mental status and noted to have severe hyponatremia. Sodium has improved since admission and patient was transferred out of ICU. We will continue to follow closely. We will discontinue IV fluids. Likely cause of his hyponatremia is beer proteinemia. 2. C. difficile colitis, will start him on vancomycin via PEG tube 3. History of laryngeal cancer s/p radiation, trach in place 4. History of dysphagia, continue with tube feeds 5. History of alcohol abuse, cessation advised 6. Hypothyroidism, continue Synthroid Code Status - Ordered -- 03/30/22 6:24:00 EDT, Full Code, Constant Order Labs: Reviewed 03/31 05:36 WBC: 3.4 L Hgb: 12.9 L Hct: 36.9 L Platelet: 110 L Neutrophil %: 82.3 H Glucose Level: 118 H Sodium Level: 129 L Potassium Level: 4.2 BUN: <5.0 L Creatinine Lvl (s): 0.37 L 03/30 22:51 Glucose Level: 154 H Sodium Level: 127 L Potassium Level: 3.2 L BUN: <5.0 L Creatinine Lvl (s): 0.37 L 03/30 17:43 Glucose Level: 129 H Sodium Level: 127 L Potassium Level: 3.8 BUN: 5.0 L Creatinine Lvl (s): 0.38 L 03/30 10:31 Glucose Level: 89 Sodium Level: 127 L Potassium Level: 3.4 L BUN: 6.0 L Creatinine Lvl (s): 0.39 L 03/30 04:52 Glucose Level: 72 Sodium Level: 125 L Potassium Level: 2.8 L BUN: <5.0 L Creatinine Lvl (s): 0.36 L 03/30 01:21 WBC: 4.5 Hgb: 14.5 Hct: 41.4 Platelet: 130 L Neutrophil %: 89.5 H Protime: 10.0 PT International Ratio: 0.8 Glucose Level: 99 Sodium Level: 128 L Potassium Level: 2.5 C BUN: <5.0 L Creatinine Lvl (s): 0.37 L Microbiology Clostridium difficile Toxin Confirmation: See Result (03/30/22 08:46:00) XR Chest 1 View Result Date: March 30, 2022 Verified By: BECK GERBER MD CLINICAL STATEMENT: IMPRESSION: The no acute radiographic findings. I have personally reviewed the images of this examination and agree with theresident's findings and interpretation. Inpatient medications: Medications (4) Active Scheduled: (3) gabapentin 300 mg Capsule 300 mg 1 cap(s), Oral, TID heparin 5,000 units/mL (1 mL) vial 5,000 unit(s) 1 mL, Subcutaneous, q8h levothyroxine 150 mcg tablet 150 mcg 1 tab(s), Oral, qDay Continuous: (0) PRN: (1) oxycodone 5 mg tablet (immediate release) 15 mg 3 tab(s), Oral, q8h Signature: Hitesh Hammond M.D. Digitally Signed by HITESH HAMMOND MD on 03/31/2022 01:17 PM [id number] Note ORIGINAL EXAMINATION: ONE XRAY VIEW OF THE CHEST 03/30/2022 6:30 am COMPARISON: 03/29/2022. HISTORY: ORDERING SYSTEM PROVIDED HISTORY: Reason for Exam: Sepsis, evaluate for Pneumonia FINDINGS: Tracheostomy tube is in stable position. Cardiomediastinal silhouette is stable. Atherosclerotic aorta. No focal lung consolidation, pleural effusion, pneumothorax, or vascular congestion. No acute osseous abnormality. Multiple remote appearing right rib fractures. IMPRESSION: The no acute radiographic findings. I have personally reviewed the images of this examination and agree with the resident's findings and interpretation. Interpreted by: Beck Gerber MD Preliminary Report By: Sebastian Martinez Electronically signed By Beck Gerber MD Dictated Date: 03/30/2022 7:29:21 AM Prelim Date: 03/30/2022 7:31:46 AM Sign Date: 03/30/2022 11:59:10 PM Ordering Provider: RYNE GARVIN [id number] History and physical note Date of Service 03/30/2022 Chief Complaint Altered mental status, severe hyponatremia History of Present Illness Patient is a 51-year-old male with past medical history significant for laryngeal cancer, diagnosedin October, and completed radiation and chemotherapy s/p tracheostomy and PEG tube placement since May 2021. Other medical history includes hypertension, GERD, chronic heavy alcohol abuse (at least 9 normal tall boys, close to 18 beers over the past several days), tobacco abuse presenting with altered mental status. Patient was found by his parents being confused in his truck and sent to ED by EMS. EMS reported incontinence of urine and stools, however no seizure activity reported. Patient has been feeling weak and a drinking more over the past few days with very little food intake. He is also having chronic diarrhea for more than 6 months otherwise denies nausea, vomiting, abdominal pain. He denies any fever, chills, shortness of breath, chest pain, any recent illness. Patient was sent to [place] ED for encephalopathy secondary to alcohol intoxication. Initial labs showed CBC significant for leukopenia WBC 3.1, thrombocytopenia platelet of 106. BMP (03/29/2022, 1:30 PM) showed significant severe hyponatremia of 116, hypokalemia 2.8, hypochloremia of 70, high bicarb of 36. Renal function is normal with creatinine of 0.32. He has transaminitisof AST, ALT in 100s. Blood ethanol level elevated at 359. Urine toxicology is negative. COVID PCR negative. He got 2 L of NS in [place] ED. Upon arrival to [facility], patient is AAOx3. Repeated BMP here at 03/30/2022, 1:30 AM his sodium 128 and potassium 2.5 also low chloride 78 and low phosphate. Since sodium 128 already, sodium increased by 12. Lactic acidosis at 2.7. Troponins negative. He is in sinus but have prolonged QT interval of 530. His vitals are stable at 100/62 saturating 94% on room air. Review of Systems Constitutional: denies Fevers and chills , no loss of appetite, denies fatigue or weight change Eyes: Denies double vision/blurring of vision/flashes or floaters Ears, Nose, Mouth & Throat: Denies any tinnitus/hearing loss/sinus congestion/nasal discharge/sore throat Cardiovascular: Denies any chest pain/shortness of breath/hemoptysis/palpitations/diaphoresis Respiratory: Denies any shortness of breath/cough/productive sputum/hemoptysis Gastrointestinal: Denies any abdominal pain/nausea/vomiting/diarrhea/hematochezia/hematemesis/melena Genitourinary: Denies any dysuria/hematuria Musculoskeletal: denies joint pain or joint swelling or deformities Skin: No ulcers or rash Neurological: denies Weakness or numbness of extremities/facial droop/loss of balance Endocrine: Denies any heat or cold intolerance/polyuria/polydipsia/polyphagia Hematologic/Lymphatic: denies lymphadenopathy Allergic/Immunologic: Denies any seasonal allergy/sneezing/tearing from the eyes Physical Exam Vitals and Measurements T: 37.2 C (Oral) TMIN: 37 C (Oral) TMAX: 37.2 C (Oral) HR: 75(Monitored) RR: 17 BP: 112/68 SpO2: 100% HT: 172 cm WT: 55 kg BMI: 18.59 Weight Dosing Weight: 55 kg (03/30/22) General Appearance: Patient lying on bed, not in acute distress Head: Normocephalic, atraumatic EENT: PERRLA, EOMI, tracheostomy tube present Neck: Supple, no JVD, no mass Cardiac: s1s2,RRR, no murmurs or rubs or gallops Lungs: Wheezing bilaterally with coarse breath sounds. Abdomen: Soft , Nontender, no organomegaly, bowel sounds heard. PEG tube present. Musculoskeletal: Full ROM , no gross deformities Extremities: No rash or ulcers or pedal edema Neurological: Alert, oriented x 3, grossly no focal neurological deficits Skin: No rash or ulcers Lab Results 03/30 01:21 WBC: 4.5 Hgb: 14.5 Hct: 41.4 Platelet: 130 L Neutrophil %: 89.5 H Protime: 10.0 PT International Ratio: 0.8 Glucose Level: 99 Sodium Level: 128 L Potassium Level: 2.5 C BUN: <5.0 L Creatinine Lvl (s): 0.37 L Assessment/Plan Severe hyponatremia Electrolyte disturbances hypokalemia, hypophosphatemia Mild transaminitis Lactic acidosis History of laryngeal cancer s/p radiation, chemotherapy History of dysphagia s/p tracheostomy and PEG tube placement History of chronic heavy alcohol abuse History of hypertension, GERD DVT prophylaxis CODE STATUS Regarding severe hyponatremia, likely acute in nature given last lab from last year being sodium innormal range. Possible etiologies include beer potomania as well as electrolytes loss from chronic diarrhea. Target sodium and correction is 6 to 8 mg/dL in 24 hours. Patient sodium level has been already corrected to 128. On exam, patient looks dehydrated. To avoid overcorrection, will give maintenance fluid D5 half NS at 75 cc/h for now. Recheck BMP in 4 hours. Ordered urine osmolarity, urine sodium. Will replete other electrolyte imbalances as needed. Transaminitis likely secondary to alcohol abuse. Will start patient on CIWA protocol without Ativan. Will start thiamine, folate, MultiVit. 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 Historical Back pain Procedure/Surgical History Arthroscopic knee procedure: 1986 Trachea operation PEG - Percutaneous endoscopic gastrostomy Endoscopy Medications Home Medications (16) Active DULoxetine 60 mg oral delayed release capsule 60 mg = 1 cap(s), Oral, qDay gabapentin 600 mg oral tablet 600 mg = 1 tab(s), Oral, TID guaiFENesin 100 mg/5 mL oral liquid 200 mg = 10 mL, PRN, Oral, q4h Imodium A-D 2 mg oral tablet 2 mg = 1 tab(s), PRN, Oral, q4h lactulose 10 g/15 mL oral syrup 10 gram(s) = 15 mL, Oral, Daily levothyroxine 150 mcg (0.15 mg) oral tablet 150 mcg = 1 tab(s), Oral, qDay LORazepam 0.5 mg oral tablet 0.5 mg = 1 tab(s), Oral, qHS methadone 5 mg oral tablet 5 mg = 1 tab(s), Oral, BID naloxone 4 mg/0.1 mL nasal spray 1 spray(s), PRN, Intranasal, AsDirected nicotine 21mg / 24hrs transdermal patch 1 patch(es), Transdermal, qDay omeprazole 40 mg oral delayed release capsule 40 mg = 1 cap(s), Oral, qDay oxyCODONE 15 mg oral tablet ( IMMEDIATE release ) 15 mg = 1 tab(s), PRN, Oral, q8h Probiotic Formula (Bacillus Coagulans) oral capsule 1 cap(s), Oral, qDay propranolol 20 mg oral tablet 20 mg = 1 tab(s), PEG, BID Senna 8.6 mg oral tablet 17.2 mg = 2 tab(s), PRN, Oral, BID sucralfate 1 g oral tablet 1 gram(s) = 1 tab(s), Oral, achs Allergies NKA Social History Smoking Status - 06/12/2018 Current every day smoker Alcohol Use: Current. Type: Beer. Frequency: Daily., 03/04/2020 Employment/School Status: Employed., 04/15/2020 Exercise Home/Environment Domestic Concerns: None. Living situation: Home/Independent. 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 Lives In: Multilevel home, 2nd floor bedroom, 2nd floor bathroom. Marital Status: Unmarried., 12/16/2021 Nutrition/Health Caffeine intake amount: coffee; 1 serving daily., 09/07/2021 Substance Abuse Use: Never., 03/04/2020 Tobacco Nicotine Use: 10 or more cigarettes (1/2 pack or more)/day in last 30 days., 10/05/2019 Family History Cancer: Mother. Heart disease: Father. Hypertension: Father. Immunizations SARS-CoV-2 (COVID-19) mRNA-1273 vaccine: 50 mcg (11/06/21) SARS-CoV-2 (COVID-19) mRNA-1273 vaccine: 50 mcg (07/27/21) SARS-CoV-2 (COVID-19) mRNA-1273 vaccine: 0 unknown unit (12/09/20) SARS-CoV-2 (COVID-19) mRNA-1273 vaccine: 0 unknown unit (11/11/20) Code Status No qualifying data available. Digitally Signed by RYNE GARVIN MD on 03/30/2022 07:09 AM [id number] Evaluation + Plan noteExtracted from: Title:MICU History and Physical Author:RYNE GARVIN MD Date:03/30/22 Severe hyponatremia Electrolyte disturbances hypokalemia, hypophosphatemia Mild transaminitis Lactic acidosis History of laryngeal cancer s/p radiation, chemotherapy History of dysphagia s/p tracheostomy and PEG tube placement History of chronic heavy alcohol abuse History of hypertension, GERD DVT prophylaxis CODE STATUS Regarding severe hyponatremia, likely acute in nature given last lab from last year being sodium in normal range. Possible etiologies include beer potomania as well as electrolytes loss from chronic diarrhea. Target sodium and correction is 6 to 8 mg/dL in 24 hours. Patient sodium level has been already corrected to 128. On exam, patient looks dehydrated. To avoid overcorrection, will give maintenance fluid D5 half NS at 75 cc/h for now. Recheck BMP in 4 hours. Ordered urine osmolarity, urine sodium. Will replete other electrolyte imbalances as needed. Transaminitis likely secondary to alcohol abuse. Will start patient on CIWA protocol without Ativan. Will start thiamine, folate, MultiVit. DVT prophylaxis subcu heparin Full CODE STATUS Addendum by JOSEFA CUNNINGHAM MD on March 30, 2022 18:14:06 EDT Patient was evaluated by me and discussed with MICU/MTS Team. I agree with their above findings, exam, assessment, and plan. Assessment: Severe hyponatremia improving Beer potomania Metabolic acidosis Chronic diarrhea colonized with C. difficile with negative toxin Hypokalemia improving Abnormal liver function tests Lactic acidosis improved Comorbidities include: History of laryngeal cancer status post chemotherapy and radiation with tracheostomy and PEG tube placement, hypertension, GERD Patient's sodium is improving with crystalloid administration. Diarrhea has slowed. We will not treat for C. difficile as it is unclear to me that he has C. difficile colitis. Patient had hyponatremia likely in the setting of poor adherence to internal nutrition as well as using his PEG tube to drink 9 tall boys of beer per day. Plan: Continue maintenance IV fluids with D5 half-normal saline at 75 cc an hour. Tube feeds with vital AF continuously for now. Replace electrolytes as needed Thiamine, folate Hold off on treatment for C. difficile as patient's diarrhea has slowed and his toxin was negative Heparin subcu Patient is able to transfer out of the ICU without pulmonary follow-up. Time spent on counseling, care, coordination of care: 35 minutes Diagnostic Tests Pending * Culture Respiratory with Gram Stain 03/30/22 Future Scheduled Tests Laboratory* Clostridium difficile (PCR) 09/16/21 * Lactate Dehydrogenase 01/21/22 * Lactate Dehydrogenase 09/16/21 * Lactate Dehydrogenase 10/14/21 * Complete Blood Count 01/21/22 * Complete Blood Count 09/16/21 * Complete Blood Count 10/14/21 * Complete Metabolic Panel 01/21/22 * Complete Metabolic Panel 09/16/21 * Complete Metabolic Panel 10/14/21 Radiology* IR Gastro Tube Place Percut w/Fluoro 06/09/21 * CT Soft Tissue Neck w/ Contrast 01/04/22 * CT Thorax w/ Contrast 12/18/21 * CT Abdomen and Pelvis w/ contrast 12/18/21 * XR Esophogram W/Air 06/01/21 [facility] 08-16-2022 Note Date of Service 03/30/2022 Reason for Consultation Skin Team Consult Reason: Pressure wound Admission From: Home Skin Team Findings Vitals and Measurements T: 37.4 C (Oral) TMIN: 37 C (Oral) TMAX: 37.4 C (Oral) HR: 78(Monitored) RR: 25 BP: 137/84 BP: 99/62(Sitting) BP: 70/56(Standing) BP: 124/78(Supine) SpO2: 99% HT: 172 cm WT: 55 kg BMI: 18.59 Pressure Area Details ------Pressure Area------ Pressure Area Description: No complications, [place], Blanchable ------Incision/Wound------ Buttock Left - Incision, Wound Distribution: Localized Buttock Left - Incision, Wound Dressing/Activity: Open to air Buttock Left - Incision, Wound Surrounding Tissue: Erythema, Denuded, Maceration Buttock Left - Incision, Wound Topical Agent: Cream Buttock Left - Skin Abnormality Color: Pale pink, Red Buttock Left - Skin Abnormality Pattern: Scattered, Other: epithelial separations Buttock Left - Skin Abnormality Type: Incontinence associated dermatitis Buttock Right - Incision, Wound Distribution: Localized Buttock Right - Incision, Wound Dressing/Activity: Open to air Buttock Right - Incision, Wound Surrounding Tissue: Erythema, Denuded, Maceration Buttock Right - Skin Abnormality Color: Pale pink, Red Buttock Right - Skin Abnormality Pattern: Scattered, Other: epithelial separations Buttock Right - Skin Abnormality Type: Incontinence associated dermatitis Heel Bilateral - Incision, Wound Dressing/Activity: Open to air Heel Bilateral - Incision, Wound Surrounding Tissue: Dry Heel Bilateral - Skin Abnormality Color: [place], Red Heel Bilateral - Skin Abnormality Pattern: Scattered Heel Bilateral - Skin Abnormality Type: Chafing Heel Bilateral - Wound Status: No complications Leg Anterior - Incision, Wound Dressing/Activity: Open to air Leg Anterior - Incision, Wound Surrounding Tissue: Erythema Leg Anterior - Skin Abnormality Color: [place], Red Leg Anterior - Skin Abnormality Pattern: Scattered Leg Anterior - Skin Abnormality Type: Abrasion Leg Anterior - Wound Exudate Amount: None Leg Anterior - Wound Status: No complications Perianal - Incision, Wound Distribution: Localized Perianal - Incision, Wound Dressing/Activity: Open to air Perianal - Incision, Wound Surrounding Tissue: Erythema Perianal - Rash Appearance: Reddened Perianal - Skin Abnormality Color: [place] Perianal - Skin Abnormality Type: Incontinence associated dermatitis Perianal - Wound Status: No complications Assessments and Recommendations ------Assessments------ Barrier(s) To Healing: Medications, Nonadherence, Poor nutritional intake, Cognitive deficits, Respiratory disease, Incontinence, Other: Alcohol abuse Current Skin/Wound Interventions: Hospital bed, Low air loss mattress, Prophylactic foam, Turn and reposition every 2 hours Skin/Wound Education to Pt/Caregiver: Incontinence management, Turn and reposition every 2 hours ------Recommendations------ Recommended Skin/Wound Interventions: Barrier cream, Proposed orders sent to physician Digitally Signed by JOHN Love November03/30/2022 12:40 PM [id number] Note ORIGINAL EXAMINATION: ONE XRAY VIEW OF THE CHEST 03/30/2022 6:30 am COMPARISON: 03/29/2022. HISTORY: ORDERING SYSTEM PROVIDED HISTORY: Reason for Exam: Sepsis, evaluate for Pneumonia FINDINGS: Tracheostomy tube is in stable position. Cardiomediastinal silhouette is stable. Atherosclerotic aorta. No focal lung consolidation, pleural effusion, pneumothorax, or vascular congestion. No acute osseous abnormality. Multiple remote appearing right rib fractures. IMPRESSION: The no acute radiographic findings. I have personally reviewed the images of this examination and agree with the resident's findings and interpretation. Interpreted by: Beck Gerber MD Preliminary Report By: Sebastian Martinez Electronically signed By Beck Gerber MD Dictated Date: 03/30/2022 7:29:21 AM Prelim Date: 03/30/2022 7:31:46 AM Sign Date: 03/30/2022 11:59:10 PM Ordering Provider: [facility]08-16-2022 History and physical note Date of Service 03/30/2022 Chief Complaint Altered mental status, severe hyponatremia History of Present Illness Patient is a 51-year-old male with past medical history significant for laryngeal cancer, diagnosedin October, and completed radiation and chemotherapy s/p tracheostomy and PEG tube placement since May 2021. Other medical history includes hypertension, GERD, chronic heavy alcohol abuse (at least 9 normal tall boys, close to 18 beers over the past several days), tobacco abuse presenting with altered mental status. Patient was found by his parents being confused in his truck and sent to ED by EMS. EMS reported incontinence of urine and stools, however no seizure activity reported. Patient has been feeling weak and a drinking more over the past few days with very little food intake. He is also having chronic diarrhea for more than 6 months otherwise denies nausea, vomiting, abdominal pain. He denies any fever, chills, shortness of breath, chest pain, any recent illness. Patient was sent to [place] ED for encephalopathy secondary to alcohol intoxication. Initial labs showed CBC significant for leukopenia WBC 3.1, thrombocytopenia platelet of 106. BMP (03/29/2022, 1:30 PM) showed significant severe hyponatremia of 116, hypokalemia 2.8, hypochloremia of 70, high bicarb of 36. Renal function is normal with creatinine of 0.32. He has transaminitisof AST, ALT in 100s. Blood ethanol level elevated at 359. Urine toxicology is negative. COVID PCR negative. He got 2 L of NS in [place] ED. Upon arrival to [facility], patient is AAOx3. Repeated BMP here at 03/30/2022, 1:30 AM his sodium 128 and potassium 2.5 also low chloride 78 and low phosphate. Since sodium 128 already, sodium increased by 12. Lactic acidosis at 2.7. Troponins negative. He is in sinus but have prolonged QT interval of 530. His vitals are stable at 100/62 saturating 94% on room air. Review of Systems Constitutional: denies Fevers and chills , no loss of appetite, denies fatigue or weight change Eyes: Denies double vision/blurring of vision/flashes or floaters Ears, Nose, Mouth & Throat: Denies any tinnitus/hearing loss/sinus congestion/nasal discharge/sore throat Cardiovascular: Denies any chest pain/shortness of breath/hemoptysis/palpitations/diaphoresis Respiratory: Denies any shortness of breath/cough/productive sputum/hemoptysis Gastrointestinal: Denies any abdominal pain/nausea/vomiting/diarrhea/hematochezia/hematemesis/melena Genitourinary: Denies any dysuria/hematuria Musculoskeletal: denies joint pain or joint swelling or deformities Skin: No ulcers or rash Neurological: denies Weakness or numbness of extremities/facial droop/loss of balance Endocrine: Denies any heat or cold intolerance/polyuria/polydipsia/polyphagia Hematologic/Lymphatic: denies lymphadenopathy Allergic/Immunologic: Denies any seasonal allergy/sneezing/tearing from the eyes Physical Exam Vitals and Measurements T: 37.2 C (Oral) TMIN: 37 C (Oral) TMAX: 37.2 C (Oral) HR: 75(Monitored) RR: 17 BP: 112/68 SpO2: 100% HT: 172 cm WT: 55 kg BMI: 18.59 Weight Dosing Weight: 55 kg (03/30/22) General Appearance: Patient lying on bed, not in acute distress Head: Normocephalic, atraumatic EENT: PERRLA, EOMI, tracheostomy tube present Neck: Supple, no JVD, no mass Cardiac: s1s2,RRR, no murmurs or rubs or gallops Lungs: Wheezing bilaterally with coarse breath sounds. Abdomen: Soft , Nontender, no organomegaly, bowel sounds heard. PEG tube present. Musculoskeletal: Full ROM , no gross deformities Extremities: No rash or ulcers or pedal edema Neurological: Alert, oriented x 3, grossly no focal neurological deficits Skin: No rash or ulcers Lab Results 03/30 01:21 WBC: 4.5 Hgb: 14.5 Hct: 41.4 Platelet: 130 L Neutrophil %: 89.5 H Protime: 10.0 PT International Ratio: 0.8 Glucose Level: 99 Sodium Level: 128 L Potassium Level: 2.5 C BUN: <5.0 L Creatinine Lvl (s): 0.37 L Assessment/Plan Severe hyponatremia Electrolyte disturbances hypokalemia, hypophosphatemia Mild transaminitis Lactic acidosis History of laryngeal cancer s/p radiation, chemotherapy History of dysphagia s/p tracheostomy and PEG tube placement History of chronic heavy alcohol abuse History of hypertension, GERD DVT prophylaxis CODE STATUS Regarding severe hyponatremia, likely acute in nature given last lab from last year being sodium innormal range. Possible etiologies include beer potomania as well as electrolytes loss from chronic diarrhea. Target sodium and correction is 6 to 8 mg/dL in 24 hours. Patient sodium level has been already corrected to 128. On exam, patient looks dehydrated. To avoid overcorrection, will give maintenance fluid D5 half NS at 75 cc/h for now. Recheck BMP in 4 hours. Ordered urine osmolarity, urine sodium. Will replete other electrolyte imbalances as needed. Transaminitis likely secondary to alcohol abuse. Will start patient on CIWA protocol without Ativan. Will start thiamine, folate, MultiVit. 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 Historical Back pain Procedure/Surgical History Arthroscopic knee procedure: 1986 Trachea operation PEG - Percutaneous endoscopic gastrostomy Endoscopy Medications Home Medications (16) Active DULoxetine 60 mg oral delayed release capsule 60 mg = 1 cap(s), Oral, qDay gabapentin 600 mg oral tablet 600 mg = 1 tab(s), Oral, TID guaiFENesin 100 mg/5 mL oral liquid 200 mg = 10 mL, PRN, Oral, q4h Imodium A-D 2 mg oral tablet 2 mg = 1 tab(s), PRN, Oral, q4h lactulose 10 g/15 mL oral syrup 10 gram(s) = 15 mL, Oral, Daily levothyroxine 150 mcg (0.15 mg) oral tablet 150 mcg = 1 tab(s), Oral, qDay LORazepam 0.5 mg oral tablet 0.5 mg = 1 tab(s), Oral, qHS methadone 5 mg oral tablet 5 mg = 1 tab(s), Oral, BID naloxone 4 mg/0.1 mL nasal spray 1 spray(s), PRN, Intranasal, AsDirected nicotine 21mg / 24hrs transdermal patch 1 patch(es), Transdermal, qDay omeprazole 40 mg oral delayed release capsule 40 mg = 1 cap(s), Oral, qDay oxyCODONE 15 mg oral tablet ( IMMEDIATE release ) 15 mg = 1 tab(s), PRN, Oral, q8h Probiotic Formula (Bacillus Coagulans) oral capsule 1 cap(s), Oral, qDay propranolol 20 mg oral tablet 20 mg = 1 tab(s), PEG, BID Senna 8.6 mg oral tablet 17.2 mg = 2 tab(s), PRN, Oral, BID sucralfate 1 g oral tablet 1 gram(s) = 1 tab(s), Oral, achs Allergies NKA Social History Smoking Status - 06/12/2018 Current every day smoker Alcohol Use: Current. Type: Beer. Frequency: Daily., 03/04/2020 Employment/School Status: Employed., 04/15/2020 Exercise Home/Environment Domestic Concerns: None. Living situation: Home/Independent. 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 Lives In: Multilevel home, 2nd floor bedroom, 2nd floor bathroom. Marital Status: Unmarried., 12/16/2021 Nutrition/Health Caffeine intake amount: coffee; 1 serving daily., 09/07/2021 Substance Abuse Use: Never., 03/04/2020 Tobacco Nicotine Use: 10 or more cigarettes (1/2 pack or more)/day in last 30 days., 10/05/2019 Family History Cancer: Mother. Heart disease: Father. Hypertension: Father. Immunizations SARS-CoV-2 (COVID-19) mRNA-1273 vaccine: 50 mcg (11/06/21) SARS-CoV-2 (COVID-19) mRNA-1273 vaccine: 50 mcg (07/27/21) SARS-CoV-2 (COVID-19) mRNA-1273 vaccine: 0 unknown unit (12/09/20) SARS-CoV-2 (COVID-19) mRNA-1273 vaccine: 0 unknown unit (11/11/20) Code Status No qualifying data available. Digitally Signed by RYNE GARVIN MD on 03/30/2022 07:09 AM [id number] SARS-CoV-2 (COVID-19) RNA JOE+probe Ql (Nph)Negative (03/29/22 5:19 PM)AO Auto Urine [id number] Note ORIGINAL EXAMINATION: ONE XRAY VIEW OF THE CHEST TECHNIQUE: AP upright COMPARISON: [facility] chest 05/23/2021 HISTORY: ORDERING SYSTEM PROVIDED HISTORY: Reason for Exam: Altered mental status FINDINGS: Support devices: A tracheostomy cannula overlies the upper tracheal shadow. Cardiomediastinal: The heart size is stable. Lungs: No infiltrates, pulmonary edema, consolidation or a large pleural effusion is present. Pneumothorax: None. Osseous: No acute osseous pathology. Widespread demineralization. IMPRESSION: No acute pulmonary disease. Interpreted by: Ngozi Montejo MD Preliminary Report By: Ngozi Montejo MD Electronically signed By Ngozi Montejo MD Dictated Date: 03/29/2022 2:07:23 PM Prelim Date: 03/29/2022 2:09:43 PM Sign Date: 03/29/2022 2:09:43 PM Ordering Provider: [facility]08-15-2022 Note ORIGINAL EXAMINATION: ONE XRAY VIEW OF THE CHEST TECHNIQUE: AP upright COMPARISON: [facility] chest 05/23/2021 HISTORY: ORDERING SYSTEM PROVIDED HISTORY: Reason for Exam: Altered mental status FINDINGS: Support devices: A tracheostomy cannula overlies the upper tracheal shadow. Cardiomediastinal: The heart size is stable. Lungs: No infiltrates, pulmonary edema, consolidation or a large pleural effusion is present. Pneumothorax: None. Osseous: No acute osseous pathology. Widespread demineralization. IMPRESSION: No acute pulmonary disease. Interpreted by: Ngozi Montejo MD Preliminary Report By: Ngozi Montejo MD Electronically signed By Ngozi Montejo MD Dictated Date: 03/29/2022 2:07:23 PM Prelim Date: 03/29/2022 2:09:43 PM Sign Date: 03/29/2022 2:09:43 PM Ordering Provider: [facility]08-08-2022 Miscellaneous Notes* Telephone Encounter - Mariluz Reid RN - 03/22/2022 12:01 PM EDT March 22, 2022 Dear Matthieu Carlin, Please call to reschedule your preop appointment with Dr. Garrett and Dr. West at [phone]. Thank you for choosing [facility] for your healthcare. Sincerely, Mariluz LOPEZ Head and Neck Film Reader documented in this encounterRegency [facility]08-03-2022 Miscellaneous Notes* Telephone Encounter - Mariluz Reid RN - 03/17/2022 1:51 PM EDT Spoke with patient's father about preop appointments and plan to preadmit on 04/12/22. Mariluz Reid RN * Telephone Encounter - Mariluz Reid RN - 03/17/2022 11:58 AM EDT Requested a direct admit on 04/12/22. They will call the patient and/or father when bed is availablethat day. Left messages for both patient and his father to call me back to review preop appointments and planned admission for 04/12. Mariluz Reid RN documented in this encounterRegency [facility]07-15-2022 Miscellaneous Notes* Telephone Encounter - Leela Sexton - 02/26/2022 10:22 AM EDT Left voicemail for patient to schedule Pre op ops before surgery with Dr. Barnes. PACC, COVID, EKG,XR, pre op with Dr. Platt. documented in [facility] History of Present illness Narrative* Jarad Cotton [facility]STRATEGIC PLANNING DIRECTOR - 02/02/2022 2:41 PM EDT TOTAL LARYNGECTOMY/TEP PRE-OPERATIVE CONSULT [facility] Speech Pathology Date: February 02, 2022 Name: Matthieu Carlin Age: [age] year old Referring Physician: Cameron Impressions: Patient seen today for pre-operative counseling, with father present. Fair candidate for primary TEP based on history, current status, family support and motivation. We did also discuss the option for secondary TEP if indicated, patient not initially aware of need for follow up with main campus STRATEGIC PLANNING DIRECTOR for TEP management though does feel this is doable. Of note, patient has not had an MBS here or seen STRATEGIC PLANNING DIRECTOR at [facility] prior to this appt. Also has not seen lymphedema therapy here. Plan: Speech Pathology follow-up in the hospital pending ENT clearance. PAST MEDICAL HISTORY Diagnosis Date PEG (percutaneous endoscopic gastrostomy) status ([facility]) Tracheostomy care ([facility]) 05/2021 PAST SURGICAL HISTORY Procedure Laterality Date PAST SURGICAL HISTORY OF 05/2021 trachostomy Diagnosis/history per Dr. 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 Reviewed anatomic / physiologic changes post-op and expected impact on speech / swallowing. Reviewed alaryngeal speech options including electrolaryngeal, esophageal and tracheoesophageal (TEP). Reviewed post-op speech therapy follow-up plan (i.e., family counselor, HME placement and use, and [employer]). Patient viewed a videotape of TEP speakers. Handouts given. Consent form signed for [facility] delivery to [facility]. Instructions given for Patient Services Form to be filled out and mailed in. The patient with family (father) seemed to understand the information presented. Questions were addressed. Onset of Illness: 10/13/2020 Initial Date of Treatment: 02/02/2022 Treatment Plan Date: 02/02/2022 Jarad Cotton M.S., CCC-STRATEGIC PLANNING DIRECTOR Speech-Language Pathologist Pager: [phone] documented in this encounterRegency Hospital [facility]06-21-[facility]22 History of Present illness Narrative* Mariluz Reid RN - 02/02/2022 2:30 PM EDT AMBULATORY PATIENT EDUCATION NOTE TOPIC: SURVIVAL SKILLS: Trach Care Tube Feeding Wound Care Surgical drain READINESS TO LEARN COGNITIVE ABILITY: Alert and oriented MOTIVATION TO LEARN: Interested FAMILY SUPPORT: High - Very involved in pt care INSTRUCTION PROVIDED TO: Patient and Father PATIENT LEARNS BEST BY: Individual Instruction Verbal Instruction Demonstration FACTORS AFFECTING LEARNING: Emotional Factors: Anxious Other substance abuse PHYSICAL LIMITATIONS AFFECTING LEARNING: None LEARNING RESPONSE DIAGNOSIS: chondroradionecrosis of larynx METHOD OF INSTRUCTION: Individual instruction Verbal instruction Demonstration-Hands on Learning PATIENT / FAMILY RESPONSE: Information received as demonstrated by interest and questions FOLLOW-UP PLAN: Recommend - Recommend continued instruction and follow up as directed SUPPLEMENTAL MATERIAL: Your Surgical Guide REFERRAL (RECOMMENDATION): Detox Electronically Signed By: Mariluz Reid RN In Department: OTOLARYNGOLOGY Time spent on patient education: 30 minutes. documented in this encounterRegency Hospital [facility]06-17-2022 Miscellaneous Notes* Telephone Encounter - Mariluz Reid RN - 01/29/2022 3:24 PM EDT H&N Care Coordination Assessment Patient: Matthieu Carlin Lives 1 hours away. : 1970 Age: [age] year old Email:[email or web address] Surgeon: Dr. Barnes Planned Surgery Date: TBD Planned Surgery: total laryngectomy Diagnosis: chondroradionecrosis of larynx Demographics: Informant: :patient identified by name and date of Address/Phone: updated Specialists:no My Chart activated: active ALLERGIES No Known Allergies Medications: Current Outpatient Medications Medication Instructions acetaminophen 650 mg CARAFATE 100 mg/mL suspension TAKE 10ml BY MOUTH BEFORE MEALS AND AT BEDTIME gabapentin (NEURONTIN) 600 mg, ORAL, 3 TIMES DAILY LORazepam (ATIVAN) 0.5 mg, ORAL, AT BEDTIME methadone (DOLOPHINE) 5 mg, ORAL, 2 TIMES DAILY omeprazole (PRILOSEC) 40 mg, ORAL oxyCODONE IR (ROXICODONE) 5 mg propranolol ER (INDERAL LA) 60 mg sucralfate (CARAFATE) 1 g traZODone (DESYREL) 100 mg tablet ORAL Blood thinners: n/a Herbal medications:n/a Advised: Do NOT stop aspirin or other anticoagulants without consulting with your grinder set up operator gear tool or prescribing physician. Stop Vitamin E, ALL multi-vitamins, herbals and dietary supplements 7 days before surgery. 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 [place] Oxygen use: no Fall Risk: laceration on head and legs due to falling in his house Future orders: Future Orders Order # Order Class COMP METABOLIC PANEL [CMP Custom] [id number] Lab Expected: 01/27/22 Expires: 03/29/22 CBC [CBC Custom] [id number] Lab Expected: 01/27/22 Expires: 03/29/22 TSH BLD [TSH Custom] [id number] Lab Expected: 01/27/22 Expires: 03/29/22 TYPE + SCREEN [TSCR Custom] [id number] Lab Collect Expected: 01/27/22 Expires: 03/29/22 CONSULT TO NUTRITION THERAPY [9020 Custom] [id number] [place] Internal Referral Expected: --- Expires: 01/27/23 Scheduling Instructions: General Nutrition Visit To schedule an Outpatient Nutrition Therapy Appointment with a Registered Dietitian: CONSULT TO ENT [9008 Custom] [id number] [facility] Internal Referral Expected: --- Expires: 01/27/23 Ordering Comments: for Dr. Platt specifically CONSULT TO SPEECH THERAPY [[id number] Custom] [id number] [facility] Internal Referral Expected: --- Expires: 01/27/23 Scheduling Instructions: Head & Neck Remlap Ordering Comments: jarad or kirti IN PERSON CONSULT TO PACC [[id number] Custom] [id number] [place] Internal Referral Expected: --- Expires: --- Future appointments: Appointments for Next 60 Days Date Time Provider Location Dept Phone 02/02/2022 11:00 AM AMITA IGLESIAS [facility] [phone] Interventions: List of HHC, SNF, [place] No other concerns or further questions at this time. Agrees to call with any questions. Mariluz Reid RN, BSN, [facility] H&N Film Reader Plan: preop education, update PAC provider choices CARE CONTINUUM ADVISOR ASSESSMENT PRIMARY CARE PHYSICIAN: Ngozi Braun DO OR Surgery Date: tbd TCI Appointment: tbd Health Insurance: [employer] [facility] Financial Resources: Disabled Primary Contact: Extended Emergency Contact Information Primary Emergency Contact: Yuriy Carlin Mobile Relation: Father Other Important Patient Contacts: None Patient/[place] Cutter Stated Goals: To be cured/healed Creative Consultant needed?: No Home Phone Primary Contact: Cell Phone Primary Contact:[phone] ADVANCE DIRECTIVES: Does Patient Have Advance Directives? No, Patient refused Does Patient Have Concerns About Advance Directives? No Education Provided: No SOCIAL: Living Arrangement: Home, Home alone Lives With: self Stairs: 3 stairs to enter home Do you have any concerns with food and/or affording food?: No Do you have reliable transportation to and from surgery/appointments?: Yes Medication Adherence: Do you have any concerns with your prescription medication?: No Who do you use for pharmacy?: [facility] Pre[facility]Hospital Baseline Mental Status: Alert & Oriented Informant: Self and Father What is your current functional status?: Perform ADLs independently Equipment: Do you currently use any equipment at home for your medical condition or to help you get around? None Active Services/Needs: None Do you have a director community center contact through your insurance or [employer]?: No Has the Patient Been in a Nursing Home Facility in the Past 30 days? No FREEDOM OF CHOICE: Level of Care Discussed: Home Care, Nursing Home Facility and Inpatient Rehab Facility Financial Disclosure Provided: Yes Financial Disclaimer Provided: Yes, regarding pre-cert / insurance authorization Provider List: Home Care, Rehab Facility and Nursing Home Facility Provider list within the patient's requested geographic area shared with the patient/family: Yes - Within [address] [place] [address] PAC Provider Choices Collected Acute Rehab: pending Home Health: pending Nursing Home: pending Interventions: Patient needs appointments with PACC, Dr. 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 Luckily, his terrible facial swelling has gone down dramatically, and he has no pain. That said, he has significant aspiration of all oral secretions including phlegm. He is completely NPO, and has lost considerable weight. He is drinking regularly, with occasional cigarettes. On exam, he has gross aspiration of phlegm through the tracheotomy tube. Neck exam shows no masses no adenopathy. Oral exam is negative. Flexible endoscopy was performed. IMPRESSION: Significant improvement of chondroradionecrosis. Dramatically decreased swelling. Nonfunctional larynx. PLAN: Flexible fiberoptic laryngoscopy today. I believe a total laryngectomy with TEP reconstruction and free flap would augment his life considerably. He would take a full diet, maintain his weight, and be able to speak through TEP meetings. I and his father talked extensively about needing to be admitted preoperatively secondary to his alcohol intake. We will check labs today, and have him come back to see anesthesia, speech pathology, and my reconstructive colleague Dr. Platt. Procedure: Flexible laryngoscopy, fiberoptic, diagnostic Indications: - Gag reflex preventing mirror examination Procedure: After topical decongestion and anesthetic spray was used, the flexible fiberoptic nasopharyngoscopewas inserted. The nasal cavity was evaluated including the septum, the mucosa, the turbinates and the nasopharynx. The oropharynx, hypopharynx and larynx were also examined, including the vocal folds and the mobility. The patient tolerated the procedure well and I performed the procedure myself. Findings: The larynx is significantly less edematous than it was before. Now I can see that his right vocal fold has good mobility while the left is paramedian and fixed. There is significant aspiration of phlegm through the laryngeal introitus which is now patent. I see no evidence of epithelial lesions or mass-effect. Ngozi Barnes MD documented in this encounterReg[facility]06-15-2022 Nurse Note* BELTRAN Humphries - 01/27/2022 2:05 PM EDT Tobacco Use: 1 packs/day, for 30 years. Quit 08/15/2020. Types: Cigarettes Was smoking cessation packet given? N/A - Patient is a non-smoker or quit >1 year ago. Was a referral initiated?N/A Patient is a non-smoker documented in this encounterRegency [facility]02-02-2022 Evaluation + Plan note Future Scheduled Tests Laboratory* Clostridium difficile (PCR) 09/16/21 * Lactate Dehydrogenase 01/21/22 * Lactate Dehydrogenase 09/16/21 * Lactate Dehydrogenase 10/14/21 * Complete Blood Count 01/21/22 * Complete Blood Count 09/16/21 * Complete Blood Count 10/14/21 * Complete Metabolic Panel 01/21/22 * Complete Metabolic Panel 09/16/21 * Complete Metabolic Panel 10/14/21 Radiology* IR Gastro Tube Place Percut w/Fluoro 06/09/21 * CT Soft Tissue Neck w/ Contrast 01/04/22 * CT Thorax w/ Contrast 12/18/21 * CT Abdomen and Pelvis w/ contrast 12/18/21 * XR Esophogram W/Air 06/01/21 [facility] 02-02-2022 Evaluation + Plan note Future Scheduled Tests Laboratory* Clostridium difficile (PCR) 09/16/21 * Basic Metabolic Panel 07/01/22 * Lactate Dehydrogenase 01/21/22 * Lactate Dehydrogenase 09/16/21 * Lactate Dehydrogenase 10/14/21 * Complete Blood Count 01/21/22 * Complete Blood Count 09/16/21 * Complete Blood Count 07/01/22 * Complete Blood Count 10/14/21 * Complete Metabolic Panel 01/21/22 * Complete Metabolic Panel 09/16/21 * Complete Metabolic Panel 10/14/21 Radiology* CT Soft Tissue Neck w/ Contrast 01/04/22 * CT Thorax w/ Contrast 12/18/21 * CT Abdomen and Pelvis w/ contrast 12/18/21 [facility] Evaluation + Plan note Future Appointments Appointment Date:06/03/2021 10:30:00 AM Scheduled Provider: Location:[facility] Appointment Type:CT Soft Tissue Neck w/ Contrast Appointment Date:06/09/2021 08:00:00 AM Scheduled Provider: Location:[facility] Appointment Type:IR Gastro Tube Place Percut w/Fluoro Future Scheduled Tests Radiology* XR Esophogram W/Air 06/01/21 * CT Soft Tissue Neck w/ Contrast 06/03/21 * IR Gastro Tube Place Percut w/Fluoro 06/09/21 [facility] Evaluation + Plan note Future Appointments Appointment Date:06/09/2021 08:00:00 AM Scheduled Provider: Location:IR Appointment Type:IR Gastro Tube Place Percut w/Fluoro Future Scheduled Tests Radiology* XR Esophogram W/Air 06/01/21 * IR Gastro Tube Place Percut w/Fluoro 06/09/21 [facility] Evaluation + Plan note Future Appointments Appointment Date:07/16/2021 11:45:00 AM Scheduled Provider:NEMESIO COLLINS MD Location:[facility] Appointment Type:HEM ONC OV Follow Up Appointment Date:07/16/2021 12:00:00 PM Scheduled Provider:EREN CARLSON MD Location:[facility] Palliative Appointment Type:PALL OV Follow Up Future Scheduled Tests Radiology* XR Esophogram W/Air 06/01/21 * IR Gastro Tube Place Percut w/Fluoro 06/09/21 [facility] Evaluation + Plan note Future Appointments Appointment Date:07/16/2021 11:45:00 AM Scheduled Provider:NEMESIO COLLINS MD Location:[facility] Appointment Type:HEM ONC OV Follow Up Appointment Date:07/16/2021 12:30:00 PM Scheduled Provider:EREN CARLSON MD Location:[facility] Palliative Appointment Type:PALL OV Follow Up Future Scheduled Tests Radiology* XR Esophogram W/Air 06/01/21 * IR Gastro Tube Place Percut w/Fluoro 06/09/21 [facility] Evaluation + Plan note Future Appointments Appointment Date:08/19/2021 01:00:00 PM Scheduled Provider:EREN CARLSON MD Location:[facility] Palliative Appointment Type:PALL OV Follow Up Appointment Date:08/20/2021 10:30:00 AM Scheduled Provider:EREN CARLSON MD Location:[facility] Palliative Appointment Type:PALL OV Follow Up Appointment Date:09/16/2021 11:45:00 AM Scheduled Provider:NEMESIO COLLINS MD Location:[facility] Appointment Type:[facility] OV Follow Up Future Scheduled Tests Laboratory* Lactate Dehydrogenase 09/16/21 * Complete Blood Count 09/16/21 * Complete Metabolic Panel 09/16/21 Radiology* XR Esophogram W/Air 06/01/21 * IR Gastro Tube Place Percut w/Fluoro 06/09/21 [facility] Evaluation + Plan note Future Appointments Appointment Date:09/25/2021 10:30:00 AM Scheduled Provider: Location:[facility] Appointment Type:PT Treatment - [place] Appointment Date:09/29/2021 09:30:00 AM Scheduled Provider: Location:[facility] Appointment Type:PT Treatment - [place] Appointment Date:10/02/2021 10:00:00 AM Scheduled Provider: Location:[facility] Appointment Type:PT Treatment - [place] Appointment Date:10/06/2021 10:00:00 AM Scheduled Provider: Location:[facility] Appointment Type:PT Treatment - [place] Appointment Date:10/07/2021 11:00:00 AM Scheduled Provider: Location:[facility] Appointment Type:CT Soft Tissue Neck w/ Contrast Appointment Date:10/09/2021 09:30:00 AM Scheduled Provider: Location:[facility] Appointment Type:PT Treatment - [place] Appointment Date:10/15/2021 10:30:00 AM Scheduled Provider:NEMESIO COLLINS MD Location:[facility] Appointment Type:HEM ONC OV Follow Up Appointment Date:10/15/2021 12:00:00 PM Scheduled Provider:EREN CARLSON MD Location:[facility] Pall[facility] Appointment Type:PALL OV Follow Up Future Scheduled Tests Laboratory* Clostridium difficile (PCR) 09/16/21 * Lactate Dehydrogenase 09/16/21 * Lactate Dehydrogenase 10/14/21 * Complete Blood Count 09/16/21 * Complete Blood Count 10/14/21 * Complete Metabolic Panel 09/16/21 * Complete Metabolic Panel 10/14/21 Radiology* XR Esophogram W/Air 06/01/21 * CT Soft Tissue Neck w/ Contrast 10/07/21 * IR Gastro Tube Place Percut w/Fluoro 06/09/21 [facility] Evaluation + Plan note Future Appointments Appointment Date:10/09/2021 09:30:00 AM Scheduled Provider: Location:[facility] Appointment Type:PT Treatment - [place] Appointment Date:10/21/2021 09:45:00 AM Scheduled Provider:NEMESIO COLLINS MD Location:[facility] Appointment Type:HEM ONC OV Follow Up Appointment Date:10/21/2021 12:00:00 PM Scheduled Provider:EREN CARLSON MD Location:[facility] Appointment Type:PALL OV Follow Up Future Scheduled Tests Laboratory* Clostridium difficile (PCR) 09/16/21 * Lactate Dehydrogenase 09/16/21 * Lactate Dehydrogenase 10/14/21 * Complete Blood Count 09/16/21 * Complete Blood Count 10/14/21 * Complete Metabolic Panel 09/16/21 * Complete Metabolic Panel 10/14/21 Radiology* XR Esophogram W/Air 06/01/21 * IR Gastro Tube Place Percut w/Fluoro 06/09/21 [facility] Evaluation + Plan note Future Appointments Appointment Date:11/13/2021 11:30:00 AM Scheduled Provider: Location:[facility] Appointment Type:OT Lymph Treatment Appointment Date:11/13/2021 12:00:00 PM Scheduled Provider: Location:[facility] Appointment Type:ST OutpatientTreatment Appointment Date:11/25/2021 10:30:00 AM Scheduled Provider:EREN CARLSON MD Location:[facility] Appointment Type:PALL OV Follow Up Appointment Date:01/04/2022 10:00:00 AM Scheduled Provider: Location:[facility] Appointment Type:CT Soft Tissue Neck w/ Contrast Appointment Date:01/21/2022 11:30:00 AM Scheduled Provider:NEMESIO COLLINS MD Location:[facility] Appointment Type:HEM ONC OV Follow Up Future Scheduled Tests Laboratory* Clostridium difficile (PCR) 09/16/21 * Lactate Dehydrogenase 01/21/22 * Lactate Dehydrogenase 09/16/21 * Lactate Dehydrogenase 10/14/21 * Complete Blood Count 01/21/22 * Complete Blood Count 09/16/21 * Complete Blood Count 10/14/21 * Complete Metabolic Panel 01/21/22 * Complete Metabolic Panel 09/16/21 * Complete Metabolic Panel 10/14/21 Radiology* XR Esophogram W/Air 06/01/21 * CT Soft Tissue Neck w/ Contrast 01/04/22 * IR Gastro Tube Place Percut w/Fluoro 06/09/21 [facility] Evaluation + Plan note Future Appointments Appointment Date:09/15/2023 01:30:00 PM Scheduled Provider:NGOZI BRAUN DO Location:[facility] Appointment Type:PC OV Future Scheduled Tests Laboratory* Basic Metabolic Panel 07/01/22 * Complete Blood Count 07/01/22 [facility] Evaluation note* Diagnosis Chondroradionecrosis of larynx- Primary [facility] Diagnosis Chondroradionecrosis of larynx- Primary Localized swelling, mass or lump of neck Swelling, mass, or lump in head and neck Neck mass Swelling, mass, or lump in head and neck [facility]* Diagnosis Acquired hypothyroidism- Primary Unspecified hypothyroidism [facility]* Diagnosis Chondroradionecrosis of larynx- Primary Dysphonia [facility]* Diagnosis Preoperative examination- Primary Preoperative examination, unspecified Alcohol abuse Alcohol abuse, unspecified [facility] Diagnosis Preoperative examination- Primary Preoperative examination, unspecified Chondroradionecrosis of larynx [facility]* Diagnosis Pre-op testing- Primary Preoperative examination, unspecified Chondroradionecrosis of larynx [facility]* Diagnosis Dysphonia- Primary 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 documented in this encounter [facility] note* Diagnosis 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 documented in this encounter [facility] note* Diagnosis Pre-op evaluation- Primary Preoperative examination, unspecified Acquired hypothyroidism Unspecified hypothyroidism Tracheostomy in place (HCC) Tracheostomy status S/P percutaneous endoscopic gastrostomy (PEG) tube placement (HCC) Depression, controlled Depressive disorder, not elsewhere classified Chondroradionecrosis of larynx * Assessment & Plan Note - Seble Pena APRN.CNP - 07/20/2022 1:53 PM EST Associated Problem(s): Depression, controlled Stable on effexor * Assessment & Plan Note - Seble Pena APRN.CNP - 07/20/2022 1:36 PM EST Associated Problem(s): S/P percutaneous endoscopic gastrostomy (PEG) tube placement (HCC) No current issues. Takes most medications, intake through PEG. * Assessment & Plan Note - Seble Pena APRN.CNP - 07/20/2022 1:35 PM EST Associated Problem(s): Tracheostomy in place (HCC) No issues * Assessment & Plan Note - Seble Pena APRN.CNP - 07/20/2022 1:34 PM EST Associated Problem(s): Acquired hypothyroidism Stable on rx documented in this encounter [facility] note* Diagnosis Aphonia- Primary Chondroradionecrosis of larynx [facility] Diagnosis Chondroradionecrosis of larynx- Primary documented in this encounter [facility] note* Diagnosis Chondroradionecrosis of larynx- Primary S/P laryngectomy Other postprocedural status documented in this encounter [facility] note* Diagnosis Aphonia- Primary Chondroradionecrosis of larynx documented in this encounter [facility] note* Diagnosis Chondroradionecrosis of larynx S/P laryngectomy Other postprocedural status documented in this encounter [facility] note* Diagnosis Chondroradionecrosis of larynx- Primary documented in this encounter [facility] note* Diagnosis Chondroradionecrosis of larynx- Primary Aphonia documented in this encounter [facility] note* Diagnosis Chondroradionecrosis of larynx- Primary documented in this encounter [facility] note* Diagnosis S/P laryngectomy- Primary Other postprocedural status Chondroradionecrosis of larynx documented in this encounter [facility] note* Diagnosis Chondroradionecrosis of larynx- Primary Aphonia documented in this encounter [facility] note* Diagnosis Chondroradionecrosis of larynx- Primary Aphonia documented in this encounter [facility] note* Diagnosis Chondroradionecrosis of larynx- Primary Disorder of airway Unspecified disease of respiratory system documented in this encounter [facility] note* Diagnosis Chondroradionecrosis of larynx- Primary Aphonia documented in this encounter [facility] note* Diagnosis Lymphedema- Primary Other lymphedema Chondroradionecrosis of larynx Disorder of airway Unspecified disease of respiratory system documented in this encounter [facility] note* Diagnosis Chondroradionecrosis of larynx- Primary Aphonia documented in this encounter [facility] note* Diagnosis Tracheostomy in place (HCC)- Primary Tracheostomy status Disorder of airway Unspecified disease of respiratory system Narrowing of airway Other diseases of respiratory system, not elsewhere classified Chondroradionecrosis of larynx documented in this encounter [facility] note* Diagnosis Preoperative examination- Primary Preoperative examination, unspecified Acquired hypothyroidism Unspecified hypothyroidism Aphonia Depression, controlled Depressive disorder, not elsewhere classified Nicotine use disorder, F17.2 Tobacco use disorder History of ETOH abuse Nondependent alcohol abuse, in remission Cirrhosis of liver without ascites, unspecified hepatic cirrhosis type (HCC) History of seizures as a child Deep vein thrombosis (DVT) of left lower extremity, unspecified chronicity, unspecified vein (HCC) Hyponatremia Hyposmolality and/or hyponatremia Hypertension, unspecified type S/P laryngectomy Other postprocedural status History of laryngeal cancer Personal history of malignant neoplasm of larynx Alcohol consumption four to six days per week Essential tremor Essential and other specified forms of tremor Pre-op testing Preoperative examination, unspecified [facility] Diagnosis Pre-op testing Preoperative examination, unspecified Pre-op testing Preoperative examination, unspecified documented in this encounter [facility] note* Diagnosis Aphonia- Primary History of laryngeal cancer Personal history of malignant neoplasm of larynx documented in this encounter [facility] note* Diagnosis S/P laryngectomy- Primary Other postprocedural status [facility] in this [facility]* Diagnosis Pre-op testing- Primary Preoperative examination, unspecified S/P laryngectomy Other postprocedural status Narrowing of airway Other diseases of respiratory system, not elsewhere classified documented in this encounter [facility] course Narrative No data available for this section [facility] Discharge instructions No data available for this section [facility] Note* GUERA HOFFMAN MD: SIGN, VERIFY Event Display: EKG [ED AOH] - CV Authored Date: [id number] [facility] Note* YAKOV ZARATE MD: SIGN, VERIFY Event Display: EKG [ED AOH] - CV Authored Date: [id number] [facility] Progress note No data available for this section [facility] Reason for referral (narrative)* Outpatient Procedure (Routine) - Pending Review Specialty Diagnoses / Procedures Referred By Paula t Referred To Contact [facility] Diagnoses Chondroradionecrosis of larynx Localized swelling, mass or lump of neck Neck mass Procedures ECG COMPLETE ECG ROUTINE ECG W/LEAST 12 LDS W/I&R Ngozi Barnes MD [address] [place] [address] [facility] [place] [address] [place] [address] Referral ID Status Reason Start Date Expiration Date Visits Requested Visits Authorized [id number] Pending Review Auto-Generat ed Referral 01/28/2022 01/28/2023 1 1 [facility] for referral (narrative)* Diagnostic Procedure Only (Routine) - Authorized Specialty Diagnoses / Procedures Referred By Contac t Referred To Contact XR IMAGING Diagnoses Chondroradionecrosis of larynx S/P laryngectomy Procedures XR ESOPHAGRAM RADIOLOGIC EXAM ESOPHAG[place] [address] [place] [address] Xr Imaging Referral ID Status Reason Start Date Expiration Date Visits Requested Visits Authorized [id number] Authorized Auto-Generat ed Referral 09/03/2022 09/19/2023 1 1 [facility] for referral (narrative)* Diagnostic Procedure Only (Routine) - Closed Specialty Diagnoses / Procedures Referred By Contac t Referred To Contact XR IMAGING Diagnoses Chondroradionecrosis of larynx S/P laryngectomy Procedures XR ESOPHAGRAM RADIOLOGIC EXAM ESOPHAGUS SINGLE CONTRAST STUDY Queenie Mares MD [address] [place] [address] Xr Imaging Referral ID Status Reason Start Date Expiration Date V isits Requested Visits Authorized [id number] Closed Auto-Generate d Referral 09/03/2022 09/19/2023 1 1 [facility] for referral (narrative)* Diagnostic Procedure Only (Routine) - Closed Specialty Diagnoses / Procedures Referred By Contac t Referred To Contact US IMAGING Diagnoses Pre-op testing Procedures US DVT LOWER LEFT DUP-SCAN XTR VEINS UNILATERAL/LIMITED STUDY Queenie Mares MD [address] [place] [address] Us Imaging [facility] Referral ID Status Reason Start Date Expiration Date V isits Requested Visits Authorized [id number] Closed Auto-Generate d Referral 06/17/2023 07/16/2024 1 1 [facility] for referral (narrative)* Diagnostic Procedure Only (Routine) - Closed Specialty Diagnoses / Procedures Referred By Contac t Referred To Contact US IMAGING Diagnoses Pre-op testing Procedures US DVT LOWER LEFT DUP-SCAN XTR VEINS UNILATERAL/LIMITED STUDY Queenie Mares MD [address] [place] [address] [facility] Imaging [place] [address] Referral ID Status Reason Start Date Expiration Date V isits Requested Visits Authorized [id number] Closed Auto-Generate d Referral 06/17/2023 07/16/2024 1 1 * Consult, Test, Treat (Routine) - Authorized Specialty Diagnoses / Procedures Referred By Contac t Referred To Contact Diagnoses Pre-op testing Procedures REFER TO PACC - PRE ANESTHESIA CONSULTATION CLINIC OFFICE/OUTPATIENT [facility] 60-74 MINUTES Queenie Mares MD [address] [place] [phone] Referral ID Status Reason Start Date Expiration Date Visits Requested Visits Authorized [id number] Authorized PCP Requested Referral 06/17/2023 06/16/2024 1 1 * Outpatient Procedure (Routine) - Closed Specialty Diagnoses / Procedures Referred By Contac t Referred To Contact [facility] Diagnoses Pre-op testing Procedures ECG COMPLETE ECG ROUTINE ECG W/LEAST 12 LDS W/I&R Queenie Mares MD [address] [place] [address] [facility] [address] [place] [address] Referral ID Status Reason Start Date Expiration Date V isits Requested Visits Authorized [id number] Closed Auto-Generate d Referral 06/17/2023 06/16/2024 1 [facility] Procedure Only (Routine) - Closed Specialty Diagnoses / Procedures Referred By Contac t Referred To Contact US IMAGING Diagnoses Pre-op testing Procedures US DVT LOWER LEFT DUP-SCAN XTR VEINS UNILATERAL/LIMITED STUDY Queenie Mares MD [address] [place] [phone] [facility] [place] [address] Referral ID Status Reason Start Date Expiration Date V isits Requested Visits Authorized [id number] Closed Auto-Generate d Referral 06/17/2023 07/16/2024 1 1 [facility] Summary Purpose Family History No Family History Records FoundNo Family History Records Found No data available for this section No Family History Records FoundNo Family History Records Found Advance Directives No Advanced Directives Records FoundDocuments on File Type Date Recorded 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 Ngozi Barnes MD [address] [place] [phone] Pt [facility] [address] [place] [phone] Referral ID Status Reason Start Date Expiration Date Visits Requested Visits Authorized [id number] Pending Review PCP Requested Referral Auto-Generate d Referral 12/15/2022 03/15/2023 1 1 Specialty Diagnoses / Procedures Referred By Contac t Referred To Contact [facility] Diagnoses Chondroradionecrosis of larynx Procedures CONSULT TO SPEECH THERAPY OFFICE/OUTPATIENT [facility] 60-74 MINUTES Ngozi Barnes MD [address] [place] [phone] [facility] [place] [address] [place] [address] Referral ID Status Reason Start Date Expiration Date Visits Requested Visits Authorized [id number] Pending Review Auto-Generat ed Referral 01/27/2022 01/27/2023 1 1 Specialty Diagnoses / Procedures Referred By Contanurag t Referred To Contact Ent - Otolaryngology Diagnoses Chondroradionecrosis of larynx Procedures CONSULT TO ENT OFFICE/OUTPATIENT [facility] 60-74 MINUTES Ngozi Barnes MD [address] [place] [address] Aron Platt MD [address] [place] [address] Referral ID Status Reason Start Date Expiration Date Visits Requested Visits Authorized [id number] Authorized PCP Requested Referral 01/27/2022 01/27/2023 1 1 Specialty Diagnoses / Procedures Referred By Paula michael Referred To Contact Nutrition Diagnoses Chondroradionecrosis of larynx Procedures CONSULT TO NUTRITION THERAPY OFFICE/OUTPATIENT [facility] 60-74 MINUTES Ngozi Barnes MD [address] [place] [address] Referral ID Status Reason Start Date Expiration Date Visits Requested Visits Authorized [id number] Authorized PCP Requested Referral 01/27/2022 01/27/2023 1 1 Additional Source Comments (unrecognized sect ion and content) No Status Records FoundNo Status Records FoundNo Status Records FoundNo Status Records Found INFORMATION SOURCE (unrecogn ized section and content) DATE CREATED AUTHOR AUTHOR'S ORGANIZ ATION 07/22/2021 [facility] DATE CREATED AUTHOR AUTHOR'S ORGANIZ ATION 04/11/2023 [facility] ([place]) DATE CREATED AUTHOR AUTHOR'S ORGANIZ ATION 09/09/2023 [facility] Source Comments (unrecognize d section and content) In the event this informatio n is protected by the Federal Confidentiality of Alcohol and Drug Abuse Patient Records regulations: The Federal rules restrict any use of the information to criminally investigate or prosecute any alcohol or drug abuse patient.[facility] the event this information is protected by the Federal Confidentiality of Alcohol and Drug Abuse Patient Records regulations: The Federal rules restrict any use of the information to criminally investigate or prosecute any alcohol or drug abuse patient.[facility] the event this information is protected by the Federal Confidentiality of Alcohol and Drug Abuse Patient Records regulations: The Federal rules restrict any use of the information to criminally investigate or prosecute any alcohol or drug abuse patient.[facility] the event this information is protected by the Federal Confidentiality of Alcohol and Drug Abuse Patient Records regulations: The Federal rules restrict any use of the information to criminally investigate or prosecute any alcohol or drug abuse patient.[facility] the event this information is protected by the Federal Confidentiality of Alcohol and Drug Abuse Patient Records regulations: The Federal rules restrict any use of the information to criminally investigate or prosecute any alcohol or drug abuse patient.[facility] the event this information is protected by the Federal Confidentiality of Alcohol and Drug Abuse Patient Records regulations: The Federal rules restrict any use of the information to criminally investigate or prosecute any alcohol or drug abuse patient.[facility] the event this information is protected by the Federal Confidentiality of Alcohol and Drug Abuse Patient Records regulations: The Federal rules restrict any use of the information to criminally investigate or prosecute any alcohol or drug abuse patient.[facility] the event this information is protected by the Federal Confidentiality of Alcohol and Drug Abuse Patient Records regulations: The Federal rules restrict any use of the information to criminally investigate or prosecute any alcohol or drug abuse patient.[facility] the event this information is protected by the Federal Confidentiality of Alcohol and Drug Abuse Patient Records regulations: The Federal rules restrict any use of the information to criminally investigate or prosecute any alcohol or drug abuse patient.[facility] the event this information is protected by the Federal Confidentiality of Alcohol and Drug Abuse Patient Records regulations: The Federal rules restrict any use of the information to criminally investigate or prosecute any alcohol or drug abuse patient.[facility] the event this information is protected by the Federal Confidentiality of Alcohol and Drug Abuse Patient Records regulations: The Federal rules restrict any use of the information to criminally investigate or prosecute any alcohol or drug abuse patient.[facility] the event this information is protected by the Federal Confidentiality of Alcohol and Drug Abuse Patient Records regulations: The Federal rules restrict any use of the information to criminally investigate or prosecute any alcohol or drug abuse patient.[facility] the event this information is protected by the Federal Confidentiality of Alcohol and Drug Abuse Patient Records regulations: The Federal rules restrict any use of the information to criminally investigate or prosecute any alcohol or drug abuse patient.[facility] the event this information is protected by the Federal Confidentiality of Alcohol and Drug Abuse Patient Records regulations: The Federal rules restrict any use of the information to criminally investigate or prosecute any alcohol or drug abuse patient.[facility] the event this information is protected by the Federal Confidentiality of Alcohol and Drug Abuse Patient Records regulations: The Federal rules restrict any use of the information to criminally investigate or prosecute any alcohol or drug abuse patient.[facility] the event this information is protected by the Federal Confidentiality of Alcohol and Drug Abuse Patient Records regulations: The Federal rules restrict any use of the information to criminally investigate or prosecute any alcohol or drug abuse patient.[facility] the event this information is protected by the Federal Confidentiality of Alcohol and Drug Abuse Patient Records regulations: The Federal rules restrict any use of the information to criminally investigate or prosecute any alcohol or drug abuse patient.[facility] the event this information is protected by the Federal Confidentiality of Alcohol and Drug Abuse Patient Records regulations: The Federal rules restrict any use of the information to criminally investigate or prosecute any alcohol or drug abuse patient.[facility] the event this information is protected by the Federal Confidentiality of Alcohol and Drug Abuse Patient Records regulations: The Federal rules restrict any use of the information to criminally investigate or prosecute any alcohol or drug abuse patient.[facility]edo[facility] the event this information is protected by the Federal Confidentiality of Alcohol and Drug Abuse Patient Records regulations: The Federal rules restrict any use of the information to criminally investigate or prosecute any alcohol or drug abuse patient.[facility] the event this information is protected by the Federal Confidentiality of Alcohol and Drug Abuse Patient Records regulations: The Federal rules restrict any use of the information to criminally investigate or prosecute any alcohol or drug abuse patient.[facility] the event this information is protected by the Federal Confidentiality of Alcohol and Drug Abuse Patient Records regulations: The Federal rules restrict any use of the information to criminally investigate or prosecute any alcohol or drug abuse patient.[facility] the event this information is protected by the Federal Confidentiality of Alcohol and Drug Abuse Patient Records regulations: The Federal rules restrict any use of the information to criminally investigate or prosecute any alcohol or drug abuse patient.[facility] the event this information is protected by the Federal Confidentiality of Alcohol and Drug Abuse Patient Records regulations: The Federal rules restrict any use of the information to criminally investigate or prosecute any alcohol or drug abuse patient.[facility] the event this information is protected by the Federal Confidentiality of Alcohol and Drug Abuse Patient Records regulations: The Federal rules restrict any use of the information to criminally investigate or prosecute any alcohol or drug abuse patient.[facility] the event this information is protected by the Federal Confidentiality of Alcohol and Drug Abuse Patient Records regulations: The Federal rules restrict any use of the information to criminally investigate or prosecute any alcohol or drug abuse patient.[facility] the event this information is protected by the Federal Confidentiality of Alcohol and Drug Abuse Patient Records regulations: The Federal rules restrict any use of the information to criminally investigate or prosecute any alcohol or drug abuse patient.[facility] the event this information is protected by the Federal Confidentiality of Alcohol and Drug Abuse Patient Records regulations: The Federal rules restrict any use of the information to criminally investigate or prosecute any alcohol or drug abuse patient.[facility] the event this information is protected by the Federal Confidentiality of Alcohol and Drug Abuse Patient Records regulations: The Federal rules restrict any use of the information to criminally investigate or prosecute any alcohol or drug abuse patient.[facility] the event this information is protected by the Federal Confidentiality of Alcohol and Drug Abuse Patient Records regulations: The Federal rules restrict any use of the information to criminally investigate or prosecute any alcohol or drug abuse patient.[facility] the event this information is protected by the Federal Confidentiality of Alcohol and Drug Abuse Patient Records regulations: The Federal rules restrict any use of the information to criminally investigate or prosecute any alcohol or drug abuse patient.[facility] the event this information is protected by the Federal Confidentiality of Alcohol and Drug Abuse Patient Records regulations: The Federal rules restrict any use of the information to criminally investigate or prosecute any alcohol or drug abuse patient.[facility] the event this information is protected by the Federal Confidentiality of Alcohol and Drug Abuse Patient Records regulations: The Federal rules restrict any use of the information to criminally investigate or prosecute any alcohol or drug abuse patient.[facility] the event this information is protected by the Federal Confidentiality of Alcohol and Drug Abuse Patient Records regulations: The Federal rules restrict any use of the information to criminally investigate or prosecute any alcohol or drug abuse patient.[facility] the event this information is protected by the Federal Confidentiality of Alcohol and Drug Abuse Patient Records regulations: The Federal rules restrict any use of the information to criminally investigate or prosecute any alcohol or drug abuse patient.[facility] the event this information is protected by the Federal Confidentiality of Alcohol and Drug Abuse Patient Records regulations: The Federal rules restrict any use of the information to criminally investigate or prosecute any alcohol or drug abuse patient.[facility] the event this information is protected by the Federal Confidentiality of Alcohol and Drug Abuse Patient Records regulations: The Federal rules restrict any use of the information to criminally investigate or prosecute any alcohol or drug abuse patient.[facility] the event this information is protected by the Federal Confidentiality of Alcohol and Drug Abuse Patient Records regulations: The Federal rules restrict any use of the information to criminally investigate or prosecute any alcohol or drug abuse patient.[facility] the event this information is protected by the Federal Confidentiality of Alcohol and Drug Abuse Patient Records regulations: The Federal rules restrict any use of the information to criminally investigate or prosecute any alcohol or drug abuse patient.[facility] the event this information is protected by the Federal Confidentiality of Alcohol and Drug Abuse Patient Records regulations: The Federal rules restrict any use of the information to criminally investigate or prosecute any alcohol or drug abuse patient.[facility] the event this information is protected by the Federal Confidentiality of Alcohol and Drug Abuse Patient Records regulations: The Federal rules restrict any use of the information to criminally investigate or prosecute any alcohol or drug abuse patient.[facility] the event this information is protected by the Federal Confidentiality of Alcohol and Drug Abuse Patient Records regulations: The Federal rules restrict any use of the information to criminally investigate or prosecute any alcohol or drug abuse patient.[facility] the event this information is protected by the Federal Confidentiality of Alcohol and Drug Abuse Patient Records regulations: The Federal rules restrict any use of the information to criminally investigate or prosecute any alcohol or drug abuse patient.[facility] Reason for Visit (unrecogniz ed section and content) Specialty Diagnoses / Procedures Referred By Paula michael Referred To Contact [facility] Diagnoses follow up Procedures follow up [facility] [address] [place] [address] Referral ID Status Reason Start Date Expiration Date V isits Requested Visits Authorized [id number] Closed OON/Self Pay Override 12/01/2022 05/30/2023 1 1 Specialty Diagnoses / Procedures Referred By Paula michael Referred To Contact Speech-Language Pathologist / SPEECH LANGUAGE PATHOLOGY Diagnoses Speech Therapy Procedures EST [facility] PATIENT Queenie Mares MD [address] [place] [phone] Kirti Perez, CCC-STRATEGIC PLANNING DIRECTOR [address] [place] [phone] Referral ID Status Reason Start Date Expiration Date Visits Re quested Visits Authorized [id number] Closed 08/15/2022 08/14/2023 1 1 Reason Comments Established Patient surgey discuss Reason Comments Results Reason Comments Film Reader - Other CARE CONTINUUM ADVISOR ASSESSMENT Reason Comments Patient Education Preop Education Film Reader Reason Comments Aphonia Specialty Diagnoses / Procedures Referred By Paula michael Referred To Contact Speech-Language Pathologist / SPEECH LANGUAGE PATHOLOGY Diagnoses Pre Op - Swallow Therapy Procedures NEW [facility]NI PATIENT Ngozi Barnes MD [address] [place] [phone] Jarad Cotton CCC-STRATEGIC PLANNING DIRECTOR [address] [place] [phone] Referral ID Status Reason Start Date Expiration Date Visits Re quested Visits Authorized [id number] Closed 08/15/2021 08/14/2022 1 1 Reason Comments Schedule Surgery Reason Comments Care Coordination Preop appointment an d direct admission Reason Comments Patient Question Reason Comments Orders Reason Comments Appointment Reason Comments Orders preop covid Reason Comments Pre-Op Visit Prep op surgery 07/23 Reason Comments Pre-Op Visit Specialty Diagnoses / Procedures Referred By Paula michael Referred To Contact Speech-Language Pathologist / SPEECH LANGUAGE PATHOLOGY Diagnoses Pre op Procedures NEW [facility]NI PATIENT Ngozi Barnes MD [address] [place] [id number] Kirti Perez, [facility]STRATEGIC PLANNING DIRECTOR [address] [id number] Referral ID Status Reason Start Date Expiration Date Visits Re quested Visits Authorized [id number] Closed 08/15/2021 08/14/2022 1 1 Reason Comments Patient Update Reason Comments Aphonia Specialty Diagnoses / Procedures Referred By Contac t Referred To Contact Speech-Language Pathologist / SPEECH LANGUAGE PATHOLOGY Diagnoses Add on OK per Wanda Procedures EST HNI PATIENT Olaf Lemus MD [address] [id number] Jarad Cotton, [facility]STRATEGIC PLANNING DIRECTOR [address] [place] [address] Referral ID Status Reason Start Date Expiration Date Visits Re quested Visits Authorized [id number] Closed 08/13/2022 11/11/2022 1 1 Reason Comments Follow Up Pos top laryngectomy reconstruction Reason Comments Established Patient Follow-Up Post op. P t. States he has experience tightness and labored breathing since surgery. Specialty Diagnoses / Procedures Referred By Contac t Referred To Contact Ent - Otolaryngology Diagnoses Chondroradionecrosis of larynx Procedures CONSULT TO ENT OFFICE/OUTPATIENT NEW HIGH MDM 60-74 MINUTES Ngozi Barnes MD [address] [place] [address] Aron Platt MD [address] [place] [address] Referral ID Status Reason Start Date Expiration Date V isits Requested Visits Authorized [id number] Closed PCP Requested Referral 01/27/2022 01/27/2023 1 1 Reason Comments Symptoms Leaking stoma Reason Comments [facility] HB6 Specialty Diagnoses / Procedures Referred By Contac t Referred To Contact XR IMAGING Diagnoses Chondroradionecrosis of larynx S/P laryngectomy Procedures XR ESOPHAGRAM RADIOLOGIC EXAM ESOPHAGUS SINGLE CONTRAST STUDY Queenie Mares MD [address] [place] [address] Xr Imaging Referral ID Status Reason Start Date Expiration Date V isits Requested Visits Authorized [id number] Closed Auto-Generate d Referral 09/03/2022 09/19/2023 1 1 Reason Comments Established Patient Pre op Specialty Diagnoses / Procedures Referred By Paula t Referred To Contact ADMITTING Diagnoses Chondroradionecrosis of larynx Procedures LARYNGECTOMY TOTAL W/O RADICAL NECK DISSECTION CONSTJ TRACHEOESOPHGL FSTL&INSJ SP PROSTH LARYNGECTOMY TOTAL W/O RADICAL NECK DISSECTION CREATION TRACHEOESOPHAGEAL FISTULA W/ INSERTION SPEECH PROSTHESIS [facility] [address] [place] [address] Referral ID Status Reason Start Date Expiration Date Visits Re quested Visits Authorized [id number] 1 1 Reason Comments Established Patient Post op. Pt. States he has minor issues with eating, drinking and swallowing. Pt. Also states he coughs up blood clots Specialty Diagnoses / Procedures Referred By Paula t Referred To Contact Speech-Language Pathologist / SPEECH LANGUAGE PATHOLOGY Diagnoses TEP device moving and liquid going into airway Procedures EST HNI PATIENT Kirti Perez Joann, CCC-STRATEGIC PLANNING DIRECTOR [address] [place] [address] Referral ID Status Reason Start Date Expiration Date Visits Re quested Visits Authorized [id number] Closed 08/15/2022 08/14/2023 1 1 Reason Comments Follow Up 5 month follow up, f shani swollen Reason Comments PT Eval Specialty Diagnoses / Procedures Referred By Paula michael Referred To Contact [facility] Diagnoses Chondroradionecrosis of larynx Disorder of airway Procedures CONSULT TO PHYSICAL THERAPY PHYSICAL THERAPY EVALUATION HIGH COMPLEX 45 MINS Ngozi Barnes MD [address] [place] [address] [facility] [address] [place] [address] Referral ID Status Reason Start Date Expiration Date V isits Requested Visits Authorized [id number] Closed Auto-Generate d Referral 12/13/2022 08/14/2023 1 1 Reason Comments Patient Education Pre-op Reason Comments Anesthesia Consult Reason Comments Post Op Reason Comments Follow Up Stoma is closing per Kirti [facility] Care Teams (unrecognized sec tion and content) 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 Start Date End Date Ngozi Braun [address] [place] [address] PCP - General Family Practice 06/18/21 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 Start Date End Date Ngozi Braun [address] [place] [address] PCP - General Family Practice 06/18/21 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 Start Date End Date Ngozi Braun [address] [place] [address] PCP - General Family Practice 06/18/21 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 Start Date End Date Ngozi Braun [address] [place] [address] PCP - General Family Practice 06/18/21 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 Start Date End Date Ngozi Braun [address] [place] [address] PCP - General Family Practice 06/18/21 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 Start Date End Date Ngozi Braun [address] [place] [address] PCP - General Family Practice 06/18/21 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 Start Date End Date Ngozi Braun [address] [place] [address] PCP - General Family Practice 06/18/21 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 Start Date End Date Ngozi Braun [address] [place] [address] PCP - General Family Medicine 06/18/21 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 Start Date End Date Ngozi Branu [address] [place] [address] PCP - General Family Medicine 06/18/21 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 Start Date End Date Aparna Ngozi Rimma [address] [place] [address] PCP - General Family Medicine 06/18/21 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 Start Date End Date Ngozi Braun [address] [place] [address] PCP - General Family Medicine 06/18/21 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 Start Date End Date Ngozi Braun [address] [place] [address] PCP - General Family Medicine 06/18/21 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 Start Date End Date Ngozi Braun [address] [place] [address] PCP - General Family Medicine 06/18/21 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 Start Date End Date Ngozi Braun [address] [place] [address] PCP - General Family Medicine 06/18/21 [place] [address] [place] [address] Specialty Film Reader Ent - Otolaryngology 01/29/22 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 Start Date End Date Ngozi Braun [address] [place] [address] PCP - General Family Medicine 06/18/21 [place] [address] [place] [address] Specialty Film Reader Ent - Otolaryngology 01/29/22 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 Start Date End Date Ngozi Braun [address] [place] [address] PCP - General Family Medicine 06/18/21 [place] [address] [place] [address] Specialty Film Reader Ent - Otolaryngology 01/29/22 [facility] Medicaid Community Resource 07/26/22 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 Start Date End Date Ngozi Braun DO [address] [place] [address] PCP - General Family Medicine 06/18/21 [place] [address] [place] [address] Specialty Film Reader Ent - Otolaryngology 01/29/22 [facility] Medicaid Community Resource 07/26/22 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 Start Date End Date Ngozi Braun DO [address] [place] [address] PCP - General Family Medicine 06/18/21 [place] [address] [facility] [place] [address] Specialty Film Reader Ent - Otolaryngology 01/29/22 [facility] Medicaid Community Resource 07/26/22 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 Start Date End Date Ngozi Braun DO [address] [place] [address] PCP - General Family Medicine 06/18/21 [place] [address] [place] [address] Specialty Film Reader Ent - Otolaryngology 01/29/22 [facility] Medicaid [facility] Resource 07/26/22 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 Start Date End Date Ngozi Braun DO [address] [place] [address] PCP - General Family Medicine 06/18/21 [place] [address] [place] [address] Specialty Film Reader Ent - Otolaryngology 01/29/22 [facility] Medicaid Community Resource 07/26/22 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 Start Date End Date Ngozi Braun, [address] [place] [address] PCP - General Family Medicine 06/18/21 [place] [address] [facility] [place] [address] Specialty Film Reader Ent - Otolaryngology 01/29/22 [facility] Medicaid Community Resource 07/26/22 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 Start Date End Date Ngozi Braun, [address] [place] [address] PCP - General Family Medicine 06/18/21 [place] [address] [facility] [place] [address] Specialty Film Reader Ent - Otolaryngology 01/29/22 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 Start Date End Date Ngozi Braun, DO [address] [place] [address] PCP - General Family Medicine 06/18/21 [place] [address] [place] [address] Specialty Film Reader Ent - Otolaryngology 01/29/22 [facility] Medicaid [facility] 07/26/22 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 Start Date End Date Ngozi Braun [address] [place] [address] PCP - General Family Medicine 06/18/21 [place] [address] [place] [address] Specialty Film Reader Ent - Otolaryngology 01/29/22 [facility] Medicaid Community Resource 07/26/22 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 Start Date End Date Ngozi Braun DO [address] [place] [address] PCP - General Family Medicine 06/18/21 [place] [address] [place] [address] Specialty Film Reader Ent - Otolaryngology 01/29/22 [facility] Medicaid Community Resource 07/26/22 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 Start Date End Date Ngozi Braun DO [address] [place] [address] PCP - General Family Medicine 06/18/21 [place] [address] [place] [address] Specialty Film Reader Ent - Otolaryngology 01/29/22 [facility] Medicaid [facility] Resource 07/26/22 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 Start Date End Date Ngozi Braun DO [address] [place] [address] PCP - General Family Medicine 06/18/21 [place] [address] [place] [address] Specialty Film Reader Ent - Otolaryngology 01/29/22 [facility] Medicaid [facility] Resource 07/26/22 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 Start Date End Date Ngozi Braun DO [address] [place] [address] PCP - General Family Medicine 06/18/21 [place] [address] [place] [address] Specialty Film Reader Ent - Otolaryngology 01/29/22 [facility] Medicaid Community Resource 07/26/22 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 Start Date End Date Ngozi Braun DO [address] [place] [address] PCP - General Family Medicine 06/18/21 Mariluz Reid, JOHN [address] [place] [address] Specialty Film Reader Ent - Otolaryngology 01/29/22 [facility] Medicaid Community Resource 07/26/22 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 Start Date End Date Ngozi Braun DO [address] [place] [address] PCP - General Family Medicine 06/18/21 Mariluz Reid, JOHN [address] [facility] [place] [address] Specialty Film Reader Ent - Otolaryngology 01/29/22 [facility] Medicaid [facility] Resource 07/26/22 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 Start Date End Date Ngozi Braun DO [address] [place] [address] PCP - General Family Medicine 06/18/21 [facility] Medicaid Community Resource 07/26/22 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 Start Date End Date Ngozi Braun DO [address] [place] [address] PCP - General Family Medicine 06/18/21 [facility] Medicaid Community Resource 07/26/22 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 Start Date End Date Ngozi Braun DO [address] [place] [address] PCP - General Family Medicine 06/18/21 [facility] Medicaid [facility] 07/26/22 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 Start Date End Date Ngozi Braun DO [address] [place] [address] PCP - General Family Medicine 06/18/21 Mariluz Reid, JOHN [address] [facility] [place] [address] Specialty Film Reader Ent - Otolaryngology 01/29/22 06/20/23 [facility] Medicaid [facility] 07/26/22 Care Team (unrecognized sect ion and content) Care Team Personnel Name: NGOZI BRAUN DO Position: P4 Physician - Primary Care Med Service: Active Provider Member Role: Primary Care Physician Address: Address: [address] [place] [address]- Name: EREN CARLSON MD Position: P4 Physician - Primary Care Med Service: SEAN Valderrama Role: Pain Management Address: Address: [address] [place] [address]- Name: Jessica Leon Position: Quality Review Member Role: Film Reader Care Team Related Persons Name: NO ONE AT THIS TIME, - Care Team Personnel Name: NGOZI BRAUN DO Position: P4 Physician - Primary Care Med Service: Active Provider Member Role: Primary Care Physician Address: Address: [address] [place] [address]- Name: EREN CARLSON MD Position: P4 Physician - Primary Care Med Service: SEAN Valderrama Role: Pain Management Address: Address: [address] [place] [address]- Name: Jessica Leon Position: Quality Review Member Role: Film Reader Care Team Related Persons Name: NO ONE AT THIS TIME, - Care Team Personnel Name: NGOZI BRAUN DO Position: P4 Physician - Primary Care Member Role: Primary Care Physician Address: Address: [address] [place] [address]- [place] Name: EREN CARLSON MD Position: P4 Physician - Primary Care Address: Address: [address] [place] [address] Name: Jessica Leon Position: Quality Review Member Role: Film Reader Care Team Related Persons Name: NO ONE AT THIS TIME, - Care Team Personnel Name: NGOZI BRAUN DO Position: P4 Physician - Primary Care Member Role: Primary Care Physician Address: Address: [address] [place] [address] Name: EREN CARLSON MD Position: P4 Physician - Primary Care Member Role: Pain Management Address: Address: [address] [place] [address] Name: Jessica Leon Position: Quality Review Member Role: Film Reader Name: NEO VASQUES MD Position: ED Physician Member Role: Attending Physician Address: Address: [facility] [address] [place] [address] Care Team Related Persons Name: NO ONE AT THIS TIME, - Care Team Personnel Name: NGOZI BRAUN DO Position: P4 Physician - Primary Care Member Role: Primary Care Physician Address: Address: [address] [place] [address] Name: EREN CARLSON MD Position: P4 Physician - Primary Care Member Role: Pain Management Address: Address: [address] [place] [address] Name: Jessica Leon Position: Quality Review Member Role: Film Reader Care Team Related Persons Name: NO ONE AT THIS TIME, - Care Team Personnel Name: NGOZI BRAUN DO Position: P4 Physician - Primary Care Member Role: Primary Care Physician Address: Address: [address] [place] [address] Name: EREN CARLSON MD Position: P4 Physician - Primary Care Member Role: Pain Management Address: Address: [address] [place] [address] Name: Jessica Leon Position: Quality Review Member Role: Film Reader Name: YAKOV ZARATE MD Position: ED Physician Member Role: Attending Physician Address: Address: [address] [place] [address] [address]- Care Team Related Persons Name: NO ONE AT THIS TIME, - Care Team Personnel Name: NGOZI BRAUN DO Position: P4 Physician - Primary Care Member Role: Primary Care Physician Address: Address: [address] [place] [address]- Name: EREN CARLSON MD Position: P4 Physician - Primary Care Member Role: Pain Management Address: Address: [address] [place] [address] [place] [address]- Name: Jessica Leon Position: Quality Review Member Role: Film Reader Name: Mirian Ortega RN Position: AO RN Member Role: ED RN Name: MD YENIFER CAIN MD Position: ED Physician Member Role: ED Physician Address: Address: [facility] [address] [place] [address]- Care Team Related Persons Name: NO ONE AT THIS TIME, - FOR RECORDS PERTAINING TO PATIENTS WHO ARE OR HAVE BEEN ENROLLED IN A CHEMICAL DEPENDENCY/SUBSTANCEABUSE PROGRAM, SOME INFORMATION MAY BE OMITTED. This clinical summary was aggregated from multiple sources. Caution should be exercised in using it in the provision of clinical care. This summary normalizes information from multiple sources, and as a consequence, information in this document may materially change the coding, format and clinical context of patient data. In addition, data may be omitted in some cases. CLINICAL DECISIONS SHOULD BE BASED ON THE PRIMARY CLINICAL RECORDS. [facility]. provides no warranty or guarantee of the accuracy or completeness of information in this document.
[2023-09-24 12:38] VITALS: BP 195/110; PULSE 73; RESP 14; O2SAT 96
--- NOTE | 2023-09-24 14:34 | ED.RN ---
elis called, eta 20 min (1500)
[2023-09-24 14:46] VITALS: BP 180/141; PULSE 74; RESP 18; O2SAT 100
== END 2023-09-24 15:15 | disposition short-term general hospital (02) ==
PROVIDERS: Emergency Provider Emergency Medicine; PCP Preventive Medicine Occupational Medicine; Visit Provider Emergency Medicine
DX: Z43.0 Encounter for attention to tracheostomy (principal); F17.210 Nicotine dependence, cigarettes, uncomplicated; Z85.21 Personal history of malignant neoplasm of larynx
CPT/HCPCS: 99283

== ENCOUNTER → 2023-11-16 | Outpatient (CLI) | payer MEDICAID, SELFPAY ==
[2023-11-16 11:28] LABS: Absolute Lymphocyte Count 0.52 X10^3/uL (0.83-4.51); Absolute Neutrophil Count 2.9 X10^3/uL (2.0-7.7); Basophil# 0.05 X10^3/uL; Basophil% 1.2 % (0-1); Eosinophils% 2.4 % (0-5); Hematocrit 41.6 % (40-54); Hemoglobin 13.8 g/dL (13.0-16.5); Lymphocyte # 0.52 X10^3/ul (0.83-4.51); Lymphocyte % 12.6 % (19-41); Mean Corp Hgb Conc 33.2 g/dL (32-36); Mean Corpuscular Hgb 33.9 pg (27.0-32.0); Mean Corpuscular Volume 102.2 fL (80-94); Mean Platelet Vol. 9.1 fl (6.2-12.0); Monocyte# 0.53 X10^3/uL; Monocyte% 12.9 % (0-10); NRBC Flagged by Analyzer 0 % (0-5); Neutrophil # 2.86 X10^3/uL (2.7-7.7); Neutrophil % 69.4 % (47-70); POSITIVE DIFFERENTIAL YES; Platelet Count 147 K/mm3 (150-450); RBC Distribution Width CV 14.7 % (11.6-14.6); RBC Distribution Width SD 54.9 fl (35.1-43.9); Red Blood Count 4.07 M/mm3 (4.6-6.2); White Blood Count 4.1 K/mm3 (4.4-11.0)
[2023-11-16 11:52] LABS: ALB/GLOB Ratio 0.7 RATIO (0.9-2.4); AST(SGOT) 55 U/L (15-37); Alanine Aminotransfer ALT/SGPT 31 U/L (16-61); Alkaline Phosphatase 120 U/L (45-117); Anion Gap 8 (5-15); BUN 5 mg/dL (7-18); BUN/Creat Ratio 6.2 RATIO (10-20); Bilirubin, Direct 0.27 mg/dL (0.00-0.30); Calcium,Total 8.2 mg/dL (8.5-10.1); Chloride 101 mmol/L (98-107); EST Glomerular Filtration Rate 107 mL/min (>60); Est Glom Filt Rate - Afr Amer 129 mL/min (>60); Globulin 4.1 g/dL (2.2-4.2); Glucose 89 mg/dL (74-106); Phosphorus 2.6 mg/dL (2.5-4.9); Potassium 3.4 mmol/L (3.5-5.1); Protein, Total 7.1 g/dL (6.4-8.2); Sodium Level 134 mmol/L (136-145)
[2023-11-16 12:28] LABS: Hepatitis C Antibody Non-Reactive (Nonreactive)
[2023-11-17 12:21] LABS: Vitamin B12 940 pg/mL (211-911)
== END | disposition home or self-care (01) ==
LOC: LAB 10:28
DX: L20.81 Atopic neurodermatitis (principal); F10.20 Alcohol dependence, uncomplicated; Y90.9 Presence of alcohol in blood, level not specified; G62.0 Drug-induced polyneuropathy; L29.8 Other pruritus; R60.0 Localized edema
CPT/HCPCS: 36415; 80053; 82248; 82607; 84100; 85025; 86803